=== PATIENT | male | born 1950 | race Caucasian/White ===

== ENCOUNTER 2020-04-14 07:52 | Outpatient (REF) | payer MEDICARE, SELFPAY ==
--- NOTE | ~2020-04-14 | XR_ITS ---
EXAMINATION: BILATERAL HIPS. CLINICAL INFORMATION: Bilateral hip pain. COMPARISON: None TECHNIQUE: 2 views each hip. FINDINGS: RIGHT HIP: There is a maintained right hip joint space without bony erosive changes or loose bodies. The soft tissues are normal. LEFT HIP: There is no visible acute fracture, dislocation or subluxation seen. No bony erosive changes. The soft tissues are normal. XR/XR hip RT min 2V IMPRESSION: Unremarkable bilateral hip exam.
--- NOTE | ~2020-04-14 | XR_ITS ---
EXAMINATION: BILATERAL HIPS. CLINICAL INFORMATION: Bilateral hip pain. COMPARISON: None TECHNIQUE: 2 views each hip. FINDINGS: RIGHT HIP: There is a maintained right hip joint space without bony erosive changes or loose bodies. The soft tissues are normal. LEFT HIP: There is no visible acute fracture, dislocation or subluxation seen. No bony erosive changes. The soft tissues are normal. XR/XR hip LT min 2V IMPRESSION: Unremarkable bilateral hip exam.
[2020-04-14 08:32] LABS: MANUAL DIFF FLAG NO
[2020-04-14 08:36] LABS: Basophils Absolute Auto 0.1 X10*3/uL (0.0-0.2); Basophils Percent Auto 0.8 % (0-2); Eosinophils Absolute Auto 0.4 X10*3/uL (0.0-0.4); Hematocrit 46.9 % (42-52); Hemoglobin 16.2 g/dl (14.0-18.0); Imm Gran Abs Auto 0.08 X10*3/uL (0.00-0.03); Lymphocytes Absolute Auto 2.9 X10*3/uL (1.2-4.9); Lymphocytes Percent Auto 34.7 % (20-40); Mean Corpuscular HGB Conc 34.5 g/dl (31.0-36.0); Mean Corpuscular Hemoglobin 31.2 pg (27.0-33.0); Mean Corpuscular Volume 90.2 fL (80-98); Mean Platelet Volume 9.4 fL (9.4-12.4); Monocytes Absolute Auto 0.8 X10*3/uL (0.1-1.2); Monocytes Percent Auto 9.6 % (2-11); Neutrophils Absolute Auto 4.1 X10*3/uL (2.0-8.3); Neutrophils Percent Auto 48.9 % (45-73); Platelet Count 206 X10*3/uL (160-400); Red Cell Distribution Width 12.6 % (11.0-16.0); White Blood Count 8.3 X10*3/uL (4.8-10.8)
[2020-04-14 09:01] LABS: Alanine Aminotransferase 36 U/L (0-40); Albumin Level 4.6 g/dL (3.5-5.0); Alkaline Phosphatase 72 U/L (39-117); Anion Gap 13 (12-20); Aspartate Amino Transferase 34 U/L (5-37); Bilirubin Total 0.6 mg/dL (0.0-1.0); Blood Urea Nitrogen 21 mg/dL (9-16); Calcium 9.5 mg/dL (8.4-10.2); Carbon Dioxide 29 mmol/L (22-29); Chloride 98 mmol/L (96-108); Cholesterol 167 mg/dL; Estimated Glomerular Filt Rate > 60; Glucose Random 163 mg/dL (60-115); HDL Cholesterol 36 mg/dL; LDL Cholesterol Calculated 76 mg/dl; Potassium 3.9 mmol/L (3.3-5.1); Sodium 136 mmol/L (135-145); Total Protein 7.9 g/dL (6.5-8.0); Triglycerides 276 mg/dL
[2020-04-14 09:01] LABS: Creatinine Urine 115.46 mg/dL; Microalbum/Creatinine Ratio Ur 13.8 ug/mg cr
[2020-04-14 09:23] LABS: Free T4 (Free Thyroxine) 0.93 ng/dL (0.71-1.85); Thyroid Stimulating Hormone 2.17 uIU/mL (0.32-4.0)
[2020-04-14 09:44] LABS: Folate 4.8 ng/mL (> or = 4.0); Vitamin B12 397 pg/mL (200-900)
== END 2020-04-14 07:53 | disposition home or self-care (01) ==
LOC: HO.LAB 07:52
PROVIDERS: PCP Internal Medicine; Visit Provider Internal Medicine
DX: M25.551 Pain in right hip (principal); M25.552 Pain in left hip; I10 Essential (primary) hypertension; E11.65 Type 2 diabetes mellitus with hyperglycemia; E78.00 Pure hypercholesterolemia, unspecified; Z12.5 Encounter for screening for malignant neoplasm of prostate; F41.9 Anxiety disorder, unspecified; F32.9 Major depressive disorder, single episode, unspecified
CPT/HCPCS: 36415; 73502; 80053; 80061; 82043; 82607; 82746; 84153; 84439; 84443; 85025

== ENCOUNTER → 2020-04-20 10:39 | Outpatient (BNVA) | payer MEDICARE, SELFPAY | PROVIDERS: PCP Internal Medicine; Visit Provider Internal Medicine | DX: E78.5 Hyperlipidemia, unspecified (principal); E11.9 Type 2 diabetes mellitus without complications; I10 Essential (primary) hypertension | CPT/HCPCS: 82947; 99202 ==

== ENCOUNTER → 2020-07-04 09:16 | Outpatient (BNVA) | payer MEDICARE, SELFPAY | PROVIDERS: PCP Internal Medicine; Visit Provider Dietitian, Registered | DX: E11.9 Type 2 diabetes mellitus without complications (principal) | CPT/HCPCS: 97802 ==

== ENCOUNTER → 2020-07-19 09:17 | Outpatient (BNVA) | payer MEDICARE, SELFPAY | PROVIDERS: PCP Internal Medicine; Visit Provider Internal Medicine | CPT/HCPCS: Q3014 ==

== ENCOUNTER 2020-08-03 07:43 | Outpatient (REF) | payer MEDICARE, SELFPAY ==
[2020-08-03 08:59] LABS: Alanine Aminotransferase 42 U/L (0-40); Albumin Level 4.4 g/dL (3.5-5.0); Alkaline Phosphatase 64 U/L (39-117); Anion Gap 13 (12-20); Aspartate Amino Transferase 35 U/L (5-37); Bilirubin Total 0.2 mg/dL (0.0-1.0); Blood Urea Nitrogen 17 mg/dL (9-16); Calcium 9.5 mg/dL (8.4-10.2); Carbon Dioxide 24 mmol/L (22-29); Chloride 105 mmol/L (96-108); Estimated Glomerular Filt Rate > 60; Glucose Random 137 mg/dL (60-115); Potassium 4.1 mmol/L (3.3-5.1); Sodium 138 mmol/L (135-145); Total Protein 7.4 g/dL (6.5-8.0)
[2020-08-03 09:07] LABS: Creatinine Urine 97.55 mg/dL
== END 2020-08-03 07:44 | disposition home or self-care (01) ==
LOC: HO.LAB 07:43
PROVIDERS: PCP Internal Medicine; Visit Provider Internal Medicine
DX: E55.9 Vitamin D deficiency, unspecified (principal); E11.65 Type 2 diabetes mellitus with hyperglycemia
CPT/HCPCS: 36415; 80053; 82306

== ENCOUNTER → 2020-08-15 08:37 | Outpatient (BNVA) | payer MEDICARE, SELFPAY | PROVIDERS: PCP Internal Medicine; Visit Provider Dietitian, Registered | DX: E11.9 Type 2 diabetes mellitus without complications (principal) | CPT/HCPCS: 97803 ==

== ENCOUNTER → 2020-10-31 08:45 | Outpatient (BNVA) | payer MEDICARE, SELFPAY | PROVIDERS: PCP Internal Medicine; Visit Provider Dietitian, Registered | DX: E11.9 Type 2 diabetes mellitus without complications (principal) | CPT/HCPCS: 97803 ==

== ENCOUNTER → 2021-02-22 13:45 | Outpatient (BNVA) | payer MEDICARE, SELFPAY | PROVIDERS: Visit Provider Internal Medicine | DX: E11.9 Type 2 diabetes mellitus without complications (principal); E78.5 Hyperlipidemia, unspecified; I10 Essential (primary) hypertension | CPT/HCPCS: 82947; 99212 ==

== ENCOUNTER 2021-07-05 07:31 | Outpatient (REF) | payer MEDICARE, SELFPAY ==
[2021-07-05 08:45] LABS: Alanine Aminotransferase 36 U/L (0-40); Albumin Level 4.7 g/dL (3.5-5.0); Alkaline Phosphatase 71 U/L (39-117); Anion Gap 13 (12-20); Aspartate Amino Transferase 33 U/L (5-37); Bilirubin Total 0.5 mg/dL (0.0-1.0); Blood Urea Nitrogen 15 mg/dL (9-16); Calcium 10.2 mg/dL (8.4-10.2); Carbon Dioxide 28 mmol/L (22-29); Chloride 101 mmol/L (96-108); Cholesterol 174 mg/dL; Estimated Glomerular Filt Rate > 60; Glucose Random 132 mg/dL (60-115); HDL Cholesterol 40 mg/dL; LDL Cholesterol Calculated 82 mg/dl; Sodium 138 mmol/L (135-145); Total Protein 7.8 g/dL (6.5-8.0); Triglycerides 260 mg/dL
[2021-07-05 09:14] LABS: Estimated Average Glucose 143 mg/dL; Hemoglobin A1c % 6.6 %
[2021-07-07 09:27] LABS: LDL Cholesterol Direct 99 mg/dL (<100)
== END 2021-07-05 07:32 | disposition home or self-care (01) ==
LOC: HO.LAB 07:31
PROVIDERS: PCP Internal Medicine; Visit Provider Internal Medicine
DX: E11.65 Type 2 diabetes mellitus with hyperglycemia (principal); Z79.4 Long term (current) use of insulin
CPT/HCPCS: 36415; 80053; 80061; 83036; 83721

== ENCOUNTER 2021-07-09 09:02 | Inpatient (IN) | payer MEDICARE, SELFPAY ==
[2021-07-09] VITALS (7 sets, daily range): BP systolic 124–152; BP diastolic 68–78; PULSE 94–120; RESP 15–20; TEMP 36.6–38.3; O2SAT 88–98; BMI 35.2
--- NOTE | ~2021-07-09 | XR_ITS ---
EXAMINATION: XR CHEST CLINICAL INFORMATION: Shortness of breath. COMPARISON: Chest done on 03/12/2019. TECHNIQUE: 2 views of the chest were obtained. FINDINGS: Prominent bronchovascular markings are present bilaterally, similar to prior study. The cardiac mediastinal silhouette is borderline enlarged, similar to prior study. No evidence of any new focal airspace disease to suspect pneumonia or pulmonary edema. There is no pleural effusion or pneumothorax. Postsurgical changes are noted within the lower cervical spine, unchanged. Increased midthoracic kyphosis and mild multilevel degenerative spondylosis appear stable. XR/XR chest 2V IMPRESSION: No radiographic evidence of acute cardiopulmonary disease, appears similar to prior study dated 03/12/2019.
[2021-07-09 10:13] LABS: COVID-19 Test Negative (Negative)
--- NOTE | 2021-07-09 10:14 | ED.URI ---
HPI - URI/Sore Throat General Chief Complaint: Upper Respiratory Symptoms Stated Complaint: FEVER,COUGH,? COVID/FLU,FULL VACC W/BOOSTER Time Seen by Provider: 07/09/21 09:11 Source: patient Mode of arrival: EMS Limitations: no limitations History of Present Illness HPI Narrative: Patient presents to the emergency department via EMS for evaluation of cough and shortness of breath. He reports he has been feeling this way for 3 days. His been having similar symptoms and tested positive for influenza a yesterday. He states that his fever today was as high as 105. He took Tylenol at 07:00. Reports a history of ?chronic pneumonia?. Denies headache, vision changes, neck pain, chest pain, palpitations, nausea, vomiting abdominal pain, dysuria, urinary frequency, constipation, diarrhea, weakness of the lower extremities pedal edema. He is feeling fatigued today but was able to walk and get about in his house. Related Data Home Medications Medication Instructions Recorded Confirmed pen needle, diabetic 31 gauge x #50 ea 05/03/20 04/02/2105/23 (BD Ultra-Fine Mini Pen Needle) Glucotrust 1 cap PO DAILY 07/09/21 07/09/21 fluticasone propionate 50 2 spray INTRANASAL BEDTIME 07/09/21 07/09/21 mcg/actuation nasal spray,suspension ibuprofen 800 mg tablet 800 mg PO TID 07/09/21 07/09/21 insulin aspart U-100 100 unit/mL See Protocol SUBCUT TIDAC 07/09/21 07/09/21 (3 mL) subcutaneous pen (Novolog Flexpen U-100 Insulin aspart) insulin degludec 100 unit/mL (3 50 unit SUBCUT BEDTIME 07/09/21 07/09/21 mL) subcutaneous pen (Tresiba FlexTouch U-100 insulin) liraglutide 0.6 mg/0.1 mL (18 mg/3 1.8 mg SUBCUT DAILY 07/09/21 07/09/21 mL) subcutaneous pen injector (Victoza 3-Christian) lorazepam 1 mg tablet 1 mg PO BEDTIME PRN 07/09/21 07/09/21 Previous Rx's Medication Instructions Recorded pen needle, diabetic 31 gauge x 1 ea SUBCUT QID 90 Days #360 ea 06/19/2005/23 (BD Ultra-Fine Mini Pen Needle) insulin syringe-needle U-100 1 mL #100 ea 06/21/20 25 gauge x 5/8 (BD Insulin Syringe) trazodone 150 mg tablet 150 mg PO BEDTIME #90 tab 07/04/20 pen needle, diabetic 32 gauge x #100 ea 07/19/20 1/4 (BD Ultra-Fine Micro Pen Needle) blood sugar diagnostic (FreeStyle #100 ea 11/01/20 Lite Strips) blood-glucose meter (FreeStyle #1 ea 11/01/20 Lite Meter) lisinopril 20 mg tablet 20 mg PO DAILY #90 tab 02/05/21 glucose 4 gram chewable tablet 4 g PO Q15M PRN #30 tab 03/30/21 (Dex4 Glucose) omeprazole 20 mg capsule,delayed 20 mg PO DAILY PRN 90 Days #90 cap 03/30/21 release rosuvastatin 40 mg tablet 40 mg PO DAILY #90 tab 03/30/21 empagliflozin 25 mg tablet 25 mg PO DAILY 30 Days #30 tab 04/04/21 (Jardiance) triamcinolone acetonide 0.5 % 1 appl TOPICAL BID #60 g 05/16/21 topical cream Allergies Allergy/AdvReac Type Severity Reaction Status Date / Time metformin Allergy Unknown Unknown Verified 04/02/21 07:58 Clindamycin HCl Allergy Unknown rash Uncoded 04/02/21 07:58 Review of Systems Review of Systems: Constitutional : Positive Fever, No Chills ENT/Mouth : No sore throat, No Rhinorrhea, No Swallowing Difficulty Eyes: No Eye Pain, No Swelling, No Redness Cardiovascular : No Chest Pain, positive SOB, No Orthopnea, now Edema Respiratory : Positive Cough, No Sputum, No Wheezing, positive dyspnea Gastrointestinal : No Nausea, No Vomiting, No Diarrhea, No abdominal Pain, No Hematochezia, No Melena Genitourinary : No Dysuria, No Urinary Frequency, No Hematuria Musculoskeletal : No joint pain, No Myalgias Skin : No Skin Lesions, No rash Neuro : No Weakness, No Numbness, No Dizziness, No Headache Psych : No Anxiety/Panic, No Depression Heme/Lymph: No Bruising, No Lymphadenopathy Endocrine : No Polyuria, No Polydipsia Yes all other systems are reviewed and are negative [facility] Past Medical History Attestation statement: The following information was validated with the patient. Source: old records reviewed Medical History Colon cancer GERD (gastroesophageal reflux disease) Hypercholesterolemia Hypertension Insomnia Narcolepsy Obesity Obstructive sleep apnea Osteomyelitis of cervical spine Postlaminectomy syndrome of cervical region Type 2 diabetes mellitus with hyperglycemia Vitamin D deficiency Surgical History History of colonoscopy History of spinal surgery Family History Family History Father Colon cancer Diabetes Hypertension Mother Paget's disease Diabetes Social History Social History Housing: House Alcohol intake: former Patient Tobacco Use Status: Former Tobacco user Cigarette Packs Per Day: 3 Years Smoked: 20 e-Cigarette/Vaping Use: Never Used Second Hand Smoke Exposure: No Advance Directives: No Advance Directives Information Provided: No Current occupational status: retired Physical Exam Vital Signs: Vital Signs: Last Vital Signs Temp 100.4 F 07/09/21 14:06 Pulse 109 H 07/09/21 14:06 Resp 18 07/09/21 14:06 BP 129/72 07/09/21 14:06 Pulse Ox 88 L 07/09/21 14:06 BMI result Body Mass Index 35.2 Vital signs have been reviewed and appeared to be correct. Blood pressure normal.? Tachycardia? tachypnea, RR 24 at time of exam. Febrile? Oxygen saturation normal. Appearance: Alert.?Oriented to person, place and time. No acute distress.?Normal affect. Eyes: Pupils equal, round and reactive to light.? ENT: Pharynx normal.?? Neck: Normal inspection.? Neck supple.?? CVS: Heart sounds normal. Tachycardia.? Pulses normal.?? Respiratory: Mild increased work of breathing.? Lung sounds diminished bilaterally. No wheezing. Abdomen: Soft and non-tender. Normoactive bowel sounds. ? Skin: Skin warm and dry.? Normal skin color.? ? Extremities: No lower extremity edema.? No calf ttp? Neuro: Moves all extremities spontaneously. Sensation intact bilaterally. CN II-XII intact. No focal neuro deficits. Ambulates with normal steady gait. Course Course Course Narrative: Patient is a 70-year-old male with a past medical history of colon cancer, GERD, hyperlipidemia, hypertension, narcolepsy, obstructive sleep apnea, type 2 diabetes presenting to the emergency department for evaluation of cough shortness of breath and suspicion for influenza infection. He has had symptoms for 3 days which are progressively worsening and is concerned that he may have developed pneumonia as this has occurred in the past. During my exam his O2 saturation remained at 99% room air while at rest, with exertion, moving in the stretcher, dropped to as low as 94%. He was tachypneic with respiratory rate of 24, febrile at 100.9, and tachycardic at 01:12 but I suspect that this is secondary to a viral infection, given his exposure to influenza. Do not suspect bacterial infection at this time. Will obtain CBC, BMP, COVID-19 and influenza testing, and chest x-ray to evaluate for consolidation/infiltrate, EKG and troponin, and Duonep updraft. Patient received Tylenol less than 3 hours prior to arrival, fever seems to be resolving, will continue to monitor. Patient will require ambulation O2 trial to assure maintenance of O2 saturation on exertion Reevaluation(s) Reevaluation #1: CBC is overall unremarkable. Troponin normal, EKG sinus tachycardia, ST depression in V4 and V5 T-wave inversion in III. no prior EKG available for review. Influenza A testing is positive. Chest x-ray with no acute cardiopulmonary disease. CMP undermarkable. Ambulatory O2 trial reveals an oxygen saturation remaining above 94%, heart rate up to 120's however, slow with unsteady gait. Time: 12:16 Reevaluation #2: Repeat troponin 7.2, therefore negative delta. While resting in room patient's O2 saturation dropped to as low as 88%, and 2 L via nasal cannula applied, with improvement up to 94. Significant weakness, difficulty getting OOB on his own. Spoke with Hospitalist Dr. Main, who accepts patient for admission to medicine service. Patient updated on plan of care and is agreeable for admission. Time: 14:20 MDM - URI/Sore Throat Medical Records Attestation: I reviewed the patient's medical records. Lab Data Attestation: I reviewed the patient's lab results. Result diagrams: 07/09/21 10:15 07/09/21 13:00 Labs: Lab Results 07/09/21 07/09/21 07/09/21 Range/Units 09:44 09:44 10:15 WBC 7.2 (4.8-10.8) X10*3/uL RBC 4.87 (4.60-5.80) X10*6/uL Hgb 15.0 (14.0-18.0) g/dl Hct 44.6 (42.0-52.0) % MCV 91.6 (80.0-98.0) fL MCH 30.8 (27.0-33.0) pg MCHC 33.6 (31.0-36.0) g/dl RDW 13.4 (11.0-16.0) % Plt Count 136 L (160-400) X10*3/uL MPV 9.2 L (9.4-12.4) fL Immature Gran % (Auto) 0.4 (0.0-0.4) % Neut % (Auto) 83.1 H (45-73) % Lymph % (Auto) 5.3 L (20-40) % [place] % (Auto) 9.6 (2-11) % Eos % (Auto) 1.3 (0-4) % Baso % (Auto) 0.3 (0-2) % Lymph # (Auto) 0.4 L (1.2-4.9) X10*3/uL [place] # (Auto) 0.7 (0.1-1.2) X10*3/uL Eos # (Auto) 0.1 (0.0-0.4) X10*3/uL Baso # (Auto) 0.0 (0.0-0.2) X10*3/uL Abs Immat Gran (auto) 0.03 (0.00-0.03) X10*3/uL Absolute Neuts (auto) 6.0 (2.0-8.3) x10*3/uL Absolute Nucleated RBC 0.000 (0.0-0.012) X10*3/uL Nucleated RBC % (auto) 0.0 (0.0-0.2) /100WBC Sodium (135-145) mmol/L Potassium (3.3-5.1) mmol/L Chloride (96-108) mmol/L Carbon Dioxide (22-29) mmol/L Anion Gap (12-20) BUN (9-16) mg/dL Creatinine (0.5-1.4) mg/dL Estim Creat Clear Calc Estimated GFR Random Glucose (60-115) mg/dL Calcium (8.4-10.2) mg/dL Total Bilirubin (0.0-1.0) mg/dL AST (5-37) U/L ALT (0-40) U/L Alkaline Phosphatase (39-117) U/L Total Creatine Kinase (38-174) U/L Troponin I High Sens (<3.5-35.0) ng/L Total Protein (6.5-8.0) g/dL Albumin (3.5-5.0) g/dL Procalcitonin ng/mL COVID-19 (JENNIFER) Negative (Negative) COVID-19 Clin Com See Note Influenza Type A (FLORINDA) Positive A (Negative) Influenza Type B (FLORINDA) Negative (Negative) Influenza A & B Note See Note 07/09/21 07/09/21 07/09/21 Range/Units 10:15 13:00 13:00 WBC (4.8-10.8) X10*3/uL RBC (4.60-5.80) X10*6/uL Hgb (14.0-18.0) g/dl Hct (42.0-52.0) % MCV (80.0-98.0) fL MCH (27.0-33.0) pg MCHC (31.0-36.0) g/dl RDW (11.0-16.0) % Plt Count (160-400) X10*3/uL MPV (9.4-12.4) fL Immature Gran % (Auto) (0.0-0.4) % Neut % (Auto) (45-73) % Lymph % (Auto) (20-40) % [place] % (Auto) (2-11) % Eos % (Auto) (0-4) % Baso % (Auto) (0-2) % Lymph # (Auto) (1.2-4.9) X10*3/uL [place] # (Auto) (0.1-1.2) X10*3/uL Eos # (Auto) (0.0-0.4) X10*3/uL Baso # (Auto) (0.0-0.2) X10*3/uL Abs Immat Gran (auto) (0.00-0.03) X10*3/uL Absolute Neuts (auto) (2.0-8.3) x10*3/uL Absolute Nucleated RBC (0.0-0.012) X10*3/uL Nucleated RBC % (auto) (0.0-0.2) /100WBC Sodium 139 (135-145) mmol/L Potassium 4.0 (3.3-5.1) mmol/L Chloride 106 (96-108) mmol/L Carbon Dioxide 24 (22-29) mmol/L Anion Gap 13 (12-20) BUN 11 (9-16) mg/dL Creatinine 0.93 (0.5-1.4) mg/dL Estim Creat Clear Calc 86.5 Estimated GFR > 60 Random Glucose 150 H (60-115) mg/dL Calcium 9.4 D (8.4-10.2) mg/dL Total Bilirubin 0.7 (0.0-1.0) mg/dL AST 43 H (5-37) U/L ALT 40 (0-40) U/L Alkaline Phosphatase 73 (39-117) U/L Total Creatine Kinase 736 H (38-174) U/L Troponin I High Sens 7.6 7.2 (<3.5-35.0) ng/L Total Protein 7.6 (6.5-8.0) g/dL Albumin 4.3 (3.5-5.0) g/dL Procalcitonin ng/mL COVID-19 (JENNIFER) (Negative) COVID-19 Clin Com Influenza Type A (FLORINDA) (Negative) Influenza Type B (FLORINDA) (Negative) Influenza A & B Note 07/09/21 Range/Units 13:00 WBC (4.8-10.8) X10*3/uL RBC (4.60-5.80) X10*6/uL Hgb (14.0-18.0) g/dl Hct (42.0-52.0) % MCV (80.0-98.0) fL MCH (27.0-33.0) pg MCHC (31.0-36.0) g/dl RDW (11.0-16.0) % Plt Count (160-400) X10*3/uL MPV (9.4-12.4) fL Immature Gran % (Auto) (0.0-0.4) % Neut % (Auto) (45-73) % Lymph % (Auto) (20-40) % [place] % (Auto) (2-11) % Eos % (Auto) (0-4) % Baso % (Auto) (0-2) % Lymph # (Auto) (1.2-4.9) X10*3/uL [place] # (Auto) (0.1-1.2) X10*3/uL Eos # (Auto) (0.0-0.4) X10*3/uL Baso # (Auto) (0.0-0.2) X10*3/uL Abs Immat Gran (auto) (0.00-0.03) X10*3/uL Absolute Neuts (auto) (2.0-8.3) x10*3/uL Absolute Nucleated RBC (0.0-0.012) X10*3/uL Nucleated RBC % (auto) (0.0-0.2) /100WBC Sodium (135-145) mmol/L Potassium (3.3-5.1) mmol/L Chloride (96-108) mmol/L Carbon Dioxide (22-29) mmol/L Anion Gap (12-20) BUN (9-16) mg/dL Creatinine (0.5-1.4) mg/dL Estim Creat Clear Calc Estimated GFR Random Glucose (60-115) mg/dL Calcium (8.4-10.2) mg/dL Total Bilirubin (0.0-1.0) mg/dL AST (5-37) U/L ALT (0-40) U/L Alkaline Phosphatase (39-117) U/L Total Creatine Kinase (38-174) U/L Troponin I High Sens (<3.5-35.0) ng/L Total Protein (6.5-8.0) g/dL Albumin (3.5-5.0) g/dL Procalcitonin 0.12 ng/mL COVID-19 (JENNIFER) (Negative) COVID-19 Clin Com Influenza Type A (FLORINDA) (Negative) Influenza Type B (FLORINDA) (Negative) Influenza A & B Note Imaging Data Chest x-ray: Radiologist's impression: XR/XR chest 2V IMPRESSION: No radiographic evidence of acute cardiopulmonary disease, appears similar to prior study dated 03/12/2019. ECG Data Attestation: I personally reviewed and interpreted this ECG as follows: ECG interpretation date: 07/09/21 ECG interpretation time: 12:20 Prior ECG tracings: not available for review Interpretation: Rate: 114 Rhythm:? sinus tachycardia Normal P waves.? Normal TERESO.?? Normal QRS complex.?? ST T wave :?? no ST elevation. ST depression in V4 and V5, T-wave inversion in III qTC: 469 prior studies:? none available for review The study has been interpreted contemporaneously by me. Discharge Plan Discharge Clinical Impression: Influenza A, Hypoxia, Generalized weakness Patient Disposition: Admitted As Inpatient
[2021-07-09] MEDS: Albuterol/Iprat 2.5/0.5MG 3 ML AMPUL.NEB INHALE (10:16)
--- NOTE | 2021-07-09 10:20 | ECG_ITS ---
Test Reason : DYSPNEA Blood Pressure : / mmHG Vent. Rate : 113 BPM Atrial Rate : 113 BPM P-R Int : 154 ms QRS Dur : 076 ms QT Int : 342 ms P-R-T Axes : -34 024 -29 degrees QTc Int : 469 ms Sinus tachycardia Septal infarct , age undetermined Abnormal ECG No previous ECGs available Referred By: Allyson Johnson Electronically Signed By:BETINA WALLS MD
[2021-07-09 10:21] LABS: MANUAL DIFF FLAG NO
[2021-07-09 10:27] LABS: Basophils Percent Auto 0.3 % (0-2); Eosinophils Absolute Auto 0.1 X10*3/uL (0.0-0.4); Eosinophils Percent Auto 1.3 % (0-4); Hematocrit 44.6 % (42.0-52.0); Imm Gran Abs Auto 0.03 X10*3/uL (0.00-0.03); Imm Gran Pct Auto 0.4 % (0.0-0.4); Lymphocytes Absolute Auto 0.4 X10*3/uL (1.2-4.9); Lymphocytes Percent Auto 5.3 % (20-40); Mean Corpuscular HGB Conc 33.6 g/dl (31.0-36.0); Mean Corpuscular Hemoglobin 30.8 pg (27.0-33.0); Mean Corpuscular Volume 91.6 fL (80.0-98.0); Mean Platelet Volume 9.2 fL (9.4-12.4); Monocytes Absolute Auto 0.7 X10*3/uL (0.1-1.2); Monocytes Percent Auto 9.6 % (2-11); Neutrophils Percent Auto 83.1 % (45-73); Platelet Count 136 X10*3/uL (160-400); Red Blood Count 4.87 X10*6/uL (4.60-5.80); Red Cell Distribution Width 13.4 % (11.0-16.0); White Blood Count 7.2 X10*3/uL (4.8-10.8)
[2021-07-09 10:36] LABS: IDNOW Serial# 55D5AD1C
[2021-07-09 10:37] LABS: Influenza A Positive (Negative); Influenza B2 Negative (Negative)
--- NOTE | 2021-07-09 11:02 | PC.NURSE ---
Pt A&Ox3, lungs with crackles in the bases, febril eand ST at this time. Given 975mg of tylenol at 0700 by . is Flu positive. Swabs sent, call negron within reach. Will continue to monitor.
[2021-07-09 11:31] LABS: Troponin-I High Sensitivity 7.6 ng/L (<3.5-35.0)
[2021-07-09 13:22] LABS: Alanine Aminotransferase 40 U/L (0-40); Albumin Level 4.3 g/dL (3.5-5.0); Alkaline Phosphatase 73 U/L (39-117); Anion Gap 13 (12-20); Aspartate Amino Transferase 43 U/L (5-37); Bilirubin Total 0.7 mg/dL (0.0-1.0); Blood Urea Nitrogen 11 mg/dL (9-16); Calcium 9.4 mg/dL (8.4-10.2); Carbon Dioxide 24 mmol/L (22-29); Chloride 106 mmol/L (96-108); Creatinine Clr Calc Pharmacy 86.5; Estimated Glomerular Filt Rate > 60; Glucose Random 150 mg/dL (60-115); Sodium 139 mmol/L (135-145); Total Protein 7.6 g/dL (6.5-8.0)
[2021-07-09 13:28] LABS: Troponin-I High Sensitivity 7.2 ng/L (<3.5-35.0)
--- NOTE | 2021-07-09 14:10 | PC.NURSE ---
Pt O2 sat 88% on room air, provider made aware, placed on 2L NC at this time. Pt offers no complaints. Will continue to monitor.
--- NOTE | 2021-07-09 14:29 | PM.IMHP ---
History of Present Illness Date of Service: 07/09/21 Chief Complaint: fever 70yo M with hx colon CA s/p excision, DM2, HTN, and HLD presenting with 3 days of fever to either 100.5 or 105 [he is unable to clarify which], dry cough, dyspnea, and malaise. His is also ill with similar symptoms and tested positive for influenza A yesterday. He did receive the flu vaccine this past fall. He took APAP at 07:00 this AM. He was brought in by EMS and found to be febrile to 100.9 with tarhycardia [112] and tachypnea [24] and mild hypoxia, SaO2 88. CXR negative for infiltrate. Influenza A is positive. EKG shows sinus tachycardia with lateral ST depressions. High-tensitivity troponin-I flat at 7.6/7.2. Review of Systems Review of Systems: Yes all other systems are reviewed and are negative REPLACED BY [facility] Medical History Colon cancer GERD (gastroesophageal reflux disease) Hypercholesterolemia Hypertension Insomnia Narcolepsy Obesity Obstructive sleep apnea Osteomyelitis of cervical spine Postlaminectomy syndrome of cervical region Type 2 diabetes mellitus with hyperglycemia Vitamin D deficiency Family History Father Colon cancer Diabetes Hypertension Mother Paget's disease Diabetes Surgical History History of colonoscopy History of spinal surgery Social History Household Members: Spouse and Family Housing: House Do you presently have visiting nurse or other home services: No Alcohol intake: former Patient Tobacco Use Status: Former Tobacco user Cigarette Packs Per Day: 3 Years Smoked: 20 e-Cigarette/Vaping Use: Never Used Second Hand Smoke Exposure: No service: No Current occupational status: disabled Meds Allergies Allergy/AdvReac Type Severity Reaction Status Date / Time metformin Allergy Unknown Unknown Verified 04/02/21 07:58 Clindamycin HCl Allergy Unknown rash Uncoded 04/02/21 07:58 Active Medications: Current Medications Dextrose (Dextrose 50 % 25 Gm/50 Ml Syringe) 25 gm IVPUSH Q15M PRN; Protocol PRN Reason: per Hypoglycemia Standing Ord. Glucose (Glucose Gel 15 Gm Gel..Gram.) 15 gm PO Q15M PRN; Protocol PRN Reason: per Hypoglycemia Standing Ord. Guaifenesin/Dextromethorphan (Guaifenesin Dm 100/10/5 Ml 5 Ml Syrup) 5 ml PO Q4H PRN PRN Reason: Cough Insulin Human Lispro (Insulin Lispro 100 Unit/Ml 3 Ml Vial) 0 unit SUBCUT QIDACHS RADHA; Protocol Oseltamivir Phosphate (Oseltamivir Phosphate 75 Mg Capsule) 75 mg PO Q12H RADHA Stop: 07/14/21 02:31 Pharmacy Consult (Consult Rx Perform Med Rec) 1 each MISCELLANE STAT STA Stop: 07/09/21 14:24 Home Medications Medication Instructions Recorded Confirmed Last Taken Type pen needle, diabetic 31 gauge x #50 ea 05/03/20 07/12/21 Unknown History 3/16 (BD Ultra-Fine Mini Pen Needle) Glucotrust 1 cap PO DAILY 07/09/21 07/12/21 07/08/21 History fluticasone propionate 50 2 spray INTRANASAL BEDTIME 07/09/21 07/12/21 07/08/21 History mcg/actuation nasal spray,suspension insulin aspart U-100 100 unit/mL See Protocol SUBCUT TIDAC 07/09/21 07/12/21 07/08/21 History (3 mL) subcutaneous pen (Novolog Flexpen U-100 Insulin aspart) insulin degludec 100 unit/mL (3 50 unit SUBCUT BEDTIME 07/09/21 07/12/21 07/08/21 History mL) subcutaneous pen (Tresiba FlexTouch U-100 insulin) liraglutide 0.6 mg/0.1 mL (18 mg/3 1.8 mg SUBCUT DAILY 07/09/21 07/12/21 07/08/21 History mL) subcutaneous pen injector (Victoza 3-Christian) lorazepam 1 mg tablet 1 mg PO BEDTIME PRN 07/09/21 07/12/21 07/08/21 History Physical Exam Vital Signs and Narrative: Vital Signs: Last Vital Signs Temp 100.4 F 07/09/21 14:06 Pulse 109 H 07/09/21 14:06 Resp 18 07/09/21 14:06 BP 129/72 07/09/21 14:06 Pulse Ox 88 L 07/09/21 14:06 BMI result Body Mass Index 35.2 Gen: ill-appering HEENT: sclera anicteric, moist mucus membranes Neck: supple Lungs: clear to auscultation bilaterally Heart: tachycardic, no murmurs Abd: soft, obese, non-tender, non-distended Ext: no edema Skin: warm/well-perfused Neuro: alert and oriented x3, no focal findings Psych: appropriate affect Results Labs CBC and Chem 7: 07/10/21 06:46 07/10/21 06:46 Labs: Laboratory Results - last 24 hr 07/09/21 07/09/21 07/09/21 09:44 09:44 10:15 MCV 91.6 MCH 30.8 MCHC 33.6 RDW 13.4 Plt Count 136 L MPV 9.2 L Immature Gran % (Auto) 0.4 Neut % (Auto) 83.1 H Lymph % (Auto) 5.3 L [place] % (Auto) 9.6 Eos % (Auto) 1.3 Baso % (Auto) 0.3 Lymph # (Auto) 0.4 L [place] # (Auto) 0.7 Eos # (Auto) 0.1 Baso # (Auto) 0.0 Abs Immat Gran (auto) 0.03 Absolute Neuts (auto) 6.0 Absolute Nucleated RBC 0.000 Nucleated RBC % (auto) 0.0 Anion Gap Estim Creat Clear Calc Estimated GFR Random Glucose Calcium Total Bilirubin AST ALT Alkaline Phosphatase Troponin I High Sens Total Protein Albumin COVID-19 (JENNIFER) Negative COVID-19 Clin Com See Note Influenza Type A (FLORINDA) Positive A Influenza Type B (FLORINDA) Negative Influenza A & B Note See Note 07/09/21 07/09/21 07/09/21 10:15 13:00 13:00 MCV MCH MCHC RDW Plt Count MPV Immature Gran % (Auto) Neut % (Auto) Lymph % (Auto) [place] % (Auto) Eos % (Auto) Baso % (Auto) Lymph # (Auto) [place] # (Auto) Eos # (Auto) Baso # (Auto) Abs Immat Gran (auto) Absolute Neuts (auto) Absolute Nucleated RBC Nucleated RBC % (auto) Anion Gap 13 Estim Creat Clear Calc 86.5 Estimated GFR > 60 Random Glucose 150 H Calcium 9.4 D Total Bilirubin 0.7 AST 43 H ALT 40 Alkaline Phosphatase 73 Troponin I High Sens 7.6 7.2 Total Protein 7.6 Albumin 4.3 COVID-19 (JENNIFER) COVID-19 Clin Com Influenza Type A (FLORINDA) Influenza Type B (FLORINDA) Influenza A & B Note Imaging Radiologist's Impressions: Impressions Chest X-Ray 07/09/21 10:10 IMPRESSION: No radiographic evidence of acute cardiopulmonary disease, appears similar to prior study dated 03/12/2019. Assessment and Plan (1) Influenza A: Status: Acute (2) Hypoxia: Status: Resolved Plan 70yo M with hx colon CA, DM2, HTN, and HLD presenting with fever, cough, dypsnea, and hypoxia from influenza A infection # acute hypoxic respiratory failure - admit to M/S, supplemental O2, wean as tolerated # viral sepsis due to influenza A - oseltamivir x5d, droplet precautions, watch for bacterial superinfection- check PCT + BCx # HTN - continue lisionpril # HLD - continue statin # DM2 - well-controlled with A1c of 5.9 at office visit 03/30/21. give basal/bolus insulin. hold OHGs # GERD - continue PPI # mood disorder - continue lorazepam, trazodone, duloxetine # VTE ppx - SCDs, LMWH Quality Stroke Does the patient have a stroke diagnosis?: No VTE Prior VTE?: No VTE Risk Level:: Medical - moderate - high VTE Device Contraindication: N/A - Device Ordered VTE Drug Contraindication: N/A - Med Ordered
[2021-07-09 15:00] LABS: Procalcitonin 0.12 ng/mL
--- NOTE | 2021-07-09 15:35 | PHA.MEDREC ---
Pharmacy Consult ? Medication Reconciliation Pharmacy has completed the medication reconciliation. Spoke with patient in the ED. Pt no longer takes duloxetine due to side effects. He did not take any medications today
[2021-07-09] MEDS: Enoxaparin Sodium 40 MG/0.4 ML SYRINGE SUBCUT (16:32)
[2021-07-09] MEDS: Lactated Ringers 1,000 ML 80 ML IVCONT (16:32)
[2021-07-09] MEDS: Oseltamivir Phosphate 75 MG CAPSULE PO (16:32)
[2021-07-09] MEDS: 0.9 % Sodium Chloride Flush 3 ML SYRINGE IVFLUSH (16:32)
[2021-07-09 16:52] LABS: Glucose, Whole Blood 133 mg/dL (60-115)
[2021-07-09 21:32] LABS: Glucose, Whole Blood 140 mg/dL (60-115)
[2021-07-09] MEDS: traZODone HCL 50 MG TABLET 150 MG PO (23:04)
[2021-07-09] MEDS: LORazepam 1 MG TABLET PO (23:04)
[2021-07-10] MEDS: Oseltamivir Phosphate 75 MG CAPSULE PO ×2 (03:15→15:13)
[2021-07-10] MEDS: Lactated Ringers 1,000 ML 80 ML IVCONT ×2 (03:15→15:14)
[2021-07-10 03:40] VITALS: BP 121/68; PULSE 94; RESP 20; TEMP 37.1; O2SAT 95
[2021-07-10 07:18] LABS: Hemoglobin 15.1 g/dl (14.0-18.0); Mean Corpuscular HGB Conc 34.3 g/dl (31.0-36.0); Mean Corpuscular Hemoglobin 31.3 pg (27.0-33.0); Mean Corpuscular Volume 91.1 fL (80.0-98.0); Mean Platelet Volume 9.4 fL (9.4-12.4); Platelet Count 143 X10*3/uL (160-400); Red Blood Count 4.83 X10*6/uL (4.60-5.80); Red Cell Distribution Width 13.6 % (11.0-16.0)
[2021-07-10 07:33] LABS: Glucose, Whole Blood 129 mg/dL (60-115)
[2021-07-10 07:34] LABS: Anion Gap 15 (12-20); Blood Urea Nitrogen 14 mg/dL (9-16); Carbon Dioxide 23 mmol/L (22-29); Chloride 102 mmol/L (96-108); Creatinine Clr Calc Pharmacy 103.1; Estimated Glomerular Filt Rate > 60; Glucose Random 124 mg/dL (60-115); Potassium 3.6 mmol/L (3.3-5.1); Sodium 136 mmol/L (135-145)
[2021-07-10 07:41] VITALS: BP 119/76; PULSE 84; RESP 19; TEMP 37.4; O2SAT 96
[2021-07-10] MEDS: 0.9 % Sodium Chloride Flush 3 ML SYRINGE IVFLUSH ×3 (08:07→20:29)
[2021-07-10] MEDS: Acetaminophen 325 MG TABLET 650 MG PO ×2 (08:07→15:13)
--- NOTE | 2021-07-10 08:43 | MHC.CM.PN ---
CM met with Patient at bedside and addressed IMM with him, providing him with the original and placing a copy on the chart. Patient lives in a house with his /HCP/Itzel, Son, Daughter and 2 Grandsons and he required no services nor DME [employer]. Home/no services is the goal and CM has initiated and will follow for dc planning. Patient has received Pfizer vax X3 and his PCP is Dr. Soto Santos.
[2021-07-10] MEDS: Loperamide HCl 2 MG CAPSULE 4 MG PO (10:43)
[2021-07-10 11:05] LABS: Glucose, Whole Blood 150 mg/dL (60-115)
[2021-07-10 11:16] VITALS: BP 132/78; PULSE 76; RESP 25; TEMP 35.7; O2SAT 97
--- NOTE | 2021-07-10 12:37 | P.PNIM_ITS ---
Subjective Subjective Date of Service: 07/10/21 Interval History: Complaining of profuse diarrhea, denies blood or dark colored stools, complaining of mild abdominal discomfort no fever chills, denies nausea, no vomiting, unable to hold stools, tolerating diet. 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 Review of Systems: Yes all other systems are reviewed and are negative Physical Exam Vital Signs: Vital Signs: Last Vital Signs Temp 96.3 F L 07/10/21 11:16 Pulse 76 07/10/21 11:16 Resp 25 H 07/10/21 11:16 BP 132/78 07/10/21 11:16 Pulse Ox 97 07/10/21 11:16 BMI result Body Mass Index 35.2 Const: Other: Gen: Awake alert, ill-appering HEENT: sclera anicteric, moist mucus membranes Neck: supple, no JVD Lungs: clear to auscultation bilaterally Heart: Regular,no murmurs Abd: soft, obese, mild lower abdominal tenderness with deep palpation, no guarding no rigidity, nondistended Ext: no edema Skin: warm/well-perfused Neuro: alert and oriented x3, no focal findings Psych: appropriate affect ? Objective Data Active Medications Acetaminophen (Acetaminophen 325 Mg Tablet) 650 mg PO Q6H PRN PRN Reason: Pain, Mild (Pain Scale 1-3) Last Admin: 07/10/21 08:07 Dose: 650 mg Documented by: DEMARCO Dextrose (Dextrose 50 % 25 Gm/50 Ml Syringe) 25 gm IVPUSH Q15M PRN; Protocol PRN Reason: per Hypoglycemia Standing Ord. Enoxaparin Sodium (Enoxaparin Sodium 40 Mg/0.4 Ml Syringe) 40 mg SUBCUT Q24H [facility] Last Admin: 07/09/21 16:32 Dose: 40 mg Documented by: TOD Glucose (Glucose Gel 15 Gm Gel..Gram.) 15 gm PO Q15M PRN; Protocol PRN Reason: per Hypoglycemia Standing Ord. Guaifenesin/Dextromethorphan (Guaifenesin Dm 100/10/5 Ml 5 Ml Syrup) 5 ml PO Q4H PRN PRN Reason: Cough Lactated Ringer's (Lr) 1,000 mls @ 80 mls/hr IVCONT .[id number] [facility] Last Admin: 07/10/21 03:15 Dose: 80 mls/hr Documented by: ROB Insulin Human Lispro (Insulin Lispro 100 Unit/Ml 3 Ml Vial) 0 unit SUBCUT [facility]; Protocol Last Admin: 07/10/21 12:05 Dose: Not Given Documented by: DEMARCO Non-Admin Reason: No Insulin Coverage Lorazepam (Lorazepam 1 Mg Tablet) 1 mg PO BEDTIME PRN PRN Reason: Anxiety Last Admin: 07/09/21 23:04 Dose: 1 mg Documented by: ROB Ondansetron HCl (Ondansetron Hcl 4 Mg/2 Ml Vial) 4 mg IVPUSH Q8H PRN PRN Reason: Nausea and Vomiting Oseltamivir Phosphate (Oseltamivir Phosphate 75 Mg Capsule) 75 mg PO Q12H [facility] Stop: 07/14/21 02:31 Last Admin: 07/10/21 03:15 Dose: 75 mg Documented by: ROB Sodium Chloride (0.9 % Sodium Chloride Flush 3 Ml Syringe) 3 ml IVFLUSH QSHIFT [facility] Last Admin: 07/10/21 08:07 Dose: 3 ml Documented by: DEMARCO Trazodone HCl (Trazodone Hcl 50 Mg Tablet) 150 mg PO BEDTIME [facility] Last Admin: 07/09/21 23:04 Dose: 150 mg Documented by: ROB Comments: bria Dodson ok to give now Labs CBC & Chem 7: 07/10/21 06:46 07/10/21 06:46 Labs: Laboratory Results - last 24 hr 07/09/21 07/09/21 07/09/21 13:00 13:00 13:00 MCV MCH MCHC RDW Plt Count MPV Absolute Nucleated RBC Nucleated RBC % (auto) Anion Gap 13 Estim Creat Clear Calc 86.5 Estimated GFR > 60 POC Glucose Random Glucose 150 H Calcium 9.4 D Total Bilirubin 0.7 AST 43 H ALT 40 Alkaline Phosphatase 73 Total Creatine Kinase 736 H Troponin I High Sens 7.2 Total Protein 7.6 Albumin 4.3 Procalcitonin 0.12 07/09/21 07/09/21 07/10/21 16:40 21:27 06:46 MCV 91.1 MCH 31.3 MCHC 34.3 RDW 13.6 Plt Count 143 L MPV 9.4 Absolute Nucleated RBC 0.000 Nucleated RBC % (auto) 0.0 Anion Gap Estim Creat Clear Calc Estimated GFR POC Glucose 133 H 140 H Random Glucose Calcium Total Bilirubin AST ALT Alkaline Phosphatase Total Creatine Kinase Troponin I High Sens Total Protein Albumin Procalcitonin 07/10/21 07/10/21 07/10/21 06:46 07:27 10:54 MCV MCH MCHC RDW Plt Count MPV Absolute Nucleated RBC Nucleated RBC % (auto) Anion Gap 15 Estim Creat Clear Calc 103.1 Estimated GFR > 60 POC Glucose 129 H 150 H Random Glucose 124 H Calcium 9.0 Total Bilirubin AST ALT Alkaline Phosphatase Total Creatine Kinase Troponin I High Sens Total Protein Albumin Procalcitonin Assessment and Plan (1) Influenza A: Status: Acute (2) Hypoxia: Status: Acute (3) Generalized weakness: Status: Acute (4) Obesity: Status: Acute (5) Hypertension: Status: Acute (6) Hypercholesterolemia: Status: Acute Plan 70yo M with hx colon CA, DM2, HTN, and HLD presenting with fever, cough, dypsnea, and hypoxia from influenza A infection # acute hypoxic respiratory failure - not on home oxygen currently on 2 L finger oximetry 97% will wean oxygen as tolerated # viral sepsis due to influenza A tachycardia and fever improved, mild tachypnea - oseltamivir x5d, droplet precautions, watch for bacterial superinfection- PCT 0.12 , blood cultures x2 pending # profuse diarrhea will check stool for culture and for C diff, question related to Tamiflu , continue supportive care, Imodium as needed # HTN - continue lisionpril, BP stable # HLD - continue statin # DM2 - well-controlled with A1c of 5.9 at office visit 03/30/21.? give basal/bolus insulin, continue to hold oral hypoglycemics # GERD - continue PPI # mood disorder - continue lorazepam, trazodone, duloxetine # mild thrombocytopenia question related to viral infection, follow CBC # obesity will recommend low-calorie diet # VTE ppx - SCDs, LMWH Quality Stroke Does the patient have a stroke diagnosis?: No VTE Prior VTE?: No VTE Risk Level:: Medical - moderate - high VTE Device Contraindication: N/A - Device Ordered VTE Drug Contraindication: N/A - Med Ordered
[2021-07-10] MEDS: Enoxaparin Sodium 40 MG/0.4 ML SYRINGE SUBCUT (15:13)
[2021-07-10 15:30] VITALS: BP 126/69; PULSE 83; RESP 18; TEMP 37.1; O2SAT 98
[2021-07-10 15:37] LABS: Glucose, Whole Blood 153 mg/dL (60-115)
[2021-07-10] MEDS: Insulin Lispro 100 UNIT/ML 3 ML VIAL SUBCUT (16:41)
[2021-07-10 19:20] VITALS: BP 132/72; PULSE 87; RESP 18; TEMP 36.7; O2SAT 95
[2021-07-10 20:04] LABS: Glucose, Whole Blood 124 mg/dL (60-115)
[2021-07-10] MEDS: traZODone HCL 50 MG TABLET 150 MG PO (20:29)
[2021-07-10] MEDS: LORazepam 1 MG TABLET PO (20:32)
[2021-07-10 23:47] VITALS: BP 148/76; PULSE 68; RESP 18; TEMP 36.6; O2SAT 96
[2021-07-11] MEDS: Oseltamivir Phosphate 75 MG CAPSULE PO (03:18)
[2021-07-11] MEDS: Acetaminophen 325 MG TABLET 650 MG PO (03:18)
[2021-07-11] MEDS: Lactated Ringers 1,000 ML 80 ML IVCONT (03:19)
[2021-07-11 04:02] VITALS: BP 125/68; PULSE 90; RESP 20; TEMP 37.2; O2SAT 95
[2021-07-11 07:35] VITALS: BP 118/67; PULSE 73; RESP 18; TEMP 37; O2SAT 95
[2021-07-11 07:49] LABS: Glucose, Whole Blood 133 mg/dL (60-115)
[2021-07-11] MEDS: 0.9 % Sodium Chloride Flush 3 ML SYRINGE IVFLUSH (08:58)
[2021-07-11 10:55] LABS: CDiff Gene PCR NEGATIVE (Negative)
[2021-07-11 11:20] VITALS: BP 126/71; PULSE 77; RESP 20; TEMP 36.9; O2SAT 93
[2021-07-11 11:20] LABS: Glucose, Whole Blood 141 mg/dL (60-115)
--- NOTE | 2021-07-11 11:55 | MHC.CM.PN ---
Patient has been medically cleared for dc to home today, no services. Last IMM addressed on 07/10/21.
--- NOTE | 2021-07-12 16:44 | PM.DS ---
DS: Providers Provider Date of Service: 07/11/21 Date of admission: 07/09/21 14:59 Primary care physician: Soto Santos MD DS: Diagnosis Discharge Diagnosis (1) Influenza A: Status: Acute (2) Hypoxia: Status: Acute (3) Generalized weakness: Status: Acute (4) Obesity: Status: Acute (5) Hypertension: Status: Acute (6) Hypercholesterolemia: Status: Acute DS: Summary Hospital Course Hospital Course: History of presenting illness Date of Service: 07/09/21 Chief Complaint: fever 70yo M with hx colon CA s/p excision, DM2, HTN, and HLD presenting with 3 days of fever to either 100.5 or 105 [he is unable to clarify which], dry cough, dyspnea, and malaise.? His is also ill with similar symptoms and tested positive for influenza A yesterday.? He did receive the flu vaccine this past fall.? He took APAP at 07:00 this AM.? He was brought in by EMS and found to be febrile to 100.9 with tarhycardia [112] and tachypnea [24] and mild hypoxia, SaO2 88.? CXR negative for infiltrate.? Influenza A is positive.? EKG shows sinus tachycardia with lateral ST depressions.? High-tensitivity troponin-I flat at 7.6/7.2. Hospital course 70yo M with hx colon CA, DM2, HTN, and HLD presenting with fever, cough, dypsnea, and hypoxia and diagnosed to have influenza A infection patient admitted to medical floor with a diagnosis of Acute hypoxic respiratory failure and Sepsis due to influenza A and placed on Tamiflu, cough medication, and oxygen patient responded well to above treatment his cough and shortness of breath has significantly improved, patient noted to have diarrhea, stool culture showed no growth, blood cultures x2 are negative since patient is clinically better with no further episodes of diarrhea he is being discharged home to finish a total 5 day course of Tamiflu, his oxygenation is improved currently finger oximetry stable on room air In regard to chronic medical issues including hypertension, hyperlipidemia and diabetes mellitus he is recommended to continue home medications blood pressure remains stable and blood sugars were within desired range. GERD continue PPI Mood disorder continue lorazepam, trazodone, and duloxetine, no acute psychiatric decompensation noted. Mild thrombocytopenia likely related to viral infection recommend outpatient follow-up with PCP Obesity recommend low-calorie diet. Time Spent with Patient Time attestation: Total time spent providing and/or coordinating discharge services: Discharge coordination time: Greater than 30 minutes Quality: Safe Use of Opioids Does Pt have an Active Cancer Diagnosis on the Problem List?: No Quality: Stroke Does the patient have a stroke diagnosis?: No Physical Exam Vital Signs: Vital Signs: Last Vital Signs Temp 98.5 F 07/11/21 11:20 Pulse 77 07/11/21 11:20 Resp 20 07/11/21 11:20 BP 126/71 07/11/21 11:20 Pulse Ox 93 07/11/21 11:20 BMI result Body Mass Index 35.2 Const: Other: Gen:? Awake alert, no acute distress HEENT: sclera anicteric, moist mucus membranes Neck: supple, no JVD Lungs: clear to auscultation bilaterally Heart:? Regular,no murmurs Abd: soft, obese, nontender, no guarding, no rigidity, non distended Ext: no edema Skin: warm/well-perfused Neuro: alert and oriented x3, no focal findings Psych: appropriate affect DS: Data Data Completed and Pending Labs on day of discharge: Preliminary micro results at discharge 07/10/21 Unknown Stool Culture - Preliminary Stool Normal so far. 07/09/21 21:51 Blood Culture - Preliminary Blood - Venous No growth after 48 hours. 07/09/21 21:51 Blood Culture - Preliminary Blood - Venous No growth after 48 hours. Discharge Plan Discharge Patient Disposition: Home, Self-Care Discharge Diagnosis: viral sepsis due to influenza A acute hypoxic respiratory failure diarrhea Referrals: Po,Soto Gresham MD [Primary Care Provider] - 1 Week Discharge Medications: New oseltamivir [Tamiflu] 75 mg Capsule 75 mg PO Q12H Qty: 6 0RF lisinopril 5 mg tablet 5 mg PO DAILY Qty: 30 0RF Continued (DME) pen needle, diabetic [BD Ultra-Fine Mini Pen Needle] 31 gauge x 3/16 needle See Rx Instructions .ROUTE .MEDSUPPLY Qty: 50 0RF Rx Instructions: As directed pen needle, diabetic [BD Ultra-Fine Mini Pen Needle] 31 gauge x 3/16 needle 1 ea subcut QID 90 Days Qty: 360 3RF (DME) BD Insulin Syringe 1 mL 25 gauge x 5/8 syringe See Rx Instructions .ROUTE .MEDSUPPLY Qty: 100 11RF Rx Instructions: Daily with insulin (DME) blood-glucose meter [FreeStyle Lite Meter] Kit See Rx Instructions .Route Qty: 1 0RF Rx Instructions: As directed (DME) FreeStyle Lite Strips Strip See Rx Instructions .ROUTE .MEDSUPPLY Qty: 100 11RF Rx Instructions: 3x daily Jardiance 25 mg tablet 25 mg PO DAILY 30 Days Qty: 30 11RF triamcinolone acetonide 0.5 % cream 1 appl topical BID Qty: 60 0RF insulin aspart U-100 [Novolog Flexpen U-100 Insulin] 100 unit/mL (3 mL) insulin pen See Protocol sliding scale dose subcut TIDAC 0RF Protocol: Insulin Correction Scale Less than or equal to 110 ---- Give (units): 0 111 to 150 Give (units): 0 151 to 200 Give (units): 2 201 to 250 Give (units): 4 251 to 300 Give (units): 6 301 to 350 Give (units): 8 Greater than 350 Give (units): 10 Call MD if Blood Glucose > : 350 lorazepam 1 mg tablet 1 mg PO BEDTIME PRN (Reason: Anxiety) 0RF fluticasone propionate 50 mcg/actuation spray,suspension 2 spray intranasal BEDTIME 0RF Rx Instructions: administer into each nostril Victoza 3-Christian 0.6 mg/0.1 mL (18 mg/3 mL) pen injector 1.8 mg subcut DAILY 0RF Tresiba FlexTouch U-100 100 unit/mL (3 mL) insulin pen 50 unit subcut BEDTIME 0RF Glucotrust 1 cap PO DAILY 0RF trazodone 150 mg tablet 150 mg PO BEDTIME Qty: 90 3RF glucose [Dex4 Glucose] 4 gram tablet,chewable 4 g PO Q15M PRN (Reason: hypoglycemia) Qty: 30 0RF Rx Instructions: until symptoms of low blood sugar are controlled rosuvastatin 40 mg tablet 40 mg PO DAILY Qty: 90 1RF omeprazole 20 mg capsule,delayed release(DR/EC) 20 mg PO DAILY PRN (Reason: gerd) 90 Days Qty: 90 1RF (DME) pen needle, diabetic [BD Ultra-Fine Micro Pen Needle] 32 gauge x 1/4 needle See Rx Instructions .ROUTE .MEDSUPPLY Qty: 100 11RF Rx Instructions: 4x daily Discontinued lisinopril 20 mg tablet 20 mg PO DAILY Qty: 90 2RF ibuprofen 800 mg tablet 800 mg PO TID 0RF Discharge Orders: Discharge Order (Routine); Ordered 07/11/21 Ordered By: Marcelino Bates Diet: diabetic diet Activity on Discharge: As tolerated Stand Alone Forms: Patient Portal Discharge page Care Plan Goals: take Tamiflu 6 more dosages, rest drink plenty of fluids return to check with worsening shortness of breath Health Concerns: diabetes mellitus check blood sugars currently stable, check blood sugars before taking insulin, noted to have normal blood pressures without lisinopril, therefore dose of lisinopril reduced to 5 mg daily avoid taken ibuprofen regularly take only with moderate pain Plan of Treatment: outpatient follow-up with PCP call to make appointment in next 1-2 weeks Assessment: as per discharge summary Discharge Date/Time: 07/11/21 12:30
== END 2021-07-11 12:30 | disposition home or self-care (01) | DRG 871 ==
LOC: HO.ED 14:21 → HO.EDOVER 15:20 → HO.IMC 18:43
PROVIDERS: Nurse Practitioner Family; Admitting Provider Family Medicine; Emergency Provider Emergency Medicine; PCP Internal Medicine; Visit Provider Hospitalist
DX: A41.89 Other specified sepsis (principal); J96.01 Acute respiratory failure with hypoxia; K21.9 Gastro-esophageal reflux disease without esophagitis; G47.33 Obstructive sleep apnea (adult) (pediatric); I10 Essential (primary) hypertension; E11.9 Type 2 diabetes mellitus without complications; F39 Unspecified mood [affective] disorder; J10.89 Influenza due to other identified influenza virus with other manifestations; D69.59 Other secondary thrombocytopenia; E66.9 Obesity, unspecified; Z68.35 Body mass index [BMI] 35.0-35.9, adult; Z85.038 Personal history of other malignant neoplasm of large intestine; Z87.01 Personal history of pneumonia (recurrent); Z87.891 Personal history of nicotine dependence; Z88.1 Allergy status to other antibiotic agents; Z88.8 Allergy status to other drugs, medicaments and biological substances; Z79.4 Long term (current) use of insulin; Z79.52 Long term (current) use of systemic steroids; Z79.899 Other long term (current) drug therapy
CPT/HCPCS: 36415; 71046; 80048; 80053; 82550; 82947; 84145; 84484; 85025; 85027; 87040; 87045; 87046; 87493; 87502; 87635; 93005; 94640; 99285; J1650

== ENCOUNTER 2021-07-31 09:58 | Outpatient (REF) | payer MEDICARE, SELFPAY ==
--- NOTE | ~2021-07-31 | XR_ITS ---
EXAMINATION: XR SINUSES CLINICAL INFORMATION: Disorders of nose and nasal sinuses. COMPARISON: None TECHNIQUE: 4 FINDINGS: There is mild haziness in the right maxillary sinus. Rest of the paranasal sinuses are well-aerated and clear. The mastoid sinuses are well-aerated and clear. The nasal septum appears midline. The nasal cavity airway is widely patent The bony orbits and the soft tissues are normal. XR/XR sinus min 3V IMPRESSION: Mild haziness in right maxillary sinus likely chronic inflammatory process.
== END 2021-07-31 09:59 | disposition home or self-care (01) ==
LOC: HO.XRAY 09:58
PROVIDERS: PCP Internal Medicine; Visit Provider Nurse Practitioner Family
DX: J34.89 Other specified disorders of nose and nasal sinuses (principal)
CPT/HCPCS: 70220

== ENCOUNTER → 2021-08-27 10:41 | Outpatient (BNVA) | payer MEDICARE, SELFPAY | PROVIDERS: PCP Internal Medicine; Visit Provider Internal Medicine | DX: E11.9 Type 2 diabetes mellitus without complications (principal); E78.5 Hyperlipidemia, unspecified; I10 Essential (primary) hypertension; Z79.4 Long term (current) use of insulin; Z79.899 Other long term (current) drug therapy | CPT/HCPCS: Q3014 ==

== ENCOUNTER 2021-11-22 07:29 | Outpatient (REF) | payer MEDICARE, SELFPAY ==
[2021-11-22 08:18] LABS: Estimated Average Glucose 137 mg/dL; Hemoglobin A1c % 6.4 %
[2021-11-22 08:27] LABS: Alanine Aminotransferase 26 U/L (0-40); Albumin Level 4.3 g/dL (3.5-5.0); Alkaline Phosphatase 81 U/L (39-117); Anion Gap 14 (12-20); Aspartate Amino Transferase 27 U/L (5-37); Bilirubin Total 0.3 mg/dL (0.0-1.0); Blood Urea Nitrogen 11 mg/dL (9-16); Calcium 9.6 mg/dL (8.4-10.2); Carbon Dioxide 28 mmol/L (22-29); Chloride 104 mmol/L (96-108); Estimated Glomerular Filt Rate > 60; Glucose Random 137 mg/dL (60-115); Potassium 3.7 mmol/L (3.3-5.1); Sodium 142 mmol/L (135-145); Total Protein 7.5 g/dL (6.5-8.0)
[2021-11-22 08:36] LABS: Creatinine Urine 79.32 mg/dL; Microalbum/Creatinine Ratio Ur 21.4 ug/mg cr
[2021-11-22 08:47] LABS: Free T4 (Free Thyroxine) 0.91 ng/dL (0.71-1.85); Prostate Specific Antigen Scr 0.54 ng/mL (<0.05-4.0)
[2021-11-22 08:49] LABS: Thyroid Stimulating Hormone 2.23 uIU/mL (0.32-4.0); Vitamin D 25-OH Total 21.8 ng/mL (>30)
[2021-11-22 08:59] LABS: Vitamin B12 314 pg/mL (200-900)
== END 2021-11-22 07:30 | disposition home or self-care (01) ==
LOC: HO.LAB 07:29
PROVIDERS: PCP Internal Medicine; Visit Provider Internal Medicine
DX: Z12.5 Encounter for screening for malignant neoplasm of prostate (principal); E55.9 Vitamin D deficiency, unspecified; E11.65 Type 2 diabetes mellitus with hyperglycemia; Z79.4 Long term (current) use of insulin
CPT/HCPCS: 36415; 80053; 82043; 82306; 82607; 82746; 83036; 84153; 84439; 84443

== ENCOUNTER → 2021-11-26 11:53 | Outpatient (BNVA) | payer MEDICARE, SELFPAY | PROVIDERS: PCP Internal Medicine; Visit Provider Internal Medicine | DX: E11.65 Type 2 diabetes mellitus with hyperglycemia (principal); Z79.4 Long term (current) use of insulin; E11.9 Type 2 diabetes mellitus without complications; E78.5 Hyperlipidemia, unspecified; I10 Essential (primary) hypertension | CPT/HCPCS: Q3014 ==

== ENCOUNTER 2021-12-27 07:03 | Outpatient (REF) | payer MEDICARE, SELFPAY ==
[2021-12-27 10:16] LABS: Appearance Urine Clear; Color Urine Yellow; Glucose Urine UA >=1000 mg/dL (Negative); Leukocyte Esterase Urine Negative (Negative); Nitrite Urine Negative (Negative); PH 5.5 (5.0-9.0); Specific Gravity - Urine >= 1.030 (1.005-1.025); UMIC TRIGGER UACC YES; Urine Blood Negative (Negative); Urine Ketones Trace mg/dL (Negative); Urine Protein Negative (Neg-Trace)
[2021-12-27 10:22] LABS: Bacteria Urine None Seen (None Seen); Hyaline Casts Urine 0-2 /LPF (0-2); RBC Urine 0-2 /HPF (0-2); Squamous Epithelial Cell Urine 0-2 /HPF (0-2); WBC Urine 0-5 /HPF (0-5)
== END 2021-12-27 07:04 | disposition home or self-care (01) ==
LOC: HO.LAB 07:03
PROVIDERS: PCP Internal Medicine; Visit Provider Internal Medicine
DX: R30.0 Dysuria (principal)
CPT/HCPCS: 81001; 81003

== ENCOUNTER → 2022-05-27 08:11 | Outpatient (BNVA) | payer MEDICARE, SELFPAY | PROVIDERS: PCP Internal Medicine; Visit Provider Internal Medicine | DX: E11.9 Type 2 diabetes mellitus without complications (principal); E78.5 Hyperlipidemia, unspecified; I10 Essential (primary) hypertension; E04.9 Nontoxic goiter, unspecified; Z79.4 Long term (current) use of insulin | CPT/HCPCS: 82947; 99212 ==

== ENCOUNTER 2022-06-20 08:38 | Outpatient (REF) | payer MEDICARE, SELFPAY ==
--- NOTE | ~2022-06-20 | US_ITS ---
EXAMINATION: US THYROID CLINICAL INFORMATION: Nontoxic goiter, unspecified. COMPARISON: None available. TECHNIQUE: Linear transducer grayscale and color Doppler examination with attention to the region of the thyroid. FINDINGS: SIZE: Measurements of the thyroid lobes and nodules are given in sagittal, anteroposterior and transverse dimensions respectively. Right Thyroid Lobe: 4.8 x 1.9 x 2.4 cm, volume 11.1 mL. Parenchyma: The gland echotexture is homogeneous. Thyroid vascularity is normal. Left Thyroid Lobe: 3.8 x 1.9 x 1.4 cm, volume 5.4 mL. Parenchyma: The gland echotexture is homogeneous. Thyroid vascularity is normal. Isthmus: 0.49 cm in maximum AP dimension. Estimated total number of nodules greater than or equal to 1 cm: 0. 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 Location: Right superior. Size: 0.72 x 0.33 x 0.43 cm, volume 0.05 mL. Nodule characteristics: Composition: Cannot be determined (2). Echogenicity: Hypoechoic (2). Shape: Not taller than wide (0). Margins: Smooth (0). Echogenic Foci: None (0). ACR TI-RADS total points: 4 ACR TI-RADS category: 4 NODES: No lymphadenopathy is seen in the tissue surrounding the thyroid gland. US/US thyroid IMPRESSION: Right superior pole 7 mm nodule does not meet ACR criteria for follow-up. ACR TI-RADS RECOMMENDATION REFERENCE: Ultrasound-guided fine-needle aspiration, followup ultrasound, no further follow up. * TR1 (0 point) and TR2 (2 points): No FNA or follow up. * TR3 (3 points): FNA if more than or equal to 2.5 cm in maximum dimension, followup ultrasound in 1, 3 and 5 years if 1.5 to 2.4 cm in maximum dimension. * TR4 (4-6 points): FNA if more than or equal to 1.5 cm in maximum dimension, followup ultrasound in 1, 2, 3 and 5 years if 1 to 1.4 cm in maximum dimension. * TR5 (more than or equal to 7 points): FNA if more than or equal to 1 cm in maximum dimension, followup ultrasound every year for 5 years if 0.5 to 0.9 cm in maximum dimension. * TR3, TR4 or TR5 nodules that are below the size threshold for followup receive no follow up.
== END 2022-06-20 08:39 | disposition home or self-care (01) ==
LOC: HO.US 08:38
PROVIDERS: PCP Internal Medicine; Visit Provider Internal Medicine
DX: E04.9 Nontoxic goiter, unspecified (principal)
CPT/HCPCS: 76536

== ENCOUNTER 2022-07-26 12:21 | Emergency (ER) | payer MEDICARE, SELFPAY ==
--- NOTE | ~2022-07-26 | XR_ITS ---
EXAMINATION: XR CHEST CLINICAL INFORMATION: Difficulty swallowing COMPARISON: Chest 07/09/2021 TECHNIQUE: 2 views of the chest were obtained. FINDINGS: The lungs are well-expanded and clear of acute process. The heart size and pulmonary vascularity is normal. No gross bony abnormality seen. XR/XR chest 2V IMPRESSION: Unremarkable chest examination.
--- NOTE | 2022-07-26 12:22 | ECG_ITS ---
Test Reason : CHEST PAIN Blood Pressure : / mmHG Vent. Rate : 075 BPM Atrial Rate : 075 BPM P-R Int : 158 ms QRS Dur : 074 ms QT Int : 398 ms P-R-T Axes : 038 005 007 degrees QTc Int : 444 ms Normal sinus rhythm Normal ECG When compared with ECG of 09-JUL-2021 10:59, Criteria for Septal infarct are no longer Present Referred By: Generic ED Physician Electronically Signed By:Burak Leung
--- NOTE | 2022-07-26 12:31 | ED_ITS ---
HPI - Chest Pain General Chief Complaint: General Medical Stated Complaint: Chest Pain Diff Swallowing Time Seen by Provider: 07/26/22 12:30 Source: patient, family, RN notes reviewed and old records reviewed Mode of arrival: ambulatory History of Present Illness HPI narrative: 71-year-old male with a past medical history diabetes, GERD, ISABELLA, anxiety, HLD, HTN, goiter, presenting to the ED complaining of persistent/worsening heartburn with difficulty swallowing x1 month, now with stabbing left-sided chest pain x this morning. Reports chest pain still present however more dull. Admits was recently diagnosed with thyroid goiter, taking omeprazole without relief, had outpatient ultrasound last month which showed thyroid nodule. Denies fever, chills, cough, SOB, abdominal pain, vomiting MD complaint: chest pain Onset (ago): hour(s) Related Data Home Medications Medication Instructions Recorded Confirmed pen needle, diabetic 31 gauge x #50 ea 05/03/20 05/27/2205/23 (BD Ultra-Fine Mini Pen Needle) Glucotrust 1 cap PO DAILY 07/09/21 05/27/22 lisinopril 20 mg tablet 20 mg PO DAILY 11/26/21 05/27/22 lisinopril 20 mg tablet 20 mg PO DAILY 11/26/21 05/27/22 insulin aspart U-100 100 unit/mL 12 unit subcut TIDAC 05/27/22 05/27/22 (3 mL) subcutaneous pen (Novolog FlexPen U-100 Insulin aspart) insulin degludec 100 unit/mL (3 45 unit subcut BEDTIME 05/27/22 05/27/22 mL) subcutaneous pen (Tresiba FlexTouch U-100 insulin) Previous Rx's Medication Instructions Recorded pen needle, diabetic 31 gauge x 1 ea subcut QID Use the pen with 06/19/20 3/16 (BD Ultra-Fine Mini Pen the insulin 90 days #360 ea Needle) insulin syringe-needle U-100 1 mL #100 ea 06/21/20 25 gauge x 5/8 (BD Insulin Syringe) pen needle, diabetic 32 gauge x #100 ea 07/19/20 1/4 (BD Ultra-Fine Micro Pen Needle) blood-glucose meter (FreeStyle #1 ea 11/01/20 Lite Meter kit) glucose 4 gram chewable tablet 4 g PO Q15M PRN hypoglycemia #30 03/30/21 (Dex4 Glucose) tabs blood sugar diagnostic (FreeStyle #100 ea 07/16/21 Lite Strips) miconazole nitrate 2 % topical 1 appl topical BID #71 grams 09/27/21 powder (Zeasorb AF) triamcinolone acetonide 0.5 % 1 appl topical BID #60 grams 09/27/21 topical cream clotrimazole 1 % topical cream 1 appl topical BID 4 weeks #45 10/31/21 grams fluticasone propionate 50 2 spray intranasal BEDTIME #16 12/10/21 mcg/actuation nasal grams spray,suspension liraglutide 0.6 mg/0.1 mL (18 mg/3 1.8 mg (0.3 mL) subcut DAILY #9 mL 12/28/21 mL) subcutaneous pen injector ([employer] 3-Christian) omeprazole 20 mg capsule,delayed 20 mg PO DAILY PRN gerd 90 days 03/21/22 release #90 caps rosuvastatin 40 mg tablet 40 mg PO DAILY #90 tabs 03/21/22 trazodone 150 mg tablet 150 mg PO BEDTIME #90 tabs 04/01/22 empagliflozin 25 mg tablet 25 mg PO DAILY 30 days #30 tabs 04/04/22 (Jardiance) lorazepam 1 mg tablet 1 mg PO BEDTIME PRN Anxiety 90 06/16/22 days #90 tabs duloxetine 30 mg capsule,delayed 30 mg PO DAILY 90 days #90 caps 07/02/22 release ibuprofen 800 mg tablet 800 mg PO Q8H #90 tabs 07/10/22 dicyclomine 20 mg tablet 20 mg PO QID PRN pain (scale score 07/26/22 4-6) #14 tabs Allergies Allergy/AdvReac Type Severity Reaction Status Date / Time metformin Allergy Unknown Unknown Verified 05/27/22 08:24 Clindamycin HCl Allergy Unknown rash Uncoded 05/27/22 08:24 Review of Systems Review of Systems: Constitutional: No Fever, No Chills, No Fatigue, No Malaise ENT/Mouth: No Ear Pain, No Nasal Congestion, No Hoarseness, No sore throat, No Rhinorrhea, + Swallowing Difficulty Eyes: No Eye Pain, No Swelling, No Redness Cardiovascular:+Chest Pain, No SOB, No Dyspnea on Exertion, No Orthopnea, No Edema, No Palpitations Respiratory: No Cough, No Sputum, No Wheezing, No Dyspnea Gastrointestinal: + Nausea, No Vomiting, No Diarrhea, No Constipation, No Abdominal pain Genitourinary: No Dysuria, No Urinary Frequency, No Flank Pain Musculoskeletal: No joint pain, No Myalgias, No Joint Swelling Skin: No Skin Lesions, No rash Neuro: No Weakness, No Loss of Consciousness, No Dizziness, No Headache Yes all other systems are reviewed and are negative Constitutional: Constitutional: Reports as per [facility] Past Medical History Attestation statement: The following information was validated with the patient. Source: old records reviewed Medical History Colon cancer GERD (gastroesophageal reflux disease) Goiter Hypercholesterolemia Hypertension Insomnia Narcolepsy Obesity Obstructive sleep apnea Osteomyelitis of cervical spine Postlaminectomy syndrome of cervical region Type 2 diabetes mellitus with hyperglycemia Vitamin D deficiency Surgical History History of colonoscopy History of spinal surgery Family History Family History Father Colon cancer Diabetes Hypertension Mother Paget's disease Diabetes Social History Social History Household Members: Spouse and Family Housing: House Do you presently have visiting nurse or other home services: No Alcohol intake: current Alcohol intake frequency: holidays/special occasions only Patient Tobacco Use Status: Former Tobacco user Quit Date: 1993 Cigarette Packs Per Day: 3 Years Smoked: 20 e-Cigarette/Vaping Use: Never Used Second Hand Smoke Exposure: No Advance Directives: No Advance Directives Information Provided: Yes service: No Current occupational status: disabled Cognitive needs: No Hearing needs: No Vision needs: Yes Physical Exam Vital Signs: Vital Signs: Last Vital Signs Temp 98.1 F 07/26/22 14:51 Pulse 69 07/26/22 14:51 Resp 14 07/26/22 14:51 BP 104/61 07/26/22 14:51 Pulse Ox 93 07/26/22 14:51 O2 Del Method Room Air 07/26/22 14:51 BMI result Body Mass Index 32.9 Const: General: cooperative, healthy appearing, comfortable, no acute distress, alert and awake Orientation/consciousness: patient oriented x3 Limitations: no limitations HEENT: Head: Yes normal to inspection and Yes atraumatic Ears: hearing grossly normal bilaterally General nose exam: Normal external nose present Face and sinus: Yes normal facial exam Mouth: Normal oral and palatal mucosa present Throat: Yes posterior oropharynx normal, Yes tonsils normal, Yes uvula midline, No peritonsillar mass, No uvula laterally displaced and No uvular edema Eyes: General: appearance normal, both eyes and all related structures EOM: EOMs intact bilaterally Neck: Neck: Yes normal visual inspection, Yes no meningeal signs, Yes supple and No anterior neck swelling Resp: Effort & Inspection: normal respiratory effort, no respiratory distress, no stridor, not tachypneic and no tripod positioning Auscultation: clear to auscultation bilaterally and no wheezes Cardio: Rate: regular rate Heart sounds: S1 normal heart sound present and S2 normal heart sound present GI: Inspection: Yes normal to inspection Palpation (GI): Soft to palpation, nontender, no guarding and not rigid Skin: Rashes: no rashes Wounds: no wounds Neuro: General: patient oriented x3, tone normal and no meningeal signs Gait exam (Neuro): Normal gait present Extrem: General: Yes normal to inspection Course Course Course Narrative: -1609--labs unremarkable. Troponin x2 negative -CXR unremarkable >> patient has been tolerating p.o. in the ED, no choking/coughing/drooling. Handling secretions. Recommended close follow-up with GI & ENT -Pt requesting prescription for Bentyl as has helped in the past. Results discussed with patient & including worrisome signs and symptoms and strict return precautions, and when to return to the emergency department. They verbalized understanding and feel safe for discharge at this time. Medications Administered Discontinued Medications Generic Name Dose Route Start Last Admin Trade Name Freq PRN Reason Stop Dose Admin Al Hydroxide/Mg Hydroxide 30 ml 07/26/22 12:50 07/26/22 12:55 Magnesium Hydrox/Alum Hydrox 30 Ml Oral.Susp PO 07/26/22 12:51 30 ml ONCE ONE Administration Famotidine 20 mg 07/26/22 12:50 07/26/22 12:55 Famotidine 20 Mg Tablet PO 07/26/22 12:51 20 mg ONCE ONE Administration Lidocaine HCl 15 ml 07/26/22 12:50 07/26/22 12:55 Lidocaine Hcl Viscous 2 % 15 Ml Solution MUCOUS MEM 07/26/22 12:51 15 ml ONCE ONE Administration Medical Decision Making Medical Decision Making [facility] Narrative: 71-year-old male with a past medical history diabetes, GERD, ISABELLA, anxiety, HLD, HTN, goiter, presenting to the ED complaining of persistent/worsening heartburn with difficulty swallowing x1 month, now with stabbing left-sided chest pain x this morning. On exam vital signs stable, NAD, nontoxic appearing, oropharynx WNL, no appreciable neck swelling, uvula midline, no drooling, handling secretions. No stridor. Lungs CTA. Abdomen soft/nontender. Concern for ACS vs GERD vs gastritis vs esophagitis. Lower suspicion for PE, pancreatitis/cholecystitis/lithiasis, appendicitis/diverticulitis or epiglottitis. 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 Plan: EKG, labs, CXR, p.o. Pepcid/Maalox/viscous lidocaine, re-evaluate Please refer to course for remaining clinical decision making, interpretation of labs/imaging results, and discussions with consultants and/or family members. Differential Diagnosis Differential Diagnoses: The differential diagnosis associated with the presentation includes As above Admission/Observation Consideration of admission/observation: Escalation of care including admission/observation considered Lab Data [facility] Lab Attestation statement: I reviewed the patient's lab results. 07/26/22 12:42 07/26/22 12:42 Labs: Lab Results 07/26/22 07/26/22 07/26/22 Range/Units 12:42 12:42 12:42 WBC 8.0 (4.8-10.8) X10*3/uL RBC 5.43 (4.60-5.80) X10*6/uL Hgb 16.5 (14.0-18.0) g/dl Hct 47.7 (42.0-52.0) % MCV 87.8 (80.0-98.0) fL MCH 30.4 (27.0-33.0) pg MCHC 34.6 (31.0-36.0) g/dl RDW 12.9 (11.0-16.0) % Plt Count 222 D (160-400) X10*3/uL MPV 8.9 L (9.4-12.4) fL Immature Gran % (Auto) 0.8 H (0.0-0.4) % Neut % (Auto) 61.1 (45-73) % Lymph % (Auto) 25.1 (20-40) % Stonewall % (Auto) 9.7 (2-11) % Eos % (Auto) 2.5 (0-4) % Baso % (Auto) 0.8 (0-2) % Lymph # (Auto) 2.0 (1.2-4.9) X10*3/uL [place] # (Auto) 0.8 (0.1-1.2) X10*3/uL Eos # (Auto) 0.2 (0.0-0.4) X10*3/uL Baso # (Auto) 0.1 (0.0-0.2) X10*3/uL Abs Immat Gran (auto) 0.06 H (0.00-0.03) X10*3/uL Absolute Neuts (auto) 4.9 (2.0-8.3) x10*3/uL Absolute Nucleated RBC 0.000 (0.0-0.012) X10*3/uL Nucleated RBC % (auto) 0.0 (0.0-0.2) /100WBC Sodium 139 (135-145) mmol/L Potassium 4.0 (3.3-5.1) mmol/L Chloride 104 (96-108) mmol/L Carbon Dioxide 27 (22-29) mmol/L Anion Gap 12 (12-20) BUN 11 (9-16) mg/dL Creatinine 0.90 (0.5-1.4) mg/dL Estim Creat Clear Calc 85.2 Estimated GFR > 60 POC Glucose (60-115) mg/dL Random Glucose 98 (60-115) mg/dL Calcium 9.8 (8.4-10.2) mg/dL Total Bilirubin 0.6 (0.0-1.0) mg/dL AST 27 (5-37) U/L ALT 24 (0-40) U/L Alkaline Phosphatase 98 (39-117) U/L Troponin I High Sens < 2.7 (<3.5-35.0) ng/L Total Protein 7.5 (6.5-8.0) g/dL Albumin 4.4 (3.5-5.0) g/dL TSH 1.34 (0.32-4.0) uIU/mL 07/26/22 07/26/22 Range/Units 13:38 15:27 WBC (4.8-10.8) X10*3/uL RBC (4.60-5.80) X10*6/uL Hgb (14.0-18.0) g/dl Hct (42.0-52.0) % MCV (80.0-98.0) fL MCH (27.0-33.0) pg MCHC (31.0-36.0) g/dl RDW (11.0-16.0) % Plt Count (160-400) X10*3/uL MPV (9.4-12.4) fL Immature Gran % (Auto) (0.0-0.4) % Neut % (Auto) (45-73) % Lymph % (Auto) (20-40) % Stonewall % (Auto) (2-11) % Eos % (Auto) (0-4) % Baso % (Auto) (0-2) % Lymph # (Auto) (1.2-4.9) X10*3/uL Stonewall # (Auto) (0.1-1.2) X10*3/uL Eos # (Auto) (0.0-0.4) X10*3/uL Baso # (Auto) (0.0-0.2) X10*3/uL Abs Immat Gran (auto) (0.00-0.03) X10*3/uL Absolute Neuts (auto) (2.0-8.3) x10*3/uL Absolute Nucleated RBC (0.0-0.012) X10*3/uL Nucleated RBC % (auto) (0.0-0.2) /100WBC Sodium (135-145) mmol/L Potassium (3.3-5.1) mmol/L Chloride (96-108) mmol/L Carbon Dioxide (22-29) mmol/L Anion Gap (12-20) BUN (9-16) mg/dL Creatinine (0.5-1.4) mg/dL Estim Creat Clear Calc Estimated GFR POC Glucose 91 (60-115) mg/dL Random Glucose (60-115) mg/dL Calcium (8.4-10.2) mg/dL Total Bilirubin (0.0-1.0) mg/dL AST (5-37) U/L ALT (0-40) U/L Alkaline Phosphatase (39-117) U/L Troponin I High Sens < 2.7 (<3.5-35.0) ng/L Total Protein (6.5-8.0) g/dL Albumin (3.5-5.0) g/dL TSH (0.32-4.0) uIU/mL Independent Interpretation I performed an independent interpretation of an: EKG (EKG normal sinus rhythm at a rate of 75. QRS 74. T-wave inversions less evident in inferior leads when compared to prior. No STEMI ) Radiology Impression Discussion of test interpretation with radiology: I have reviewed the radiologist's reading. External Record Review External record reviewed: Inpatient record, Office record, Outpatient record, Prior outpatient labs, Prior outpatient radiology, Primary care record and Outside ED record Tests considered The following testing was considered but not selected: As above Discharge Plan Discharge Clinical Impression: Chest pain, Difficulty swallowing Patient Disposition: Home, Self-Care Instructions: Chest Pain (DC), Dysphagia (ED) Additional Instructions: Your blood work and chest x-ray are reassuring Please have close follow-up with your doctor, Cardiology, Gastroenterology, and ENT Continue taking omeprazole. If he developed inability to swallow, persistent or worsening pain or shortness of breath return to the emergency department Prescriptions: New dicyclomine 20 mg tablet 20 mg PO QID PRN (Reason: pain (scale score 4-6)) Qty: 14 0RF No Action (DME) pen needle, diabetic [BD Ultra-Fine Mini Pen Needle] 31 gauge x 3/16 needle See Rx Instructions .ROUTE .MEDSUPPLY Qty: 50 Rx Instructions: As directed pen needle, diabetic [BD Ultra-Fine Mini Pen Needle] 31 gauge x 3/16 needle 1 ea subcut QID 90 Days Qty: 360 3RF (DME) BD Insulin Syringe 1 mL 25 gauge x 5/8 syringe See Rx Instructions .ROUTE .MEDSUPPLY Qty: 100 11RF Rx Instructions: Daily with insulin (DME) blood-glucose meter [FreeStyle Lite Meter] Kit See Rx Instructions .Route Qty: 1 0RF Rx Instructions: As directed (DME) FreeStyle Lite Strips Strip See Rx Instructions .ROUTE .MEDSUPPLY Qty: 100 11RF Rx Instructions: 3x daily clotrimazole 1 % cream 1 appl topical BID 28 Days Qty: 45 0RF fluticasone propionate 50 mcg/actuation spray,suspension 2 spray intranasal BEDTIME Qty: 16 3RF Rx Instructions: administer into each nostril Victoza 3-Christian 0.6 mg/0.1 mL (18 mg/3 mL) pen injector 1.8 mg subcut DAILY Qty: 9 11RF omeprazole 20 mg capsule,delayed release(DR/EC) 20 mg PO DAILY PRN (Reason: gerd) 90 Days Qty: 90 1RF rosuvastatin 40 mg tablet 40 mg PO DAILY Qty: 90 1RF Jardiance 25 mg tablet 25 mg PO DAILY 30 Days Qty: 30 11RF lorazepam 1 mg tablet 1 mg PO BEDTIME PRN (Reason: Anxiety) 90 Days Qty: 90 0RF duloxetine 30 mg capsule,delayed release(DR/EC) 30 mg PO DAILY 90 Days Qty: 90 0RF ibuprofen 800 mg tablet 800 mg PO Q8H Qty: 90 2RF Glucotrust 1 cap PO DAILY Zeasorb AF 2 % powder 1 appl topical BID Qty: 71 6RF triamcinolone acetonide 0.5 % cream 1 appl topical BID Qty: 60 0RF glucose [Dex4 Glucose] 4 gram tablet,chewable 4 g PO Q15M PRN (Reason: hypoglycemia) Qty: 30 0RF Rx Instructions: until symptoms of low blood sugar are controlled trazodone 150 mg tablet 150 mg PO BEDTIME Qty: 90 3RF (DME) pen needle, diabetic [BD Ultra-Fine Micro Pen Needle] 32 gauge x 1/4 needle See Rx Instructions .ROUTE .MEDSUPPLY Qty: 100 11RF Rx Instructions: 4x daily lisinopril 20 mg tablet 20 mg PO DAILY lisinopril 20 mg tablet 20 mg PO DAILY insulin aspart U-100 [Novolog FlexPen U-100 Insulin] 100 unit/mL (3 mL) insulin pen 12 unit subcut TIDAC Protocol: Insulin Correction Scale Less than or equal to 110 ---- Give (units): 0 111 to 150 Give (units): 0 151 to 200 Give (units): 2 201 to 250 Give (units): 4 251 to 300 Give (units): 6 301 to 350 Give (units): 8 Greater than 350 Give (units): 10 Call MD if Blood Glucose > : 350 Tresiba FlexTouch U-100 100 unit/mL (3 mL) insulin pen 45 unit subcut BEDTIME Referrals: [facility] [Provider Group] [facility] [Provider Group] Meng Rojo [Physician] - Soto Santos MD [Primary Care Provider] -
[2022-07-26 12:34] VITALS: BP 143/84; PULSE 76; RESP 16; TEMP 36.8; O2SAT 96; BMI 32.9
[2022-07-26 12:51] LABS: MANUAL DIFF FLAG NO
[2022-07-26 12:52] LABS: Basophils Absolute Auto 0.1 X10*3/uL (0.0-0.2); Basophils Percent Auto 0.8 % (0-2); Eosinophils Absolute Auto 0.2 X10*3/uL (0.0-0.4); Eosinophils Percent Auto 2.5 % (0-4); Hematocrit 47.7 % (42.0-52.0); Hemoglobin 16.5 g/dl (14.0-18.0); Imm Gran Abs Auto 0.06 X10*3/uL (0.00-0.03); Imm Gran Pct Auto 0.8 % (0.0-0.4); Lymphocytes Percent Auto 25.1 % (20-40); Mean Corpuscular HGB Conc 34.6 g/dl (31.0-36.0); Mean Corpuscular Hemoglobin 30.4 pg (27.0-33.0); Mean Corpuscular Volume 87.8 fL (80.0-98.0); Mean Platelet Volume 8.9 fL (9.4-12.4); Monocytes Absolute Auto 0.8 X10*3/uL (0.1-1.2); Monocytes Percent Auto 9.7 % (2-11); Neutrophils Absolute Auto 4.9 x10*3/uL (2.0-8.3); Neutrophils Percent Auto 61.1 % (45-73); Platelet Count 222 X10*3/uL (160-400); Red Blood Count 5.43 X10*6/uL (4.60-5.80); Red Cell Distribution Width 12.9 % (11.0-16.0)
[2022-07-26] MEDS: Magnesium Hydrox/Alum Hydrox 30 ML ORAL.SUSP PO (12:55)
[2022-07-26] MEDS: Lidocaine HCl Viscous 2 % 15 ML SOLUTION MUCOUS MEM (12:55)
[2022-07-26] MEDS: Famotidine 20 MG TABLET PO (12:55)
--- NOTE | 2022-07-26 13:01 | PC.NURSE ---
pt reports difficulty swallowing PO medications given. able to get them down but does feel it is stuck . PA aware.
[2022-07-26 13:12] LABS: Alanine Aminotransferase 24 U/L (0-40); Albumin Level 4.4 g/dL (3.5-5.0); Alkaline Phosphatase 98 U/L (39-117); Anion Gap 12 (12-20); Aspartate Amino Transferase 27 U/L (5-37); Bilirubin Total 0.6 mg/dL (0.0-1.0); Blood Urea Nitrogen 11 mg/dL (9-16); Calcium 9.8 mg/dL (8.4-10.2); Carbon Dioxide 27 mmol/L (22-29); Chloride 104 mmol/L (96-108); Creatinine Clr Calc Pharmacy 85.2; Estimated Glomerular Filt Rate > 60; Glucose Random 98 mg/dL (60-115); Sodium 139 mmol/L (135-145); Total Protein 7.5 g/dL (6.5-8.0)
[2022-07-26 13:17] LABS: Troponin-I High Sensitivity < 2.7 ng/L (<3.5-35.0)
[2022-07-26 13:27] LABS: TSH reflex Free T4 1.34 uIU/mL (0.32-4.0)
[2022-07-26 13:42] LABS: Glucose, Whole Blood 91 mg/dL (60-115)
[2022-07-26 14:51] VITALS: BP 104/61; PULSE 69; RESP 14; TEMP 36.7; O2SAT 93
[2022-07-26 16:02] LABS: Troponin-I High Sensitivity < 2.7 ng/L (<3.5-35.0)
== END 2022-07-26 16:23 | disposition home or self-care (01) ==
PROVIDERS: Physician Assistant; Emergency Provider Emergency Medicine Emergency Medical Services; PCP Internal Medicine
DX: R07.89 Other chest pain (principal); R13.10 Dysphagia, unspecified; F41.1 Generalized anxiety disorder; F43.0 Acute stress reaction; Z79.899 Other long term (current) drug therapy; Z87.891 Personal history of nicotine dependence
CPT/HCPCS: 36415; 71046; 80053; 82947; 84443; 84484; 85025; 93005; 99283; 99284

== ENCOUNTER → 2022-07-31 07:26 | Outpatient (BNVA) | payer MEDICARE, SELFPAY | PROVIDERS: PCP Internal Medicine; Visit Provider Registered Nurse Diabetes Educator | DX: E11.65 Type 2 diabetes mellitus with hyperglycemia (principal); Z79.4 Long term (current) use of insulin | CPT/HCPCS: 99211 ==

== ENCOUNTER → 2022-08-22 12:10 | Outpatient (BNVA) | payer MEDICARE, SELFPAY | PROVIDERS: PCP Internal Medicine; Visit Provider Nurse Practitioner | DX: R13.19 Other dysphagia (principal); B37.81 Candidal esophagitis; B37.0 Candidal stomatitis | CPT/HCPCS: 99202 ==

== ENCOUNTER 2022-08-26 07:16 | Outpatient (REF) | payer MEDICARE, SELFPAY ==
[2022-08-26 08:27] LABS: Estimated Average Glucose 114 mg/dL; Hemoglobin A1c % 5.6 %
[2022-08-26 08:55] LABS: Alanine Aminotransferase 13 U/L (0-40); Albumin Level 4.2 g/dL (3.5-5.0); Alkaline Phosphatase 90 U/L (39-117); Anion Gap 17 (12-20); Aspartate Amino Transferase 21 U/L (5-37); Blood Urea Nitrogen 12 mg/dL (9-16); Calcium 9.9 mg/dL (8.4-10.2); Carbon Dioxide 27 mmol/L (22-29); Chloride 97 mmol/L (96-108); Cholesterol 254 mg/dL; Estimated Glomerular Filt Rate > 60; Glucose Random 111 mg/dL (60-115); HDL Cholesterol 38 mg/dL; LDL Cholesterol Calculated 187 mg/dl; Potassium 3.5 mmol/L (3.3-5.1); Sodium 137 mmol/L (135-145); Total Protein 7.8 g/dL (6.5-8.0); Triglycerides 149 mg/dL
[2022-08-26 09:09] LABS: Thyroid Stimulating Hormone 2.12 uIU/mL (0.32-4.0)
[2022-08-26 09:17] LABS: Folate 5.5 ng/mL (> or = 4.0); Prostate Specific Antigen Scr 1.72 ng/mL (<0.05-4.0); Vitamin B12 455 pg/mL (200-900)
[2022-08-26 10:11] LABS: Creatinine Urine 111.39 mg/dL; Microalbum/Creatinine Ratio Ur 11.6 ug/mg cr
[2022-08-26 14:16] LABS: Alanine Aminotransferase 14 U/L (0-40); Albumin Level 4.5 g/dL (3.5-5.0); Alkaline Phosphatase 97 U/L (39-117); Anion Gap 20 (12-20); Aspartate Amino Transferase 20 U/L (5-37); Bilirubin Total 0.9 mg/dL (0.0-1.0); Blood Urea Nitrogen 11 mg/dL (9-16); Calcium 9.7 mg/dL (8.4-10.2); Carbon Dioxide 24 mmol/L (22-29); Chloride 97 mmol/L (96-108); Cholesterol 258 mg/dL; Estimated Glomerular Filt Rate > 60; Glucose Random 112 mg/dL (60-115); HDL Cholesterol 40 mg/dL; LDL Cholesterol Calculated 186 mg/dl; Potassium 3.9 mmol/L (3.3-5.1); Sodium 137 mmol/L (135-145); Total Protein 7.5 g/dL (6.5-8.0); Triglycerides 163 mg/dL
[2022-08-26 14:26] LABS: Free T4 (Free Thyroxine) 0.98 ng/dL (0.71-1.85)
[2022-08-26 14:32] LABS: MANUAL DIFF FLAG NO
[2022-08-26 14:38] LABS: Basophils Absolute Auto 0.1 X10*3/uL (0.0-0.2); Eosinophils Absolute Auto 0.2 X10*3/uL (0.0-0.4); Eosinophils Percent Auto 3.5 % (0-4); Hematocrit 50.2 % (42.0-52.0); Hemoglobin 17.1 g/dl (14.0-18.0); Imm Gran Abs Auto 0.06 X10*3/uL (0.00-0.03); Imm Gran Pct Auto 0.9 % (0.0-0.4); Lymphocytes Absolute Auto 1.9 X10*3/uL (1.2-4.9); Lymphocytes Percent Auto 27.5 % (20-40); Mean Corpuscular HGB Conc 34.1 g/dl (31.0-36.0); Mean Corpuscular Hemoglobin 30.9 pg (27.0-33.0); Mean Corpuscular Volume 90.6 fL (80.0-98.0); Mean Platelet Volume 10.3 fL (9.4-12.4); Monocytes Absolute Auto 0.8 X10*3/uL (0.1-1.2); Monocytes Percent Auto 10.9 % (2-11); Neutrophils Absolute Auto 3.9 x10*3/uL (2.0-8.3); Neutrophils Percent Auto 56.2 % (45-73); Platelet Count 213 X10*3/uL (160-400); Red Blood Count 5.54 X10*6/uL (4.60-5.80); Red Cell Distribution Width 13.6 % (11.0-16.0); White Blood Count 6.9 X10*3/uL (4.8-10.8)
[2022-08-27 05:28] LABS: LDL Cholesterol Direct 191 mg/dL (<100)
== END 2022-08-26 07:17 | disposition home or self-care (01) ==
LOC: HO.LAB 07:16
PROVIDERS: Absent Provider Internal Medicine; PCP Internal Medicine; Visit Provider Internal Medicine
DX: Z13.89 Encounter for screening for other disorder (principal)
CPT/HCPCS: 36415; 80053; 80061; 82043; 82607; 82746; 83036; 83721; 84153; 84439; 84443; 85025

== ENCOUNTER 2022-08-26 14:04 | Day surgery (SDC) | payer MEDICARE, SELFPAY ==
--- NOTE | 2022-08-23 13:37 | HO.ANESPROP2 ---
Documented by User: Angi Spain NP 08/23/22 13:38 HPI - Anesthesia Eval Consult details Narrative: 71yo M for Upper Endoscopy with Poss Balloon Dilitation PMFSH Active Problems Active Problems: All Active Problems (Updated 08/22/22 @ 13:03 by PRIYA Lu) Esophageal dysphagia (Acute) Postlaminectomy syndrome of cervical region (Acute) Type 2 diabetes mellitus with hyperglycemia (Acute) Hypertension (Acute) GERD (gastroesophageal reflux disease) (Acute) Colon cancer (Acute) Obstructive sleep apnea (Acute) Osteomyelitis of cervical spine (Acute) Hip pain, bilateral (Acute) Vitamin D deficiency (Acute) Allergic rhinitis (Acute) Generalized anxiety disorder (Acute) Eczema (Acute) COVID-19 virus infection (Acute) Influenza A (Acute) Generalized weakness (Acute) Acute respiratory failure with hypoxia (Acute) Maxillary sinusitis, acute (Acute) Tenderness over maxillary sinus (Acute) Recurrent maxillary sinusitis (Acute) Hypercholesterolemia (Acute) Tinea corporis (Acute) Dysuria (Acute) Obesity (BMI 30-39.9) (Acute) Goiter (Acute) Candidiasis of mouth and esophagus (Acute) Past Medical History Medical History Colon cancer GERD (gastroesophageal reflux disease) Goiter Hypercholesterolemia Hypertension Insomnia Narcolepsy Obesity Obstructive sleep apnea Osteomyelitis of cervical spine Postlaminectomy syndrome of cervical region Type 2 diabetes mellitus with hyperglycemia Vitamin D deficiency Family History Family History Father Colon cancer Diabetes Hypertension Mother Paget's disease Diabetes Surgical History Surgical History History of colonoscopy History of spinal surgery Social History Social History Household Members: Spouse and Family Housing: House Do you presently have visiting nurse or other home services: No Alcohol intake: current Alcohol intake frequency: holidays/special occasions only Patient Tobacco Use Status: Former Tobacco user Quit Date: 1993 Cigarette Packs Per Day: 3 Years Smoked: 20 e-Cigarette/Vaping Use: Never Used Second Hand Smoke Exposure: No Use of substances other than those prescribed or required for medical reasons: No Are you DNR?: No Advance Directives: No Advance Directives Information Provided: Yes service: No Current occupational status: disabled Cognitive needs: No Hearing needs: No Vision needs: Yes Meds Allergies Allergy/AdvReac Type Severity Reaction Status Date / Time metformin Allergy Intermediate Diarrhea Verified 08/26/22 14:26 Clindamycin HCl Allergy Intermediate rash Uncoded 08/26/22 14:26 Home Medications Medication Instructions Recorded Confirmed Last Taken Type pen needle, diabetic 31 gauge x #50 ea 05/03/20 08/26/22 Unknown History 05/23 (BD Ultra-Fine Mini Pen Needle) lisinopril 20 mg tablet 20 mg PO DAILY 11/26/21 08/26/22 08/26/22 05:30 History insulin aspart U-100 100 unit/mL 10 unit subcut TIDAC 07/30/22 08/26/22 Unknown History (3 mL) subcutaneous pen (Novolog FlexPen U-100 Insulin aspart) insulin degludec 100 unit/mL (3 35 unit subcut BEDTIME 07/30/22 08/26/22 Unknown History mL) subcutaneous pen (Tresiba FlexTouch U-100 insulin) Exam Exam Date and Time: August 23, 2022 1337 Pertinent Lab Results Pertinent Lab Results: Laboratory Tests 07/26/22 07/26/22 12:42 12:42 WBC 8.0 Hgb 16.5 Hct 47.7 Plt Count 222 D Sodium 139 Potassium 4.0 Chloride 104 Carbon Dioxide 27 BUN 11 Creatinine 0.90 Narrative Narrative: EKG 07/2022 Vent. Rate : 075 BPM ? ? Atrial Rate : 075 BPM ?? P-R Int : 158 ms? QRS Dur : 074 ms ? ? QT Int : 398 ms ? ? ? P-R-T Axes : 038 005 007 degrees ?? QTc Int : 444 ms ? Normal sinus rhythm Normal ECG When compared with ECG of 09-JUL-2021 10:59, Criteria for Septal infarct are no longer Present Assessment and Plan Assessment Anesthesia Assessment: Chart Reviewed Documented by User: Genesis Chauhan MD 08/26/22 15:10 COUNT INCLUDES THE [facility] Past Medical History Medical History Colon cancer GERD (gastroesophageal reflux disease) Goiter Hypercholesterolemia Hypertension Insomnia Narcolepsy Obesity Obstructive sleep apnea Osteomyelitis of cervical spine Postlaminectomy syndrome of cervical region Type 2 diabetes mellitus with hyperglycemia Vitamin D deficiency Family History Family History Father Colon cancer Diabetes Hypertension Mother Paget's disease Diabetes Family history of problems with anesthesia: No Surgical History Surgical History History of colonoscopy History of spinal surgery History of Problems with Anesthesia: No Social History Social History Household Members: Spouse and Family Housing: House Do you presently have visiting nurse or other home services: No Alcohol intake: current Alcohol intake frequency: holidays/special occasions only Patient Tobacco Use Status: Former Tobacco user Quit Date: 1993 Cigarette Packs Per Day: 3 Years Smoked: 20 e-Cigarette/Vaping Use: Never Used Second Hand Smoke Exposure: No Use of substances other than those prescribed or required for medical reasons: No Are you DNR?: No Advance Directives: No Advance Directives Information Provided: Yes service: No Current occupational status: disabled Cognitive needs: No Hearing needs: No Vision needs: Yes Meds Allergies Allergy/AdvReac Type Severity Reaction Status Date / Time metformin Allergy Intermediate Diarrhea Verified 08/26/22 14:26 Clindamycin HCl Allergy Intermediate rash Uncoded 08/26/22 14:26 Home Medications Medication Instructions Recorded Confirmed Last Taken Type pen needle, diabetic 31 gauge x #50 ea 05/03/20 08/26/22 Unknown History 05/23 (BD Ultra-Fine Mini Pen Needle) lisinopril 20 mg tablet 20 mg PO DAILY 11/26/21 08/26/22 08/26/22 05:30 History insulin aspart U-100 100 unit/mL 10 unit subcut TIDAC 07/30/22 08/26/22 Unknown History (3 mL) subcutaneous pen (Novolog FlexPen U-100 Insulin aspart) insulin degludec 100 unit/mL (3 35 unit subcut BEDTIME 07/30/22 08/26/22 Unknown History mL) subcutaneous pen (Tresiba FlexTouch U-100 insulin) Exam Airway Mallampati Class: II TM Dist: >3cm Neck ROM: Full Denture: Upper and Lower Heart: rrr Lungs: cta Assessment and Plan Assessment Anesthesia Assessment: Anesthesia Plan Discussed Final Anesthetic Review Family History of Problems with Anesthesia: No History of Problems with Anesthesia: No NPO: Yes ASA Class: III Final Preanesthetic Review: No Changes in Pt Med Stat, Meds/Allgs Chart Reviewed and Consent Obtained/Reviewed Patient Risk: Intermediate Procedure Risk: Intermediate Anesthetic Plan Anesthetic Plan: MAC: Disposition: Standard PACU
[2022-08-26 14:22] VITALS: BMI 31.9
[2022-08-26 14:51] VITALS: BP 120/69; PULSE 72; RESP 16; TEMP 36.5; O2SAT 93
[2022-08-26] MEDS: Lactated Ringers 1,000 ML 100 ML IVCONT (14:55)
[2022-08-26 15:00] LABS: Glucose, Whole Blood 95 mg/dL (60-115)
--- NOTE | 2022-08-26 16:15 | MHC.SHP ---
Pre-Procedural Eval Section A Date of Service: 08/26/22 The patient is an INPATIENT: No Changes since office visit: Yes Patient answered all questions; No Cold of Flu in the past 2 weeks, No New Medical Problems and No Changes in Medication The History & Physical has been completed within 30 days and I have reviewed it.: Yes Section B Chief Complaint: Pulmonary candidiasis,dysphagia,candidal esophagit Allergies: Allergies Allergy/AdvReac Type Severity Reaction Status Date / Time metformin Allergy Intermediate Diarrhea Verified 08/26/22 14:26 Clindamycin HCl Allergy Intermediate rash Uncoded 08/26/22 14:26 Plan I have reviewed the history and physical and performed a pertinent physical examination on my patient. No changes have occurred unless specified. Time Spent With Patient Time: Total time managing care of this patient today ____ minutes.
--- NOTE | 2022-08-26 16:16 | W.PM.OPN ---
Operative Note Operative Note Date of Service: 08/26/22 Narrative: FLEXIBLE TRANSORAL UPPER GASTROINTESTINAL ENDOSCOPY WITH BIOPSIES Pre-op diagnosis: GERD, dysphagia Post-op diagnosis: Esophageal mass, gastritis, duodenal polyp, duodenal nodules Endoscopist:? Libra Reyes MD Anesthesia:?MAC Consent: Indications for the procedure and potential complications of bleeding, perforation, reaction to medications and missed diagnosis were discussed with the patient and informed consent was obtained. Instrument: Olympus GIF H 190 mid size upper endoscope Monitoring: Vital signs and clinical assessment, continuous EKG monitoring, Pulse oximetry, Carbon Dioxide monitoring and blood pressure monitoring were done throughout the procedure. Procedure: The patient was placed in the left lateral decubitis position and pre-procedure medications were administered and a bite block was placed. The endoscope was inserted into the mouth and advanced under direct vision to the third part of duodenum. A careful inspection was made as the upper endoscope was withdrawn including a retroflexed examination of the proximal stomach; Findings and interventions are described below. Findings: Larynx: Normal Esophagus: GE junction at 40 cms. A friable polypoidal mass in the distal esophagus from 35 to 40 cms involving 25 -30% of the esophageal circumference and causing partial obstruction. Multiple biopsies were obtained. A mid size upper endoscope could be advanced through the esophagus into the stomach without significant resistance Stomach: Moderate gastric erythema with nodular appearing gastric mucosa in the gastric body. Biopsies were obtained from the antrum and body of the stomach. Edematous folds versus mass at the cardia on retroflexed examination of the cardia - biopsied. Duodenum: A 10 mm adenomatous appearing polyp in the floor of the bulb - removed with a cold snare. A few 5 to 10 mm benign appearing nodules in the apex of the bulb - biopsied. Normal descending duodenum Intervention: Biopsies as noted above Impression and Post Procedure Diagnosis: Endoscopy Findings: ESOPHAGUS: A friable polypoidal mass in the distal esophagus from 35 to 40 cms involving 25 -30% of the esophageal circumference and causing partial obstruction. A mid size upper endoscope could be advanced through the esophagus into the stomach without significant resistance STOMACH: Nodular appearing gastric mucosa Edematous folds versus mass at the cardia on retroflexed examination of the cardia - biopsied. 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 Above findings were reviewed with the patient. Pt will be scheduled for an urgent Chest CT scan and referred to Oncology if biopsies confirm presence of malignancy
[2022-08-26 16:52] VITALS: BP 105/65; PULSE 77; RESP 16; TEMP 36.4; O2SAT 97
[2022-08-26 17:07] VITALS: BP 100/67; PULSE 92; RESP 16; TEMP 37; O2SAT 94
== END 2022-08-26 17:14 | disposition home or self-care (01) ==
PROVIDERS: PCP Internal Medicine; Visit Provider Internal Medicine Gastroenterology
PROC: (CPT 43251; principal; 2022-08-26 15:30)
DX: C15.5 Malignant neoplasm of lower third of esophagus (principal); K31.A22 Gastric intestinal metaplasia with high grade dysplasia; Z85.038 Personal history of other malignant neoplasm of large intestine; B37.81 Candidal esophagitis; B37.0 Candidal stomatitis; K31.7 Polyp of stomach and duodenum; K29.50 Unspecified chronic gastritis without bleeding; K21.9 Gastro-esophageal reflux disease without esophagitis; G47.33 Obstructive sleep apnea (adult) (pediatric); G47.429 Narcolepsy in conditions classified elsewhere without cataplexy; I10 Essential (primary) hypertension; E78.00 Pure hypercholesterolemia, unspecified; E55.9 Vitamin D deficiency, unspecified; E11.65 Type 2 diabetes mellitus with hyperglycemia; Z79.4 Long term (current) use of insulin; Z79.899 Other long term (current) drug therapy; E66.9 Obesity, unspecified; Z68.32 Body mass index [BMI] 32.0-32.9, adult; Z88.1 Allergy status to other antibiotic agents; Z88.8 Allergy status to other drugs, medicaments and biological substances; Z87.891 Personal history of nicotine dependence
CPT/HCPCS: 43251; 43239; 36415; 80053; 80061; 82043; 82607; 82746; 82947; 83036; 83721; 84153; 84439; 84443; 85025; 88305; 88341; 88342; 88360

== ENCOUNTER → 2022-09-02 07:53 | Outpatient (BNVA) | payer MEDICARE, SELFPAY | PROVIDERS: PCP Internal Medicine; Visit Provider Internal Medicine | DX: E11.21 Type 2 diabetes mellitus with diabetic nephropathy (principal); E78.5 Hyperlipidemia, unspecified; E04.1 Nontoxic single thyroid nodule | CPT/HCPCS: Q3014 ==

== ENCOUNTER 2022-09-05 12:34 | Outpatient (REF) | payer MEDICARE, SELFPAY ==
--- NOTE | ~2022-09-05 | CT_ITS ---
EXAMINATION: CT SOFT TISSUE NECK WITH CONTRAST CLINICAL INFORMATION: Esophageal mass. COMPARISON: None available. TECHNIQUE: Following intravenous administration of 80 mL of Omnipaque 350 contrast, helical imaging was performed in the axial plane with generation of coronal and sagittal reformatted images. This CT examination was performed using dose optimization techniques as appropriate, variously including the following: *Automated exposure control *Adjustment of mA and/or kV according to patient size (this includes techniques or standardized protocols for targeted exams where dose is matched to indication/reason for exam; i.e. extremities or head) *Use of iterative reconstruction technique DLP: 1664.28 mGy-cm FINDINGS: The parotid and submandibular glands appear normal. No contour abnormality or pathologic enhancement seen within the oral cavity or larynx. Mild amount of soft tissue along the tongue base is presumed to represent lingular tonsillar tissue. The thyroid gland is normal. The carotid sheath vasculature opacifies normally with mild atherosclerotic wall calcifications resulting in mild stenotic narrowing at the origin of the right ICA. No pathologically enlarged cervical lymph nodes are identified. The visualized axillae appear normal. There is osseous fusion between the endplates and posterior cervical hardware in place at the C6-C7 levels. No acute osseous abnormality otherwise seen. The craniovertebral junction is normal. The mastoid air cells are well aerated. There is complete mucosal opacification of the right maxillary sinus with chronic sclerotic wall thickening. The remaining paranasal sinuses are aerated. The visualized portions of the lungs demonstrate subsegmental atelectatic changes and mild emphysema. The imaged upper esophagus demonstrates questionable circumferential wall thickening, though difficult to assess. No mediastinal adenopathy is seen. The orbits appear normal. The visualized portions of the brain demonstrate no acute abnormality. CT/CT soft tissue neck w IV con IMPRESSION: No cervical adenopathy or suspicious soft tissue enhancement. Questionable upper esophageal wall thickening. Correlate with findings on endoscopy. Mucosal opacification of the right maxillary sinus with sclerotic wall thickening and mild atelectatic changes. Recommend follow-up ENT evaluation to guide further management.
--- NOTE | ~2022-09-05 | CT_ITS ---
EXAM: Contrast-enhanced CT scan of the chest, abdomen, and pelvis. INDICATION: Esophageal mass COMPARISON: None available TECHNIQUE: Multidetector helical imaging of the chest, abdomen, and pelvis was obtained from the thoracic inlet through the pubic symphysis following administration of 80 cc of Omnipaque 350 IV contrast. Coronal and sagittal reformatted images that were obtained were also reviewed. This CT examination was performed using dose optimization techniques as appropriate, variously including the following: *Automated exposure control *Adjustment of mA and/or kV according to patient size (this includes techniques or standardized protocols for targeted exams where dose is matched to indication/reason for exam; i.e. extremities or head) *Use of iterative reconstruction technique DLP: 405 mGy-cm FINDINGS: CHEST: Central airways are patent. Lungs are well aerated. There is no lobar consolidation. No pleural effusion or pneumothorax. 3 mm right upper lobe pulmonary nodule (image [id number], series 5). A few other smaller calcified and noncalcified pulmonary nodules are noted. The heart is normal in size. Coronary artery and mitral annulus calcifications are noted. Normal caliber thoracic aorta. No gross mediastinal or hilar lymphadenopathy. No pathologically enlarged axillary lymph nodes. ABDOMEN/PELVIS: The liver is normal in size. There is a 4.8 cm hypodense mass within the posterior right hepatic lobe which is nonspecific. There are a few other subcentimeter hepatic lesions identified which are too small to accurately characterize. The gallbladder is normal in appearance. The pancreas, spleen and adrenal glands are unremarkable. Symmetrically enhancing kidneys. There is no hydronephrosis of either kidney. There is a 1.5 cm hypodense lesion within the midpole of the right kidney, inaccurately characterized. Normal caliber abdominal aorta. A few mildly enlarged retroperitoneal lymph nodes are noted. The bladder is normal in appearance. The prostate gland is mildly enlarged. There is no gross free pelvic fluid. No inguinal lymphadenopathy. There appears to be mild circumferential mucosal thickening of the distal esophagus and GE junction. Stomach is difficult to accurately evaluate given its decompressed status. There are a few enlarged lymph nodes along the lesser curvature of the stomach and within the periportal region. Normal caliber loops of small and large bowel. Normal appendix. OSSEOUS STRUCTURES Mild to moderate diffuse degenerative changes of the spine. CT/CT abdomen pelvis w IV con IMPRESSION: 1. There appears to be mild circumferential mucosal thickening of the distal esophagus and GE junction. Stomach is difficult to accurately evaluate given its decompressed status. There are a few enlarged lymph nodes along the lesser curvature of the stomach and within the periportal region. 2. 4.8 cm hypodense mass within the posterior right hepatic lobe. There are a few other subcentimeter hepatic lesions identified which are too small to accurately characterize. Findings are concerning for metastatic disease. Further evaluation can be obtained with MRI imaging of the abdomen without and with gadolinium. 3. A few tiny pulmonary nodules are noted, largest measuring 3 mm. Fleischner guidelines were followed.
[2022-09-05] MEDS: iohexoL 350 MG/ML 100 ML INFUS..BTL IV (14:58)
[2022-09-05] MEDS: Barium Sulfate Oral (Berry) 450 ML ORAL.SUSP 900 ML PO (14:59)
== END 2022-09-05 12:35 | disposition home or self-care (01) ==
LOC: HO.CT 12:34
PROVIDERS: PCP Internal Medicine; Visit Provider Internal Medicine Gastroenterology
DX: R13.14 Dysphagia, pharyngoesophageal phase (principal); K22.89 Other specified disease of esophagus
CPT/HCPCS: 70491; 71260; 74177; Q9967

== ENCOUNTER → 2022-09-06 12:50 | Outpatient (BNVA) | payer MEDICARE, SELFPAY | PROVIDERS: PCP Internal Medicine; Visit Provider Nurse Practitioner | DX: C15.4 Malignant neoplasm of middle third of esophagus (principal); R13.14 Dysphagia, pharyngoesophageal phase; K21.9 Gastro-esophageal reflux disease without esophagitis; B37.81 Candidal esophagitis | CPT/HCPCS: 99212 ==

== ENCOUNTER 2022-09-17 11:03 | Outpatient (REF) | payer MEDICARE, SELFPAY ==
--- NOTE | ~2022-09-17 | PE_ITS ---
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 PROCEDURE: 57 minutes following the intravenous administration of 16.9 mCi of fluorine 18 FDG, images from the base of the skull to the mid thighs were obtained using a combined PET/CT scanner with CT scan based attenuation correction. No intravenous contrast was administered. Transverse, coronal, sagittal, and volume reconstruction projections were obtained. The patient's blood glucose as determined by a finger stick, was 86 mg/dl immediately prior to injection. The radiotracer was injected intravenously through right antecubital superficial vein, without any complications. Total CT exam dose-length product 923.40 mGy-cm * These CT images were obtained using dose optimization techniques as appropriate, variously including the following: Automated exposure control * Adjustment of mA and/or kV according to patient size (this includes techniques or standardized protocols for targeted exams where dose is matched to indication/reason for exam; i.e. extremities or head) * Use of iterative reconstruction technique COMPARISON: CT of the soft tissue neck and CT of the chest abdomen and pelvis done on 09/05/2022. FINDINGS: NECK AND VISUALIZED HEAD: No FDG avid focal disease. Incidental note is made of complete opacification of the right maxillary sinus, consistent with sinusitis likely chronic. THORAX: No FDG avid lung nodule and/or mass on either side. There are no FDG avid mediastinal and/or hilar or axillary or internal mammary lymphadenopathy or pleural or pericardial effusion. ABDOMEN AND PELVIS: Concordant with clinically known malignancy involving the esophagus, there is indeed subtle apparent subtle mural thickening present at the distal esophagus extending into the GE junction with SUV max of 6.9 (117/267). Note is also made of apparent mural thickening of the fundus and the body of the stomach without any FDG avidity, may represent physiologic changes secondary to suboptimal distention versus subclinical submucosal disease extension. Please correlate with endoscopic findings. There are multiple periceliac axis lymph nodes present. The dominant lymph node measures approximately 0.9 cm, seen to the left of the midline posterior to the splenic artery with SUV max of 4.7 (122/267), consistent with regional lymph node disease. A few other smaller mild FDG avid periceliac axis lymph nodes are also noted to the right of the midline with SUV max of 2.5 (126/267), also consistent with regional lymph node disease. In addition, there is a subcentimeter aortocaval mild FDG avid lymph node present at the level of the renal vessels with SUV max of 3.8 (147/267), highly suspicious for metastatic lymphadenopathy given its location. A few other sub-5 mm left para-aortic retroperitoneal lymph nodes are also present immediately below this level also suspicious for metastatic disease involvement (152/267). Multifocal FDG avid disease is present involving predominantly right lobe of the liver with the dominant lesion seen at posteromedial superior aspect of the segment 7 of right lobe of the liver, measures approximately 6.6 x 3.3 cm associated with eccentric, peripheral FDG avidity with SUV max of 7.0 (117/267), consistent with partially necrotic presumed metastatic disease. No FDG avid adrenal or splenic disease. The gallbladder, biliary tree and pancreas appear unremarkable. The small and large bowel loops are decompressed. Oral contrast is noted within the distal large bowel. No evidence of any pelvic or inguinal lymphadenopathy. MUSCULOSKELETAL: No suspicious focal FDG avid osseous disease. VASCULAR: Calcific atherosclerotic disease of the aorta and its branches including coronary artery calcifications. No evidence of aneurysm. SUV max OF MEDIASTINAL BLOOD POOL: 2.3 SUV max OF LIVER: 2.4 PET/PET CT fusion skull to thigh IMPRESSION: 1. Circumferential mural thickening associated with FDG avidity is present at the distal esophagus extending into the GE junction with SUV max of 6.9 (170/267), consistent with clinically known esophageal malignancy. Apparent mural thickening of the fundus and body of the stomach without any FDG avidity is noted may represent physiologic changes secondary to suboptimal distention versus submucosal disease extension. Please correlate with endoscopic findings. 2. Multiple periceliac axis lymph nodes are present with the dominant lymph node measuring approximately 0.9 cm, seen to the left of the celiac axis and posterior to the splenic artery with SUV max of 4.7 (122/267). A few other smaller mild FDG avid periceliac axis lymph nodes are also noted to the right of the midline with SUV max of 2.5 (126/267). All these lymph nodes are consistent with regional lymph node disease. 3. In addition, a few subcentimeter FDG avid lymph nodes are also noted within the retroperitoneum at and inferior to the renal vessels, suspicious for metastatic lymphadenopathy. 4. Multifocal FDG avid liver lesions, the largest measures 6.6 x 3.3 cm, seen at posteromedial superior subcapsular aspect of segment 7 of right lobe of the liver with SUV max of 7.0, consistent with multifocal hepatic metastatic disease. Image guided biopsy may be considered for definitive tissue diagnosis, if clinically appropriate.
== END 2022-09-17 11:04 | disposition home or self-care (01) ==
LOC: HO.PET 11:03
PROVIDERS: PCP Internal Medicine; Visit Provider Internal Medicine Medical Oncology
DX: Z13.89 Encounter for screening for other disorder (principal)

== ENCOUNTER 2022-09-30 09:31 | Outpatient (AMB) | payer MEDICARE, SELFPAY ==
[2022-09-30 09:33] VITALS: BP 128/80; PULSE 78; O2SAT 98; BMI 30.7
--- NOTE | 2022-09-30 09:33 | A.OFFPC_ITS ---
Vital Signs 09/30/22 09:33 Height 5 ft 7 in Weight 196 lb BMI 30.7 BP 128/80 Blood Pressure Location Lt brachial Position Sitting Pulse 78 Pulse Source Pulse Oximeter Pulse Oximetry (%) 98 Oxygen Delivery Method Room Air Intake Visit Reasons: 6m F/U Diabetes mellitus Allergies metformin Allergy (Intermediate, Verified 09/30/22 09:33) Diarrhea Clindamycin HCl Allergy (Intermediate, Uncoded 09/30/22 09:33) rash Tobacco use date assessed: 07/30/22 Fall risk assessment: No Falls in past year Last assessed Fall Risk: 09/30/22 Dental Screening Dental Screen Date: 09/30/22 Did you have a dental visit in the last 12 months?: Yes Did you have a dental problem in the last 6 months where you did not have access to dental care?: No Was dental information given to patient?: Patient has dentist HPI 6m F/U Diabetes mellitus HPI Details 71-year-old obese male with hypercholesterolemia diabetes mellitus generalized anxiety disorder obstructive sleep apnea GERD hypertension and thyroid nodule patient was last seen in March and review of the notes follows up with endocrinology diabetes has been under control had a thyroid ultrasound also showing a thyroid nodule right superior pole 7 mm does not meet criteria for biopsy/follow-up. Patient went to the emergency room in July 2022 had dysphagia and was advised to follow-up with primary did see primary and was referred to Gastroenterology and ear nose and throat EGD done showing esophageal addendum carcinoma and was referred to hematology oncology CT scan PET scan requested 09/05/2022 There appears to be mild circumferential mucosal thickening of the distal esophagus and GE junction. Stomach is difficult to accurately evaluate given its decompressed status. There are a few enlarged lymph nodes along the lesser curvature of the stomach and within the periportal region. 2. 4.8 cm hypodense mass within the posterior right hepatic lobe. There are a few other subcentimeter hepatic lesions identified which are too small to accurately characterize. Findings are concerning for metastatic disease. Further evaluation can be obtained with MRI imaging of the abdomen without and with gadolinium. 3. A few tiny pulmonary nodules are noted, largest measuring 3 mm. PET scan September 2022 Circumferential mural thickening associated with FDG avidity is present at the distal esophagus extending into the GE junction with SUV max of 6.9 (170/267), consistent with clinically known esophageal malignancy. Apparent mural thickening of the fundus and body of the stomach without any FDG avidity is noted may represent physiologic changes secondary to suboptimal distention versus submucosal disease extension. Please correlate with endoscopic findings. 2. Multiple periceliac axis lymph nodes are present with the dominant lymph node measuring approximately 0.9 cm, seen to the left of the celiac axis and posterior to the splenic artery with SUV max of 4.7 (122/267). A few other smaller mild FDG avid periceliac axis lymph nodes are also noted to the right of the midline with SUV max of 2.5 (126/267). All these lymph nodes are consistent with regional lymph node disease. 3. In addition, a few subcentimeter FDG avid lymph nodes are also noted within the retroperitoneum at and inferior to the renal vessels, suspicious for metastatic lymphadenopathy. 4. Multifocal FDG avid liver lesions, the largest measures 6.6 x 3.3 cm, seen at posteromedial superior subcapsular aspect of segment 7 of right lobe of the liver with SUV max of 7.0, consistent with multifocal hepatic metastatic disease. Image guided biopsy may be considered for definitive tissue diagnosis, if clinically appropriate. Patient did see the thoracic surgeon 09/19/2022 but with the results looking like metastatic esophageal cancer patient has not a potential for curative resection. Patient has met with Radiation Oncology and will be starting soon. Patient has declined the J-tube for the moment [facility] Medical History (Updated 09/30/22 @ 09:58 by Soto Santos MD) Colon cancer GERD (gastroesophageal reflux disease) Goiter Hypercholesterolemia Hypertension Insomnia Narcolepsy Obesity Obstructive sleep apnea Osteomyelitis of cervical spine Postlaminectomy syndrome of cervical region Thyroid nodule Type 2 diabetes mellitus with hyperglycemia Vitamin D deficiency Surgical History History of colonoscopy History of spinal surgery Family History (Updated 09/30/22 @ 09:35 by April Michael CMA) Father Colon cancer Diabetes Hypertension Mother Paget's disease Diabetes Social History Household Members: Spouse and Family Housing: House Do you presently have visiting nurse or other home services: No Alcohol intake: current Alcohol intake frequency: holidays/special occasions only Patient Tobacco Use Status: Former Tobacco user Quit Date: 1993 Tobacco use type: Cigarette Cigarette Packs Per Day: 3 Years Smoked: 20 e-Cigarette/Vaping Use: Never Used Second Hand Smoke Exposure: No service: No Current occupational status: disabled Cognitive needs: No Hearing needs: No Vision needs: Yes Questionnaire PHQ-9 Over the last 2 weeks, how often have you been bothered by any of the following problems? 1. Little interest or pleasure in doing things: not at all 2. Feeling down, depressed, or hopeless: not at all 3. Trouble falling or staying asleep, or sleeping too much: not at all 4. Feeling tired or having little energy: not at all 5. Poor appetite or overeating: not at all 6. Feeling bad about yourself - or that you are a failure or have let yourself or your family down: not at all 7. Trouble concentrating on things, such as reading the newspaper or watching television: not at all 8. Moving or speaking so slowly that other people could have noticed. Or the opposite - being so fidgety or restless that you have been moving around a lot more than usual: not at all 9. Thoughts that you would be better off or of hurting yourself in some way: not at all Total score: 0 Depression Screening Interpretation: Negative Source: Developed by Drs. Viral Reid, Stacey Morris, Naseem Rios and colleagues, with an educational yolis from [employer]. Thrive Questionnaire Date Thrive assessed: 04/01/22 AUDIT C Alcohol Use Questionnaire (AUDIT-C) 1. How often do you have a drink containing alcohol?: Monthly or less 2. How many drinks containing alcohol do you have on a typical day when you are drinking?: 1 or 2 3. How often do you have six or more drinks on one occasion?: Never Total Score: 1 BIJAN-7 AMB Questionnaire BIJAN-7 Date BIJAN - 7 assessed: 04/01/22 Source: Developed by Drs. Viral Reid, Stacey Morris, Naseem Rios and colleagues, with an educational yolis from [employer]. Physical exam (Primary Care) Vital Signs: Last Vital Signs Pulse 78 09/30/22 09:33 BP 128/80 09/30/22 09:33 Pulse Ox 98 09/30/22 09:33 Oxygen Delivery Method Room Air 09/30/22 09:33 BMI result Body Mass Index 30.7 Tobacco/Smoking Status: Tobacco use Status Tobacco use date assessed 07/30/22 09/30/22 09:39 Patient Tobacco Use Status Former Tobacco user 09/30/22 09:39 Tobacco use type Cigarette 09/30/22 09:39 e-Cigarette/Vaping Use Never Used 09/30/22 09:39 PHQ-9: PHQ-9 Score PHQ-9: Total score 0 09/30/22 09:53 Depression Screening Interpretation: Negative Thrive Assessment: Date of Thrive Assessment Date Thrive assessed 04/01/22 09/30/22 09:39 Const General: alert; No acute distress Eyes Conjunctivae: conjunctivae normal Resp Auscultation: clear to auscultation bilaterally Cardio Rate: regular rate Rhythm: regular rhythm GI Inspection: Yes normal to inspection Extrem General: Yes normal to inspection and No edema Assessment and Plan Assessment & Plan (1) Carcinoma of thoracic esophagus: Comment: 08/27/2022 Code(s): C15.4 - Malignant neoplasm of middle third of esophagus Plan: Patient has met with Oncology and Radiation Oncology. (2) Thyroid nodule: Code(s): E04.1 - Nontoxic single thyroid nodule Plan: This is going to be monitored only (3) Dysphagia, pharyngoesophageal phase: Code(s): R13.14 - Dysphagia, pharyngoesophageal phase Plan: Patient is presently able to manage without J-tube and has been taking medications and food via oral route (4) Type 2 diabetes mellitus with hyperglycemia: Comment: [employer] Code(s): E11.65 - Type 2 diabetes mellitus with hyperglycemia Qualifiers: Diabetes mellitus middle or intermediate school principal insulin use: with snf use Qualified Code(s): E11.65 - Type 2 diabetes mellitus with hyperglycemia; Z79.4 - extermination inspector (current) use of insulin Plan: Patient follows up with endocrinology (5) Hypertension: Code(s): I10 - Essential (primary) hypertension Qualifiers: Hypertension type: essential hypertension Qualified Code(s): I10 - Essential (primary) hypertension Plan: Continue with blood pressure medication. Decrease salt intake and exercise (6) GERD (gastroesophageal reflux disease): Code(s): K21.9 - Gastro-esophageal reflux disease without esophagitis Qualifiers: Esophagitis presence: without esophagitis Qualified Code(s): K21.9 - Gastro-esophageal reflux disease without esophagitis Plan: Avoid the foods that causes that usually spicy foods, tomato products, juices, coffee, soda and foods that your sensitive to. After eating do not lie down, allow 3-4 hours before in lie down. And keep the head of bed above 30 degrees to avoid the acid from going up. (7) Obstructive sleep apnea: Comment: CPAP Code(s): G47.33 - Obstructive sleep apnea (adult) (pediatric) Plan: Continue with CPAP (8) Hypercholesterolemia: Code(s): E78.00 - Pure hypercholesterolemia, unspecified Plan: Will continue to follow-up with blood work (9) Obesity (BMI 30-39.9): Code(s): E66.9 - Obesity, unspecified Plan: Continuing to monitor weight (10) Constipation: Code(s): K59.00 - Constipation, unspecified Plan: Three rules for constipation 1. Diet need to have a high fiber diet less of meat 2. Increase oral fluids 3. Exercise Medications: New docusate sodium (Colace) 100 mg PO BID 60 caps 4RF K59.00 - Constipation, unspecified Changed From omeprazole 20 mg PO DAILY 90 days PRN 90 caps 3RF gerd K21.9 - Gastro- esophageal reflux disease without esophagitis To omeprazole 20 mg PO BID 90 days PRN 90 caps 3RF gerd K21.9 - Gastro- esophageal reflux disease without esophagitis Discontinued hydromorphone Partial Fill upon patient request. 1 mg (1/2 x 2 mg) PO Q6H 50 tabs Coding Level of Care Code Est Pt Level 4 (10985) Diagnoses Carcinoma of thoracic esophagus C15.4 Thyroid nodule E04.1 Dysphagia, pharyngoesophageal phase R13.14 Type 2 diabetes mellitus with hyperglycemia E11.65; Z79.4 Diabetes mellitus middle or intermediate school principal insulin use: with middle or intermediate school principal use Hypertension I10 Hypertension type: essential hypertension GERD (gastroesophageal reflux disease) K21.9 Esophagitis presence: without esophagitis Obstructive sleep apnea G47.33 Hypercholesterolemia E78.00 Obesity (BMI 30-39.9) E66.9 Constipation K59.00
== END 2022-09-30 10:06 | disposition home or self-care (01) ==
PROVIDERS: Visit Provider Internal Medicine
DX: C15.4 Malignant neoplasm of middle third of esophagus (principal); E04.1 Nontoxic single thyroid nodule; E11.65 Type 2 diabetes mellitus with hyperglycemia; I10 Essential (primary) hypertension; Z79.4 Long term (current) use of insulin; Z68.30 Body mass index [BMI] 30.0-30.9, adult; K21.9 Gastro-esophageal reflux disease without esophagitis; R13.14 Dysphagia, pharyngoesophageal phase; G47.33 Obstructive sleep apnea (adult) (pediatric); E78.00 Pure hypercholesterolemia, unspecified; E66.9 Obesity, unspecified; K59.00 Constipation, unspecified
CPT/HCPCS: 99214

== ENCOUNTER → 2022-09-30 14:40 | Outpatient (BNV) | payer MEDICARE, SELFPAY | PROVIDERS: PCP Internal Medicine; Visit Provider Internal Medicine Medical Oncology | DX: C15.4 Malignant neoplasm of middle third of esophagus (principal) | CPT/HCPCS: 99204; 99213; 99214 ==

== ENCOUNTER → 2022-10-01 06:40 | Day surgery (SDC) | payer MEDICARE, SELFPAY ==
[2022-10-01] VITALS (10 sets, daily range): BP systolic 104–126; BP diastolic 46–64; PULSE 65–76; RESP 16–18; TEMP 36.6–37.1; O2SAT 93–96; BMI 30.4
--- NOTE | ~2022-10-01 | IR_ITS ---
PROCEDURE: IR INSERTION OF TUNNEL CATHETER CLINICAL INFORMATION: Esophageal cancer COMPARISON: None available. Medications for conscious sedation: The patient received intravenous conscious sedation under my direct supervision. A registered nurse monitored the patient and the patient's vital signs throughout the procedure. The total sedation was 30 minutes. A total of 2 mg of Versed and 100 mcg fentanyl was given for good effect. TECHNIQUE/findings: All elements of maximal sterile barrier technique followed including use of cap, mask, sterile gown, sterile gloves, a sterile full body drape and hand hygiene. Also followed skin preparation with 2% chlorhexidine for cutaneous antisepsis, and sterile ultrasound preparation with sterile gel and probe cover when applicable. After local anesthesia, a micropuncture set was used to gain access to the right internal jugular (IJ) vein under direct real-time combined ultrasonographic and fluoroscopic guidance. A micropuncture sheath was placed over an 0.018? wire. Local anesthesia was given at the level of the chest wall. A subcutaneous pocket was formed along the right upper chest by making a transverse incision long enough to accommodate the reservoir, and the pocket was made caudal to the incision by blunt dissection. The catheter was advanced over a blunt tunneler from the transverse chest incision and its tip was exteriorized at the venotomy site. The micropuncture sheath was exchanged over an 0.035; wire for the peel-away sheath. The catheter tip was inserted via the sheath under controlled respiration. The sheath was removed. The catheter was trimmed to the appropriate length (20 cm) in beveled fashion and was attached to the Port reservoir. The reservoir was accessed with a needle and aspirated and flushed well, without visible leak. The reservoir was inserted into the tightly fit subcutaneous pocket. A final fluoroscopic image was obtained and stored, showing satisfactory position of the Port reservoir and catheter, with its tip near the cavoatrial junction and no catheter kinking. The skin incision was closed with a deep layer of separate 2-0 resorbable sutures and topical adhesive superficially, and the venotomy incision was closed with topical adhesive. The Port was re-accessed and excellent bidirectional flow was noticed on aspiration and flushing of the Port, which was flushed with heparinized saline, hep-locked, and then de-accessed. A sterile dressing was applied. The patient tolerated the procedure very well without immediate complication. IR/IR cvc insert tunnel w prt/synthetic filament spinner IMPRESSION: Placement of single-lumen Port-A-Cath via right IJ approach. Port is ready for immediate use.
[2022-10-01 07:20] LABS: Glucose, Whole Blood 112 mg/dL (60-115)
[2022-10-01] MEDS: 0.9 % Sodium Chloride 1,000 ML 500 ML IVCONT (10:00)
[2022-10-01] MEDS: ondansetron HCL 4 MG/2 ML VIAL IVPUSH (12:13)
== END | disposition home or self-care (01) ==
PROVIDERS: Radiology Vascular & Interventional Radiology; PCP Internal Medicine; Visit Provider Internal Medicine Medical Oncology
DX: Z45.2 Encounter for adjustment and management of vascular access device (principal); C15.4 Malignant neoplasm of middle third of esophagus; C78.7 Secondary malignant neoplasm of liver and intrahepatic bile duct; Z85.038 Personal history of other malignant neoplasm of large intestine; E11.65 Type 2 diabetes mellitus with hyperglycemia; Z79.84 Long term (current) use of oral hypoglycemic drugs; G47.33 Obstructive sleep apnea (adult) (pediatric); I10 Essential (primary) hypertension; K21.9 Gastro-esophageal reflux disease without esophagitis; E78.5 Hyperlipidemia, unspecified; F41.1 Generalized anxiety disorder; F10.90 Alcohol use, unspecified, uncomplicated; Z99.89 Dependence on other enabling machines and devices; Z79.51 Long term (current) use of inhaled steroids; Z79.899 Other long term (current) drug therapy; Z87.891 Personal history of nicotine dependence; Z88.8 Allergy status to other drugs, medicaments and biological substances
CPT/HCPCS: 36561; 76937; 82947; 99152; 99153; C1769; C1788; J0690; J1642; J2250; J2405; J3010

== ENCOUNTER → 2022-10-01 07:55 | Outpatient (BNV) | payer MEDICARE, SELFPAY | PROVIDERS: PCP Internal Medicine; Visit Provider Student in an Organized Health Care Education/Training Program | DX: C15.9 Malignant neoplasm of esophagus, unspecified (principal) | CPT/HCPCS: 36561; 76937 ==

== ENCOUNTER 2022-12-14 10:08 | Outpatient (REF) | payer MEDICARE, SELFPAY ==
[2022-12-14 11:22] LABS: Alanine Aminotransferase 13 U/L (0-40); Albumin Level 3.7 g/dL (3.5-5.0); Alkaline Phosphatase 106 U/L (39-117); Anion Gap 15 (12-20); Aspartate Amino Transferase 20 U/L (5-37); Bilirubin Direct 0.2 mg/dL (0.0-0.5); Bilirubin Total 0.7 mg/dL (0.0-1.0); Blood Urea Nitrogen 8 mg/dL (9-16); Calcium 9.3 mg/dL (8.4-10.2); Carbon Dioxide 27 mmol/L (22-29); Chloride 103 mmol/L (96-108); Estimated Glomerular Filt Rate > 60; Glucose Random 168 mg/dL (60-115); Potassium 3.5 mmol/L (3.3-5.1); Sodium 141 mmol/L (135-145); Total Protein 6.8 g/dL (6.5-8.0)
[2022-12-14 11:36] LABS: Thyroid Stimulating Hormone 1.66 uIU/mL (0.32-4.0)
== END 2022-12-14 10:09 | disposition home or self-care (01) ==
LOC: HO.LAB 10:08
PROVIDERS: PCP Internal Medicine; Visit Provider Internal Medicine Medical Oncology
DX: C15.4 Malignant neoplasm of middle third of esophagus (principal)
CPT/HCPCS: 36415; 80053; 82248; 84443; 85025

== ENCOUNTER 2022-12-31 06:57 | Outpatient (REF) | payer MEDICARE, SELFPAY ==
[2022-12-31 07:09] LABS: MANUAL DIFF FLAG NO
[2022-12-31 07:16] LABS: Basophils Percent Auto 0.7 % (0-2); Eosinophils Absolute Auto 0.1 X10*3/uL (0.0-0.4); Eosinophils Percent Auto 2.3 % (0-4); Hematocrit 37.7 % (42.0-52.0); Imm Gran Abs Auto 0.02 X10*3/uL (0.00-0.03); Imm Gran Pct Auto 0.5 % (0.0-0.4); Lymphocytes Absolute Auto 0.5 X10*3/uL (1.2-4.9); Mean Corpuscular HGB Conc 34.5 g/dl (31.0-36.0); Mean Corpuscular Volume 92.9 fL (80.0-98.0); Mean Platelet Volume 9.4 fL (9.4-12.4); Monocytes Absolute Auto 0.8 X10*3/uL (0.1-1.2); Neutrophils Absolute Auto 2.9 x10*3/uL (2.0-8.3); Neutrophils Percent Auto 66.5 % (45-73); Platelet Count 115 X10*3/uL (160-400); Red Blood Count 4.06 X10*6/uL (4.60-5.80); Red Cell Distribution Width 18.1 % (11.0-16.0); White Blood Count 4.4 X10*3/uL (4.8-10.8)
[2022-12-31 07:32] LABS: Alanine Aminotransferase 14 U/L (0-40); Albumin Level 3.9 g/dL (3.5-5.0); Alkaline Phosphatase 133 U/L (39-117); Anion Gap 16 (12-20); Aspartate Amino Transferase 21 U/L (5-37); Bilirubin Direct 0.3 mg/dL (0.0-0.5); Bilirubin Total 0.9 mg/dL (0.0-1.0); Blood Urea Nitrogen 9 mg/dL (9-16); Calcium 9.6 mg/dL (8.4-10.2); Carbon Dioxide 27 mmol/L (22-29); Chloride 99 mmol/L (96-108); Estimated Glomerular Filt Rate > 60; Glucose Random 169 mg/dL (60-115); Potassium 3.4 mmol/L (3.3-5.1); Sodium 139 mmol/L (135-145); Total Protein 7.4 g/dL (6.5-8.0)
[2022-12-31 07:46] LABS: Thyroid Stimulating Hormone 2.19 uIU/mL (0.32-4.0)
== END 2022-12-31 06:58 | disposition home or self-care (01) ==
LOC: HO.LAB 06:57
PROVIDERS: PCP Internal Medicine; Visit Provider Internal Medicine Medical Oncology
DX: C15.4 Malignant neoplasm of middle third of esophagus (principal); Z79.899 Other long term (current) drug therapy
CPT/HCPCS: 36415; 80053; 82248; 84443; 85025

== ENCOUNTER 2023-01-09 11:49 | Outpatient (AMB) | payer MEDICARE, SELFPAY ==
[2023-01-09 11:55] VITALS: BP 140/78; PULSE 86; O2SAT 96; BMI 28.7
--- NOTE | 2023-01-09 11:55 | A.OFFPC_ITS ---
Vital Signs 01/09/23 11:55 Height 5 ft 7 in Weight 183 lb BMI 28.7 BP 140/78 H Blood Pressure Location Lt brachial Position Sitting Pulse 86 Pulse Source Pulse Oximeter Pulse Oximetry (%) 96 Oxygen Delivery Method Room Air Intake Visit Reasons: Esophageal cancer Allergies metformin Allergy (Intermediate, Verified 01/09/23 11:56) Diarrhea Clindamycin HCl Allergy (Intermediate, Uncoded 01/09/23 11:56) rash Medication List - Last Reconciled 01/09/23 by Soto Santos MD blood sugar diagnostic (FreeStyle Lite Strips) 3x daily blood-glucose meter (FreeStyle Lite Meter kit) As directed dexamethasone 4 mg PO BID dicyclomine 20 mg PO QID PRN docusate sodium (Colace) 100 mg PO BID duloxetine 30 mg PO DAILY 90 days fluticasone propionate 50 mcg/actuation 2 sprays intranasal BEDTIME glucose (Dex4 Glucose) 4 grams PO Q15M PRN hydromorphone (Dilaudid) 2 mg PO Q6H ibuprofen 800 mg PO Q8H lidocaine HCl 2% (Lidocaine Viscous) 1 appl mucous membrane QID lisinopril 20 mg PO DAILY lorazepam 1 mg PO BID PRN 90 days Magic Mouthwash Diphen/Lido/Antacid 1:1:1 10 mL PO QID miconazole nitrate 2% (Zeasorb AF) 1 appl topical BID omeprazole 20 mg PO BID PRN 90 days ondansetron HCl 8 mg PO Q8H pen needle, diabetic (BD Ultra-Fine Micro Pen Needle) 4x daily prochlorperazine maleate (Compazine) 10 mg PO Q8H PRN rosuvastatin 40 mg PO DAILY sucralfate (Carafate) 1 g PO TID trazodone 150 mg PO BEDTIME Tobacco use date assessed: 07/30/22 HPI Esophageal cancer HPI Details 72-year-old obese male with esophageal c ancer(August 2022), diabetes mellitus hypertension GERD obstructive sleep apnea and hypercholesterolemia coming in for follow-up. Patient last seen in September 2022 patient follows up with Hematology-Oncology(November 2022 last seen) started on chemotherapy October 07 had 25 lb weight loss had palliative radiation therapy also. Last blood work December 31 shows mild anemia at 13.0 and thrombocytopenia at 115. Noted potassium to be on the low side [facility] Medical History (Updated 01/09/23 @ 12:06 by Soto Santos MD) Carcinoma of esophagus Dysphagia, pharyngoesophageal phase Esophageal dysphagia Colon cancer Thyroid nodule Goiter Vitamin D deficiency Osteomyelitis of cervical spine Obstructive sleep apnea Narcolepsy GERD (gastroesophageal reflux disease) Obesity Insomnia Hypertension Type 2 diabetes mellitus with hyperglycemia Postlaminectomy syndrome of cervical region Hypercholesterolemia Surgical History History of colonoscopy History of spinal surgery Family History Father Colon cancer Diabetes Hypertension Mother Paget's disease Diabetes Social History Household Members: Spouse and Family Housing: House Do you presently have visiting nurse or other home services: No Alcohol intake: current Alcohol intake frequency: holidays/special occasions only Patient Tobacco Use Status: Former Tobacco user Quit Date: 1993 Tobacco use type: Cigarette Cigarette Packs Per Day: 3 Years Smoked: 20 e-Cigarette/Vaping Use: Never Used Second Hand Smoke Exposure: No service: No Current occupational status: disabled Cognitive needs: No Hearing needs: No Vision needs: Yes Questionnaire Thrive Questionnaire Date Thrive assessed: 04/01/22 BIJAN-7 AMB Questionnaire BIJAN-7 Date BIJAN - 7 assessed: 04/01/22 Source: Developed by Drs. Viral Reid, Stacey Morris, Naseem Rios and colleagues, with an educational yolis from [employer]. Physical exam (Primary Care) Vital Signs: Last Vital Signs Pulse 86 01/09/23 11:55 BP 140/78 H 01/09/23 11:55 Pulse Ox 96 01/09/23 11:55 Oxygen Delivery Method Room Air 01/09/23 11:55 BMI result Body Mass Index 28.7 Tobacco/Smoking Status: Tobacco use Status Tobacco use date assessed 07/30/22 01/09/23 11:57 Patient Tobacco Use Status Former Tobacco user 01/09/23 11:57 Tobacco use type Cigarette 01/09/23 11:57 e-Cigarette/Vaping Use Never Used 01/09/23 11:57 Thrive Assessment: Date of Thrive Assessment Date Thrive assessed 04/01/22 01/09/23 11:57 Const General: alert; No acute distress Eyes Conjunctivae: conjunctivae normal Resp Auscultation: clear to auscultation bilaterally Cardio Rate: regular rate Rhythm: regular rhythm GI Inspection: Yes normal to inspection Extrem General: Yes normal to inspection and No edema Office Procedures Flu Questionnaire Does the patient have a severe egg allergy?: No Does the patient have severe life threatening allergies?: No Does the patient have a fever or illness today?: No Has the patient ever had Guillain-Covina Syndrome?: No Has the patient ever had any past reaction to a flu shot?: No Results AMB Hemoglobin A1c AMB Hemoglobin A1c 7.8 % Last Edit by April Michael CMA on 01/09/23 12 :14 Immunizations flu vacc [id number] 6mos up(PF) 60 mcg(15 mcgx4)/0.5 mL IM syringe Performing Provider: Soto Santos MD Performing Location: [facility] Administered by: April Michael CMA on 01/09/23 12:10 Dose Route Admin Location Dispensed Lot Number Expiration Date NDC Environmental Protection Economist 0.5 mL IM Left Deltoid 0.5 mL [id number] 09/07/23 19702-254-17 [employer] VIS Given Date VIS Provided VIS Publication Date 01/09/23 Single Vaccine 20 Eligibility Eligibility Date Funding Source Not [facility] Eligible 01/09/23 Private Assessment and Plan Assessment & Plan (1) Carcinoma of thoracic esophagus: Comment: 08/27/2022 Code(s): C15.4 - Malignant neoplasm of middle third of esophagus Plan: Patient under hematology oncology receiving chemotherapy and radiation (2) Type 2 diabetes mellitus with hyperglycemia: Comment: [employer] Code(s): E11.65 - Type 2 diabetes mellitus with hyperglycemia Qualifiers: Diabetes mellitus chcf insulin use: with chcf use Qualified Code(s): E11.65 - Type 2 diabetes mellitus with hyperglycemia; Z79.4 - middle or intermediate school principal (current) use of insulin Plan: Decrease the amount of carbohydrate intake, pasta, bread, rice and potatoes are all sugar and that is aside from all the sweet stuff, remember that fruits are good but they are Sweet also. Diet control but lately started with insulin due to the BS high. family know to adjust med, has the dexcom 7 discussed on avoiding hypoglycemia (3) Hypertension: Code(s): I10 - Essential (primary) hypertension Qualifiers: Hypertension type: essential hypertension Qualified Code(s): I10 - Essential (primary) hypertension Plan: Continue with blood pressure medication. Decrease salt intake and exercise continue with lisinopril 20 mg once a day. BP today is high- will continue to monitor. (4) GERD (gastroesophageal reflux disease): Code(s): K21.9 - Gastro-esophageal reflux disease without esophagitis Qualifiers: Esophagitis presence: without esophagitis Qualified Code(s): K21.9 - Gastro-esophageal reflux disease without esophagitis Plan: Avoid the foods that causes that usually spicy foods, tomato products, juices, coffee, soda and foods that your sensitive to. After eating do not lie down, allow 3-4 hours before in lie down. And keep the head of bed above 30 degrees to avoid the acid from going up. (5) Obstructive sleep apnea: Comment: CPAP Code(s): G47.33 - Obstructive sleep apnea (adult) (pediatric) Plan: Continue to use the CPAP more than 4 hours a night and benefits from this (6) Generalized anxiety disorder: Comment: is mental health nurse Code(s): F41.1 - Generalized anxiety disorder Plan: Continuing with therapy (7) Hypercholesterolemia: Code(s): E78.00 - Pure hypercholesterolemia, unspecified Plan: Avoid fried foods, chicken skin, eggs, butter margarine, pastries and meat. Be it pork or beef they have a lot of cholesterol LDL goal of less than 100 and triglyceride of less than 150 patient is on rosuvastatin Orders: Orders AMB Hemoglobin A1c Today Z13.9 - Encounter for screening, unspecified Influenza [id number] Immunization Today Z23 - Encounter for immunization Coding Level of Care Code Est Pt Level 4 (32371) Diagnoses Carcinoma of thoracic esophagus C15.4 Type 2 diabetes mellitus with hyperglycemia, with long-term current use of insulin E11.65; Z79.4 Diabetes mellitus chcf insulin use: with superintendent marine oil terminal use Essential hypertension I10 Hypertension type: essential hypertension Gastroesophageal reflux disease without esophagitis K21.9 Esophagitis presence: without esophagitis Obstructive sleep apnea G47.33 Generalized anxiety disorder F41.1 Hypercholesterolemia E78.00
== END 2023-01-09 12:26 | disposition home or self-care (01) ==
PROVIDERS: PCP Internal Medicine; Visit Provider Internal Medicine
DX: C15.4 Malignant neoplasm of middle third of esophagus (principal); E11.65 Type 2 diabetes mellitus with hyperglycemia; Z79.4 Long term (current) use of insulin; I10 Essential (primary) hypertension; K21.9 Gastro-esophageal reflux disease without esophagitis; G47.33 Obstructive sleep apnea (adult) (pediatric); F41.1 Generalized anxiety disorder; E78.00 Pure hypercholesterolemia, unspecified; Z23 Encounter for immunization
CPT/HCPCS: 83036; 90471; 90686; 99214

== ENCOUNTER 2023-01-21 05:57 | Outpatient (REF) | payer MEDICARE, SELFPAY ==
--- NOTE | ~2023-01-21 | CT_ITS ---
EXAMINATION: CT HEAD WITH/WITHOUT CONTRAST CLINICAL INFORMATION: Confusion, personal history of esophageal carcinoma COMPARISON: None available. TECHNIQUE: Contiguous axial imaging was performed from the skull base to vertex before and after the administration of 100 mL of Omnipaque [address] examination was performed using dose optimization techniques as appropriate, variously including the following: *Automated exposure control *Adjustment of mA and/or kV according to patient size (this includes techniques or standardized protocols for targeted exams where dose is matched to indication/reason for exam; i.e. extremities or head) *Use of iterative reconstruction technique DLP: 1870 mGy-cm FINDINGS: CT examination of the brain shows mild age-related involutional changes with prominence of the ventricles and sulci. Mild Periventricular white matter hypodensities are evident, likely on the basis of chronic microvascular ischemic disease. No acute hemorrhage, mass effect or shift is evident. In the posterior fossa, the brainstem, cerebellum and fourth ventricle are unremarkable. There are no enhancing intracranial masses. The orbits and bony calvarium are intact. The right maxillary sinus is completely opacified. CT/CT head/brain wo/w IV con IMPRESSION: 1. No evidence of enhancing intracranial mass or other acute intracranial pathology. 2. Mild age-related involutional changes. 3. Complete opacification of the right maxillary sinus.
--- NOTE | ~2023-01-21 | CT_ITS ---
EXAMINATION: CT abdomen pelvis w IV con, CT chest w IV con CLINICAL INFORMATION: Reason for Exam F/U AON CA ESOPHAGUS S/P 3 CYCLES COMPARISON: Chest CT of 09/05/2022. TECHNIQUE: Multidetector volumetric imaging was performed through the chest, abdomen and pelvis with IV contrast. There was administration of 85 mL of Omnipaque 350 intravenous contrast. Sagittal and coronal reformatted images were obtained on the technologist's workstation. This CT examination was performed using dose optimization techniques as appropriate, variously including the following: *Automated exposure control *Adjustment of mA and/or kV according to patient size (this includes techniques or standardized protocols for targeted exams where dose is matched to indication/reason for exam; i.e. extremities or head) *Use of iterative reconstruction technique DLP: 520 mGy-cm FINDINGS: There are filling defects within the right lower lobe pulmonary artery, as well as in segmental branches of the right lower lobe including the medial and lateral basal and superior segmental pulmonary arteries. Similar filling defects are evident within left lower lobe pulmonary arteries consistent with multifocal pulmonary emboli. LUNG: Scattered tiny pulmonary nodules are not significantly changed in size or number since the prior examination PLEURA: No pleural effusion or pneumothorax. MEDIASTINUM AND MELISSA: A 12 x 9 mm left suprahilar lymph node, adjacent to the descending left pulmonary artery measured 9 x 5 mm previously. A subcarinal node measuring 9 mm in short axis measures 7 mm previously. Circumferential thickening of the distal esophagus up to 10 mm at end above the EG junction is unchanged to slightly more prominent, measuring 6 mm previously. VASCULAR: Normal caliber thoracic aorta. There are coronary artery and mitral valve calcifications. CHEST WALL/AXILLA: No axillary or internal mammary lymphadenopathy. LIVER, GALLBLADDER, AND BILIARY TREE: A 3.5 x 2 6.6 cm ill-defined hypodense mass in the posterior segment of the right hepatic lobe has decreased in size from approximately 5.7 x 3.7 cm previously. There is an additional ill-defined 12 mm low-density lesion anterior to the gallbladder, which was not imaged on the prior thoracic CT. A 4 mm low-density lesion in the dome of the right lobe is slightly smaller than on the prior study when it measured 10 mm. A 7 mm subcapsular lesion in the posterior inferior right hepatic lobe was not imaged on prior thoracic CT. The gallbladder is unremarkable with no evidence of radiopaque gallstones, gallbladder wall thickening, or obvious pericholecystic inflammatory changes. PANCREAS: Unremarkable. SPLEEN: Unremarkable. ADRENAL GLANDS: Unremarkable. KIDNEYS AND URETERS: There is a 16 mm right renal mid pole cyst. Several other small low density lesions are evident in the right kidney as well, too small to characterize. No specific imaging follow-up is needed. No obstructive uropathy or calculi are evident. BLADDER: Unremarkable. GASTROINTESTINAL TRACT: As described above, the distal esophagus and esophagogastric junction are thickened, more so than on the prior examination. At the level of the diaphragmatic hiatus, the esophagus measures 31 x 23 mm, previously 27 x 16 mm. ABDOMINAL WALL: No significant hernia is appreciated. LYMPH NODES: Upper abdominal adenopathy is again evident, with somewhat of a mixed response in that some of the nodes are slightly smaller and others slightly more prominent. For example, an 11 x 11 mm celiac axis node measures 17 x 11 mm previously; an upper gastrohepatic ligament node measuring 11 x 9 mm measured 12 x 11 mm previously; and a 14 x 6 mm portacaval node measured 15 x 9 mm previously. Further caudally, there is an anterior interaortocaval node measuring 12 x 7 mm not significantly changed from the PET CT of 09/17/2022. No pelvic adenopathy is evident.. VASCULAR: Aortoiliac atherosclerotic disease is present. There is no aneurysm. PELVIC VISCERA: The prostate gland is enlarged indenting the bladder base. OSSEOUS STRUCTURES: Degenerative changes are noted in the thoracolumbar spine. There are no suspicious bone lesions. CT/CT abdomen pelvis w IV con IMPRESSION: 1. ACUTE BILATERAL PULMONARY EMBOLI. Findings were reported at the time of interpretation to Yvonne Torres MD by phone on 01/21/2023 at 9:20 AM 2. Slight increased thickness of the distal esophagus at the site of known esophageal carcinoma. 3. Decreased size of dominant right hepatic lobe metastases. 3. Mixed response of lymph nodes, with a few thoracic nodes appearing slightly more prominent and upper abdominal and periportal nodes appearing slightly less apparent. No significant disease progression is evident. Continued attention on follow-up studies is recommended
[2023-01-21] MEDS: iohexoL 350 MG/ML 100 ML INFUS..BTL IV (08:26)
[2023-01-21] MEDS: Barium Sulfate Oral (Berry) 450 ML ORAL.SUSP 900 ML PO (08:32)
== END 2023-01-21 05:58 | disposition home or self-care (01) ==
LOC: HO.CT 05:57
PROVIDERS: PCP Internal Medicine; Visit Provider Internal Medicine Medical Oncology
DX: C15.4 Malignant neoplasm of middle third of esophagus (principal)
CPT/HCPCS: 70470; 71260; 74177; Q9967

== ENCOUNTER 2023-01-29 11:00 | Outpatient (REF) | payer MEDICARE, SELFPAY ==
--- NOTE | ~2023-01-29 | US_ITS ---
EXAMINATION: US VENOUS ULTRASOUND WITH DOPPLER LOWER EXTREMITY, BILATERAL CLINICAL INFORMATION: Bilateral lower extremity pain COMPARISON: None available. TECHNIQUE: Ultrasound of the deep veins is performed from the hip to the calf with compression sonography and color and pulse Doppler assessment. Spectral analysis with color-flow imaging is performed. FINDINGS: RIGHT: There is normal venous compression and respiratory variation and augmented flow. The visualized common femoral vein, superficial femoral vein, profunda femoral vein, popliteal vein, and the trifurcation region shows no evidence of deep venous thrombosis. There is no significant popliteal fossa cyst. LEFT: There is normal venous compression and respiratory variation and augmented flow. The visualized common femoral vein, superficial femoral vein, profunda femoral vein, popliteal vein, and the trifurcation region shows no evidence of deep venous thrombosis. There is no significant popliteal fossa cyst. If the patient's symptoms persist, followup ultrasound in 5 days 7 days might be of value to exclude proximal propagation from a non-visualized calf vein. US/US venous duplex LE BI IMPRESSION: No DVT demonstrated in the bilateral lower extremity.
== END 2023-01-29 11:01 | disposition home or self-care (01) ==
LOC: HO.US 11:00
PROVIDERS: PCP Internal Medicine; Visit Provider Internal Medicine Medical Oncology
DX: M79.604 Pain in right leg (principal); M79.605 Pain in left leg
CPT/HCPCS: 93970

== ENCOUNTER 2023-03-08 07:19 | Outpatient (REF) | payer MEDICARE, SELFPAY ==
[2023-03-08 07:46] LABS: Hematocrit 38.1 % (42.0-52.0); Hemoglobin 12.6 g/dl (14.0-18.0); Mean Corpuscular HGB Conc 33.1 g/dl (31.0-36.0); Mean Corpuscular Hemoglobin 32.9 pg (27.0-33.0); Mean Corpuscular Volume 99.5 fL (80.0-98.0); Mean Platelet Volume 9.3 fL (9.4-12.4); Red Blood Count 3.83 X10*6/uL (4.60-5.80); Red Cell Distribution Width 14.6 % (11.0-16.0); White Blood Count 6.3 X10*3/uL (4.8-10.8)
[2023-03-08 08:21] LABS: Alanine Aminotransferase 18 U/L (0-40); Albumin Level 3.7 g/dL (3.5-5.0); Alkaline Phosphatase 137 U/L (39-117); Anion Gap 12 (12-20); Aspartate Amino Transferase 27 U/L (5-37); Bilirubin Direct 0.1 mg/dL (0.0-0.5); Bilirubin Total 0.3 mg/dL (0.0-1.0); Blood Urea Nitrogen 9 mg/dL (9-16); Calcium 9.3 mg/dL (8.4-10.2); Carbon Dioxide 28 mmol/L (22-29); Chloride 104 mmol/L (96-108); Estimated Glomerular Filt Rate > 60; Glucose Random 134 mg/dL (60-115); Potassium 3.3 mmol/L (3.3-5.1); Sodium 141 mmol/L (135-145)
[2023-03-08 08:27] LABS: Band Neutrophils Percent 13 % (3-5); Eosinophils Absolute Manual 0.1 X10*3/uL (0.0-0.4); Eosinophils Percent Manual 1 % (0-4); Lymphocytes Absolute Manual 0.6 X10*3/uL (1.2-4.9); Lymphocytes Percent Manual 10 % (20-40); Metamyelocytes Absolute 0.1 X10*3/uL; Metamyelocytes Percent 1 %; Monocytes Absolute Manual 0.3 X10*3/uL (0.1-1.2); Monocytes Percent Manual 4 % (2-11); Myelocytes Absolute 0.1 X10*/uL; Myelocytes Percent 1 %; Neutrophils Absolute Manual 5.2 X10*3/uL (2.0-8.3); Neutrophils Percent Manual 70 % (45-73)
[2023-03-08 08:30] LABS: Macrocytosis 1+ (5-14) /OIF; Platelet Estimate DECREASED (NORMAL); Polychromasia 2+ (3-5) /OIF; RBC Morphology NOTED; Spherocytes 2+ (3-5) /OIF
[2023-03-08 08:31] LABS: Platelet Morphology Comment NORMAL
[2023-03-08 08:37] LABS: Thyroid Stimulating Hormone 1.69 uIU/mL (0.32-4.0)
[2023-03-08 09:01] LABS: Platelet Count 89 X10*3/uL (160-400)
== END 2023-03-08 07:20 | disposition home or self-care (01) ==
LOC: HO.LAB 07:19
PROVIDERS: PCP Internal Medicine; Visit Provider Internal Medicine Medical Oncology
DX: C15.4 Malignant neoplasm of middle third of esophagus (principal)
CPT/HCPCS: 36415; 80053; 82248; 84443; 85007; 85027

== ENCOUNTER 2023-04-22 14:48 | Outpatient (AMB) | payer MEDICARE, SELFPAY ==
[2023-04-22 14:50] VITALS: BP 122/64; PULSE 89; BMI 31.0
--- NOTE | 2023-04-22 14:50 | A.OFFVIS_ITS ---
Intake Vital Signs 04/22/23 14:50 Height 5 ft 7 in Weight 197 lb 12.074 oz BMI 31.0 BP 122/64 Blood Pressure Location Lt brachial Position Sitting Pulse 89 Pulse Source Pulse Oximeter Intake Visit Reasons: Dm-confirmed Intake Note: Patient present today to follow up on Type 2 Diabetes Mellitus. Last seen by Dr. Alcazar on 09/02/2022. Patient receives DME supplies through: [facility] Last Diabetic Eye exam: 01/2023 Last Podiatry Visit: None Random Glucose:214 mg/dl HgA1C: 6.9% Manager Instrumentation Required: No Accompanied by: Spouse Allergies metformin Allergy (Intermediate, Verified 04/22/23 14:58) Diarrhea Clindamycin HCl Allergy (Intermediate, Uncoded 04/22/23 14:58) rash Medication List - Last Reconciled 04/22/23 by Viral Hamilton MD apixaban (Eliquis DVT-PE Treat 30D Start) 5 mg PO BID apixaban (Eliquis) 5 mg PO BID blood sugar diagnostic (FreeStyle Lite Strips) 3x daily blood-glucose meter (FreeStyle Lite Meter kit) As directed dexamethasone 4 mg PO BID dicyclomine 20 mg PO QID PRN docusate sodium (Colace) 100 mg PO BID duloxetine 30 mg PO DAILY 90 days fluticasone propionate 50 mcg/actuation 2 sprays intranasal BEDTIME glucose (Dex4 Glucose) 4 grams PO Q15M PRN hydromorphone (Dilaudid) 2 mg PO Q6H ibuprofen 800 mg PO Q8H insulin aspart (niacinamide) 100 unit/mL (3 mL) (Fiasp FlexTouch U-100 Insulin) 14 units subcut TID insulin degludec (Tresiba FlexTouch U-200 insulin) 80 units (0.4 mL) subcut BEDTIME lidocaine HCl 2% (Lidocaine Viscous) 1 appl mucous membrane QID lisinopril 20 mg PO DAILY lorazepam 1 mg PO BID PRN 90 days Magic Mouthwash Diphen/Lido/Antacid 1:1:1 10 mL PO QID omeprazole 20 mg PO BID PRN 90 days ondansetron HCl 8 mg PO Q8H oxycodone 10 mg PO Q6H PRN pen needle, diabetic (BD Ultra-Fine Micro Pen Needle) 4x daily prochlorperazine maleate (Compazine) 10 mg PO Q8H PRN rosuvastatin 40 mg PO DAILY sucralfate (Carafate) 1 g PO TID sucralfate (Carafate) 1 g PO TID trazodone 150 mg PO BEDTIME HPI HPI Comments History of Present Illness Details 72 YO M with PMHx T2DM, HTN, HLD, ISABELLA on CPAP who is seen in F/U for T2DM He was diagnosed with Esophageal cancer last week. Initially diagnosed with T2DM in 2014. Was initially started on treatment with Metformin and Glipizide. He was unable to tolerate Metformin due to GI distress. He started Insulin approximately 1 year after diagnosis. Patient last saw Dr. Alcazar 09/02/2022 Current regimen Tresiba 80 units qHS and Novolog 14 units AC. He only uses the Novolog when he is able to eat something.Takes Dexamethasone every 2 wks Unable to download sugars today.avg glucose of 180 . 56% in range , 43% range in range and <1% range Reports low sugars rarely. Treats lows with juice. Checks sugar after to ensure it is rising. Treats according to rule of 15's. Family history of T2DM in his Father and Mother. Has eyes checked yearly, last eye exam 3 mos ago , denies retinopathy. Denies neuropathy. Has nephropathy, on Lisinopril 20 mg PO daily. UAC 21.4 11/22/2021. Has HLD, on Rosuvastatin 40 mg PO daily. Last LDL 191 08/26/2022. Has not been consistent with Rosuvastatin. Denies CAD. Diet: Has cut down drinking ETOH to once a week maximum. Weight: Stable. Had diabetes education. US Thyroid: 06/20/2022 Right Thyroid Lobe: 4.8 x 1.9 x 2.4 cm, volume 11.1 mL. Parenchyma: The gland echotexture is homogeneous. Thyroid vascularity is normal. Left Thyroid Lobe: 3.8 x 1.9 x 1.4 cm, volume 5.4 mL. Parenchyma: The gland echotexture is homogeneous. Thyroid vascularity is normal. Isthmus: 0.49 cm in maximum AP dimension. Estimated total number of nodules greater than or equal to 1 cm: 0. Assistant Cook nodules are described as follows: 1. Location: Right superior. ?? ? Size: 0.72 x 0.33 x 0.43 cm, volume 0.05 mL. ?? ? Nodule characteristics: ?? ? Composition: Cannot be determined (2). ?? ? Echogenicity: Hypoechoic (2). ?? ? Shape: Not taller than wide (0). ?? ? Margins: Smooth (0). ?? ? Echogenic Foci: None (0). ?? ? ACR TI-RADS total points: 4 ?? ? ACR TI-RADS category: 4 NODES: No lymphadenopathy is seen in the tissue surrounding the thyroid gland. US/US thyroid IMPRESSION: Right superior pole 7 mm nodule does not meet ACR criteria for follow-up. Labs: Laboratory Tests 11/22/21 11/22/21 11/22/21 07:45 07:47 07:47 Creatinine 0.81 Estimated GFR > 60 Hemoglobin A1c % 6.4 25-OH Vitamin D To nigel 21.8 TSH 2.23 Free T4 Microalb/Creat Rat io 21.4 11/22/21 07:47 Creatinine Estimated GFR Hemoglobin A1c % 25-OH Vitamin D To nigel TSH Free T4 0.91 Microalb/Creat Rat io [facility] Medical History (Updated 01/09/23 @ 12:06 by Soto Santos MD) Carcinoma of esophagus Dysphagia, pharyngoesophageal phase Esophageal dysphagia Colon cancer Thyroid nodule Goiter Vitamin D deficiency Osteomyelitis of cervical spine Obstructive sleep apnea Narcolepsy GERD (gastroesophageal reflux disease) Obesity Insomnia Hypertension Type 2 diabetes mellitus with hyperglycemia Postlaminectomy syndrome of cervical region Hypercholesterolemia Surgical History History of colonoscopy History of spinal surgery Family History Father Colon cancer Diabetes Hypertension Mother Paget's disease Diabetes Social History Household Members: Spouse and Family Housing: House Do you presently have visiting nurse or other home services: No Alcohol intake: current Alcohol intake frequency: holidays/special occasions only Patient Tobacco Use Status: Former Tobacco user Quit Date: 1993 Tobacco use type: Cigarette Cigarette Packs Per Day: 3 Years Smoked: 20 e-Cigarette/Vaping Use: Never Used Second Hand Smoke Exposure: No service: No Current occupational status: disabled Cognitive needs: No Hearing needs: No Vision needs: Yes Physical Exam Vital Signs: Last Vital Signs Pulse 89 04/22/23 14:50 BP 122/64 04/22/23 14:50 BMI result Body Mass Index 31.0 Absence of Cushingoid features. Absence of acromegalic features. Neck exam reveals nl size thyroid about 15 gms. No thyroid nodules palpable. No carotid bruits present. Lungs CTA. Heart S1 S2, Reg R/R. No M/R/ G. Skin exam reveals absence of vitiligo or acanthosis nigricans. Abdominal exam reveals Soft NT/ND with NA BS. No organomegaly present. Neck Other: . Extrem Other: Visual exam of foot performed. No ulcerations or open lesions. No onchomycosis, no callouses.Pulses 2 + distally Sensation intact to monofilament exam. Vibratory sensation sensed is intact with 128 Hz tuning fork Results AMB Hemoglobin A1c AMB Hemoglobin A1c 6.9 % Last Edit by MIRIAM Cui on 04/22/23 15:18 Assessment & Plan Assessment & Plan (1) Type 2 diabetes mellitus with hyperglycemia: Comment: [employer] [employer] Code(s): E11.65 - Type 2 diabetes mellitus with hyperglycemia Qualifiers: Diabetes mellitus senior care insulin use: with extermination inspector use Qualified Code(s): E11.65 - Type 2 diabetes mellitus with hyperglycemia; Z79.4 - intermediate card tender (current) use of insulin Plan: This is a 72-year-old white male with a history of type 2 diabetes exacerbated by steroids being treated with basal-bolus insulin with excellent glycemic control and no known microvascular or macrovascular complications. Plan is to have the patient follow-up with the coding educator to set up a DexFashioholic clarity stevenson. Since the can not view specific glucose patterns can not adjust insulin regimen today. However it appears that overall control seems reasonable. Orders: Orders AMB Hemoglobin A1c Today E11.65 - Type 2 diabetes mellitus with hyperglycemia Coding Level of Care Code Est Pt Level 4 (65606) Diagnoses Type 2 diabetes mellitus with hyperglycemia, with long-term current use of insulin E11.65; Z79.4 Diabetes mellitus extermination inspector insulin use: with extermination inspector use
[2023-04-22 15:06] LABS: Glucose, Whole Blood 214 mg/dL (60-115)
== END 2023-04-22 15:34 | disposition home or self-care (01) ==
PROVIDERS: PCP Internal Medicine; Visit Provider Internal Medicine Endocrinology, Diabetes & Metabolism
DX: E11.65 Type 2 diabetes mellitus with hyperglycemia (principal); Z79.4 Long term (current) use of insulin
CPT/HCPCS: 99214

== ENCOUNTER → 2023-04-22 14:48 | Outpatient (BNVA) | payer MEDICARE, SELFPAY | PROVIDERS: PCP Internal Medicine; Visit Provider Internal Medicine Endocrinology, Diabetes & Metabolism | DX: E11.65 Type 2 diabetes mellitus with hyperglycemia (principal); Z79.4 Long term (current) use of insulin | CPT/HCPCS: 82947; 83036; 99212 ==

== ENCOUNTER 2023-04-23 11:00 | Outpatient (AMB) | payer MEDICARE, SELFPAY ==
--- NOTE | 2023-04-23 11:24 | A.OFFVIS_ITS ---
Intake Intake Visit Reasons: f/u Type 2 DM Nutritionalist Required: No Accompanied by: Self / Same As Patient Allergies metformin Allergy (Intermediate, Verified 04/22/23 14:58) Diarrhea Clindamycin HCl Allergy (Intermediate, Uncoded 04/22/23 14:58) rash HPI Comprehensive Diabetes Asmnt Most Recent Diabetes Results: Creatinine 0.74 mg/dL (0.5-1.4) 04/18/23 Blood Urea Nitrogen 11 mg/dL (9-16) 04/18/23 Sodium 141 mmol/L (135-145) 04/18/23 Potassium 3.4 mmol/L (3.3-5.1) 04/18/23 Chloride 103 mmol/L (96-108) 04/18/23 Carbon Dioxide 27 mmol/L (22-29) 04/18/23 Calcium 9.3 mg/dL (8.4-10.2) 04/18/23 AST 30 U/L (5-37) 04/18/23 ALT 24 U/L (0-40) 04/18/23 Total Protein 7.5 g/dL (6.5-8.0) 04/18/23 Albumin 3.8 g/dL (3.5-5.0) 04/18/23 [facility] Medical History (Updated 01/09/23 @ 12:06 by Soto Santos MD) Carcinoma of esophagus Dysphagia, pharyngoesophageal phase Esophageal dysphagia Colon cancer Thyroid nodule Goiter Vitamin D deficiency Osteomyelitis of cervical spine Obstructive sleep apnea Narcolepsy GERD (gastroesophageal reflux disease) Obesity Insomnia Hypertension Type 2 diabetes mellitus with hyperglycemia Postlaminectomy syndrome of cervical region Hypercholesterolemia Surgical History History of colonoscopy History of spinal surgery Family History Father Colon cancer Diabetes Hypertension Mother Paget's disease Diabetes Social History Household Members: Spouse and Family Housing: House Do you presently have visiting nurse or other home services: No Alcohol intake: current Alcohol intake frequency: holidays/special occasions only Patient Tobacco Use Status: Former Tobacco user Quit Date: 1993 Tobacco use type: Cigarette Cigarette Packs Per Day: 3 Years Smoked: 20 e-Cigarette/Vaping Use: Never Used Second Hand Smoke Exposure: No service: No Current occupational status: disabled Cognitive needs: No Hearing needs: No Vision needs: Yes Assessment & Plan Assessment & Plan (1) Type 2 diabetes mellitus with hyperglycemia: Comment: [employer] [employer] Code(s): E11.65 - Type 2 diabetes mellitus with hyperglycemia Qualifiers: Diabetes mellitus ocean transportation intermediary insulin use: with senior living use Qualified Code(s): E11.65 - Type 2 diabetes mellitus with hyperglycemia; Z79.4 - [facility] (current) use of insulin Plan: Patient came in today to set up Dexcom clarity. Patient could not remember how to get into his Dexcom account. he could not access e-mail on his phone, he could not remember his password to access his e-mail on a computer. Patient given instructions on how to set up Dexcom clarity stevenson once he can access verification e-mail Patient will call for next appointment Coding Level of Care Code Est Pt Level 1 (34644) Diagnoses Type 2 diabetes mellitus with hyperglycemia, with long-term current use of insulin E11.65; Z79.4 Diabetes mellitus senior living insulin use: with ocean transportation intermediary use
== END 2023-04-23 11:56 | disposition home or self-care (01) ==
PROVIDERS: PCP Internal Medicine; Visit Provider Registered Nurse Diabetes Educator
DX: E11.65 Type 2 diabetes mellitus with hyperglycemia (principal); Z79.4 Long term (current) use of insulin

== ENCOUNTER → 2023-04-23 11:00 | Outpatient (BNVA) | payer MEDICARE, SELFPAY | PROVIDERS: PCP Internal Medicine; Visit Provider Registered Nurse Diabetes Educator | DX: E11.65 Type 2 diabetes mellitus with hyperglycemia (principal); Z79.4 Long term (current) use of insulin | CPT/HCPCS: 99211 ==

== ENCOUNTER 2023-05-14 06:54 | Outpatient (REF) | payer MEDICARE, SELFPAY ==
--- NOTE | ~2023-05-14 | CT_ITS ---
EXAMINATION: CT angio chest PE protocol, CT abdomen pelvis w IV con INDICATION: Male of 72 years with history of Reason for Exam Follow-up on PE. Carcinoma of the esophagus. Pulmonary embolism in January 2023 COMPARISON: Most recent chest/abdominal/pelvis CT: 01/21/2023. TECHNIQUE: Prior to contrast administration, noncontrast localization images were obtained. Subsequently, multidetector volumetric imaging was performed from the thoracic inlet to below the pubis symphysis following the administration of 85 mL Omnipaque 350 intravenous contrast. No contrast reaction reported Sagittal, coronal, and MIP oblique sagittal reformatted images were obtained on the CT workstation, uploaded to PACS, and reviewed. This CT examination was performed using dose optimization techniques as appropriate, variously including the following: *Automated exposure control. *Adjustment of mA and/or kV according to patient size (this includes techniques or standardized protocols for targeted exams where dose is matched to indication/reason for exam, i.e., extremities or head). *Use of iterative reconstruction technique. Total exam dose-length product 528 mGy-cm FINDINGS: QUALITY OF STUDY/CONTRAST BOLUS: Satisfactory. PULMONARY ARTERIES: There are no filling defects in the main, lobar, or segmental pulmonary arteries to suggest pulmonary embolism. The central pulmonary arteries are normal. THORACIC AORTA:There is a normal left-sided three-vessel aortic arch. No dissection. The aorta is normal in caliber. There is no aortic dissection LUNG: No focal consolidation, suspicious nodules or masses. PLEURA: No pneumothorax. No pleural effusion. MEDIASTINUM: No evidence of septal bowing or right heart strain. The cardiomediastinal structures are unremarkable. There is no pericardial effusion. No pathologically enlarged mediastinal lymph nodes. There is calcification of mitral annulus CHEST WALL/AXILLA: No axillary or internal mammary lymphadenopathy. LIVER, GALLBLADDER, AND BILIARY TREE: Seen on the previous examination ill-defined hypodensity in the posterior segment of the right hepatic lobe diminished in size and, ill-defined measured now 2.7 x 1.7 cm and on the previous examination it was measured 3.9 x 2.5 cm. There are no new lesions in the liver. The gallbladder demonstrates no obvious pericholecystic inflammatory changes or gallbladder wall thickening. No cholelithiasis. No perihepatic ascites. PANCREAS: Normal size. No definite mass, surrounding fluid, or inflammatory changes. SPLEEN: Normal size. No focal lesion. No perisplenic ascites. ADRENAL GLANDS: Normal in size; no mass. KIDNEYS AND URETERS: There is stable right renal small cysts and no new lesions identified. No renal calculi. GASTROINTESTINAL TRACT: There is mild circumferential thickening of distal esophagus and small hiatal hernia. Stomach and small bowel loops are unremarkable. No evidence of free fluid or free air within the abdomen. The stomach is non-distended. No evidence of colonic wall thickening or surrounding inflammatory changes. The appendix is not visualized; no fat stranding is noted in the expected location of the appendix. ABDOMINAL WALL: No hernias. LYMPHOVASCULAR STRUCTURES: Small lymph nodes seen in the superior mesentery in the adelso hepatis mostly with the largest on image 33 series 3 measured 2.1 x 0.8 cm . BLADDER: Not fully distended, limiting its complete evaluation. No bladder wall thickening. No focal mass or bladder calculi seen. PELVIC VISCERA: Unremarkable. OSSEOUS STRUCTURES: No acute or suspicious osseous abnormality. Mild multilevel degenerative changes of the visualized spine. CT/CT abdomen pelvis w IV con IMPRESSION: 1. No evidence of pulmonary emboli. No evidence of aortic dissection. 2. Mild circumferential thickening of distal esophagus and small hiatal hernia. 3. Decreasing size of ill-defined hypodense lesion in the posterior segment of the right hepatic lobe. 4. Small lymph nodes in the superior mesentery in the adelso hepatis. VTE: Negative.
[2023-05-14] MEDS: iohexoL 350 MG/ML 100 ML INFUS..BTL 85 ML IV (09:56)
[2023-05-14] MEDS: Barium Sulfate Oral (Vanilla) 450 ML ORAL.SUSP 900 ML PO (13:51)
== END 2023-05-14 06:55 | disposition home or self-care (01) ==
LOC: HO.CT 06:54
PROVIDERS: PCP Internal Medicine; Visit Provider Internal Medicine Medical Oncology
DX: I26.99 Other pulmonary embolism without acute cor pulmonale (principal); C15.4 Malignant neoplasm of middle third of esophagus
CPT/HCPCS: 71275; 74177; Q9967

== ENCOUNTER → 2023-06-30 13:59 | Outpatient (BNVA) | payer MEDICARE, SELFPAY | PROVIDERS: PCP Internal Medicine; Visit Provider Internal Medicine | DX: C15.4 Malignant neoplasm of middle third of esophagus (principal); R13.10 Dysphagia, unspecified; Z92.3 Personal history of irradiation | CPT/HCPCS: 99212 ==

== ENCOUNTER 2023-06-30 14:11 | Outpatient (AMB) | payer MEDICARE, SELFPAY ==
[2023-06-30 14:03] VITALS: BP 128/62; PULSE 79; BMI 32.3
--- NOTE | 2023-06-30 14:03 | A.OFFVIS_ITS ---
Vital Signs 06/30/23 14:03 Height 5 ft 7 in Weight 206 lb 5.643 oz BMI 32.3 BP 128/62 Blood Pressure Location Lt brachial Position Sitting Pulse 79 Pulse Source Pulse Oximeter Intake Visit Reasons: Discuss EGD was June patient Intake Note: Pt presents to the office today to discuss EGD. Pt states Dr. Torres is requesting this due to his esophageal cancer. Pt states he does have issues with swalling but denies any N/V/D. Pt states he will have occasional constipation but states lately his constipation has been under control. 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 Reports symptom onset around a few months ago, that have progressively gotten worse. More pronounced with solids. Does not report any regurgitation, nausea, vomiting. No reported weight loss. Had a recent surveillance scan last month that showed circumferential thickening of the distal esophagus. [facility] Medical History Carcinoma of esophagus Dysphagia, pharyngoesophageal phase Esophageal dysphagia Colon cancer Thyroid nodule Goiter Vitamin D deficiency Osteomyelitis of cervical spine Obstructive sleep apnea Narcolepsy GERD (gastroesophageal reflux disease) Obesity Insomnia Hypertension Type 2 diabetes mellitus with hyperglycemia Postlaminectomy syndrome of cervical region Hypercholesterolemia Surgical History History of colonoscopy History of spinal surgery Family History Father Colon cancer Diabetes Hypertension Mother Paget's disease Diabetes Social History Household Members: Spouse and Family Housing: House Do you presently have visiting nurse or other home services: No Alcohol intake: current Alcohol intake frequency: holidays/special occasions only Patient Tobacco Use Status: Former Tobacco user Quit Date: 1993 Tobacco use type: Cigarette Cigarette Packs Per Day: 3 Years Smoked: 20 e-Cigarette/Vaping Use: Never Used Second Hand Smoke Exposure: No service: No Current occupational status: disabled Cognitive needs: No Hearing needs: No Vision needs: Yes Physical Exam Vital Signs: Last Vital Signs Pulse 79 06/30/23 14:03 BP 128/62 06/30/23 14:03 BMI result Body Mass Index 32.3 No acute distress Well-appearing No increased respiratory effort Abdomen soft, nondistended No peripheral edema Assessment & Plan Assessment & Plan (1) Carcinoma of thoracic esophagus: Comment: 08/27/2022 Code(s): C15.4 - Malignant neoplasm of middle third of esophagus Category: Medical (2) Difficulty swallowing: Code(s): R13.10 - Dysphagia, unspecified Category: Medical (3) History of radiation therapy: Code(s): Z92.3 - Personal history of irradiation Category: Medical Plan Differentials include radiation stricture, erosive esophagitis, recurrence of disease. Plan: -urgent EGD to be booked within the next few weeks with possible dilation -patient is aware that this may be booked with a different provider than myself -advised to hold Eliquis x2 days and Jardiance x3 days prior to the procedure Follow-up after the procedure Coding Level of Care Code Est Pt Level 4 (38817) Diagnoses Carcinoma of thoracic esophagus C15.4 Difficulty swallowing R13.10 History of radiation therapy Z92.3
== END 2023-06-30 14:44 | disposition home or self-care (01) ==
PROVIDERS: PCP Internal Medicine; Visit Provider Internal Medicine
DX: C15.4 Malignant neoplasm of middle third of esophagus (principal); R13.10 Dysphagia, unspecified; Z92.3 Personal history of irradiation
CPT/HCPCS: 99214

== ENCOUNTER 2023-07-03 10:06 | Day surgery (SDC) | payer MEDICARE, SELFPAY ==
--- NOTE | 2023-07-02 10:50 | HO.ANESPROP2 ---
HPI - Anesthesia Eval Consult details Narrative: 72yo M for Upper Endoscopy with Balloon Dilitation s/p EGD 08/2022 with MAC Esophageal CA, current chemo with port OK to access port for procedure per Dr Louise and Dr Bety Mead ?why PMFSH Active Problems Active Problems: All Active Problems Constipation (Acute) Carcinoma of thoracic esophagus (Acute) Thyroid nodule (Acute) Postlaminectomy syndrome of cervical region (Acute) Type 2 diabetes mellitus with hyperglycemia (Acute) Hypertension (Acute) GERD (gastroesophageal reflux disease) (Acute) Obstructive sleep apnea (Acute) Osteomyelitis of cervical spine (Acute) Hip pain, bilateral (Acute) Vitamin D deficiency (Acute) Allergic rhinitis (Acute) Generalized anxiety disorder (Acute) Eczema (Acute) COVID-19 virus infection (Acute) Influenza A (Acute) Generalized weakness (Acute) Acute respiratory failure with hypoxia (Acute) Maxillary sinusitis, acute (Acute) Tenderness over maxillary sinus (Acute) Recurrent maxillary sinusitis (Acute) Hypercholesterolemia (Acute) Tinea corporis (Acute) Dysuria (Acute) Obesity (BMI 30-39.9) (Acute) Goiter (Acute) Candidiasis of mouth and esophagus (Acute) Past Medical History Medical History Carcinoma of esophagus Dysphagia, pharyngoesophageal phase Esophageal dysphagia Colon cancer Thyroid nodule Goiter Vitamin D deficiency Osteomyelitis of cervical spine Obstructive sleep apnea Narcolepsy GERD (gastroesophageal reflux disease) Obesity Insomnia Hypertension Type 2 diabetes mellitus with hyperglycemia Postlaminectomy syndrome of cervical region Hypercholesterolemia Family History Family History Father Colon cancer Diabetes Hypertension Mother Paget's disease Diabetes Family history of problems with anesthesia: No Surgical History Surgical History History of colonoscopy History of spinal surgery History of Problems with Anesthesia: No Social History Social History Household Members: Spouse and Family Housing: House Do you presently have visiting nurse or other home services: No Alcohol intake: current Alcohol intake frequency: 0-2 drinks per day Patient Tobacco Use Status: Former Tobacco user Quit Date: 1993 Tobacco use type: Cigarette Cigarette Packs Per Day: 3 Years Smoked: 20 e-Cigarette/Vaping Use: Never Used Second Hand Smoke Exposure: No service: No Current occupational status: disabled Cognitive needs: No Hearing needs: No Vision needs: Yes Meds Allergies Allergy/AdvReac Type Severity Reaction Status Date / Time metformin Allergy Intermediate Diarrhea Verified 06/30/23 14:06 Clindamycin HCl Allergy Intermediate rash Uncoded 06/30/23 14:06 Home Medications ?Medication ?Instructions ?Recorded ?Confirmed ?Last Taken ?Type lisinopril 20 mg tablet 20 mg PO DAILY 11/26/21 06/16/23 10/01/22 History empagliflozin 25 mg tablet 25 mg PO DAILY 07/02/23 Unknown History (Jardiance) Exam Pertinent Lab Results Pertinent Lab Results: Laboratory Tests 06/27/23 08:24 WBC 5.0 Hgb 11.6 L Hct 34.5 L Plt Count 99 L Sodium 141 Potassium 3.2 L Chloride 106 Carbon Dioxide 25 BUN 9 Creatinine 0.79 Assessment and Plan Assessment Anesthesia Assessment: Chart Reviewed Final Anesthetic Review Family History of Problems with Anesthesia: No History of Problems with Anesthesia: No
--- NOTE | 2023-07-03 10:28 | MHC.SHP ---
Pre-Procedural Eval Section A - 24 Hr Update-Section A only Date of Service: 07/03/23 Section B - Complete if H&P > 30 days Chief Complaint: Dysphagia,Malignant neoplasm of esophagus, Relevant Family History (Specify if Yes): No Relevant Social History: None Present Medications: see Short Stay Collaborative assessment Medical History: Significant History (Carcinoma of esophagus Dysphagia, pharyngoesophageal phase Esophageal dysphagia Colon cancer Thyroid nodule Goiter Vitamin D deficiency Osteomyelitis of cervical spine Obstructive sleep apnea Narcolepsy GERD (gastroesophageal reflux disease) Obesity Insomnia Hypertension Type 2 diabetes mellitus wit) History of Previous Operations: Relevant previous surgery/procedure and date(s) (History of colonoscopy History of spinal surgery) Allergies: Allergies Allergy/AdvReac Type Severity Reaction Status Date / Time metformin Allergy Intermediate Diarrhea Verified 06/30/23 14:06 Clindamycin HCl Allergy Intermediate rash Uncoded 06/30/23 14:06 Review of Systems Sugical H&P ROS: Negative: Constitution, Cardiovascular, Respiratory, Neurological, Psychiatric, Hem-Onc, Allergic/Immunologic, Gastrointestinal, Genitourinary, Musculoskeletal, Integumentary, Endocrine and Eyes/Ears/Nose/Throat Exam Surgical H&P Exam: Normal: HEENT, Normal: Heart, Normal: Lungs, Normal: Extremities, Normal: Abdomen, Normal: Skin and Normal: Neurological Plan Diagnosis/Plan: Unchanged I have reviewed the history and physical and performed a pertinent physical examination on my patient. No changes have occurred unless specified. Time Spent With Patient Time: Total time managing care of this patient today ____ minutes.
--- NOTE | 2023-07-03 11:28 | P.CONAN_ITS ---
[facility] Active Problems Active Problems: All Active Problems History of radiation therapy (Acute) Constipation (Acute) Carcinoma of thoracic esophagus (Acute) Thyroid nodule (Acute) Postlaminectomy syndrome of cervical region (Acute) Type 2 diabetes mellitus with hyperglycemia (Acute) Hypertension (Acute) GERD (gastroesophageal reflux disease) (Acute) Obstructive sleep apnea (Acute) Osteomyelitis of cervical spine (Acute) Hip pain, bilateral (Acute) Vitamin D deficiency (Acute) Allergic rhinitis (Acute) Generalized anxiety disorder (Acute) Eczema (Acute) COVID-19 virus infection (Acute) Influenza A (Acute) Generalized weakness (Acute) Acute respiratory failure with hypoxia (Acute) Maxillary sinusitis, acute (Acute) Tenderness over maxillary sinus (Acute) Recurrent maxillary sinusitis (Acute) Hypercholesterolemia (Acute) Tinea corporis (Acute) Dysuria (Acute) Obesity (BMI 30-39.9) (Acute) Goiter (Acute) Candidiasis of mouth and esophagus (Acute) pulmonary embolism 6 mos ago Past Medical History Medical History Carcinoma of esophagus Dysphagia, pharyngoesophageal phase Esophageal dysphagia Colon cancer Thyroid nodule Goiter Vitamin D deficiency Osteomyelitis of cervical spine Obstructive sleep apnea Narcolepsy GERD (gastroesophageal reflux disease) Obesity Insomnia Hypertension Type 2 diabetes mellitus with hyperglycemia Postlaminectomy syndrome of cervical region Hypercholesterolemia Functional capacity: independent ambulation Family History Family History Father Colon cancer Diabetes Hypertension Mother Paget's disease Diabetes Family history of problems with anesthesia: No Surgical History Surgical History History of colonoscopy History of spinal surgery History of Problems with Anesthesia: No Social History Social History Household Members: Spouse and Family Housing: House Do you presently have visiting nurse or other home services: No Alcohol intake: current Alcohol intake frequency: holidays/special occasions only Patient Tobacco Use Status: Former Tobacco user Quit Date: 1993 Tobacco use type: Cigarette Cigarette Packs Per Day: 3 Years Smoked: 20 e-Cigarette/Vaping Use: Never Used Second Hand Smoke Exposure: No Advance Directives: No Advance Directives Information Provided: Yes service: No Current occupational status: disabled Cognitive needs: No Hearing needs: No Vision needs: Yes Meds Allergies Allergy/AdvReac Type Severity Reaction Status Date / Time metformin Allergy Intermediate Diarrhea Verified 06/30/23 14:06 Clindamycin HCl Allergy Intermediate rash Uncoded 06/30/23 14:06 Active Medications: Current Medications Lactated Ringer's (Lr) 1,000 mls @ 100 mls/hr IVCONT .Q10H RADHA Home Medications ?Medication ?Instructions ?Recorded ?Confirmed ?Last Taken ?Type lisinopril 20 mg tablet 20 mg PO DAILY 11/26/21 06/16/23 10/01/22 History empagliflozin 25 mg tablet 25 mg PO DAILY 07/02/23 Unknown History (Jardiance) Exam Airway Mallampati Class: IV TM Dist: >3cm Neck ROM: Full Heart: RRR Lungs: CTA Assessment and Plan Assessment Anesthesia Assessment: Anesthesia Plan Discussed Final Anesthetic Review Family History of Problems with Anesthesia: No History of Problems with Anesthesia: No NPO: Yes ASA Class: III Final Preanesthetic Review: Meds/Allgs Chart Reviewed, Consent Obtained/Reviewed and Anes Risks/Benef Reviewed Patient Risk: Intermediate Procedure Risk: Low Anesthetic Plan Anesthetic Plan: MAC: Disposition: Standard PACU
[2023-07-03 11:37] VITALS: BMI 31.6
[2023-07-03] MEDS: Lactated Ringers 1,000 ML 100 ML IVCONT (11:44)
--- NOTE | 2023-07-03 12:42 | P.OP_ITS ---
Operative Note Operative Note Date of Service: 07/03/23 Narrative: Procedure Description: EGD Indication: hx of esophageal ca, concern for recurrence Anesthesia: MAC FLEXIBLE TRANSORAL UPPER GASTROINTESTINAL ENDOSCOPY UPPER ENDOSCOPY Consent: Indications for the procedure and potential complications of bleeding, perforation, reaction to medications and missed diagnosis were discussed with the patient and informed consent was obtained. Instrument: Olympus GIF H 190 J mid size upper endoscope Monitoring: Vital signs and clinical assessment, continuous EKG monitoring, Pulse oximetry, Carbon Dioxide monitoring and blood pressure monitoring were done throughout the procedure. Procedure: The patient was placed in the left lateral decubitis position and pre-procedure medications were administered and a bite block was placed. The endoscope was inserted into the mouth and advanced under direct vision to the third part of duodenum. A careful inspection was made as the upper endoscope was withdrawn including a retroflexed examination of the proximal stomach; Findings and interventions are described below. Findings: Larynx:normal Esophagus: GE junction at 40 cm, diaphragm hiatus at 40 cm, 5 cm area of ulcer ated boggy mucosa in the distal esophagus, bx taken Stomach: erythema around cardia . Grade 2 flap valve on retroflexed examination of the cardia. Duodenum: Normal bulb and descending duodenum, Intervention: Biopsies as noted above, Impression/Findings: ulcerated esophagitis possible recurrence vs 2/2 prior XRT and chemo or REFLUX PLAN: PPI and carafate GERD precautions await bx results
[2023-07-03 12:46] VITALS: BP 109/66; PULSE 78; RESP 16; TEMP 36.8; O2SAT 97
[2023-07-03 13:01] VITALS: BP 117/75; PULSE 81; RESP 16; O2SAT 96
[2023-07-03 13:16] VITALS: BP 138/80; PULSE 81; RESP 16; TEMP 36.9; O2SAT 98
[2023-07-03 13:32] LABS: Glucose, Whole Blood 102 mg/dL (60-115)
== END 2023-07-03 13:52 | disposition home or self-care (01) ==
PROVIDERS: PCP Internal Medicine; Visit Provider Internal Medicine Gastroenterology
PROC: (CPT 43239; principal; 2023-07-03 12:00)
DX: R13.10 Dysphagia, unspecified (principal); K22.10 Ulcer of esophagus without bleeding; Z85.01 Personal history of malignant neoplasm of esophagus; Z92.3 Personal history of irradiation; Z92.21 Personal history of antineoplastic chemotherapy; Z85.038 Personal history of other malignant neoplasm of large intestine; Z80.0 Family history of malignant neoplasm of digestive organs; Z87.891 Personal history of nicotine dependence; K21.9 Gastro-esophageal reflux disease without esophagitis; K44.9 Diaphragmatic hernia without obstruction or gangrene; G47.33 Obstructive sleep apnea (adult) (pediatric); I10 Essential (primary) hypertension; E11.9 Type 2 diabetes mellitus without complications; E78.00 Pure hypercholesterolemia, unspecified; M96.1 Postlaminectomy syndrome, not elsewhere classified; Z79.84 Long term (current) use of oral hypoglycemic drugs; Z79.899 Other long term (current) drug therapy; Z88.1 Allergy status to other antibiotic agents; Z88.8 Allergy status to other drugs, medicaments and biological substances; Z98.890 Other specified postprocedural states
CPT/HCPCS: 43239; 82947; 88305; 88313; J1596; J1642; J2704

== ENCOUNTER → 2023-07-03 10:06 | Outpatient (BNV) | payer MEDICARE, SELFPAY | PROVIDERS: PCP Internal Medicine; Visit Provider Internal Medicine Gastroenterology | DX: K22.10 Ulcer of esophagus without bleeding (principal); Z85.01 Personal history of malignant neoplasm of esophagus; Z92.3 Personal history of irradiation | CPT/HCPCS: 43239 ==

== ENCOUNTER 2023-07-14 14:11 | Outpatient (AMB) | payer MEDICARE, SELFPAY ==
--- NOTE | 2023-07-14 14:13 | A.OFFVIS_ITS ---
Vital Signs 07/14/23 14:17 Height 5 ft 7 in Weight 198 lb 6.656 oz BMI 31.1 BP 112/61 Blood Pressure Location Lt brachial Position Sitting Pulse 77 Intake Visit Reasons: s/p egd dil Intake Note: Jer presents in the office as a follow up EGD w/ Dil. CC: States he is not having any concerns since his procedure- just here for results. 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 Reports symptom onset around a few months ago, that have progressively gotten worse. More pronounced with solids. Does not report any regurgitation, nausea, vomiting. No reported weight loss. Had a recent surveillance scan last month that showed circumferential thickening of the distal esophagus. 07/03/23: EGD (Dr Louise): ulcerated esophagitis possible recurrence vs 2/2 prior XRT and chemo or REFLUX Esophagus, distal, biopsy: Severely ulcerated active esophagitis with reactive epithelial changes; negative for intestinal metaplasia, fungal organisms and dysplasia (see comment). COMMENT: The histologic features may be secondary to prior radiation treatment. Clinical correlation is advised 07/14/23: COming in for folow up post EGD. Here with his . REviewed findings on EGD including severe esophagitis possibly from reflux vs XRT. No cancerous cells noted on histology from EGD. Pt just started taking protonix BID with carafate 3 days ago. Has not noted any meaningful difference in sx just yet. PFSH Medical History Carcinoma of esophagus Dysphagia, pharyngoesophageal phase Esophageal dysphagia Colon cancer Thyroid nodule Goiter Vitamin D deficiency Osteomyelitis of cervical spine Obstructive sleep apnea Narcolepsy GERD (gastroesophageal reflux disease) Obesity Insomnia Hypertension Type 2 diabetes mellitus with hyperglycemia Postlaminectomy syndrome of cervical region Hypercholesterolemia Surgical History History of esophagogastroduodenoscopy (EGD) History of colonoscopy History of spinal surgery Family History Father Colon cancer Diabetes Hypertension Mother Paget's disease Diabetes Social History Household Members: Spouse and Family Housing: House Do you presently have visiting nurse or other home services: No Alcohol intake: current Alcohol intake frequency: 0-2 drinks per day Patient Tobacco Use Status: Former Tobacco user Quit Date: 1993 Tobacco use type: Cigarette Cigarette Packs Per Day: 3 Years Smoked: 20 e-Cigarette/Vaping Use: Never Used Second Hand Smoke Exposure: No service: No Current occupational status: disabled Cognitive needs: No Hearing needs: No Vision needs: Yes Review of Systems Const All systems reviewed & are unremarkable except as noted in HPI and below Physical Exam Vital Signs: Last Vital Signs Pulse 77 07/14/23 14:17 BP 112/61 07/14/23 14:17 BMI result Body Mass Index 31.1 NAD Nonicteric soft, nontender abd A/Ox3, normal gait Assessment & Plan Assessment & Plan (1) Carcinoma of thoracic esophagus: Comment: 08/27/2022 Code(s): C15.4 - Malignant neoplasm of middle third of esophagus Category: Medical (2) Difficulty swallowing: Code(s): R13.10 - Dysphagia, unspecified Category: Medical (3) History of radiation therapy: Code(s): Z92.3 - Personal history of irradiation Category: Medical Plan Reviewed with the pt that based on endoscopic appearance and histology more consistent with esophagitis 2/2 reflux vs XRT. No evidence of recurrence noted based on recent exam. Dilation could not be performed due to active esophagitis. Plan: -Cont PPI BID until repeat EGD booked -Carafate 1g up to TID x 30 days -Repeat EGD to be booked after 8-10 weeks to allow for healing of esophagitis Follow up after next EGD Coding Level of Care Code Est Pt Level 4 (90716) Diagnoses Carcinoma of thoracic esophagus C15.4 Difficulty swallowing R13.10 History of radiation therapy Z92.3
[2023-07-14 14:17] VITALS: BP 112/61; PULSE 77; BMI 31.1
== END 2023-07-14 15:24 | disposition home or self-care (01) ==
PROVIDERS: PCP Internal Medicine; Visit Provider Internal Medicine
DX: C15.4 Malignant neoplasm of middle third of esophagus (principal); R13.10 Dysphagia, unspecified; Z92.3 Personal history of irradiation
CPT/HCPCS: 99214

== ENCOUNTER → 2023-07-14 14:11 | Outpatient (BNVA) | payer MEDICARE, SELFPAY | PROVIDERS: PCP Internal Medicine; Visit Provider Internal Medicine | DX: C15.4 Malignant neoplasm of middle third of esophagus (principal); R13.10 Dysphagia, unspecified; Z92.3 Personal history of irradiation | CPT/HCPCS: 99212 ==

== ENCOUNTER 2023-09-01 07:55 | Outpatient (AMB) | payer MEDICARE, SELFPAY ==
--- NOTE | 2023-09-01 08:05 | MHC.PC.OV ---
Vital Signs 09/01/23 08:08 Height 5 ft 7 in Weight 195 lb 1.745 oz BMI 30.6 BP 114/64 Blood Pressure Location Rt brachial Position Sitting Pulse 79 Pulse Source Pulse Oximeter Intake Visit Reasons: T2DM/CONFIRMED Intake Note: Patient present today to follow up on Type 2 Diabetes Mellitus. Patient receives DME supplies through: [employer] Last Diabetic Eye exam: January 2023 Last Podiatry Visit: Does not see a Cash Grain Farmer Random Glucose: 108 mg/dl HgA1C: 6.0% Foam Rubber Molder Required: No Accompanied by: Spouse Allergies metformin Allergy (Intermediate, Verified 09/01/23 08:09) Diarrhea Clindamycin HCl Allergy (Intermediate, Uncoded 09/01/23 08:09) rash Medication List - Last Reconciled 09/01/23 by Andreia Vega PA-C apixaban (Eliquis) 5 mg PO BID blood sugar diagnostic (FreeStyle Lite Strips) 3x daily blood-glucose meter (FreeStyle Lite Meter kit) As directed dexamethasone 4 mg PO BID dicyclomine 20 mg PO QID PRN docusate sodium (Colace) 100 mg PO BID duloxetine 30 mg PO DAILY 90 days empagliflozin (Jardiance) 25 mg PO DAILY fluticasone propionate 50 mcg/actuation 2 sprays intranasal BEDTIME glucose (Dex4 Glucose) 4 grams PO Q15M PRN insulin aspart (niacinamide) 100 unit/mL (3 mL) (Fiasp FlexTouch U-100 Insulin) 15 units subcut TID insulin degludec (Tresiba FlexTouch U-200 insulin) 50 units subcut BEDTIME lidocaine HCl 2% (Lidocaine Viscous) 1 appl mucous membrane QID lisinopril 20 mg PO DAILY lorazepam 1 mg PO BID PRN 90 days Magic Mouthwash Diphen/Lido/Antacid 1:1:1 10 mL PO QID omeprazole 20 mg PO BID PRN 90 days ondansetron 8 mg PO TID oxycodone 10 mg PO Q6H PRN pantoprazole 40 mg PO BID pen needle, diabetic (BD Ultra-Fine Micro Pen Needle) 4x daily potassium chloride ER 20 mEq PO BID prochlorperazine maleate (Compazine) 10 mg PO Q8H PRN sucralfate (Carafate) 1 g PO QID trazodone 150 mg PO BEDTIME Tobacco use date assessed: 07/30/22 Dental Screening Dental Screen Date: 09/30/22 HPI T2DM/CONFIRMED HPI Details Patient is a 72-year-old male with a significant past medical history of esophageal carcinoma, hypertension, hyperlipidemia, type 2 diabetes presenting today for follow-up regarding his diabetes. He is accompanied today by his who works as a nurse here at [facility]. She states that he is doing well with his chemo but he does have some memory issues intermittently which she thinks is related to his medication. Endo: Recently saw Dr. Hamilton in April. He is on Tresiba 50 units and NovoLog and Jardiance 25 mg. A1c is 6.0. Unable to download reader today. He does have his cell phone with him and his information for the last 14 days shows 54% in range and 44% hyperglycemic with 2% lows. Hyperglycemic events are occurring after meals because he often forgets to take the NovoLog. He states that he will remember to take it a couple times a day and he uses 15 units. He is supposed to be on TID. Hypogylcemic at night/overnight. Since starting chemo he is not eating later anymore. His states over the last month or so he has started sleeping through the night and is no longer waking up snacking. His low this morning was at 02:00 at 54. He corrected with peanut butter crackers and glucose tabs. He is tolerating the chemo. Overall his weights are stable. His appetite seems intact. CV: Blood pressure in the office is 114/64. He is on lisinopril 20 mg. Cholesterol is diet controlled. [facility] Medical History (Updated 09/01/23 @ 08:40 by Andreia Vega PA-C) Controlled type 2 diabetes mellitus with insulin therapy Carcinoma of esophagus Dysphagia, pharyngoesophageal phase Esophageal dysphagia Colon cancer Thyroid nodule Goiter Vitamin D deficiency Osteomyelitis of cervical spine Obstructive sleep apnea Narcolepsy GERD (gastroesophageal reflux disease) Obesity Insomnia Hypertension Type 2 diabetes mellitus with hyperglycemia Postlaminectomy syndrome of cervical region Hypercholesterolemia Surgical History Hx of endoscopy History of esophagogastroduodenoscopy (EGD) History of colonoscopy History of spinal surgery Family History Father Colon cancer Diabetes Hypertension Mother Paget's disease Diabetes Social History Household Members: Spouse and Family Housing: House Do you presently have visiting nurse or other home services: No Alcohol intake: current Alcohol intake frequency: 0-2 drinks per day Patient Tobacco Use Status: Former Tobacco user Tobacco use type: Cigarette Cigarette Packs Per Day: 3 Years Smoked: 20 e-Cigarette/Vaping Use: Never Used Second Hand Smoke Exposure: No service: No Current occupational status: disabled Cognitive needs: No Hearing needs: No Vision needs: Yes Questionnaire Thrive Questionnaire Date Thrive assessed: 04/01/22 BIJAN-7 AMB Questionnaire BIJAN-7 Date BIJAN - 7 assessed: 04/01/22 Source: Developed by Drs. Viral Reid, Stacey Morris, Naseem Rios and colleagues, with an educational yolis from [employer]. Physical exam (Primary Care) Vital Signs: Last Vital Signs Pulse 79 09/01/23 08:08 BP 114/64 09/01/23 08:08 BMI result Body Mass Index 30.6 Tobacco/Smoking Status: Tobacco use Status Tobacco use date assessed 07/30/22 09/01/23 08:07 Patient Tobacco Use Status Former Tobacco user 09/01/23 08:07 Tobacco use type Cigarette 09/01/23 08:07 e-Cigarette/Vaping Use Never Used 09/01/23 08:07 Thrive Assessment: Date of Thrive Assessment Date Thrive assessed 04/01/22 09/01/23 08:07 Const Orientation/consciousness: patient oriented x3 Neck Neck: Yes no lymphadenopathy Thyroid: Thyroid normal Carotids: no bruits Resp Auscultation: clear to auscultation bilaterally Cardio Rate: regular rate Rhythm: regular rhythm Heart sounds: S1 normal heart sound present and S2 normal heart sound present Peripheral pulses: dorsalis pedis present Neuro General: patient oriented x3, gait normal and no focal motor deficits Extrem General: Yes normal to inspection Results AMB Hemoglobin A1c AMB Hemoglobin A1c 6.0 % Last Edit by MIRIAM Galvan on 09/01/23 08:30 Results Reviewed Results Reviewed: Laboratory Tests 08/07/23 08/22/23 11:55 10:16 Sodium 140 Potassium 3.6 Chloride 104 Carbon Dioxide 28 Anion Gap 12 BUN 8 L Creatinine 0.77 Estim Creat Clear Calc 93.6 Estimated GFR > 60 Random Glucose 156 H AST 30 ALT 16 Alkaline Phosphatase 107 TSH 2.60 Assessment and Plan Assessment & Plan (1) Controlled type 2 diabetes mellitus with insulin therapy: Code(s): E11.9 - Type 2 diabetes mellitus without complications; Z79.4 - superintendent container terminal (current) use of insulin Plan: Will cut back the Tresiba to 45 units. Encouraged compliance with mealtime insulin. The follow-up in 3 months. Labs prior to appointment. Patient will follow up sooner if anything changes. Patient understands and agrees with this plan. (2) Hypercholesterolemia: Code(s): E78.00 - Pure hypercholesterolemia, unspecified Plan: We will check lipids. Will follow up pending test results. Orders: Orders Lipid Panel Today Andreia Vega PA-C E11.9 - Type 2 diabetes mellitus without complications, E78.00 - Pure hypercholesterolemia, unspecified, Z79.4 - superintendent container terminal (current) use of insulin AMB Hemoglobin A1c Today Andreia Vega PA-C E11.65 - Type 2 diabetes mellitus with hyperglycemia, Z79.4 - superintendent container terminal (current) use of insulin Medications: Changed From insulin aspart (niacinamide) 100 unit/mL (3 mL) (Fiasp FlexTouch U-100 Insulin) 14 units subcut TID 15 mL 5RF To insulin aspart (niacinamide) 100 unit/mL (3 mL) (Fiasp FlexTouch U-100 Insulin) 15 units subcut TID Viral Hamilton MD From insulin degludec (Tresiba FlexTouch U-200 insulin) 50 units subcut BEDTIME To insulin degludec (Tresiba FlexTouch U-200 insulin) 45 units (0.225 mL) subcut BEDTIME 9 mL 6RF Andreia Vega PA-C Refilled pen needle, diabetic (BD Ultra-Fine Micro Pen Needle) 4x daily 100 ea 11RF Andreia Vega PA-C glucose (Dex4 Glucose) until symptoms of low blood sugar are controlled 4 grams PO Q15M PRN 30 tabs 0RF hypoglycemia Andreia Vega PA-C Coding Level of Care Code Est Pt Level 4 (71697) Complex EM visit Add On G2211 Diagnoses Controlled type 2 diabetes mellitus with insulin therapy E11.9; Z79.4 Hypercholesterolemia E78.00
[2023-09-01 08:08] VITALS: BP 114/64; PULSE 79; BMI 30.6
[2023-09-01 08:21] LABS: Glucose, Whole Blood 108 mg/dL (60-115)
== END 2023-09-01 08:50 | disposition home or self-care (01) ==
PROVIDERS: PCP Internal Medicine; Visit Provider Physician Assistant
DX: E11.9 Type 2 diabetes mellitus without complications (principal); Z79.4 Long term (current) use of insulin; E78.00 Pure hypercholesterolemia, unspecified; E11.65 Type 2 diabetes mellitus with hyperglycemia
CPT/HCPCS: 99214; G2211

== ENCOUNTER → 2023-09-01 07:55 | Outpatient (BNVA) | payer MEDICARE, SELFPAY | PROVIDERS: PCP Internal Medicine; Visit Provider Physician Assistant | DX: E11.9 Type 2 diabetes mellitus without complications (principal); E78.00 Pure hypercholesterolemia, unspecified; Z79.4 Long term (current) use of insulin | CPT/HCPCS: 82947; 83036; 99212 ==

== ENCOUNTER 2023-11-14 08:06 | Outpatient (REF) | payer MEDICARE, SELFPAY ==
--- NOTE | ~2023-11-14 | CT_ITS ---
EXAMINATION: CT ABDOMEN AND PELVIS WITH CONTRAST CLINICAL INFORMATION: Follow-up esophageal carcinoma. COMPARISON: May 14, 2023 TECHNIQUE: Multidetector volumetric images were obtained from the superior aspect of the liver through the pubic symphysis following administration 85 mL of Omnipaque 350 intravenous contrast. Sagittal and coronal reformatted images were obtained on the technologist's workstation. Oral contrast: Yes This CT examination was performed using dose optimization techniques as appropriate, variously including the following: *Automated exposure control *Adjustment of mA and/or kV according to patient size (this includes techniques or standardized protocols for targeted exams where dose is matched to indication/reason for exam; i.e. extremities or head) *Use of iterative reconstruction technique DLP: 409 mGy-cm FINDINGS: LUNG BASES: Mitral valve calcification. Nonspecific distal esophageal wall thickening. LIVER, GALLBLADDER, AND BILIARY TREE: The liver is slightly nodular. 2.4 x 1.6 cm posterior right hepatic hypodensity. Previous measurements were 2.7 x 1.7 cm. Stable 5 mm hypodensity at the hepatic dome. No biliary ductal dilatation is present. The gallbladder is unremarkable with no evidence of radiopaque gallstones, gallbladder wall thickening, or obvious pericholecystic inflammatory changes. PANCREAS: Unremarkable. SPLEEN: Unremarkable. ADRENAL GLANDS: Unremarkable. KIDNEYS AND URETERS: The kidneys are symmetric in size and enhancement. Few right renal hypodensities are too small to characterize. No hydronephrosis No perinephric stranding. BLADDER: Unremarkable. GASTROINTESTINAL TRACT: There is marked fecal retention in the colon. No small bowel obstruction. ABDOMINAL WALL: No significant hernia is appreciated. LYMPH NODES: Few subcentimeter gastrohepatic ligament and adelso hepatis lymph nodes. VASCULAR: Normal caliber abdominal aorta. PELVIC VISCERA: Mild enlargement of the prostate gland. OSSEOUS STRUCTURES: No destructive bone lesions. CT/CT abdomen pelvis w IV con IMPRESSION: Nonspecific distal esophageal wall thickening. Slight interval decrease in size of posterior right hepatic lesion. Severe constipation. Electronically signed by: Alireza Benavidez MD 11/24/2023 04:29 PM EDT
[2023-11-14] MEDS: iohexoL 350 MG/ML 100 ML INFUS..BTL 85 ML IV (10:54)
[2023-11-14] MEDS: Barium Sulfate Oral (Berry) 450 ML ORAL.SUSP 900 ML PO (10:54)
== END 2023-11-14 08:07 | disposition home or self-care (01) ==
LOC: HO.CT 08:06
PROVIDERS: PCP Internal Medicine; Visit Provider Internal Medicine Medical Oncology
DX: C15.4 Malignant neoplasm of middle third of esophagus (principal)
CPT/HCPCS: 74177; Q9967

== ENCOUNTER 2023-12-02 08:40 | Day surgery (SDC) | payer MEDICARE, SELFPAY ==
[2023-11-28 14:20] VITALS: BMI 31.1
[2023-11-28 15:02] VITALS: BMI 30.1
[2023-12-01 08:39] VITALS: BMI 30.1
[2023-12-02 09:40] LABS: Glucose, Whole Blood 138 mg/dL (60-115)
--- NOTE | 2023-12-02 09:42 | MHC.SHP ---
Pre-Procedural Eval Section A - 24 Hr Update-Section A only Date of Service: 12/02/23 Section B - Complete if H&P > 30 days Chief Complaint: Malignant neoplasm of esophagus,dysphagia Relevant Family History (Specify if Yes): No Relevant Social History: None Present Medications: see Short Stay Collaborative assessment Medical History: Significant History ( Port-A-Cath in place Hx of radiation therapy History of chemotherapy Controlled type 2 diabetes mellitus with insulin therapy Carcinoma of esophagus Thyroid nodule Dysphagia, pharyngoesophageal phase Esophageal dysphagia Goiter Vitamin D deficiency Osteomyelitis of cervical spine Obstructive sleep ) History of Previous Operations: Relevant previous surgery/procedure and date(s) (Hx of endoscopy History of esophagogastroduodenoscopy (EGD) (07/03/23) History of colonoscopy History of spinal surgery) Allergies: Allergies Allergy/AdvReac Type Severity Reaction Status Date / Time metformin AdvReac Intermediate Diarrhea Verified 11/28/23 14:57 Clindamycin HCl Allergy Intermediate rash Uncoded 11/28/23 14:57 Review of Systems Sugical H&P ROS: Negative: Constitution, Cardiovascular, Respiratory, Neurological, Psychiatric, Hem-Onc, Allergic/Immunologic, Gastrointestinal, Genitourinary, Musculoskeletal, Integumentary, Endocrine and Eyes/Ears/Nose/Throat Exam Surgical H&P Exam: Normal: HEENT, Normal: Heart, Normal: Lungs, Normal: Extremities, Normal: Abdomen, Normal: Skin and Normal: Neurological Plan Diagnosis/Plan: Unchanged I have reviewed the history and physical and performed a pertinent physical examination on my patient. No changes have occurred unless specified. Time Spent With Patient Time: Total time managing care of this patient today ____ minutes.
[2023-12-02 09:45] VITALS: BP 132/73; PULSE 77; RESP 18; TEMP 36.3; O2SAT 96; BMI 30.5
--- NOTE | 2023-12-02 09:55 | P.CONAN_ITS ---
Documented by User: Angi Spain NP 12/01/23 09:35 HPI - Anesthesia Eval Consult details Narrative: 73yo M for Upper Endoscopy with Balloon Dilitation (savary dilator) s/p EGD 06/2023 with MAC Esophageal CA, current chemo with port Eliquis d/t PE MS Contin Anesthesia Pre-Procedure Meds Is the patient on any of the following meds?: SGLT2 Inhib PMFSH Active Problems Active Problems: All Active Problems History of radiation therapy (Acute) Constipation (Acute) Carcinoma of thoracic esophagus (Acute) Candidiasis of mouth and esophagus (Acute) Obesity (BMI 30-39.9) (Acute) Dysuria (Acute) Tinea corporis (Acute) Hypercholesterolemia (Acute) Recurrent maxillary sinusitis (Acute) Tenderness over maxillary sinus (Acute) Maxillary sinusitis, acute (Acute) Acute respiratory failure with hypoxia (Acute) Generalized weakness (Acute) Influenza A (Acute) COVID-19 virus infection (Acute) Eczema (Acute) Generalized anxiety disorder (Acute) Allergic rhinitis (Acute) Hip pain, bilateral (Acute) Controlled type 2 diabetes mellitus with insulin therapy (Acute) Thyroid nodule (Acute) Postlaminectomy syndrome of cervical region (Acute) Type 2 diabetes mellitus with hyperglycemia (Acute) Hypertension (Acute) GERD (gastroesophageal reflux disease) (Acute) Obstructive sleep apnea (Acute) Osteomyelitis of cervical spine (Acute) Vitamin D deficiency (Acute) Goiter (Acute) Past Medical History Medical History Port-A-Cath in place Hx of radiation therapy History of chemotherapy Controlled type 2 diabetes mellitus with insulin therapy Carcinoma of esophagus Thyroid nodule Dysphagia, pharyngoesophageal phase Esophageal dysphagia Goiter Vitamin D deficiency Osteomyelitis of cervical spine Obstructive sleep apnea Colon cancer Narcolepsy GERD (gastroesophageal reflux disease) Obesity Insomnia Hypertension Type 2 diabetes mellitus with hyperglycemia Postlaminectomy syndrome of cervical region Hypercholesterolemia Family History Family History Father Colon cancer Diabetes Hypertension Mother Paget's disease Diabetes Family history of problems with anesthesia: No Surgical History Surgical History Hx of endoscopy History of esophagogastroduodenoscopy (EGD) (07/03/23) History of colonoscopy History of spinal surgery History of Problems with Anesthesia: No Social History Social History (Updated 12/01/23 @ 08:38 by Christine Ramesh RN) Household Members: Spouse and Family Housing: House Are you a primary patient care representative to a significant other at home: No Do you presently have visiting nurse or other home services: No Alcohol intake: current Alcohol intake frequency: holidays/special occasions only Patient Tobacco Use Status: Former Tobacco user Tobacco use type: Cigarette Cigarette Packs Per Day: 3 Years Smoked: 20 Smoked in Last 30 Days: No e-Cigarette/Vaping Use: Never Used Second Hand Smoke Exposure: No Use of substances other than those prescribed or required for medical reasons: No Have you been hit, kicked, punched, or otherwise hurt by someone within the past year? If so, by whom?: No Are you DNR?: No Advance Directives: No Advance Directives Information Provided: Yes Advance Directives on File: No Recently lost weight without trying: No Nutrition Risks: No Nutritional Risk service: No Current occupational status: disabled Cognitive needs: No Hearing needs: No Vision needs: Yes Meds Allergies Allergy/AdvReac Type Severity Reaction Status Date / Time metformin AdvReac Intermediate Diarrhea Verified 11/28/23 14:57 Clindamycin HCl Allergy Intermediate rash Uncoded 11/28/23 14:57 Home Medications ?Medication ?Instructions ?Recorded ?Confirmed ?Last Taken ?Type lisinopril 20 mg tablet 20 mg PO DAILY 11/26/21 12/01/23 12/02/23 History ondansetron 8 mg disintegrating 8 mg PO TID 07/14/23 08/11/23 Unknown History tablet insulin aspart 15 unit subcut TID PRN 09/01/23 12/01/23 Unknown History (niacinamide)(U-100) 100 unit/mL(3 Hyperglycemia mL) subcutaneous pen (Fiasp FlexTouch U-100 Insulin) insulin degludec 200 unit/mL (3 50 unit subcut BEDTIME 12/01/23 12/01/23 Unknown History mL) subcutaneous pen (Tresiba FlexTouch U-200 insulin) Exam Height,Weight and Vital Signs: Height 5 ft 7 in Weight 87.09 kg Pertinent Lab Results Pertinent Lab Results: Laboratory Tests 11/14/23 08:00 WBC 8.8 Hgb 13.5 L Hct 39.7 L Plt Count 108 L D Sodium 141 Potassium 3.3 Chloride 104 Carbon Dioxide 26 BUN 10 Creatinine 0.81 Assessment and Plan Assessment Anesthesia Assessment: Chart Reviewed Final Anesthetic Review Family History of Problems with Anesthesia: No History of Problems with Anesthesia: No Documented by User: Daniela Blackburn, 12/02/23 10:00 HPI - Anesthesia Eval Anesthesia Pre-Procedure Meds Is the patient on any of the following meds?: SGLT2 Inhib PMFSH Past Medical History Medical History Port-A-Cath in place Hx of radiation therapy History of chemotherapy Controlled type 2 diabetes mellitus with insulin therapy Carcinoma of esophagus Thyroid nodule Dysphagia, pharyngoesophageal phase Esophageal dysphagia Goiter Vitamin D deficiency Osteomyelitis of cervical spine Obstructive sleep apnea Colon cancer Narcolepsy GERD (gastroesophageal reflux disease) Obesity Insomnia Hypertension Type 2 diabetes mellitus with hyperglycemia Postlaminectomy syndrome of cervical region Hypercholesterolemia Family History Family History Father Colon cancer Diabetes Hypertension Mother Paget's disease Diabetes Family history of problems with anesthesia: No Surgical History Surgical History Hx of endoscopy History of esophagogastroduodenoscopy (EGD) (07/03/23) History of colonoscopy History of spinal surgery History of Problems with Anesthesia: No Social History Social History (Updated 12/01/23 @ 08:38 by Christine Ramesh RN) Household Members: Spouse and Family Housing: House Are you a primary patient care representative to a significant other at home: No Do you presently have visiting nurse or other home services: No Alcohol intake: current Alcohol intake frequency: holidays/special occasions only Patient Tobacco Use Status: Former Tobacco user Tobacco use type: Cigarette Cigarette Packs Per Day: 3 Years Smoked: 20 Smoked in Last 30 Days: No e-Cigarette/Vaping Use: Never Used Second Hand Smoke Exposure: No Use of substances other than those prescribed or required for medical reasons: No Have you been hit, kicked, punched, or otherwise hurt by someone within the past year? If so, by whom?: No Are you DNR?: No Advance Directives: No Advance Directives Information Provided: Yes Advance Directives on File: No Recently lost weight without trying: No Nutrition Risks: No Nutritional Risk service: No Current occupational status: disabled Cognitive needs: No Hearing needs: No Vision needs: Yes Meds Allergies Allergy/AdvReac Type Severity Reaction Status Date / Time metformin AdvReac Intermediate Diarrhea Verified 11/28/23 14:57 Clindamycin HCl Allergy Intermediate rash Uncoded 11/28/23 14:57 Home Medications ?Medication ?Instructions ?Recorded ?Confirmed ?Last Taken ?Type lisinopril 20 mg tablet 20 mg PO DAILY 11/26/21 12/01/23 12/02/23 History ondansetron 8 mg disintegrating 8 mg PO TID 07/14/23 08/11/23 Unknown History tablet insulin aspart 15 unit subcut TID PRN 09/01/23 12/01/23 Unknown History (niacinamide)(U-100) 100 unit/mL(3 Hyperglycemia mL) subcutaneous pen (Fiasp FlexTouch U-100 Insulin) insulin degludec 200 unit/mL (3 50 unit subcut BEDTIME 12/01/23 12/01/23 Unknown History mL) subcutaneous pen (Tresiba FlexTouch U-200 insulin) Exam Exam Date and Time: 12/02/23 0955 Height,Weight and Vital Signs: Height 5 ft 7 in Weight 87.09 kg Vital Signs Temperature 97.4 F 12/02/23 09:45 Pulse Rate 77 12/02/23 09:45 Respiratory Rate 18 12/02/23 09:45 Blood Pressure 132/73 12/02/23 09:45 Pulse Oximetry 96 12/02/23 09:45 Oxygen Delivery Method Room Air 12/02/23 09:45 Temperature 97.4 F 12/02/23 09:45 Pulse Rate 77 12/02/23 09:45 Respiratory Rate 18 12/02/23 09:45 Blood Pressure 132/73 12/02/23 09:45 Pulse Oximetry 96 12/02/23 09:45 Oxygen Delivery Method Room Air 12/02/23 09:45 Airway Mallampati Class: II TM Dist: >3cm Neck ROM: Full Loose/Missing/Broken Teeth: No (patient denies any loose or broken teeth) Heart: S1S2 Lungs: CTAB Assessment and Plan Assessment Anesthesia Assessment: Anesthesia Plan Discussed and Chart Reviewed Final Anesthetic Review Family History of Problems with Anesthesia: No History of Problems with Anesthesia: No NPO: Yes ASA Class: III Final Preanesthetic Review: No Changes in Pt Med Stat, Meds/Allgs Chart Reviewed, Consent Obtained/Reviewed and Anes Risks/Benef Reviewed Patient Risk: Intermediate Procedure Risk: Low Anesthetic Plan Anesthetic Plan: MAC: and Agree w/ Assess. and Plan Disposition: Standard PACU
--- NOTE | 2023-12-02 10:43 | W.PM.OPN ---
Operative Note Operative Note Date of Service: 12/02/23 Narrative: Procedure Description: EGD Indication: hx of esophagitis Anesthesia: MAC FLEXIBLE TRANSORAL UPPER GASTROINTESTINAL ENDOSCOPY UPPER ENDOSCOPY Consent: Indications for the procedure and potential complications of bleeding, perforation, reaction to medications and missed diagnosis were discussed with the patient and informed consent was obtained. Instrument: Olympus GIF H 190 J mid size upper endoscope Monitoring: Vital signs and clinical assessment, continuous EKG monitoring, Pulse oximetry, Carbon Dioxide monitoring and blood pressure monitoring were done throughout the procedure. Procedure: The patient was placed in the left lateral decubitis position and pre-procedure medications were administered and a bite block was placed. The endoscope was inserted into the mouth and advanced under direct vision to the third part of duodenum. A careful inspection was made as the upper endoscope was withdrawn including a retroflexed examination of the proximal stomach; Findings and interventions are described below. Findings: Larynx:normal Esophagus: GE junction at 40 cm, diaphragm hiatus at 40 cm, 2 cm area of ulcerated boggy mucosa in the distal esophagus with some slough noted, bx taken but much improved compared to before - balloon dilation of UES to 18 mm with resistance felt. Stomach: erythema around cardia consistent with prior radiation therapy . Grade 2 flap valve on retroflexed examination of the cardia. Duodenum: Normal bulb and descending duodenum, Intervention: Biopsies as noted above, Impression/Findings: ulcerated esophagitis prob vs 2/2 prior XRT and chemo or REFLUX, appearances are improved compared to before PLAN: cont with PPI and carafate GERD precautions await bx results repeat EGD in about 3-6 months or earlier if any clinical concerns
[2023-12-02 10:49] VITALS: BP 94/61; PULSE 85; RESP 16; TEMP 36.2; O2SAT 95
[2023-12-02 11:00] VITALS: BP 100/62; PULSE 83; RESP 16; O2SAT 95
[2023-12-02 11:15] VITALS: BP 108/70; PULSE 81; RESP 16; TEMP 36.1; O2SAT 96
== END 2023-12-02 11:41 | disposition home or self-care (01) ==
PROVIDERS: PCP Internal Medicine; Visit Provider Internal Medicine Gastroenterology
PROC: (CPT 43249; principal; 2023-12-02 11:40)
DX: K20.90 Esophagitis, unspecified without bleeding (principal); K29.60 Other gastritis without bleeding; C15.9 Malignant neoplasm of esophagus, unspecified; Z92.3 Personal history of irradiation; R13.14 Dysphagia, pharyngoesophageal phase; E11.9 Type 2 diabetes mellitus without complications; I10 Essential (primary) hypertension; E78.00 Pure hypercholesterolemia, unspecified; K59.00 Constipation, unspecified; J96.01 Acute respiratory failure with hypoxia; F41.1 Generalized anxiety disorder; K21.9 Gastro-esophageal reflux disease without esophagitis; E55.9 Vitamin D deficiency, unspecified; G47.33 Obstructive sleep apnea (adult) (pediatric); Z99.89 Dependence on other enabling machines and devices; Z85.038 Personal history of other malignant neoplasm of large intestine; Z92.21 Personal history of antineoplastic chemotherapy; Z86.711 Personal history of pulmonary embolism; Z87.891 Personal history of nicotine dependence; Z79.01 Long term (current) use of anticoagulants; Z79.4 Long term (current) use of insulin; Z79.899 Other long term (current) drug therapy
CPT/HCPCS: 43249; 43239; 82947; 88305; 88313; C1726; J1596; J2371; J2704

== ENCOUNTER → 2023-12-02 08:40 | Outpatient (BNV) | payer MEDICARE, SELFPAY | PROVIDERS: PCP Internal Medicine; Visit Provider Internal Medicine Gastroenterology | DX: K22.10 Ulcer of esophagus without bleeding (principal); R13.10 Dysphagia, unspecified | CPT/HCPCS: 43239; 43249 ==

== ENCOUNTER 2024-01-02 08:29 | Outpatient (AMB) | payer MEDICARE, SELFPAY ==
--- NOTE | 2024-01-02 08:35 | A.OFFVIS_ITS ---
Vital Signs 01/02/24 08:40 Height 5 ft 7 in Weight 192 lb 3.889 oz BMI 30.1 Intake Visit Reasons: DM Intake Note: Patient presents today for D2MT follow up visit. Last Diabetic Eye exam: Due, over 2 years Last Podiatry Visit: Does not see a Hide Handler Random Glucose: mg/dl HgA1c: Rural Service Engineer Required: No Accompanied by: Self / Same As Patient Allergies metformin Adverse Reaction (Intermediate, Verified 01/02/24 08:41) Diarrhea Clindamycin HCl Allergy (Intermediate, Uncoded 01/02/24 08:41) rash [facility] Medical History (Updated 12/15/23 @ 08:31 by Yvonne Torres MD) Port-A-Cath in place Hx of radiation therapy History of chemotherapy Controlled type 2 diabetes mellitus with insulin therapy Carcinoma of esophagus Thyroid nodule Dysphagia, pharyngoesophageal phase Esophageal dysphagia Goiter Vitamin D deficiency Osteomyelitis of cervical spine Obstructive sleep apnea Colon cancer Narcolepsy GERD (gastroesophageal reflux disease) Obesity Insomnia Hypertension Type 2 diabetes mellitus with hyperglycemia Postlaminectomy syndrome of cervical region Hypercholesterolemia Surgical History Hx of endoscopy History of esophagogastroduodenoscopy (EGD) (07/03/23) History of colonoscopy History of spinal surgery Family History Father Colon cancer Diabetes Hypertension Mother Paget's disease Diabetes Social History Household Members: Spouse and Family Housing: House Are you a primary physician primary care sports medicine to a significant other at home: No Do you presently have visiting nurse or other home services: No Alcohol intake: current Alcohol intake frequency: holidays/special occasions only Patient Tobacco Use Status: Former Tobacco user Tobacco use type: Cigarette Cigarette Packs Per Day: 3 Years Smoked: 20 e-Cigarette/Vaping Use: Never Used Second Hand Smoke Exposure: No Use of substances other than those prescribed or required for medical reasons: No service: No Current occupational status: disabled Cognitive needs: No Hearing needs: No Vision needs: Yes Coding
--- NOTE | 2024-01-02 08:37 | MHC.OFFVIS ---
Vital Signs 01/02/24 08:40 Height 5 ft 7 in Weight 192 lb 3.889 oz BMI 30.1 BP 104/62 Blood Pressure Location Rt brachial Position Sitting Pulse 89 Pulse Source Pulse Oximeter Intake Visit Reasons: DM Intake Note: Patient presents today for D2OK follow up visit. Last Diabetic Eye exam:Due, Over 2 years Last Podiatry Visit: Does not see a Cash Clerk, states he gets pedicures. Random Glucose: 146 mg/dl HgA1c: 7.0% 01/02/2024 Spray Foam Installer Required: No Accompanied by: Self / Same As Patient Allergies metformin Adverse Reaction (Intermediate, Verified 01/02/24 08:41) Diarrhea Clindamycin HCl Allergy (Intermediate, Uncoded 01/02/24 08:41) rash HPI Comments Details: Patient is a 73-year-old male with a past medical history of esophageal carcinoma, hypertension, hyperlipidemia and type 2 diabetes presenting today for continued diabetic management. He was last seen by Andreia Vega PA-C in August 2023. His hemoglobin A1c today is 7%. He is on Tresiba 50 units and Fiasp 16 units TID and Jardiance 25 mg. A1c is 7%. Unable to download reader today. He does have his cell phone with him and his information for the last 14 days shows 60% in range, very high 11%, high 28% and less than 1% hypoglycemia. Patient says he had 1 low recently of 68. He thinks this happened because he administered Fiasp after the meal because he forgot to take it. He treated it by eating something. Patient says he will occasionally get woken up in the morning by a low blood sugar once a month. He says he is doing better with administration of NovoLog, but he forgets it once per day usually. Patient says his last co-pay for Jardiance was 400 dollars for a 30 day supply. He will not be able to afford it if it is this much moving forward. He is due for a diabetic eye exam. He is tolerating the chemo. Overall his weights are stable. His appetite fluctuates. CV: Blood pressure in the office is 104/62. He is on lisinopril 20 mg. Per chart review BP was 136/86 on 12/29/2023. Patient says it does fluctuate. No dizziness. Energy level has been okay. Due for lipid panel which is ordered. Complications: The patient has neuropathy in his feet and hands, but he says this started after he began chemotherapy. ROS: Constitutional: No fevers or chills. Eyes: No vision loss, double vision or blurriness. Respiratory: No shortness of breath Cardiovascular: No chest pain or pedal edema. Gastrointestinal: No abdominal pain. Neurologic: No headache, dizziness, syncope Skin: No rash or open wounds. Endocrine: No cold or heat intolerance. No polyuria or polydipsia. Physical exam: Constitutional: Alert, in no distress. Head: Normocephalic. Eyes: Pupils are equal, round and reactive to light. Extraocular muscles intact. Respiratory: Clear to auscultation. Cardiovascular: S1 S2 regular. No murmurs. Right foot: Warm and well perfused. No clubbing, cyanosis or edema. DP pulse 3+. Decreased vibratory sensation. Intact sensation to monofilament. No open wounds. Left foot: Warm and well perfused. No clubbing, cyanosis or edema. DP pulse 3+. Decreased vibratory sensation. Intact sensation to monofilament. No open wounds. [facility] Medical History (Updated 01/02/24 @ 09:31 by CEE Patel) Controlled type 2 diabetes mellitus Port-A-Cath in place Hx of radiation therapy History of chemotherapy Controlled type 2 diabetes mellitus with insulin therapy Carcinoma of esophagus Thyroid nodule Dysphagia, pharyngoesophageal phase Esophageal dysphagia Goiter Vitamin D deficiency Osteomyelitis of cervical spine Obstructive sleep apnea Colon cancer Narcolepsy GERD (gastroesophageal reflux disease) Obesity Insomnia Hypertension Type 2 diabetes mellitus with hyperglycemia Postlaminectomy syndrome of cervical region Hypercholesterolemia Surgical History Hx of endoscopy History of esophagogastroduodenoscopy (EGD) (07/03/23) History of colonoscopy History of spinal surgery Family History Father Colon cancer Diabetes Hypertension Mother Paget's disease Diabetes Social History Household Members: Spouse and Family Housing: House Are you a primary adult daycare coordinator to a significant other at home: No Do you presently have visiting nurse or other home services: No Alcohol intake: current Alcohol intake frequency: holidays/special occasions only Patient Tobacco Use Status: Former Tobacco user Tobacco use type: Cigarette Cigarette Packs Per Day: 3 Years Smoked: 20 e-Cigarette/Vaping Use: Never Used Second Hand Smoke Exposure: No service: No Current occupational status: disabled Cognitive needs: No Hearing needs: No Vision needs: Yes Physical Exam Vital Signs: Last Vital Signs Pulse 89 01/02/24 08:40 BP 104/62 01/02/24 08:40 BMI result Body Mass Index 30.1 Results AMB Hemoglobin A1c AMB Hemoglobin A1c 7.0 % Last Edit by MIRIAM Galvan on 01/02/24 08:58 Results Reviewed Results Reviewed: Laboratory Last Values Glucose (Clinic) 146 mg/dL (60-115) H 01/02/24 08:47 Laboratory Tests 08/26/22 12/26/23 08:33 08:13 Creatinine 0.83 Estimated GFR > 60 Urine Creatinine 111.39 Urine Microalbumin 13.0 Microalb/Creat Ratio 11.6 Assessment & Plan Assessment & Plan (1) Controlled type 2 diabetes mellitus: Code(s): E11.9 - Type 2 diabetes mellitus without complications Category: Medical Qualifiers: Diabetes mellitus ad terminal makeup operator insulin use: with snf use Diabetes mellitus complication status: without complication Qualified Code(s): E11.9 - Type 2 diabetes mellitus without complications; Z79.4 - retirement (current) use of insulin Plan In summary this is a 73-year-old male with a past medical history of esophageal cancer and controlled type 2 diabetes. Refilled diabetic medications including glucose tablets. Reviewed proper administration of Fiasp at the beginning or within 20 minutes of starting a meal. Patient says sometimes mealtimes are irregular. He was worried about hypoglycemia if he eats meals closer together. Advised patient that if meals aren't spaced by approximately 4 hours he can try administering 8 units of Fiasp with the subsequent meal rather than 16 units. Continue Tresiba 50 units every evening. Continue Jardiance 25 mg daily. The office will contact the pharmacy regarding the high co-pay on the last prescription. Advised patient to have lipid profile and urine tests for microalbumin completed at the lab. Discussed pathophysiology of Type II Diabetes Mellitus with the patient in detail.? I explained the ad terminal makeup operator risks and complications associated with uncontrolled diabetes including nephropathy, neuropathy, peripheral vascular disease, retinopathy, increased risk of heart disease and stroke.? Diabetic diet reviewed. He does have difficulty following this due to chemo and its effects on appetite. Patient is reminded to schedule his diabetic eye exam. Follow up in 3 months for type 2 diabetes.. Orders: Orders AMB Hemoglobin A1c Today E11.9 - Type 2 diabetes mellitus without complications Microalbumin, Random (w Creat) Today E11.65 - Type 2 diabetes mellitus with hyperglycemia, Z79.4 - predatory animal exterminator (current) use of insulin Medications: Refilled glucose (Dex4 Glucose) until symptoms of low blood sugar are controlled 4 grams PO Q15M PRN 30 tabs 3RF hypoglycemia Patient Instructions: Your hemoglobin a1c is 7% today. Fiasp 16 units: Inject at the beginning of or within 20 minutes after starting a meal. Continue Tresiba 50 units every evening. Labs are ordered for cholesterol and urine test for microalbumin. Coding Level of Care Code Est Pt Level 5 (32276) Complex EM visit Add On G2211 Diagnoses Controlled type 2 diabetes mellitus without complication, with long-term current use of insulin E11.9; Z79.4 Diabetes mellitus ad terminal makeup operator insulin use: with snf use Diabetes mellitus complication status: without complication Time Spent (min) 52 Comment Chart review, direct patient care, completing documentation
[2024-01-02 08:40] VITALS: BP 104/62; PULSE 89; BMI 30.1
[2024-01-02 08:52] LABS: Glucose, Whole Blood 146 mg/dL (60-115)
== END 2024-01-02 09:17 | disposition home or self-care (01) ==
PROVIDERS: PCP Internal Medicine; Visit Provider Physician Assistant Medical
DX: E11.9 Type 2 diabetes mellitus without complications (principal); Z79.4 Long term (current) use of insulin

== ENCOUNTER → 2024-01-02 08:29 | Outpatient (BNVA) | payer MEDICARE, SELFPAY | PROVIDERS: PCP Internal Medicine; Visit Provider Physician Assistant Medical | DX: E11.9 Type 2 diabetes mellitus without complications (principal); Z79.4 Long term (current) use of insulin | CPT/HCPCS: 82947; 83036; 99212 ==

== ENCOUNTER 2024-01-09 08:48 | Outpatient (REF) | payer MEDICARE, SELFPAY ==
[2024-01-09 09:10] LABS: MANUAL DIFF FLAG NO
[2024-01-09 09:28] LABS: Basophils Percent Auto 0.7 % (0-2); Eosinophils Absolute Auto 0.2 X10*3/uL (0.0-0.4); Eosinophils Percent Auto 4.6 % (0-4); Hematocrit 37.1 % (42.0-52.0); Hemoglobin 12.6 g/dl (14.0-18.0); Imm Gran Abs Auto 0.02 X10*3/uL (0.00-0.03); Imm Gran Pct Auto 0.5 % (0.0-0.4); Lymphocytes Absolute Auto 0.6 X10*3/uL (1.2-4.9); Lymphocytes Percent Auto 14.5 % (20-40); Mean Corpuscular Hemoglobin 32.6 pg (27.0-33.0); Mean Corpuscular Volume 95.9 fL (80.0-98.0); Monocytes Absolute Auto 0.5 X10*3/uL (0.1-1.2); Monocytes Percent Auto 12.3 % (2-11); Neutrophils Absolute Auto 2.8 x10*3/uL (2.0-8.3); Neutrophils Percent Auto 67.4 % (45-73); Platelet Count 122 X10*3/uL (160-400); Red Blood Count 3.87 X10*6/uL (4.60-5.80); Red Cell Distribution Width 15.1 % (11.0-16.0); White Blood Count 4.1 X10*3/uL (4.8-10.8)
[2024-01-09 09:51] LABS: Alanine Aminotransferase 21 U/L (0-40); Albumin Level 3.9 g/dL (3.5-5.0); Alkaline Phosphatase 110 U/L (39-117); Anion Gap 14 (12-20); Aspartate Amino Transferase 36 U/L (5-37); Bilirubin Total 0.5 mg/dL (0.0-1.0); Blood Urea Nitrogen 10 mg/dL (9-16); Calcium 9.8 mg/dL (8.4-10.2); Carbon Dioxide 23 mmol/L (22-29); Chloride 104 mmol/L (96-108); Cholesterol 204 mg/dL (<200); Estimated Glomerular Filt Rate > 60; Glucose Random 276 mg/dL (60-115); HDL Cholesterol 52 mg/dL (>40); LDL Cholesterol Calculated 124 mg/dL (<100); Potassium 3.8 mmol/L (3.3-5.1); Sodium 137 mmol/L (135-145); Total Protein 7.1 g/dL (6.5-8.0); Triglycerides 144 mg/dL (<150)
[2024-01-09 11:38] LABS: Creatinine Urine 100.55 mg/dL; Microalbum/Creatinine Ratio Ur 14.9 ug/mg cr (<30)
== END 2024-01-09 08:49 | disposition home or self-care (01) ==
LOC: HO.LAB 08:48
PROVIDERS: Absent Provider Physician Assistant Medical; PCP Internal Medicine; Visit Provider Internal Medicine Medical Oncology
DX: C15.4 Malignant neoplasm of middle third of esophagus (principal); E78.00 Pure hypercholesterolemia, unspecified; E11.9 Type 2 diabetes mellitus without complications; Z79.4 Long term (current) use of insulin; E11.65 Type 2 diabetes mellitus with hyperglycemia
CPT/HCPCS: 36415; 80053; 80061; 82043; 82570; 85025

== ENCOUNTER 2024-02-06 08:54 | Outpatient (REF) | payer MEDICARE, SELFPAY ==
[2024-02-06 09:08] LABS: Basophils Percent Auto 0.7 % (0-2); Eosinophils Absolute Auto 0.2 X10*3/uL (0.0-0.4); Eosinophils Percent Auto 2.7 % (0-4); Hematocrit 37.5 % (42.0-52.0); Hemoglobin 12.8 g/dl (14.0-18.0); Imm Gran Abs Auto 0.05 X10*3/uL (0.00-0.03); Imm Gran Pct Auto 0.9 % (0.0-0.4); Lymphocytes Percent Auto 18.4 % (20-40); MANUAL DIFF FLAG NO; Mean Corpuscular HGB Conc 34.1 g/dl (31.0-36.0); Mean Corpuscular Hemoglobin 33.2 pg (27.0-33.0); Mean Corpuscular Volume 97.4 fL (80.0-98.0); Mean Platelet Volume 8.8 fL (9.4-12.4); Monocytes Absolute Auto 0.5 X10*3/uL (0.1-1.2); Monocytes Percent Auto 9.4 % (2-11); Neutrophils Absolute Auto 3.8 x10*3/uL (2.0-8.3); Neutrophils Percent Auto 67.9 % (45-73); Platelet Count 102 X10*3/uL (160-400); Red Blood Count 3.85 X10*6/uL (4.60-5.80); Red Cell Distribution Width 15.6 % (11.0-16.0); White Blood Count 5.6 X10*3/uL (4.8-10.8)
[2024-02-06 09:29] LABS: Alanine Aminotransferase 27 U/L (0-40); Albumin Level 3.9 g/dL (3.5-5.0); Alkaline Phosphatase 106 U/L (39-117); Anion Gap 13 (12-20); Aspartate Amino Transferase 30 U/L (5-37); Bilirubin Direct 0.2 mg/dL (0.0-0.5); Bilirubin Total 0.5 mg/dL (0.0-1.0); Blood Urea Nitrogen 11 mg/dL (9-16); Calcium 9.1 mg/dL (8.4-10.2); Carbon Dioxide 27 mmol/L (22-29); Chloride 106 mmol/L (96-108); Estimated Glomerular Filt Rate > 60; Glucose Random 89 mg/dL (60-115); Potassium 3.5 mmol/L (3.3-5.1); Sodium 142 mmol/L (135-145); Total Protein 6.8 g/dL (6.5-8.0)
[2024-02-06 09:43] LABS: Thyroid Stimulating Hormone 25.39 uIU/mL (0.32-4.0)
== END 2024-02-06 08:55 | disposition home or self-care (01) ==
LOC: HO.LAB 08:54
PROVIDERS: PCP Internal Medicine; Visit Provider Internal Medicine Medical Oncology
DX: C15.4 Malignant neoplasm of middle third of esophagus (principal)
CPT/HCPCS: 36415; 80053; 82248; 82378; 84443; 85025

== ENCOUNTER 2024-02-13 09:48 | Outpatient (AMB) | payer MEDICARE, SELFPAY ==
[2024-02-13 10:02] VITALS: BP 112/68; PULSE 94; O2SAT 96; BMI 30.6
--- NOTE | 2024-02-13 10:02 | A.OFFVIS_ITS ---
Intake Vital Signs 02/13/24 10:02 Height 5 ft 7 in Weight 195 lb 8 oz BMI 30.6 BP 112/68 Blood Pressure Location Lt brachial Position Sitting Pulse 94 Pulse Source Pulse Oximeter Pulse Oximetry (%) 96 Oxygen Delivery Method Room Air Intake Visit Reasons: AWV Merchandising Consultant Required: No Accompanied by: Self / Same As Patient Allergies metformin Adverse Reaction (Intermediate, Verified 02/13/24 10:15) Diarrhea Clindamycin HCl Allergy (Intermediate, Uncoded 02/13/24 10:15) rash Medication List - Last Reconciled 02/13/24 by Nereyda Pathak PA-C apixaban (Eliquis) 5 mg PO BID blood sugar diagnostic (FreeStyle Lite Strips) 3x daily blood-glucose meter (FreeStyle Lite Meter kit) As directed dexamethasone 4 mg PO BID dicyclomine 20 mg PO QID PRN docusate sodium (Colace) 100 mg PO BID duloxetine 30 mg PO DAILY 90 days empagliflozin (Jardiance) 25 mg PO DAILY fluticasone propionate 50 mcg/actuation 2 sprays intranasal BEDTIME glucose (Dex4 Glucose) 4 grams PO Q15M PRN insulin aspart (niacinamide) 100 unit/mL (3 mL) (Fiasp FlexTouch U-100 Insulin) 16 units subcut TID insulin degludec (Tresiba FlexTouch U-200 insulin) 50 units (0.25 mL) subcut BEDTIME levothyroxine 100 mcg (1.6 mL) PO DAILY levothyroxine 50 mcg PO DAILY levothyroxine 75 mcg PO DAILY lidocaine HCl 2% (Lidocaine Viscous) 1 appl mucous membrane QID lisinopril 20 mg PO DAILY lorazepam 1 mg PO BID PRN 90 days Magic Mouthwash Diphen/Lido/Antacid 1:1:1 10 mL PO QID omeprazole 20 mg PO BID PRN 90 days ondansetron 8 mg PO TID oxycodone 10 mg PO Q6H PRN pantoprazole 40 mg PO BID pen needle, diabetic (BD Ultra-Fine Micro Pen Needle) 4x daily potassium chloride ER 20 mEq PO BID prochlorperazine maleate (Compazine) 10 mg PO Q8H PRN sucralfate (Carafate) 1 g PO QID trazodone 150 mg PO BEDTIME HPI AWV HPI Details 73-year-old male with past medical histo ry of esophageal cancer (08/2022), diabetes mellitus, hypertension, GERD, obstructive sleep apnea and hypercholesterolemia last seen by Dr. Santos January 2024 coming in annual wellness exam.?Patient follows with Hematology/Oncology for esophageal cancer last seen 01/27/[address] Juarez at [facility] advised to follow up in 2 weeks Synthroid was increased and continued on current chemo regimen. Patient was seen by [facility] endocrinology December 2023 advised to continue on current medication regimen in order for cholesterol rash. Patient is up-to-date on his colonoscopy. He sees oncology and endocrinology every 2 weeks. He is no longer undergoing radiation but does still have chemo and Neulasta occasionally. [facility] Medical History Controlled type 2 diabetes mellitus Port-A-Cath in place Hx of radiation therapy History of chemotherapy Controlled type 2 diabetes mellitus with insulin therapy Carcinoma of esophagus Thyroid nodule Dysphagia, pharyngoesophageal phase Esophageal dysphagia Goiter Vitamin D deficiency Osteomyelitis of cervical spine Obstructive sleep apnea Colon cancer Narcolepsy GERD (gastroesophageal reflux disease) Obesity Insomnia Hypertension Type 2 diabetes mellitus with hyperglycemia Postlaminectomy syndrome of cervical region Hypercholesterolemia Surgical History Hx of endoscopy History of esophagogastroduodenoscopy (EGD) (07/03/23) History of colonoscopy History of spinal surgery Family History Father Colon cancer Diabetes Hypertension Mother Paget's disease Diabetes Social History Household Members: Spouse and Family Housing: House Are you a primary field care coordinator to a significant other at home: No Do you presently have visiting nurse or other home services: No Alcohol intake: current Alcohol intake frequency: holidays/special occasions only Patient Tobacco Use Status: Former Tobacco user Tobacco use type: Cigarette Cigarette Packs Per Day: 3 Years Smoked: 20 e-Cigarette/Vaping Use: Never Used Second Hand Smoke Exposure: No service: No Current occupational status: disabled Cognitive needs: No Hearing needs: No Vision needs: Yes Questionnaire Medicare Wellness Checkup [age] What gender do you identify with?: male During the past 4 weeks, how much have you been bothered by emotional problems such as feeling anxious, depressed, irritable, sad or downhearted, and blue?: not at all During the past 4 weeks, has your physical & emotional health limited your social activities with family, friends, neighbors, or groups?: slightly During the past 4 weeks, how much bodily pain have you generally had?: moderate pain During the past 4 weeks, was someone available to help you if you needed & wanted help?: yes, as much as I wanted During the past 4 weeks, what was the hardest physical activity you could do for at least 2 minutes?: moderate Can you get to places out of walking distance without help? (For eg., can you travel alone on buses, taxis or drive your car?): Yes Can you go shopping for groceries or clothes without someone's help?: Yes Can you prepare your own meals?: Yes Can you do your housework without help?: Yes Because of any health problems, do you need the help of another person with your personal care needs such as eating, bathing, dressing or getting around the house?: No Can you handle your own money without help?: Yes During the past 4 weeks, how would you rate your health in general?: fair During the past 4 weeks how have things been going for you?: good & bad parts about equal Are you having difficulties driving your car?: no Do you always fasten your seat belt when you are in a car?: yes, usually During past 4 weeks, have you been bothered by the following: never: Sexual problems?, Trouble eating well?, Teeth or denture problems? and Problems using the telephone?, seldom: Falling or dizzy when standing up and always: Tiredness or fatigue? Have you fallen 2 or more times in the past year?: Yes Are you afraid of falling?: No Are you a smoker?: no During the past 4 weeks, how many drinks of wine, beer, or other alcoholic beverages did you have?: no alcohol at all Do you exercise for about 20 minutes 3 or more times a week?: yes, most of the time Have you been given information to help with the following?: no: Hazards in your house that might hurt you? and no: Keeping track of your medications? How often do you have trouble taking medicines the way you have been told to take them?: I always take medicine as prescribed How confident are you that you can control & manage most of your health problems?: very confident What is your race?: White PHQ-9 Over the last 2 weeks, how often have you been bothered by any of the following problems? 1. Little interest or pleasure in doing things: several days 2. Feeling down, depressed, or hopeless: not at all 3. Trouble falling or staying asleep, or sleeping too much: several days 4. Feeling tired or having little energy: several days 5. Poor appetite or overeating: more than half the days 6. Feeling bad about yourself - or that you are a failure or have let yourself or your family down: not at all 7. Trouble concentrating on things, such as reading the newspaper or watching television: not at all 8. Moving or speaking so slowly that other people could have noticed. Or the opposite - being so fidgety or restless that you have been moving around a lot more than usual: not at all 9. Thoughts that you would be better off or of hurting yourself in some way: not at all Total score: 5 75996 - PHQ-9 Billing: Yes Source: Developed by Drs. Viral Reid, Stacey Morris, Naseem Rios and colleagues, with an educational yolis from [employer]. Review of Systems Const Denies body aches, Denies fatigue, Denies fever(s), Denies frequent falls, Denies headache(s) and Denies weakness Eyes Reports no additional complaints and Denies change in vision ENT Denies dysphagia, Denies dizziness, Denies facial pain, Denies headache(s), Denies nasal congestion and Denies odynophagia Card Denies chest pain, Denies syncope, Denies irregular heart rhythm, Denies leg edema, Denies lightheadedness and Denies dyspnea Resp Denies cough and Denies dyspnea GI Denies constipation, Denies dysphagia, Denies dyspepsia, Denies diarrhea, Denies nausea, Denies odynophagia and Denies vomiting Denies dysuria, Denies urinary frequency, Denies urinary hesitancy and Denies urinary urgency Musc Denies back pain and Denies myalgias Skin/Breast Reports system reviewed and no additional complaints, except as documented Neuro Denies dizziness, Denies syncope, Denies frequent falls, Denies headache(s) and Denies weakness Psych Reports no additional complaints Endo Denies fatigue Physical Exam Vital Signs: Last Vital Signs Pulse 94 02/13/24 10:02 BP 112/68 02/13/24 10:02 Pulse Ox 96 02/13/24 10:02 Oxygen Delivery Method Room Air 02/13/24 10:02 BMI result Body Mass Index 30.6 Const General: cooperative, healthy appearing, comfortable and no acute distress Orientation/consciousness: patient oriented x3 HEENT Head: Yes normocephalic Ears: hearing grossly normal bilaterally, external ears normal, TM's normal bilaterally, EAC's normal and Abnormal EAC present cerumen impaction on the right General nose exam: Normal external nose present Face and sinus: Yes normal facial exam and Yes sinuses nontender Mouth: Normal oral and palatal mucosa present and tongue normal Throat: Yes posterior oropharynx normal Eyes General: appearance normal, both eyes and all related structures Conjunctivae: conjunctivae normal Pupils: Equal, round and reactive pupils present EOM: EOMs intact bilaterally and No Nystagmus present Neck Neck: Yes normal visual inspection, Yes full ROM and Yes no lymphadenopathy Chest Chest palpation & inspection: normal inspection of the chest Resp Effort & Inspection: normal respiratory effort Auscultation: clear to auscultation bilaterally, no crackles, no rales, no rhonchi, no wheezes and breath sounds present Cardio Rate: regular rate Rhythm: regular rhythm Peripheral pulses: radial pulses present and dorsalis pedis present GI Inspection: Yes normal to inspection and No Abdominal wall edema Palpation (GI): Soft to palpation, not firm and nontender Auscultation: normal bowel sounds Rectal Exam - Male: Yes deferred General: Yes no CVA tenderness Back/Spine/Pelvis Back: no CVA tenderness Skin General skin exam: no rashes or lesions noted Neuro General: patient oriented x3 Cranial nerves: Yes Equal, round and reactive pupils present, Yes Midline tongue present, Yes Ability to bilaterally elevate shoulders present and No Nystagmus present Gait exam (Neuro): Normal gait present Extrem General: Yes normal to inspection, Yes full ROM, No no pedal edema and No edema Psych Speech and movement: Normal speech and movement present Affect: normal affect Insight: Good insight present (Psych) Judgement: Good judgement present (Psych) Office Procedures Flu Questionnaire Does the patient have a severe egg allergy?: No Does the patient have severe life threatening allergies?: No Does the patient have a fever or illness today?: No Has the patient ever had Guillain-[place] Syndrome?: No Has the patient ever had any past reaction to a flu shot?: No Immunizations Fluarix Triv [id number] (PF) 45 mcg (15 mcg x 3)/0.5 mL IM syringe Performing Provider: Nereyda Pathak PA-C [facility] Administered by: MIRIAM Oliver on 02/13/24 10:44 Dose Route Admin Location Dispensed Lot Number Expiration Date NDC Auto Striper 0.5 mL IM Right Deltoid 0.5 mL [id number] 09/06/24 [id number] [employer] VIS Given Date VIS Provided VIS Publication Date 02/13/24 Single Vaccine 20 Eligibility Eligibility Date Funding Source Not [facility] Eligible 02/13/24 Private Assessment & Plan Assessment & Plan (1) Carcinoma of thoracic esophagus: Comment: 08/27/2022 Code(s): C15.4 - Malignant neoplasm of middle third of esophagus Plan: Currently following with Hematology/Oncology receiving chemotherapy and occasional new less than injections depending on white blood cell count (2) Obesity (BMI 30-39.9): Code(s): E66.9 - Obesity, unspecified Plan: Healthy diet and regular exercise is encouraged. (3) Hypercholesterolemia: Code(s): E78.00 - Pure hypercholesterolemia, unspecified Plan: Avoid foods that are high in cholesterol such as red meat, fried foods, eggs and baked goods. Triglyceride goal of less than 100 and LDL goal of less than 100. (4) Generalized anxiety disorder: Comment: is mental health nurse Code(s): F41.1 - Generalized anxiety disorder Plan: Declines the need for counseling at this time. Continue on duloxetine. (5) Type 2 diabetes mellitus with hyperglycemia: Comment: [employer] Code(s): E11.65 - Type 2 diabetes mellitus with hyperglycemia Qualifiers: Diabetes mellitus termite treater insulin use: with termite treater use Qualified Code(s): E11.65 - Type 2 diabetes mellitus with hyperglycemia; Z79.4 - terminal operations manager (current) use of insulin Plan: Decrease the amount of carbohydrates such as pasta, bread, rice, and potatoes and limit the amount of sweets. Although fruits are generally healthy they should be eaten in moderation as they are still high in sugar. Hemoglobin A1c goal of less than 7%. Currently working with endocrinology. (6) GERD (gastroesophageal reflux disease): Code(s): K21.9 - Gastro-esophageal reflux disease without esophagitis Qualifiers: Esophagitis presence: without esophagitis Qualified Code(s): K21.9 - Gastro-esophageal reflux disease without esophagitis Plan: Avoid trigger foods such as citrus, tomato products, soda, caffeine, spicy foods and other foods that may be irritating to your stomach. Avoid laying flat 3-4 hours after eating and elevate the head of the bed 30 degrees to prevent acid from moving into the esophagus. Continue on pantoprazole (7) Hypertension: Code(s): I10 - Essential (primary) hypertension Qualifiers: Hypertension type: essential hypertension Qualified Code(s): I10 - Essential (primary) hypertension Plan: Continue on current blood pressure medication. Avoid salt intake and encourage healthy diet and regular exercise. (8) Obstructive sleep apnea: Comment: CPAP Code(s): G47.33 - Obstructive sleep apnea (adult) (pediatric) Plan: Uses CPAP faithfully at least 4 hours a night and benefits from this therapy. (9) Vitamin D deficiency: Code(s): E55.9 - Vitamin D deficiency, unspecified Plan: Not currently on replacement therapy we will continue to monitor with blood work. (10) Annual wellness visit: Code(s): Z00.00 - Encounter for general adult medical examination without abnormal find ings Plan: Patient is up-to-date on all recommended routine screenings and vaccinations for his age. Blood work up-to-date. [place] of care was reviewed with patient patient was provided with a written screening schedule. (11) Cerumen impaction: Code(s): H61.20 - Impacted cerumen, unspecified ear Plan: Patient has right-sided cerumen impaction advised to schedule ear lavage. Plan This note was constructed using voice recognition software. While every effort has been made to ensure accuracy and hemotherapist, still areas may have been included sometimes these areas may affect the content or meeting of the given symptoms. Total time spent caring for the patient today was 30 minutes. This includes time spent before the visit reviewing the chart, time spent during the visit, and time spent after the visit and documentation. Orders: Orders RT home sleep study Today G47.33 - Obstructive sleep apnea (adult) (pediatric) Influenza 8216-3063 Immunization Today Z23 - Encounter for immunization Quality Reporting (2019) Depression/Bipolar (159/160/161/177) PHQ-9: Total score: 5 Coding Level of Care Code Medicare Subsequent (G0439) Diagnoses Carcinoma of thoracic esophagus C15.4 Obesity (BMI 30-39.9) E66.9 Hypercholesterolemia E78.00 Generalized anxiety disorder F41.1 Type 2 diabetes mellitus with hyperglycemia, with long-term current use of insulin E11.65; Z79.4 Diabetes mellitus termite treater insulin use: with termite treater use Gastroesophageal reflux disease without esophagitis K21.9 Esophagitis presence: without esophagitis Essential hypertension I10 Hypertension type: essential hypertension Obstructive sleep apnea G47.33 Vitamin D deficiency E55.9 Annual wellness visit Z00.00 Cerumen impaction H61.20 Additional Codes PHQ-9 - 06389 - PHQ-9 Billing: Yes ([id number])
== END 2024-02-13 10:44 | disposition home or self-care (01) ==
PROVIDERS: PCP Internal Medicine
DX: Z00.00 Encounter for general adult medical examination without abnormal findings (principal); E11.65 Type 2 diabetes mellitus with hyperglycemia; C15.4 Malignant neoplasm of middle third of esophagus; Z79.4 Long term (current) use of insulin; E66.9 Obesity, unspecified; E78.00 Pure hypercholesterolemia, unspecified; F41.1 Generalized anxiety disorder; K21.9 Gastro-esophageal reflux disease without esophagitis; I10 Essential (primary) hypertension; G47.33 Obstructive sleep apnea (adult) (pediatric); E55.9 Vitamin D deficiency, unspecified; H61.21 Impacted cerumen, right ear

== ENCOUNTER → 2024-02-13 09:48 | Outpatient (BNVA) | payer MEDICARE, SELFPAY | PROVIDERS: PCP Internal Medicine | DX: Z00.00 Encounter for general adult medical examination without abnormal findings (principal); Z23 Encounter for immunization; E11.65 Type 2 diabetes mellitus with hyperglycemia; C15.4 Malignant neoplasm of middle third of esophagus; E55.9 Vitamin D deficiency, unspecified; G47.33 Obstructive sleep apnea (adult) (pediatric); I10 Essential (primary) hypertension; K21.9 Gastro-esophageal reflux disease without esophagitis; E78.00 Pure hypercholesterolemia, unspecified; H61.20 Impacted cerumen, unspecified ear; E66.9 Obesity, unspecified; F41.1 Generalized anxiety disorder; Z79.4 Long term (current) use of insulin | CPT/HCPCS: 90471; 90656; 96127 ==

== ENCOUNTER 2024-02-27 08:36 | Outpatient (AMB) | payer MEDICARE, SELFPAY ==
--- NOTE | 2024-02-27 08:47 | MHC.PC.OV ---
Vital Signs 02/27/24 08:48 Height 5 ft 7 in Weight 195 lb BMI 30.5 BP 130/60 Blood Pressure Location Lt brachial Position Sitting Pulse 83 Pulse Source Pulse Oximeter Pulse Oximetry (%) 96 Oxygen Delivery Method Room Air Intake Visit Reasons: ear cleaning - earliest convenience Intake Note: Patient is here to follow up on ear cleaning. Nuclear Supervising Operator Required: No Hand Pattern Marker: Not Required per policy Accompanied by: Self / Same As Patient Allergies metformin Adverse Reaction (Intermediate, Verified 02/27/24 08:48) Diarrhea Clindamycin HCl Allergy (Intermediate, Uncoded 02/27/24 08:48) rash Tobacco use date assessed: 02/27/24 Fall risk assessment: No Falls in past year Last assessed Fall Risk: 02/27/24 Dental Screening Dental Screen Date: 09/30/22 HPI ear cleaning - earliest convenience HPI Details 73-year-old male with past medical history of esophageal cancer (08/2022), diabetes mellitus, hypertension, GERD, obstructive sleep apnea and hypercholesterolemia last seen February 2024 coming in for ear cleaning. Patient reporting and ear clogged feeling on the right side and decreased hearing. [facility] Medical History Controlled type 2 diabetes mellitus Port-A-Cath in place Hx of radiation therapy History of chemotherapy Controlled type 2 diabetes mellitus with insulin therapy Carcinoma of esophagus Thyroid nodule Dysphagia, pharyngoesophageal phase Esophageal dysphagia Goiter Vitamin D deficiency Osteomyelitis of cervical spine Obstructive sleep apnea Colon cancer Narcolepsy GERD (gastroesophageal reflux disease) Obesity Insomnia Hypertension Type 2 diabetes mellitus with hyperglycemia Postlaminectomy syndrome of cervical region Hypercholesterolemia Surgical History Hx of endoscopy History of esophagogastroduodenoscopy (EGD) (07/03/23) History of colonoscopy History of spinal surgery Family History Father Colon cancer Diabetes Hypertension Mother Paget's disease Diabetes Social History Household Members: Spouse and Family Housing: House Are you a primary long term acute care registered nurse to a significant other at home: No Do you presently have visiting nurse or other home services: No Alcohol intake: current Alcohol intake frequency: holidays/special occasions only Patient Tobacco Use Status: Former Tobacco user Tobacco use type: Cigarette Cigarette Packs Per Day: 3 Years Smoked: 20 e-Cigarette/Vaping Use: Never Used Second Hand Smoke Exposure: No service: No Current occupational status: disabled Cognitive needs: No Hearing needs: No Vision needs: Yes Questionnaire Thrive Questionnaire Date Thrive assessed: 04/01/22 AUDIT C Alcohol Use Questionnaire (AUDIT-C) 3. How often do you have six or more drinks on one occasion?: Never Total Score: 0 BIJAN-7 AMB Questionnaire BIJAN-7 Date BIJAN - 7 assessed: 04/01/22 Source: Developed by Drs. Viral Reid, Stacey Morris, Naseem Rios and colleagues, with an educational yolis from [facility] [facility]. Review of Systems Const Denies body aches, Denies chills and Denies fever(s) Eyes Reports no additional complaints ENT Details: Ear clogged feeling and decreased hearing Card Reports no additional complaints Resp Reports no additional complaints GI Reports no additional complaints Reports no additional complaints Skin/Breast Reports system reviewed and no additional complaints, except as documented Physical exam (Primary Care) Vital Signs: Last Vital Signs Pulse 83 02/27/24 08:48 BP 130/60 02/27/24 08:48 Pulse Ox 96 02/27/24 08:48 Oxygen Delivery Method Room Air 02/27/24 08:48 BMI result Body Mass Index 30.5 Tobacco/Smoking Status: Tobacco use Status Tobacco use date assessed 02/27/24 02/27/24 08:55 Patient Tobacco Use Status Former Tobacco user 02/27/24 08:55 Tobacco use type Cigarette 02/27/24 08:55 e-Cigarette/Vaping Use Never Used 02/27/24 08:55 Thrive Assessment: Date of Thrive Assessment Date Thrive assessed 04/01/22 02/27/24 08:55 Const General: cooperative, healthy appearing, comfortable and no acute distress Orientation/consciousness: patient oriented x3 HENMT Head: Yes normocephalic Ears: hearing grossly normal bilaterally, TM normal on the left, EAC's normal (Left only) and Abnormal EAC present cerumen impaction on the right and bilateral General nose exam: Normal external nose present Eyes General: appearance normal, both eyes and all related structures Conjunctivae: conjunctivae normal Neck Neck: Yes full ROM and Yes no lymphadenopathy Resp Effort & Inspection: normal respiratory effort Cardio Rate: regular rate Rhythm: regular rhythm Skin General skin exam: no rashes or lesions noted Neuro General: patient oriented x3 Gait exam (Neuro): Normal gait present Extrem General: Yes normal to inspection, Yes full ROM and No edema Psych Affect: normal affect Attitude: cooperative Insight: Good insight present (Psych) Judgement: Good judgement present (Psych) Office Procedures Cerumen Removal From which ear canal was the cerumen removed: right Removal: irrigation and cerumen loop/spoon Notes: patient tolerated procedure well and no complications [id number] Irrigation/Lavage Coding Level of Care Code Est Pt Level 3 (28845) Diagnoses Cerumen impaction H61.20 CPT Codes Office Procedure - CPT: 26969-Jdd Irrigation/Lavage ([id number]) Assessment & Plan Assessment & Plan (1) Cerumen impaction: Code(s): H61.20 - Impacted cerumen, unspecified ear Category: Medical Plan: Patient having cerumen impaction on right side. Wax severely impacted and hard. Initially using lighted curette to evacuate the wax was unsuccessful and attempted irrigation with warm water and hydrogen peroxide. Patient did complain of pain while irrigating. Canal atraumatic and TM unable to be visualized however we did stop the procedure after patient reported pain. Advised patient to reschedule appointment and use Debrox drops 4-5 days prior to appointment to soften the wax. Plan This note was constructed using voice recognition software. While every effort has been made to ensure accuracy and steward/stewardess wine, still areas may have been included sometimes these areas may affect the content or meeting of the given symptoms. Total time spent caring for the patient today was 20 minutes. This includes time spent before the visit reviewing the chart, time spent during the visit, and time spent after the visit and documentation.
[2024-02-27 08:48] VITALS: BP 130/60; PULSE 83; O2SAT 96; BMI 30.5
== END 2024-02-27 09:21 | disposition home or self-care (01) ==
PROVIDERS: PCP Internal Medicine
DX: H61.21 Impacted cerumen, right ear (principal)

== ENCOUNTER → 2024-02-27 08:36 | Outpatient (BNVA) | payer MEDICARE, SELFPAY | PROVIDERS: PCP Internal Medicine | DX: H61.21 Impacted cerumen, right ear (principal); E11.9 Type 2 diabetes mellitus without complications; I10 Essential (primary) hypertension; K21.9 Gastro-esophageal reflux disease without esophagitis; G47.33 Obstructive sleep apnea (adult) (pediatric); E78.00 Pure hypercholesterolemia, unspecified | CPT/HCPCS: 69210; 99212 ==

== ENCOUNTER 2024-05-06 06:15 | Outpatient (REF) | payer MEDICARE, SELFPAY ==
--- NOTE | ~2024-05-06 | CT_ITS ---
EXAMINATION: CT ABDOMEN PELVIS WITH IV CONTRAST, CT CHEST WITH IV CONTRAST INDICATION: Carcinoma of the esophagus COMPARISON: Comparison is made with the prior chest CT dated 05/14/[address] of the abdomen and pelvis dated 11/14/2023.. TECHNIQUE: CT scan of the chest, abdomen and pelvis was performed following administration of 85 mL Omnipaque 350 using standard departmental protocol. Coronal and sagittal reformatted images were generated and reviewed. The patient received oral contrast material. This CT exam was performed with one or more of the following dose reduction techniques: automated exposure control, adjustment of the mA and/or kV according to patient size, use of iterative reconstruction technique. DLP: 567 mGy-cm CHEST: THYROID: The thyroid is unremarkable. LUNGS: There is mild scarring in the left lower lobe. The lungs are otherwise clear. MEDIASTINUM: There is no mediastinal lymphadenopathy. MELISSA: There is no hilar lymphadenopathy. CARDIOVASCULATURE: The heart is normal in size. There is no pericardial effusion. The thoracic aorta is normal in caliber. DEGREE OF CORONARY CALCIFICATION: moderate PLEURA: There is no pleural effusion. No pneumothorax. MAIN AIRWAYS: The mainstem bronchi and proximal branches are patent. AXILLA: There is no axillary lymphadenopathy. SOFT TISSUES: There is circumferential wall thickening of the distal esophagus, compatible with the patient's known history of esophageal carcinoma. BONES: There is mild degenerative disc disease of the spine. ABDOMEN: LIVER: The liver is normal in size and contour. Again seen is a 2.2 x 1.4 cm hypodensity in segment VII. This is slightly smaller than on the prior study (previously 2.4 x 1.6 cm). No new liver lesion is identified. The hepatic and portal veins are patent. GALLBLADDER / BILE DUCTS: The gallbladder is unremarkable. There is no intra or extrahepatic biliary ductal dilatation. SPLEEN: The spleen is normal in size. No focal splenic lesion is identified. PANCREAS: The pancreas is unremarkable in appearance. ADRENAL GLANDS: Within normal limits. KIDNEYS/RETROPERITONEUM: No renal calculi are identified. There is no hydronephrosis. There are subcentimeter hypodense foci in the right kidney without change, which likely represent cysts. LYMPH NODES: No abdominal or pelvic lymphadenopathy. VASCULATURE: The abdominal aorta demonstrates atherosclerotic calcification, but is normal in caliber. MESENTERY/PERITONEUM: No free fluid. No masses. There is no free intraperitoneal gas. STOMACH: The stomach is collapsed, limiting evaluation. SMALL BOWEL: The small bowel is normal in caliber. COLON: There is a large amount of stool throughout the colon. APPENDIX: The appendix is not seen, however no inflammatory changes are seen adjacent to the cecum. URINARY BLADDER/PELVIC ORGANS: The urinary bladder is unremarkable. The prostate is normal in size. BONES / SOFT TISSUES: No suspicious bony or soft tissue abnormalities. CT/CT chest w IV con IMPRESSION: 1. Circumferential wall thickening of the distal esophagus, consistent with the patient's known history of esophageal carcinoma. 2. Slight interval decrease in the hypodense lesion in segment VII of the liver. 3. Large amount of stool throughout the colon. Electronically signed by: Viral Mcpherson MD 05/06/2024 09:49 AM [facility] [place]
[2024-05-06] MEDS: iohexoL 350 MG/ML 100 ML INFUS..BTL IV (09:21)
[2024-05-06] MEDS: Barium Sulfate Oral (Vanilla) 450 ML ORAL.SUSP PO ×2 (09:23)
[2024-05-06 12:45] LABS: Creatinine POC 0.8 mg/dL (0.5-1.4); GFR POC > 60
== END 2024-05-06 06:16 | disposition home or self-care (01) ==
LOC: HO.CT 06:15
PROVIDERS: Visit Provider Internal Medicine Medical Oncology
DX: C15.4 Malignant neoplasm of middle third of esophagus (principal)
CPT/HCPCS: 71260; 74177; 82565; Q9967

== ENCOUNTER → 2024-05-06 06:17 | Outpatient (BNV) | payer MEDICARE, SELFPAY | PROVIDERS: Visit Provider Radiology Diagnostic Radiology | DX: C15.9 Malignant neoplasm of esophagus, unspecified (principal) | CPT/HCPCS: 71260; 74177 ==

== ENCOUNTER 2024-06-01 11:26 | Outpatient (AMB) | payer MEDICARE, SELFPAY ==
--- NOTE | 2024-06-01 09:42 | A.OFFVIS_ITS ---
Vital Signs 06/01/24 11:31 Height 5 ft 7 in Weight 191 lb 12.835 oz BMI 30.0 BP 120/80 Blood Pressure Location Rt brachial Position Sitting Pulse 106 H Pulse Source Pulse Oximeter Pulse Oximetry (%) 96 Oxygen Delivery Method Room Air Intake Visit Reasons: DM-Milagros pt Intake Note: Patient presents today for a follow-up on Type 2 Diabetes Mellitus: Last Diabetic eye exam was on: OVER DUE Last Podiatry exam was on: Patient does not see a Mobile Ui Designer Most recent HbA1c: 7.9%, 06/01/2024 Random Glucose- 202 mg/dL, Today L Photovoltaic Installer Required: No Accompanied by: Self / Same As Patient Allergies metformin Adverse Reaction (Intermediate, Verified 02/27/24 08:48) Diarrhea Clindamycin HCl Allergy (Intermediate, Uncoded 02/27/24 08:48) rash statin Adverse Reaction (Mild, Uncoded 06/01/24 11:48) word retrieval problems HPI Comments Details: Patient is a 73-year-old male with type 2 diabetes presenting today for continued diabetic management. He was last seen by Afua MIKE 01/02/24. Hemoglobin A1c 06/01/2024 %, 01/02/2024 7%. He is currently undergoing chemotherapy for esophageal cancer, His appetite varies. Previous medications tried: Patient had reported he had a high co-pay of 400 dollars when he picked up the medication for the 1st time. Current medications: Tresiba 50 units Fiasp 16 units t.i.d. 130's in the am couple hours after meals can be over 200 HE stated that in the past he would titrate his insulin between 16-20 units depending on the type of meal and pre meal glucose. He is due for a diabetic eye exam. He will schedule with his opth Has neuropathy in hands and feet but reports that this started after he began chemotherapy. No Nephropathy: 05/21/2024 eGFR>60 01/09/2024 15.0 Has HLD: Not on statin last LDL 01/09/2024 124, previous 191 He feels well. [facility] Medical History Controlled type 2 diabetes mellitus Port-A-Cath in place Hx of radiation therapy History of chemotherapy Controlled type 2 diabetes mellitus with insulin therapy Carcinoma of esophagus Thyroid nodule Dysphagia, pharyngoesophageal phase Esophageal dysphagia Goiter Vitamin D deficiency Osteomyelitis of cervical spine Obstructive sleep apnea Colon cancer Narcolepsy GERD (gastroesophageal reflux disease) Obesity Insomnia Hypertension Type 2 diabetes mellitus with hyperglycemia Postlaminectomy syndrome of cervical region Hypercholesterolemia Surgical History Hx of endoscopy History of esophagogastroduodenoscopy (EGD) (07/03/23) History of colonoscopy History of spinal surgery Family History Father Colon cancer Diabetes Hypertension Mother Paget's disease Diabetes Social History Household Members: Spouse and Family Housing: House Are you a primary care tech to a significant other at home: No Do you presently have visiting nurse or other home services: No Alcohol intake: current Alcohol intake frequency: holidays/special occasions only Patient Tobacco Use Status: Former Tobacco user Tobacco use type: Cigarette Cigarette Packs Per Day: 3 Years Smoked: 20 e-Cigarette/Vaping Use: Never Used Second Hand Smoke Exposure: No service: No Current occupational status: disabled Cognitive needs: No Hearing needs: No Vision needs: Yes Physical Exam Vital Signs: Last Vital Signs Pulse 106 H 06/01/24 11:31 BP 120/80 06/01/24 11:31 Pulse Ox 96 06/01/24 11:31 Oxygen Delivery Method Room Air 06/01/24 11:31 BMI result Body Mass Index 30.0 Const Other: Absence of Cushingoid features. Absence of acromegalic features. Neck exam reveals nl size thyroid about 15 gms. No thyroid nodules palpable. No carotid bruits present. Lungs CTA. Heart S1 S2, Reg R/R. No M/R G. Skin exam reveals absence of vitiligo or acanthosis nigricans. No edema Visual exam of foot performed. No ulcerations or open lesions. No inter digit maceration or fissuring. No onychomycosis, no callouses. Sensation intact to mo nofilament exam. Vibratory sensation is normal with 128 Hz tuning fork. Results AMB Hemoglobin A1c AMB Hemoglobin A1c 7.9 % Last Edit by MIRIAM Glynn on 06/01/24 11:48 Assessment & Plan Assessment & Plan (1) Type 2 diabetes mellitus with hyperglycemia: Comment: [employer] [employer] Code(s): E11.65 - Type 2 diabetes mellitus with hyperglycemia Category: Medical Qualifiers: Diabetes mellitus terminal computer operator insulin use: with mcc use Qualified Code(s): E11.65 - Type 2 diabetes mellitus with hyperglycemia; Z79.4 - watermelon inspector (current) use of insulin Plan: 73-year-old type 2 diabetic on basal bolus insulin plus jardiance. A1C 7.9%. New dosing: Tresiba 50 units Fiasp 16-20 units tid before meals The patient had an opportunity to ask questions regarding treatment plan. The patient expressed understanding and agreement with the above treatment plan. The patient is aware they should contact our office by phone for worsening glucose readings or for any low blood sugars which may warrant a change in diabetes medication. Compliance is encouraged with medications and any followup testing/consults which may have been ordered. Orders: Orders AMB Hemoglobin A1c Today E11.9 - Type 2 diabetes mellitus without complications, Z79.4 - watermelon inspector (current) use of insulin Medications: Changed From lisinopril 20 mg PO DAILY To lisinopril 20 mg PO DAILY 90 days 90 tabs 3RF Refilled lisinopril 20 mg PO DAILY 90 days 90 tabs 3RF insulin aspart (niacinamide) 100 unit/mL (3 mL) (Fiasp FlexTouch U-100 Insulin) Administer 16 units at the beginning of or within 20 minutes of starting a meal. 16 units subcut TID 15 mL 5RF Patient Instructions: Take 15 carb carbohydrate grams to treat a low sugar (3-4 glucose tablets, half a glass of juice or 15 carbohydrate grams of soft candy such as gummie snacks). Recheck your sugar in 15 minutes and re-treat again with 15 carbohydrate grams if low or still with symptoms. Do not drive a car or operate machinery if you do not know what your blood sugar is, if it is low or in excess of 300. Check your feet daily looking for any signs of infection, drainage, redness, ulceration and seek medical attention if this occurs. Break in shoes gradually and do not wear open-toed shoes or walk stocking footed or barefooted. The patient was counseled to achieve a target A1C of 7% (154 avg). Fasting blood sugars should be 90-130 in the morning and less than 180 two hours after meals. Reviewed the relationship between poor diabetic control and the development of complications. Coding Level of Care Code Est Pt Level 4 (14425) Complex EM visit Add On G2211 Diagnoses Type 2 diabetes mellitus with hyperglycemia, with long-term current use of insulin E11.65; Z79.4 Diabetes mellitus terminal computer operator insulin use: with terminal computer operator use Time Spent (min) 30 Comment Time spent reviewing labs/provider notes, face to face, chart doc
[2024-06-01 11:31] VITALS: BP 120/80; PULSE 106; O2SAT 96
[2024-06-01 13:18] LABS: Glucose, Whole Blood 202 mg/dL (60-115)
== END 2024-06-01 11:54 | disposition home or self-care (01) ==
LOC: HO.ENCR 11:27
PROVIDERS: PCP Internal Medicine; Visit Provider Nurse Practitioner Adult Health
DX: E11.65 Type 2 diabetes mellitus with hyperglycemia (principal); Z79.4 Long term (current) use of insulin; E11.9 Type 2 diabetes mellitus without complications
CPT/HCPCS: 99214; G2211

== ENCOUNTER → 2024-06-01 11:26 | Outpatient (BNVA) | payer MEDICARE, SELFPAY | PROVIDERS: PCP Internal Medicine; Visit Provider Nurse Practitioner Adult Health | DX: E11.65 Type 2 diabetes mellitus with hyperglycemia (principal); Z79.4 Long term (current) use of insulin | CPT/HCPCS: 82947; 83036; 99212 ==

== ENCOUNTER 2024-06-02 07:02 | Day surgery (SDC) | payer MEDICARE, SELFPAY ==
[2024-05-31 12:53] VITALS: BMI 29.8
[2024-06-02 07:12] VITALS: BMI 30.4
[2024-06-02 07:39] VITALS: BP 133/78; PULSE 84; RESP 18; TEMP 36; O2SAT 98
[2024-06-02] MEDS: Lactated Ringers 1,000 ML 100 ML IVCONT (07:52)
[2024-06-02 07:56] LABS: Glucose, Whole Blood 141 mg/dL (60-115)
--- NOTE | 2024-06-02 08:37 | MHC.SHP ---
Pre-Procedural Eval Section A - 24 Hr Update-Section A only Date of Service: 06/02/24 Section B - Complete if H&P > 30 days Chief Complaint: Malignant neoplasm of esophagus, Relevant Family History (Specify if Yes): No Relevant Social History: None Present Medications: see Short Stay Collaborative assessment Medical History: Significant History (Port-A-Cath in place Hx of radiation therapy History of chemotherapy Controlled type 2 diabetes mellitus with insulin therapy Carcinoma of esophagus Thyroid nodule Dysphagia, pharyngoesophageal phase Esophageal dysphagia Goiter Vitamin D deficiency Osteomyelitis of cervical spine Obstructive sleep a) History of Previous Operations: Relevant previous surgery/procedure and date(s) (Hx of endoscopy History of esophagogastroduodenoscopy (EGD) (07/03/23) History of colonoscopy History of spinal surgery) Allergies: Allergies Allergy/AdvReac Type Severity Reaction Status Date / Time metformin AdvReac Intermediate Diarrhea Verified 02/27/24 08:48 Clindamycin HCl Allergy Intermediate rash Uncoded 02/27/24 08:48 statin AdvReac Mild word Uncoded 06/01/24 11:48 retrieval problems Review of Systems Sugical H&P ROS: Negative: Constitution, Cardiovascular, Respiratory, Neurological, Psychiatric, Hem-Onc, Allergic/Immunologic, Gastrointestinal, Genitourinary, Musculoskeletal, Integumentary, Endocrine and Eyes/Ears/Nose/Throat Exam Surgical H&P Exam: Normal: HEENT, Normal: Heart, Normal: Lungs, Normal: Extremities, Normal: Abdomen, Normal: Skin and Normal: Neurological Plan Diagnosis/Plan: Unchanged I have reviewed the history and physical and performed a pertinent physical examination on my patient. No changes have occurred unless specified. Time Spent With Patient Time: Total time managing care of this patient today ____ minutes.
--- NOTE | 2024-06-02 08:46 | HO.ANESPROP2 ---
HPI - Anesthesia Eval Consult details Narrative: 73 yo male patient for EGD with dilatation PMFSH Active Problems Active Problems: All Active Problems Cerumen impaction (Acute) Annual wellness visit (Acute) Controlled type 2 diabetes mellitus (Acute) History of radiation therapy (Acute) Constipation (Acute) Carcinoma of thoracic esophagus (Acute) Candidiasis of mouth and esophagus (Acute) Obesity (BMI 30-39.9) (Acute) Dysuria (Acute) Tinea corporis (Acute) Hypercholesterolemia (Acute) Recurrent maxillary sinusitis (Acute) Tenderness over maxillary sinus (Acute) Maxillary sinusitis, acute (Acute) Acute respiratory failure with hypoxia (Acute) Generalized weakness (Acute) Influenza A (Acute) COVID-19 virus infection (Acute) Eczema (Acute) Generalized anxiety disorder (Acute) Allergic rhinitis (Acute) Hip pain, bilateral (Acute) Controlled type 2 diabetes mellitus with insulin therapy (Acute) Thyroid nodule (Acute) Postlaminectomy syndrome of cervical region (Acute) Type 2 diabetes mellitus with hyperglycemia (Acute) Hypertension (Acute) GERD (gastroesophageal reflux disease) (Acute) Obstructive sleep apnea (Acute) Osteomyelitis of cervical spine (Acute) Vitamin D deficiency (Acute) Goiter (Acute) Past Medical History Medical History Controlled type 2 diabetes mellitus Port-A-Cath in place Hx of radiation therapy History of chemotherapy Controlled type 2 diabetes mellitus with insulin therapy Carcinoma of esophagus Thyroid nodule Dysphagia, pharyngoesophageal phase Esophageal dysphagia Goiter Vitamin D deficiency Osteomyelitis of cervical spine Obstructive sleep apnea Colon cancer Narcolepsy GERD (gastroesophageal reflux disease) Obesity Insomnia Hypertension Type 2 diabetes mellitus with hyperglycemia Postlaminectomy syndrome of cervical region Hypercholesterolemia Family History Family History Father Colon cancer Diabetes Hypertension Mother Paget's disease Diabetes Family history of problems with anesthesia: No Surgical History Surgical History Hx of endoscopy History of esophagogastroduodenoscopy (EGD) (07/03/23) History of colonoscopy History of spinal surgery History of Problems with Anesthesia: No Social History Social History Household Members: Spouse and Family Housing: House Are you a primary career development coordinator/teacher to a significant other at home: No Do you presently have visiting nurse or other home services: No Alcohol intake: current Alcohol intake frequency: holidays/special occasions only Patient Tobacco Use Status: Former Tobacco user Tobacco use type: Cigarette Cigarette Packs Per Day: 3 Years Smoked: 20 e-Cigarette/Vaping Use: Never Used Second Hand Smoke Exposure: No Use of substances other than those prescribed or required for medical reasons: No Have you been hit, kicked, punched, or otherwise hurt by someone within the past year? If so, by whom?: No Are you DNR?: No Advance Directives: No Advance Directives Information Provided: Yes Recently lost weight without trying: No Nutrition Risks: No Nutritional Risk Poor oral hygiene: No service: No Current occupational status: disabled Cognitive needs: No Hearing needs: No Vision needs: Yes Meds Allergies Allergy/AdvReac Type Severity Reaction Status Date / Time metformin AdvReac Intermediate Diarrhea Verified 02/27/24 08:48 Clindamycin HCl Allergy Intermediate rash Uncoded 02/27/24 08:48 statin AdvReac Mild word Uncoded 06/01/24 11:48 retrieval problems Active Medications: Current Medications Lactated Ringer's (Lr) 1,000 mls @ 100 mls/hr IVCONT .Q10H RADHA Last Admin: 06/02/24 07:52 Dose: 100 mls/hr Home Medications ?Medication ?Instructions ?Recorded ?Confirmed ?Last Taken ?Type ondansetron 8 mg disintegrating 8 mg PO TID 07/14/23 04/12/24 Unknown History tablet Exam Height,Weight and Vital Signs: Height 5 ft 7 in Weight 88 kg Last Vital Signs Temp 96.8 F 06/02/24 07:39 Pulse 84 06/02/24 07:39 Resp 18 06/02/24 07:39 BP 133/78 06/02/24 07:39 Pulse Ox 98 06/02/24 07:39 O2 Del Method Room Air 06/02/24 07:39 Pertinent Lab Results Pertinent Lab Results: Laboratory Tests 06/02/24 07:43 POC Glucose 141 H Airway Mallampati Class: II TM Dist: >3cm Neck ROM: Full (Extension ok) Loose/Missing/Broken Teeth: Yes (Only 2 teeth bottom. Not loose) Heart: RRR Lungs: CTAB Assessment and Plan Assessment Anesthesia Assessment: Anesthesia Plan Discussed and Chart Reviewed Final Anesthetic Review Family History of Problems with Anesthesia: No History of Problems with Anesthesia: No NPO: Yes ASA Class: III Final Preanesthetic Review: No Changes in Pt Med Stat, Meds/Allgs Chart Reviewed, Consent Obtained/Reviewed and Anes Risks/Benef Reviewed Patient Risk: Intermediate Procedure Risk: Low Assessment/Block/Sedation in SS: Assess/Block/Sedation-SS Anesthetic Plan Anesthetic Plan: TIVA Disposition: Standard PACU
--- NOTE | 2024-06-02 09:11 | W.PM.OPN ---
Operative Note Operative Note Date of Service: 06/02/24 Narrative: Procedure Description: EGD Indication: esophagitis and esophgeal cancer Anesthesia: MAC FLEXIBLE TRANSORAL UPPER GASTROINTESTINAL ENDOSCOPY UPPER ENDOSCOPY Consent: Indications for the procedure and potential complications of bleeding, perforation, reaction to medications and missed diagnosis were discussed with the patient and informed consent was obtained. Instrument: Olympus GIF H 190 J mid size upper endoscope Monitoring: Vital signs and clinical assessment, continuous EKG monitoring, Pulse oximetry, Carbon Dioxide monitoring and blood pressure monitoring were done throughout the procedure. Procedure: The patient was placed in the left lateral decubitis position and pre-procedure medications were administered and a bite block was placed. The endoscope was inserted into the mouth and advanced under direct vision to the third part of duodenum. A careful inspection was made as the upper endoscope was withdrawn including a retroflexed examination of the proximal stomach; Findings and interventions are described below. Findings: Larynx:normal Esophagus: GE junction at 40 cm, diaphragm hiatus at 40 cm, 2 cm area of ulcerated boggy mucosa in the distal esophagus with some slough noted, bx taken - balloon dilation of UES to 19 mm with resistance felt as well as LES to 18 mm. Stomach: erythema around cardia consistent with prior radiation therapy and body of stomach . Grade 2 flap valve on retroflexed examination of the cardia. Duodenum: Normal bulb and descending duodenum, Intervention: Balloon dilation and biopsies Impression/Findings: esophagitis 2/2 prior XRT and chemo or REFLUX, appearances are stable PLAN: cont with PPI and carafate GERD precautions await bx results repeat EGD in about 6-12 months or earlier
[2024-06-02 09:15] VITALS: BP 115/67; PULSE 80; RESP 13; TEMP 36.4; O2SAT 95
[2024-06-02 09:30] VITALS: BP 94/53; PULSE 79; RESP 14; O2SAT 97
[2024-06-02 09:45] VITALS: BP 116/67; PULSE 76; RESP 14; TEMP 36.6; O2SAT 98
== END 2024-06-02 10:10 | disposition home or self-care (01) ==
PROVIDERS: PCP Internal Medicine; Visit Provider Internal Medicine Gastroenterology
PROC: (CPT 43249; principal; 2024-06-02 08:30)
DX: K20.80 Other esophagitis without bleeding (principal); C15.4 Malignant neoplasm of middle third of esophagus; Z92.21 Personal history of antineoplastic chemotherapy; Z92.3 Personal history of irradiation; R13.14 Dysphagia, pharyngoesophageal phase; K29.60 Other gastritis without bleeding; Z85.038 Personal history of other malignant neoplasm of large intestine; Z80.0 Family history of malignant neoplasm of digestive organs; E04.1 Nontoxic single thyroid nodule; K21.9 Gastro-esophageal reflux disease without esophagitis; K44.9 Diaphragmatic hernia without obstruction or gangrene; I10 Essential (primary) hypertension; E78.00 Pure hypercholesterolemia, unspecified; E11.65 Type 2 diabetes mellitus with hyperglycemia; E55.9 Vitamin D deficiency, unspecified; M46.22 Osteomyelitis of vertebra, cervical region; M96.1 Postlaminectomy syndrome, not elsewhere classified; G47.419 Narcolepsy without cataplexy; F51.01 Primary insomnia; G47.33 Obstructive sleep apnea (adult) (pediatric); Z79.4 Long term (current) use of insulin; Z79.899 Other long term (current) drug therapy; Z88.8 Allergy status to other drugs, medicaments and biological substances; Z98.890 Other specified postprocedural states; Z87.891 Personal history of nicotine dependence
CPT/HCPCS: 43249; 43239; 82947; 88305; 88312; 88313; C1726; J2003; J2704

== ENCOUNTER → 2024-06-02 07:02 | Outpatient (BNV) | payer MEDICARE, SELFPAY | PROVIDERS: PCP Internal Medicine; Visit Provider Internal Medicine Gastroenterology | DX: K20.90 Esophagitis, unspecified without bleeding (principal); Z85.01 Personal history of malignant neoplasm of esophagus; K29.70 Gastritis, unspecified, without bleeding; Z92.3 Personal history of irradiation | CPT/HCPCS: 43239; 43249 ==

== ENCOUNTER 2024-07-21 12:27 | Emergency (ER) | payer MEDICARE, SELFPAY ==
--- NOTE | ~2024-07-21 | XR_ITS ---
EXAMINATION: XR TIBIA AND FIBULA, RIGHT CLINICAL INFORMATION: pain 3 weeks COMPARISON: None available. TECHNIQUE: AP and lateral views of the right tibia and fibula were obtained. FINDINGS: The bones and soft tissues are normal. No fracture. No abnormal periostitis. No osseous lesions. XR/XR tibia fibula RT 2V IMPRESSION: Normal right tibia and fibula. Electronically signed by: Willis Ramon MD 07/21/2024 01:33 PM EDT
--- NOTE | ~2024-07-21 | US_ITS ---
EXAMINATION: US TRIPLEX LOWER EXTREMITY, RIGHT CLINICAL INFORMATION: Right lower leg pain x3 weeks, cancer patient. COMPARISON: 01/29/2023. TECHNIQUE: Color-flow triplex imaging with spectral analysis and compression Doppler were performed on the right lower extremity. FINDINGS: Respiratory variation, normal compression and augmented flow are noted throughout the right lower extremity. The visualized common femoral vein, superficial femoral vein, profunda femoral vein, popliteal vein and midcalf peroneal and posterior tibial venous segments show no evidence of deep venous thrombosis. There is no Danielle's cyst. US/US venous duplex LE RT IMPRESSION: No evidence of deep venous thrombosis involving the right lower extremity. Electronically signed by: Willis Ramon MD 07/21/2024 01:30 PM EDT
[2024-07-21 12:40] VITALS: BP 117/59; PULSE 89; RESP 16; TEMP 36.9; O2SAT 96; BMI 30.6
--- NOTE | 2024-07-21 12:41 | ED_ITS ---
HPI - General Adult General Chief complaint: Extremity Injury, Lower Stated complaint: R Leg Pain No Injury Time Seen by Provider: 07/21/24 14:51 Source: patient and family (patient's ) Mode of arrival: ambulatory Limitations: no limitations History of Present Illness ED Provider: Yolis Jordan PA-C HPI narrative: Patient is a 73 year old assigned male at with a history of esophageal cancer - on chemo and DM presenting to the emergency department today with right knee and lower leg pain. Patient states that over the last 3 weeks he has been having right knee and lower leg pain pain. Patient states that he wakes up without pain and as the day goes on, he begins having right knee pain and lower leg pain. Patient denies any dizziness, lightheadedness, abdominal pain, nausea, vomiting, fever, chills, blurry vision, double vision, loss of vision, chest pain, difficulty breathing, shortness of breath, back pain, night sweats, pain with urination, increased urinary frequency, increased urinary urgency, blood in his urine or stool, syncope or a near syncopal episode, recent trauma or falls, bowel incontinence, bladder incontinence, or any other complaints at this time. Related Data Home Medications ?Medication ?Instructions ?Recorded ?Confirmed ondansetron 8 mg disintegrating 8 mg PO TID 07/14/23 04/12/24 tablet Previous Rx's ?Medication ?Instructions ?Recorded blood-glucose meter (FreeStyle #1 ea 11/01/20 Lite Meter kit) blood sugar diagnostic (FreeStyle #100 ea 07/16/21 Lite Strips) dicyclomine 20 mg tablet 20 mg PO QID PRN pain (scale score 09/06/22 4-6) #30 tabs docusate sodium 100 mg capsule 100 mg PO BID #60 caps 09/30/22 (Colace) omeprazole 20 mg capsule,delayed 20 mg PO BID PRN gerd 90 days #90 09/30/22 release caps Magic Mouthwash 10 ml PO QID #240 mL 10/21/22 Diphen/Lido/Antacid 1:1:1 240 mL suspension prochlorperazine maleate 10 mg 10 mg PO Q8H PRN Nausea And 10/22/22 tablet (Compazine) Vomiting #60 tabs lidocaine HCl 2 % mucosal solution 1 appl mucous membrane QID #300 mL 11/04/22 (Lidocaine Viscous) fluticasone propionate 50 2 spray intranasal BEDTIME #16 08/25/23 mcg/actuation nasal grams spray,suspension pen needle, diabetic 32 gauge x #100 ea 09/01/2303/13 (BD Ultra-Fine Micro Pen Needle) dexamethasone 4 mg tablet 4 mg PO BID #100 tabs 11/04/23 sucralfate 1 gram tablet (Carafate) 1 g PO QID #120 tabs 12/08/23 lorazepam 1 mg tablet 1 mg PO BID PRN Anxiety 90 days 12/23/23 #180 tabs glucose 4 gram chewable tablet 4 g PO Q15M PRN hypoglycemia #30 01/02/24 (Dex4 Glucose) tabs insulin degludec 200 unit/mL (3 50 unit (0.25 mL) subcut BEDTIME 01/02/24 mL) subcutaneous pen (Tresiba #9 mL FlexTouch U-200 insulin) apixaban 5 mg tablet (Eliquis) 5 mg PO BID #60 tabs 01/20/24 trazodone 150 mg tablet 150 mg PO BEDTIME #90 tabs 01/23/24 lorazepam 1 mg tablet 1 mg PO BID PRN Anxiety #180 tabs 04/13/24 potassium chloride 20 mEq 20 meq PO BID #60 tabs 05/04/24 tablet,extended release morphine 30 mg tablet,extended 30 mg PO Q12H 30 days #60 tabs 05/10/24 release (MS Contin) insulin aspart 16 unit subcut TID #15 mL 06/01/24 (niacinamide)(U-100) 100 unit/mL(3 mL) subcutaneous pen (Fiasp FlexTouch U-100 Insulin) lisinopril 20 mg tablet 20 mg PO DAILY 90 days #90 tabs 06/01/24 oxycodone 10 mg tablet 10 mg PO Q6H PRN Severe Pain 06/30/24 (Scale Score 7-10) #30 tabs levothyroxine 137 mcg tablet 137 mcg PO DAILY #30 tabs 07/02/24 oxycodone 10 mg tablet 10 mg PO Q6H PRN Breakthrough 07/05/24 Pain, Severe #60 tabs duloxetine 30 mg capsule,delayed 30 mg PO DAILY 90 days #90 caps 07/07/24 release lorazepam 1 mg tablet 1 mg PO BID PRN Anxiety #60 tabs 07/09/24 pantoprazole 40 mg tablet,delayed 40 mg PO BID #180 tabs 07/13/24 release Allergies Allergy/AdvReac Type Severity Reaction Status Date / Time metformin AdvReac Intermediate Diarrhea Verified 07/21/24 12:41 Clindamycin HCl Allergy Intermediate rash Uncoded 07/21/24 12:41 statin AdvReac Mild word Uncoded 07/21/24 12:41 retrieval problems Review of Systems 2 Constitutional: Constitutional: Reports no additional constitutional complaints, Denies chills, Denies fever(s) and Denies night sweats Eyes: Eyes: Reports no additional eye complaints, Denies blurry vision, Denies change in vision, Denies diplopia, Denies eye discharge, Denies loss of vision and Denies eye pain ENT: Denies dizziness Cardiovascular: Cardiovascular: Reports no additional cardiovascular complaints, Denies chest pain, Denies lightheadedness, Denies Loss of Consciousness and Denies dyspnea Respiratory: Respiratory: Reports no additional respiratory complaints and Denies dyspnea Gastrointestinal: Gastrointestinal: Reports no additional gastrointestinal complaints, Denies abdominal pain, Denies melena, Denies hematochezia, Denies change in bowel habits and Denies change in stool character Genitourinary: Genitourinary: Reports no additional male genitourinary complaints, Denies hematuria, Denies oliguria, Denies difficulty urinating, Denies dysuria, Denies urinary frequency, Denies urinary hesitancy, Denies urinary incontinence and Denies urinary urgency Musculoskeletal: Musculoskeletal: Reports no additional musculoskeletal complaints, Denies numbness and Denies tingling Comments: right knee pain right lower leg pain Neurologic: Denies dizziness, Denies loss of vision, Denies numbness and Denies tingling Psychiatric: Psychiatric: Reports no additional psychiatric complaints Endocrine: Endocrine: Reports no additional endocrine complaints Hematologic/Lymphatic: Hematologic/Lymphatic: Reports no additional hematologic/lymphatic complaints Allergic/Immunologic: Allergic/Immunologic: Reports no additional allergic/immunologic complaints PMFSH Past Medical History Attestation statement: The following information was validated with the patient. (all information validated with the patient's ) Source: old records reviewed, obtained from family (patient's provided additional history and confirmed the history provided by the patient.) and nursing notes reviewed Medical History Controlled type 2 diabetes mellitus Port-A-Cath in place Hx of radiation therapy History of chemotherapy Controlled type 2 diabetes mellitus with insulin therapy Carcinoma of esophagus Thyroid nodule Dysphagia, pharyngoesophageal phase Esophageal dysphagia Goiter Vitamin D deficiency Osteomyelitis of cervical spine Obstructive sleep apnea Colon cancer Narcolepsy GERD (gastroesophageal reflux disease) Obesity Insomnia Hypertension Type 2 diabetes mellitus with hyperglycemia Postlaminectomy syndrome of cervical region Hypercholesterolemia Surgical History Hx of endoscopy History of esophagogastroduodenoscopy (EGD) (07/03/23) History of colonoscopy History of spinal surgery Family History Family History Father Colon cancer Diabetes Hypertension Mother Paget's disease Diabetes Social History Social History Household Members: Spouse and Family Housing: House Are you a primary chronic care nurse to a significant other at home: No Do you presently have visiting nurse or other home services: No Alcohol intake: current Alcohol intake frequency: holidays/special occasions only Patient Tobacco Use Status: Former Tobacco user Tobacco use type: Cigarette Cigarette Packs Per Day: 3 Years Smoked: 20 e-Cigarette/Vaping Use: Never Used Second Hand Smoke Exposure: No Advance Directives: No Advance Directives Information Provided: Yes service: No Current occupational status: disabled Cognitive needs: No Hearing needs: No Vision needs: Yes Physical Exam ED Vital Signs: Vital Signs - 24 hr 07/21/24 12:40 07/21/24 15:24 Temperature 98.4 F 98.4 F Pulse Rate 89 89 Respiratory Rate 16 16 Blood Pressure 117/59 L 117/59 L Pulse Oximetry 96 96 Oxygen Delivery Method Room Air Room Air BMI result Body Mass Index 30.6 Const General: cooperative, no acute distress, alert and awake Nutritional Appearance: well nourished Orientation/consciousness: patient oriented x3 HENMT Head: Yes normal to inspection and Yes atraumatic Ears: hearing grossly normal bilaterally and external ears normal General nose exam: Normal external nose present, no nasal discharge noted and no epistaxis Face and sinus: Yes normal facial exam, No abrasion and No laceration Mouth: Normal oral and palatal mucosa present, no drooling and no muffled voice Eyes General: appearance normal, both eyes and all related structures Periorbital: periorbital findings normal Eyelids: Yes eyelids normal Conjunctivae: conjunctivae normal Pupils: Equal, round and reactive pupils present EOM: EOMs intact bilaterally Neck Neck: Yes normal visual inspection, Yes full ROM and Yes no lymphadenopathy Resp Effort & Inspection: normal respiratory effort and able to speak in complete sentences Neuro General: patient oriented x3, moves all extremities and CN's II-XI intact bilaterally Cranial nerves: Yes Equal, round and reactive pupils present Cognition (Neuro): normal cognition Extrem General: Yes normal to inspection, Yes full ROM and Yes capillary refill normal Psych Appearance: grossly normal Mental Status: mental status grossly normal Affect: normal affect Attitude: cooperative Thought process: Normal thought process present Thought content: Normal thought content present Insight: Good insight present (Psych) Course Course Course Narrative: This is a rapid medical exam performed by Grady Eldridge NP: Additional HPI, ROS, PE not included below will be deferred to primary provider. Patient is a 73-year-old male with history of T2DM, esophageal carcinoma, HTN, GERD, ISABELLA presenting with complaint of right lower leg pain for the past 3 weeks. Has tried getting seen outpatient but does not have appointment until September. Plan: labs, U/S Medical Decision Making Medical Decision Making MDM Narrative: Patient is a 73 year old assigned male at with a history of esophageal cancer - on chemo and DM presenting to the emergency department today with right knee and lower leg pain. Patient's physical exam was unremarkable. Patient's blood work was unremarkable. Patient's right tib fib x-ray and right lower extremity ultrasound showed no acute process. I explained my physical exam findings as well as all test results to the patient and the patient's . I answered all questions asked by the patient and the patient's . Patient's clinical presentation is most consistent with right knee pain. I stressed the importance of the patient taking his medication as directed (either prescribed or as the over the counter packaging recommends). I stressed the importance of the patient following up with his primary care provider and the orthopedic team. I stressed the importance of the patient returning to the emergency department immediately if his symptoms were to worsen or if he were to develop any dizziness, shortness of breath, difficulty breathing, chest pain, blurry vision, loss of vision, nausea, vomiting, abdominal pain, fever, chills, back pain, or any other complaints. Patient and the patient's verbalized agreement and understanding with this treatment plan and discharge. Differential Diagnosis Differential Diagnoses: The differential diagnosis associated with the presentation includes Leg pain MSK pain DVT Admission/Observation Consideration of admission/observation: Escalation of care including admission/observation considered Patient would have been admitted to the hospital had his work up had any findings where hospital admission was appropriate and his clinical presentation warranted hospital admission. Lab Data [facility] Lab Attestation statement: I reviewed the patient's lab results. My interpretation of these results are in the [facility] Rationale portion of this note. 07/21/24 12:49 07/21/24 12:49 Labs: Lab Results 07/21/24 Range/Units 12:49 WBC 3.7 L (4.8-10.8) X10*3/uL RBC 3.48 L (4.60-5.80) X10*6/uL Hgb 11.6 L (14.0-18.0) g/dl Hct 33.6 L (42.0-52.0) % MCV 96.6 (80.0-98.0) fL MCH 33.3 H (27.0-33.0) pg MCHC 34.5 (31.0-36.0) g/dl RDW 13.9 (11.0-16.0) % Plt Count 111 L D (160-400) X10*3/uL MPV 9.6 (9.4-12.4) fL Immature Gran % (Auto) 0.3 (0.0-0.4) % Neut % (Auto) 59.3 (45-73) % Lymph % (Auto) 15.5 L (20-40) % [place] % (Auto) 18.5 H (2-11) % Eos % (Auto) 5.6 H (0-4) % Baso % (Auto) 0.8 (0-2) % Lymph # (Auto) 0.6 L (1.2-4.9) X10*3/uL [place] # (Auto) 0.7 (0.1-1.2) X10*3/uL Eos # (Auto) 0.2 (0.0-0.4) X10*3/uL Baso # (Auto) 0.0 (0.0-0.2) X10*3/uL Abs Immat Gran (auto) 0.01 (0.00-0.03) X10*3/uL Absolute Neuts (auto) 2.2 (2.0-8.3) x10*3/uL Absolute Nucleated RBC 0.000 (0.0-0.012) X10*3/uL Nucleated RBC % (auto) 0.0 (0.0-0.2) /100WBC PT 18.8 H (10.9-12.4) SEC INR 1.6 H (0.9-1.1) Sodium 140 (135-145) mmol/L Potassium 4.1 (3.3-5.1) mmol/L Chloride 104 (96-108) mmol/L Carbon Dioxide 27 (22-29) mmol/L Anion Gap 13 (12-20) BUN 10 (9-16) mg/dL Creatinine 0.81 (0.5-1.4) mg/dL Estim Creat Clear Calc 88.8 Estimated GFR > 60 Random Glucose 181 H (60-115) mg/dL Calcium 9.5 (8.4-10.2) mg/dL Total Bilirubin 0.7 (0.0-1.0) mg/dL AST 34 (5-37) U/L ALT 14 (0-40) U/L Alkaline Phosphatase 114 (39-117) U/L Total Protein 7.2 (6.5-8.0) g/dL Albumin 3.9 (3.5-5.0) g/dL Independent Interpretation I performed an independent interpretation of an: Plain X-Ray and Ultrasound Interpretation: My interpretation is in agreement with the radiologist's impression of these imaging studies. L EXAMINATION: US TRIPLEX LOWER EXTREMITY, RIGHT CLINICAL INFORMATION: Right lower leg pain x3 weeks, cancer patient. COMPARISON: 01/29/2023. TECHNIQUE: Color-flow triplex imaging with spectral analysis and compression Doppler were performed on the right lower extremity. FINDINGS: Respiratory variation, normal compression and augmented flow are noted throughout the right lower extremity. The visualized common femoral vein, superficial femoral vein, profunda femoral vein, popliteal vein and midcalf peroneal and posterior tibial venous segments show no evidence of deep venous thrombosis. There is no Danielle's cyst. US/US venous duplex LE RT IMPRESSION: No evidence of deep venous thrombosis involving the right lower extremity. Electronically signed by: Willis Ramon MD 07/21/2024 01:30 PM EDT RP Dictated By: Willis Ramon MD Signed By: Electronically signed by Willis Ramon MD 07/21/24 1330 EXAMINATION: XR TIBIA AND FIBULA, RIGHT CLINICAL INFORMATION: pain 3 weeks COMPARISON: None available. TECHNIQUE: AP and lateral views of the right tibia and fibula were obtained. FINDINGS: The bones and soft tissues are normal. No fracture. No abnormal periostitis. No osseous lesions. XR/XR tibia fibula RT 2V IMPRESSION: Normal right tibia and fibula. Electronically signed by: Willis Ramon MD 07/21/2024 01:33 PM EDT RP Dictated By: Willis Ramon MD Signed By: Electronically signed by Willis Ramon MD 07/21/24 1337 Radiology Impression Discussion of test interpretation with radiology: I have reviewed the radiologist's reading. Independent Historian Clinical information obtained from an independent historian. History obtained from or confirmed by: Spouse (patient's provided additional history and confirmed the history provided by the patient.) Discharge Plan Discharge Clinical Impression: Pain in right knee Patient Disposition: Home, Self-Care Instructions: Knee Pain (ED) Additional Instructions: Follow up with your primary care provider and an orthopedic provider. Return to the emergency department immediately if your symptoms worsen or if you develop any numbness, tingling, dizziness, shortness of breath, difficulty breathing, chest pain, blurry vision, loss of vision, nausea, vomiting, abdominal pain, fever, chills, back pain, or any other complaints. Please see the information below about our Patient Portal. If you are not yet enrolled in the [facility] Patient Portal, you will receive an enrollment email invitation following your visit to any [facility] setting. You may also self-enroll in the Patient Portal by visiting our website: [email or web address] The following information is required to access the Patient Portal: - Your [facility] Medical Record Number - Your personal home email address (must match what is in your electronic medical record, Registration staff can assist with this) - Name - Date of Capabilities of the Patient Portal: - Message some providers - View upcoming appointments - Access your health summary, medical history, and visit history - View current conditions and allergies - View procedure and lab results - View your medications, including guidelines, side effects, and precautions - Complete pre-appointment questionnaires requested by your provider - Ready summary reports of your office visits and procedures To access the Patient Portal Mobile [employer], follow these directions: - Search [employer] in the [employer] Store or [employer] Store - Download the [employer] - Search for [facility] - Enter your login/password Prescriptions: No Action (DME) blood-glucose meter [FreeStyle Lite Meter] Kit See Rx Instructions .Route Qty: 1 0RF Rx Instructions: As directed (DME) FreeStyle Lite Strips Strip See Rx Instructions .ROUTE .MEDSUPPLY Qty: 100 11RF Rx Instructions: 3x daily fluticasone propionate 50 mcg/actuation spray,suspension 2 spray intranasal BEDTIME Qty: 16 0RF Rx Instructions: administer into each nostril sucralfate [Carafate] 1 gram Tablet 1 g PO QID Qty: 120 2RF trazodone 150 mg tablet 150 mg PO BEDTIME Qty: 90 3RF potassium chloride 20 mEq Tablet Extended Release 20 meq PO BID Qty: 60 3RF duloxetine 30 mg capsule,delayed release(DR/EC) 30 mg PO DAILY 90 Days Qty: 90 1RF pantoprazole 40 mg tablet,delayed release (DR/EC) 40 mg PO BID Qty: 180 0RF Magic Mouthwash Diphen/Lido/Antacid 1:1:1 240 mL Suspension 10 ml PO QID Qty: 240 3RF Rx Instructions: Lidocaine Viscous 2 % 80mL; diphenhydramine 12.5 mg/5 mL 80mL; aluminum-mag hydrox-simeth [id number]/5mL 80mL prochlorperazine maleate [Compazine] 10 mg Tablet 10 mg PO Q8H PRN (Reason: Nausea And Vomiting) Qty: 60 4RF lidocaine HCl [Lidocaine Viscous] 2 % Solution 1 appl MUCOUS MEMBRANE QID Qty: 300 3RF dexamethasone 4 mg Tablet 4 mg PO BID Qty: 100 0RF Rx Instructions: Take 4 mg p.o. b.i.d. on day 2 and 3 of chemo every 14 days. lorazepam 1 mg tablet 1 mg PO BID PRN (Reason: Anxiety) 90 Days Qty: 180 0RF Eliquis 5 mg Tablet 5 mg PO BID Qty: 60 3RF Rx Instructions: To start this after completion of the starter pack. lorazepam 1 mg Tablet 1 mg PO BID PRN (Reason: Anxiety) Qty: 180 0RF morphine [MS Contin] 30 mg Tablet Extended Release 30 mg PO Q12H 30 Days Qty: 60 0RF Rx Instructions: Partial Fill upon patient request. oxycodone 10 mg Tablet 10 mg PO Q6H PRN (Reason: Severe Pain (Scale Score 7-10)) Qty: 30 0RF Rx Instructions: Partial Fill upon patient request. levothyroxine 137 mcg Tablet 137 mcg PO DAILY Qty: 30 1RF Rx Instructions: Take daily on empty stomach oxycodone 10 mg Tablet 10 mg PO Q6H PRN (Reason: Breakthrough Pain, Severe) Qty: 60 0RF Rx Instructions: Partial Fill upon patient request. lorazepam 1 mg Tablet 1 mg PO BID PRN (Reason: Anxiety) Qty: 60 0RF omeprazole 20 mg capsule,delayed release(DR/EC) 20 mg PO BID PRN (Reason: gerd) 90 Days Qty: 90 3RF docusate sodium [Colace] 100 mg capsule 100 mg PO BID Qty: 60 4RF dicyclomine 20 mg tablet 20 mg PO QID PRN (Reason: pain (scale score 4-6)) Qty: 30 6RF lisinopril 20 mg tablet 20 mg PO DAILY 90 Days Qty: 90 3RF Fiasp FlexTouch U-100 Insulin 100 unit/mL (3 mL) insulin pen 16 unit subcut TID Qty: 15 5RF Rx Instructions: Administer 16 units at the beginning of or within 20 minutes of starting a meal. ondansetron 8 mg tablet,disintegrating 8 mg PO TID (DME) pen needle, diabetic [BD Ultra-Fine Micro Pen Needle] 32 gauge x 1/4 needle See Rx Instructions .ROUTE .MEDSUPPLY Qty: 100 11RF Rx Instructions: 4x daily glucose [Dex4 Glucose] 4 gram tablet,chewable 4 g PO Q15M PRN (Reason: hypoglycemia) Qty: 30 3RF Rx Instructions: until symptoms of low blood sugar are controlled insulin degludec [Tresiba FlexTouch U-200] 200 unit/mL (3 mL) insulin pen 50 unit subcut BEDTIME Qty: 9 5RF Referrals: [facility] [Provider Group] (Call to establish and follow up with an orthopedic provider. ) Soto Santos MD [Primary Care Provider] - Interventions: ED Discharge Assessment Last Done: 07/21/24 15:24 Discharge Date/Time: 07/21/24 15:25 Print Language: Ukrainian
[2024-07-21 12:52] LABS: MANUAL DIFF FLAG NO
[2024-07-21 12:55] LABS: Basophils Percent Auto 0.8 % (0-2); Eosinophils Absolute Auto 0.2 X10*3/uL (0.0-0.4); Eosinophils Percent Auto 5.6 % (0-4); Hematocrit 33.6 % (42.0-52.0); Hemoglobin 11.6 g/dl (14.0-18.0); Imm Gran Abs Auto 0.01 X10*3/uL (0.00-0.03); Imm Gran Pct Auto 0.3 % (0.0-0.4); Lymphocytes Absolute Auto 0.6 X10*3/uL (1.2-4.9); Lymphocytes Percent Auto 15.5 % (20-40); Mean Corpuscular HGB Conc 34.5 g/dl (31.0-36.0); Mean Corpuscular Hemoglobin 33.3 pg (27.0-33.0); Mean Corpuscular Volume 96.6 fL (80.0-98.0); Mean Platelet Volume 9.6 fL (9.4-12.4); Monocytes Absolute Auto 0.7 X10*3/uL (0.1-1.2); Monocytes Percent Auto 18.5 % (2-11); Neutrophils Absolute Auto 2.2 x10*3/uL (2.0-8.3); Neutrophils Percent Auto 59.3 % (45-73); Platelet Count 111 X10*3/uL (160-400); Red Blood Count 3.48 X10*6/uL (4.60-5.80); Red Cell Distribution Width 13.9 % (11.0-16.0); White Blood Count 3.7 X10*3/uL (4.8-10.8)
[2024-07-21 13:00] LABS: INTERNATIONAL NORM RATIO 1.6 (0.9-1.1); Prothrombin Time 18.8 SEC (10.9-12.4)
[2024-07-21 13:21] LABS: Alanine Aminotransferase 14 U/L (0-40); Albumin Level 3.9 g/dL (3.5-5.0); Alkaline Phosphatase 114 U/L (39-117); Anion Gap 13 (12-20); Aspartate Amino Transferase 34 U/L (5-37); Bilirubin Total 0.7 mg/dL (0.0-1.0); Blood Urea Nitrogen 10 mg/dL (9-16); Calcium 9.5 mg/dL (8.4-10.2); Carbon Dioxide 27 mmol/L (22-29); Chloride 104 mmol/L (96-108); Creatinine Clr Calc Pharmacy 88.8; Estimated Glomerular Filt Rate > 60; Glucose Random 181 mg/dL (60-115); Potassium 4.1 mmol/L (3.3-5.1); Sodium 140 mmol/L (135-145); Total Protein 7.2 g/dL (6.5-8.0)
[2024-07-21 15:24] VITALS: BP 117/59; PULSE 89; RESP 16; TEMP 36.9; O2SAT 96
== END 2024-07-21 15:25 | disposition home or self-care (01) ==
PROVIDERS: Registered Nurse Emergency; Emergency Provider Emergency Medicine; PCP Internal Medicine
DX: M79.604 Pain in right leg (principal); R60.0 Localized edema; Z79.899 Other long term (current) drug therapy; Z87.891 Personal history of nicotine dependence
CPT/HCPCS: 36415; 73590; 80053; 85025; 85610; 93971; 99283; 99284

== ENCOUNTER → 2024-07-21 12:42 | Outpatient (BNV) | payer MEDICARE, SELFPAY | PROVIDERS: PCP Internal Medicine; Visit Provider Radiology Diagnostic Radiology | DX: M79.661 Pain in right lower leg (principal) | CPT/HCPCS: 73590; 93971 ==

== ENCOUNTER 2024-09-01 08:36 | Outpatient (AMB) | payer MEDICARE, SELFPAY ==
--- NOTE | 2024-09-01 07:19 | A.OFFVIS_ITS ---
Vital Signs 09/01/24 08:37 Height 5 ft 7 in Weight 189 lb 9.561 oz BMI 29.7 BP 120/68 Blood Pressure Location Rt brachial Position Sitting Pulse 96 Pulse Source Pulse Oximeter Pulse Oximetry (%) 100 Oxygen Delivery Method Room Air Intake Visit Reasons: DM Intake Note: Patient presents today for a follow-up on Type 2 Diabetes Mellitus: Last Diabetic eye exam was on: OVER DUE Last Podiatry exam was on: Patient does not see a Hand Screen Printer Most recent HbA1c: 6.7%, 09/01/2024 Random Glucose- 102 mg/dL, Today Accordion Repairer Required: No Accompanied by: Self / Same As Patient Allergies metformin Adverse Reaction (Intermediate, Verified 09/01/24 08:46) Diarrhea Clindamycin HCl Allergy (Intermediate, Uncoded 09/01/24 08:46) rash statin Adverse Reaction (Mild, Uncoded 09/01/24 08:46) word retrieval problems Medication List - Last Reconciled 09/01/24 by Kena Vergara, KAMILLA apixaban (Eliquis) 5 mg PO BID blood sugar diagnostic (FreeStyle Lite Strips) 3x daily blood-glucose meter (FreeStyle Lite Meter kit) As directed docusate sodium (Colace) 100 mg PO BID duloxetine 30 mg PO DAILY 90 days ezetimibe (Zetia) 10 mg PO DAILY 30 days Fiasp FlexTouch U-100 Insulin 100 unit/mL (3 mL) (insulin aspart (niacinamide)) 16 to 20 units before the meals subcutaneously 3 times a day; 30 days MDD 60 NS fluticasone propionate 50 mcg/actuation 2 sprays intranasal BEDTIME glucose (Dex4 Glucose) 4 grams PO Q15M PRN insulin degludec (Tresiba FlexTouch U-200 insulin) 52 units subcut BEDTIME levothyroxine (Levoxyl) 150 mcg PO DAILY 30 days lidocaine HCl 2% (Lidocaine Viscous) 1 appl mucous membrane QID lisinopril 20 mg PO DAILY 90 days lorazepam 1 mg PO BID PRN 90 days lorazepam 1 mg PO BID PRN lorazepam 1 mg PO BID PRN Magic Mouthwash Diphen/Lido/Antacid 1:1:1 10 mL PO QID morphine ER (MS Contin) 30 mg PO Q12H 30 days omeprazole 20 mg PO BID PRN 90 days ondansetron 8 mg PO TID oxycodone 10 mg PO Q6H PRN oxycodone 10 mg PO Q6H PRN pantoprazole 40 mg PO BID pen needle, diabetic (BD Ultra-Fine Micro Pen Needle) 4x daily potassium chloride ER 20 mEq PO BID prochlorperazine maleate (Compazine) 10 mg PO Q8H PRN sucralfate (Carafate) 1 g PO QID trazodone 150 mg PO BEDTIME HPI Comments Details: Patient is a 73-year-old male with type 2 diabetes presenting today for continued diabetic management. He was last seen 06/01/24 and previously by Afua MIKE 01/02/24. Hemoglobin A1c 09/01/24: 6.7%, 06/01/2024 7.9 %, 01/02/2024 7%. He is currently undergoing chemotherapy for esophageal cancer, His appetite varies. Previous medications tried: Patient had reported he had a high co-pay of 400 dollars when he picked up the medication for the 1st time. Current medications: Tresiba 52 units Fiasp 16-20 units t.i.d. Dexcom average glucose: 170 14 day continuous glucose monitor report reviewed Glucose Managment indicator 7.4 % Days with CGM data 94 % TIme in ranges: 10 % very high (above 250) 27 % high ?(181-250) 62 % in range ?(70-180] 1 % low (69-55) Less than 1 % ?very low (below 54) Interpretation no significant lows HE stated that in the past he would titrate his insulin between 16-20 units depending on the type of meal and pre meal glucose. Had dilated exam at [facility] 07/2024 no diabetic changes Has neuropathy in hands and feet but reports that this started after he began chemotherapy. No Nephropathy: 08/20/2024 eGFR>60 01/09/2024 15.0 Has HLD: Not on statin due to word finding difficulty last LDL 01/09/2024 124, previous 191 He sees oncology regularly who have been following his thyroid dosing. Dose adjusted today as he has a tsh of 10, prior h/o nodule and will order thyroid ultrasound golfs on a regular basis has bugels in his golf bag but does not always eat before going on the golf course He feels well. [facility] Medical History (Updated 09/01/24 @ 09:22 by Kena Vergara NP) Hypothyroidism Controlled type 2 diabetes mellitus Port-A-Cath in place Hx of radiation therapy History of chemotherapy Controlled type 2 diabetes mellitus with insulin therapy Carcinoma of esophagus Thyroid nodule Dysphagia, pharyngoesophageal phase Esophageal dysphagia Goiter Vitamin D deficiency Osteomyelitis of cervical spine Obstructive sleep apnea Colon cancer Narcolepsy GERD (gastroesophageal reflux disease) Obesity Insomnia Hypertension Type 2 diabetes mellitus with hyperglycemia Postlaminectomy syndrome of cervical region Hypercholesterolemia Surgical History Hx of endoscopy History of esophagogastroduodenoscopy (EGD) (07/03/23) History of colonoscopy History of spinal surgery Family History Father Colon cancer Diabetes Hypertension Mother Paget's disease Diabetes Social History Household Members: Spouse and Family Housing: House Are you a primary multi care technician to a significant other at home: No Do you presently have visiting nurse or other home services: No Alcohol intake: current Alcohol intake frequency: holidays/special occasions only Patient Tobacco Use Status: Former Tobacco user Tobacco use type: Cigarette Cigarette Packs Per Day: 3 Years Smoked: 20 e-Cigarette/Vaping Use: Never Used Second Hand Smoke Exposure: No service: No Current occupational status: disabled Cognitive needs: No Hearing needs: No Vision needs: Yes Physical Exam Vital Signs: Last Vital Signs Pulse 96 09/01/24 08:37 BP 120/68 09/01/24 08:37 Pulse Ox 100 09/01/24 08:37 Oxygen Delivery Method Room Air 09/01/24 08:37 BMI result Body Mass Index 29.7 Const Other: Absence of Cushingoid features. Absence of acromegalic features. Neck exam reveals nl size thyroid about 15 gms. No thyroid nodules palpable. Heart S1 S2, Reg R/R. No M/R G. Skin exam reveals absence of vitiligo or acanthosis nigricans. No edema Visual exam of foot performed. No ulcerations or open lesions. No inter digit maceration or fissuring. No onychomycosis, no callouses. Sensation intact to monofilament exam. Vibratory sensation is normal with 128 Hz tuning fork.pules postive Results AMB Hemoglobin A1c AMB Hemoglobin A1c 6.7 % Last Edit by MIRIAM Glynn on 09/01/24 08:58 Results Reviewed Results Reviewed: Laboratory Last Values Glucose (Clinic) 102 mg/dL (60-115) 09/01/24 08:50 Hgb A1c (Clinic) 6.7 % (4.0-6.0) H 09/01/24 08:53 Assessment & Plan Assessment & Plan (1) Type 2 diabetes mellitus with hyperglycemia: Comment: [facility] Code(s): E11.65 - Type 2 diabetes mellitus with hyperglycemia Category: Medical Qualifiers: Diabetes mellitus drag out worker insulin use: with half-way use Qualified Code(s): E11.65 - Type 2 diabetes mellitus with hyperglycemia; Z79.4 - MCFP (current) use of insulin Plan: 73-year-old type 2 diabetic with neuropathy secondary to chemotherapy with well- controlled diabetes. A1c in the office today 6.7% Continue current medications. He was advised to always carry a sugar source particular when he is out on the golf course in the a probably should have snack prior to or during golfing. CHLOÉ ordered today. The patient had an opportunity to ask questions regarding treatment plan. The patient expressed understanding and agreement with the above treatment plan. The patient is aware they should contact our office by phone for worsening glucose readings or for any low blood sugars which may warrant a change in diabetes medication. Compliance is encouraged with medications and any followup testing/consults which may have been ordered. He will follow up in 3 months with Afua MIKE whom he has seen in the past. (2) Hypothyroidism: Code(s): E03.9 - Hypothyroidism, unspecified Category: Medical Plan: Has been followed by onc for dose adjustments,TSh still elevated. Increase to 150mcg on an empty stomach, recheck labs in 4-6 weeks. will order a f/u ultrasound for thyroid nodule (3) Hypercholesterolemia: Code(s): E78.00 - Pure hypercholesterolemia, unspecified Category: Medical Plan: LDL above target. He has been on multiple statins in the past but had word- finding difficulty. He agrees to trial Zetia. Follow up blood work added (4) Peripheral Vascular Disease: Code(s): I73.9 - Peripheral vascular disease, unspecified Plan: chloé ordered per [place] diabetes association recommendations Orders: Orders AMB Hemoglobin A1c Today Kena Vergara NP E11.65 - Type 2 diabetes mellitus with hyperglycemia, Z79.4 - MCFP (current) use of insulin Free T4 (Free Thyroxine) 4 Weeks Kena Vergara NP E03.9 - Hypothyroidism, unspecified, E78.00 - Pure hypercholesterolemia, unspecified Thyroid Stimulating Hormone 4 Weeks Kena Vergara NP E03.9 - Hypothyroidism, unspecified, E78.00 - Pure hypercholesterolemia, unspecified AMB Glucose Monitoring Today Kena Vergara NP E11.65 - Type 2 diabetes mellitus with hyperglycemia, Z79.4 - anesthesiology resident (current) use of insulin Lipid Panel 4 Weeks Kena Vergara NP E03.9 - Hypothyroidism, unspecified, E78.00 - Pure hypercholesterolemia, unspecified US thyroid Today Kena Vergara NP E04.1 - Nontoxic single thyroid nodule US CHLOÉ complete Today Kena Vergara NP E11.65 - Type 2 diabetes mellitus with hyperglycemia, I73.9 - Peripheral vascular disease, unspecified, Z79.4 - MCFP (current) use of insulin Medications: New levothyroxine (Levoxyl) 150 mcg PO DAILY 30 tabs 3RF 30 days Kena Vergara NP ezetimibe (Zetia) 10 mg PO DAILY 30 tabs 6RF 30 days Kena Vergara NP Changed From insulin degludec (Tresiba FlexTouch U-200 insulin) 50 units (0.25 mL) subcut BEDTIME 9 mL 5RF To insulin degludec (Tresiba FlexTouch U-200 insulin) 52 units subcut BEDTIME CEE Patel Refilled Fiasp FlexTouch U-100 Insulin 100 unit/mL (3 mL) (insulin aspart (niacinamide)) 16 to 20 units before the meals subcutaneously 3 times a day; 18 mL 5RF 30 days MDD 60 NS Kena Veragra, PIPE CAULKER Discontinued dexamethasone Take 4 mg p.o. b.i.d. on day 2 and 3 of chemo every 14 days. Discontinued Reason: Doctor's Order 4 mg PO BID 100 tabs 0RF levothyroxine Take daily on empty stomach Discontinued Reason: Doctor's Order 137 mcg PO DAILY 30 tabs 1RF dicyclomine Discontinued Reason: Doctor's Order 20 mg PO QID PRN 30 tabs 6RF pain (scale score 4-6) R13.19 - Other dysphagia Patient Instructions: Carry a sugar source at all times The patient was counseled to achieve a target A1C of 7% (154 avg). Fasting blood sugars should be 90-130 in the morning and less than 180 two hours after meals. Reviewed the relationship between poor diabetic control and the development of complications. Check your feet daily looking for any signs of infection, drainage, redness, ulceration and seek medical attention if this occurs. Break in shoes gradually and do not wear open-toed shoes or walk stocking footed or barefooted. Patient was advised given his neuropathy that he is more likely to develop a foot ulcer that he should check his feet daily. Coding Level of Care Code Est Pt Level 5 (78156) Complex EM visit Add On G2211 Diagnoses Type 2 diabetes mellitus with hyperglycemia, with long-term current use of insulin E11.65; Z79.4 Diabetes mellitus half-way insulin use: with drag out worker use Hypothyroidism E03.9 Hypercholesterolemia E78.00 Peripheral Vascular Disease I73.9 Time Spent (min) 50 Comment Time spent reviewing labs/provider notes, face to face, chart doc
[2024-09-01 08:37] VITALS: BP 120/68; PULSE 96; O2SAT 100; BMI 29.7
[2024-09-01 08:54] LABS: Glucose, Whole Blood 102 mg/dL (60-115)
--- OUTSIDE RECORDS SUMMARY | 2024-09-01 09:01 | XMS_ITS | Patient Health Record ---
Author Organization [facility] Address [address] [place] [address] Care Team Providers Care Special Projects Coordinator Name Role Phone iVral Burrows Unavailable [phone] Reason For Referral No Information Plan Of Treatment No Information
== END 2024-09-01 09:15 | disposition home or self-care (01) ==
LOC: HO.ENCR 08:37
PROVIDERS: PCP Internal Medicine; Visit Provider Nurse Practitioner Adult Health
DX: E11.65 Type 2 diabetes mellitus with hyperglycemia (principal); Z79.4 Long term (current) use of insulin; E03.9 Hypothyroidism, unspecified; E78.00 Pure hypercholesterolemia, unspecified; I73.9 Peripheral vascular disease, unspecified
CPT/HCPCS: 99215; G2211

== ENCOUNTER → 2024-09-01 08:36 | Outpatient (BNVA) | payer MEDICARE, SELFPAY | PROVIDERS: PCP Internal Medicine; Visit Provider Nurse Practitioner Adult Health | DX: E11.65 Type 2 diabetes mellitus with hyperglycemia (principal); E03.9 Hypothyroidism, unspecified; E78.00 Pure hypercholesterolemia, unspecified; I73.9 Peripheral vascular disease, unspecified; Z79.4 Long term (current) use of insulin | CPT/HCPCS: 82947; 83036; 99212 ==

== ENCOUNTER 2024-09-20 08:54 | Outpatient (REF) | payer MEDICARE, SELFPAY ==
--- OUTSIDE RECORDS SUMMARY | 2024-09-21 09:09 | XMS_ITS | Patient Health Record ---
Author Organization [facility] Address [address] [place] [address] Care Team Providers Care Paint Grinder [employer] Name Role Phone Viral Burrows Unavailable [phone] Reason For Referral No Information Plan Of Treatment No Information
== END 2024-09-20 08:55 | disposition home or self-care (01) ==
LOC: HO.HOSX 08:54
PROVIDERS: Visit Provider Physician Assistant
DX: Z13.89 Encounter for screening for other disorder (principal)

== ENCOUNTER 2024-09-21 10:46 | Outpatient (REF) | payer MEDICARE, SELFPAY ==
--- NOTE | ~2024-09-21 | US_ITS ---
EXAMINATION: US ABDOMEN COMPLETE WITH LIVER ELASTOGRAPHY HISTORY: Right upper quadrant pain. TECHNIQUE: Real-time grayscale ultrasound imaging of the abdomen was performed and images were reviewed. COMPARISON: Correlation is made with a CT of the abdomen with contrast dated 05/06/2024. FINDINGS: Liver: The right lobe of the liver measures 18.2 cm in size. The left lobe of the liver measures 13.9 cm in size. The liver demonstrates increased echotexture, consistent with steatosis. No focal mass or intrahepatic biliary ductal dilatation is identified. The liver lesion noted on CT is not visualized. There is normal hepatopedal flow in the portal vein. Ultrasound elastography of the liver was performed with 10 separate measurements of the liver parenchyma with the patient in the supine position. Measurements were obtained approximately 2 cm below Kelsea's capsule and perpendicular to the capsule. The median shear wave velocity is 2.90 m/s. The interquartile range/median (IQR/median) is 0.07. Gallbladder and biliary tree: The gallbladder is unremarkable, without evidence of calculi, wall thickening, or pericholecystic fluid. There is no sonographic Crooks sign. The common bile duct is normal in caliber measuring 4 mm. Kidneys: The right kidney measures 11.2 cm in length. The left kidney measures 12.2 cm in length. The kidneys are unremarkable, without evidence of masses, hydronephrosis, or calculi. Pancreas: The pancreatic head, neck, and body are unremarkable. The pancreatic tail is obscured by bowel gas. Spleen: The spleen is normal in size and contour, measuring 15.0 cm in length. Abdominal aorta and inferior vena cava: The visualized portions of the abdominal aorta and inferior vena cava are normal in caliber. There is no free fluid in the abdomen. US/US abdomen comp w elastography IMPRESSION: Hepatosplenomegaly and hepatic steatosis. The liver lesion noted on CT is not visualized. The median shear wave velocity in the liver is 2.90 m/s, corresponding to a median liver stiffness of 25.40 kPa. The IQR/median value is 0.07. This is indicative of a quality data set. Findings are indicative of a high elastography value indicating advanced chronic liver disease and portal hypertension. REFERENCE: Society of Radiologists in Ultrasound Liver Stiffness Thresholds (2020): LIVER STIFFNESS THRESHOLDS: *Shear wave velocity less than 1.3 m/s (Liver Stiffness equal or less than 5 kPa): High probability of being normal. *Shear wave velocity less than 1.7 m/s (Liver Stiffness less than 9 kPa): In the absence of other known clinical signs, rules out compensated advanced chronic liver disease. *Shear wave velocity between 1.7-2.1 m/s (Liver Stiffness 9-13 kPa): Suggestive of compensated advanced chronic liver disease but need further test for confirmation. *Shear wave velocity between 2.1-2.4 m/s (Liver Stiffness 13-17 kPa): Rules in compensated advanced chronic liver disease. *Shear wave velocity greater than 2.4 m/s (Liver Stiffness over 17 kPa): Suggestive of clinically significant portal hypertension. QUALITY OF DATA SET: *IQR/Median value equal or less than 0.15 implies a quality data set. *IQR/Median value over 0.15 implies a poor quality data set. SIGNIFICANT CHANGE FROM PRIOR EXAM: Significant change if liver stiffness measurement is 10% or greater from prior exam. OTHER CONSIDERATIONS: The stage of liver fibrosis may be overestimated in the setting of acute hepatitis, liver inflammation, elevated liver function tests, hepatic vascular congestion, obstructive cholestasis, non-fasting state, and infiltrative diseases such as amyloidosis and lymphoma. In some patients with NAFLD, the liver stiffness thresholds for compensated advanced chronic liver disease may be lower. In causes other than viral hepatitis and NAFLD, liver stiffness thresholds are not well established. Electronically signed by: Viral Mcpherson MD 09/21/2024 11:40 AM EDT
== END 2024-09-21 10:47 | disposition home or self-care (01) ==
LOC: HO.US 10:46
PROVIDERS: Visit Provider Internal Medicine Medical Oncology
DX: C15.4 Malignant neoplasm of middle third of esophagus (principal)
CPT/HCPCS: 76700; 76981

== ENCOUNTER → 2024-09-21 10:50 | Outpatient (BNV) | payer MEDICARE, SELFPAY | PROVIDERS: Visit Provider Radiology Diagnostic Radiology | DX: R16.2 Hepatomegaly with splenomegaly, not elsewhere classified (principal); K76.0 Fatty (change of) liver, not elsewhere classified | CPT/HCPCS: 76700 ==

== ENCOUNTER 2024-09-22 14:07 | Emergency (ER) | payer MEDICARE, SELFPAY ==
--- NOTE | ~2024-09-22 | XR_ITS ---
EXAMINATION: XR ABDOMEN 1 VIEW (KUB) HISTORY: constipation, right sided abd pain COMPARISON: There are no prior studies available for comparison. FINDINGS: Three supine views of the abdomen are submitted. The bowel gas pattern is unremarkable, without evidence of mechanical obstruction. There is a large amount of stool throughout the colon. There are multiple phleboliths in the pelvis. An ovoid density in the upper abdomen likely represents an ingested tablet. There are no abnormal soft tissue masses. The bones are intact. XR/XR KUB IMPRESSION: Large amount of stool throughout the colon. Electronically signed by: Viral Mcpherson MD 09/22/2024 03:19 PM EDT
--- NOTE | ~2024-09-22 | CT_ITS ---
CLINICAL HISTORY: Right lower abdominal pain CT abdomen and pelvis with contrast Comparison: CT/SR - CT ABDOMEN PELVIS W IV CON - 05/06/24 08:[address]/MT/SR - CT ABDOMEN PELVIS W IV CON - 11/14/23 10:23 EDT Findings: The visualized portions of the lungs are normal in appearance. There is wall thickening of the distal esophagus. Stable poorly defined hypodense lesion in the right lobe of the liver 1.4 x 2 cm in size series 3, image 21. No intrahepatic or extrahepatic ductal dilatation is seen. The hepatic and portal veins are patent. No calcified gallstones in the gallbladder. Pancreas, spleen and adrenals are normal in appearance. No suspicious focal lesion of the kidneys. No hydronephrosis or calculi. The abdominal aorta demonstrates no evidence of aneurysmal dilatation or dissection. There is moderate amount of fecal material within the colon. There is mild wall thickening of the rectum. No evidence of bowel obstruction. Appendix is normal. The pelvic organs are within normal limits. No intraperitoneal free air or fluid is visualized. No pathologic lymphadenopathy is seen. There are no osseous or soft tissue abnormalities. IMPRESSION: No evidence of acute appendicitis. Mild wall thickening of the rectum. Proctitis can not be excluded. Wall thickening of the distal esophagus. Stable hypodense lesion in the right lobe of the liver. This document has been electronically signed by: Koko Salgado MD on 09/22/2024 19:30:12
[2024-09-22 14:32] VITALS: BP 106/56; PULSE 79; RESP 16; TEMP 36.8; O2SAT 95; BMI 29.2
--- NOTE | 2024-09-22 14:40 | ED_ITS ---
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 remission now been having pain in right abdomen for last 3 weeks got worse in last few days patient was seen by oncologist on had liver elastography was done which showed fatty liver pain is in abdomen is getting worse for last few days been constipated for last 4 days no nausea no vomiting no fever no chills pain gets worse on ambulation Related Data Home Medications ?Medication ?Instructions ?Recorded ?Confirmed ondansetron 8 mg disintegrating 8 mg PO TID 07/14/23 0 04/12/24 tablet Previous Rx's ?Medication ?Instructions ?Recorded blood-glucose meter (FreeStyle #1 ea 11/01/20 Lite Meter kit) blood sugar diagnostic (FreeStyle #100 ea 07/16/21 Lite Strips) docusate sodium 100 mg capsule 100 mg PO BID #60 caps 09/30/22 (Colace) omeprazole 20 mg capsule,delayed 20 mg PO BID PRN gerd 90 days #90 09/30/22 release caps Magic Mouthwash 10 ml PO QID #240 mL 3 Diphen/Lido/Antacid 1:1:1 240 mL suspension prochlorperazine maleate 10 mg 10 mg PO Q8H PRN Nausea And 10/22/22 tablet (Compazine) Vomiting #60 tabs lidocaine HCl 2 % mucosal solution 1 appl mucous membr ane QID #300 mL 11/04/22 (Lidocaine Viscous) fluticasone propionate 50 2 spray intranasal BEDTIME # 16 08/25/23 mcg/actuation nasal grams spray,suspension pen needle, diabetic 32 gauge x #100 ea 09/01/23/ (BD Ultra-Fine Micro Pen Needle) sucralfate 1 gram tablet (Carafate) 1 g PO QID #120 ta bs 12/08/23 lorazepam 1 mg tablet 1 mg PO BID PRN Anxiety 90 d ays 12/23/23 #180 tabs glucose 4 gram chewable tablet 4 g PO Q15M PRN hypogly cemia #30 01/02/24 (Dex4 Glucose) tabs trazodone 150 mg tablet 150 mg PO BEDTIME #90 tabs 1 03/24/23 lorazepam 1 mg tablet 1 mg PO BID PRN Anxiety #180 tabs 04/13/24 lisinopril 20 mg tablet 20 mg PO DAILY 90 days #90 t abs 06/01/24 duloxetine 30 mg capsule,delayed 30 mg PO DAILY 90 day s #90 caps 07/07/24 release pantoprazole 40 mg tablet,delayed 40 mg PO BID #180 ta bs 07/13/24 release apixaban 5 mg tablet (Eliquis) 5 mg PO BID #180 tabs 0 08/10/24 lorazepam 1 mg tablet 1 mg PO BID PRN Anxiety #60 tabs 08/10/24 morphine 30 mg tablet,extended 30 mg PO Q12H 30 days # 60 tabs 08/27/24 release (MS Contin) oxycodone 10 mg tablet 10 mg PO Q6H PRN Severe Pain 08/27/24 (Scale Score 7-10) #30 tabs potassium chloride 20 mEq 20 meq PO BID #60 tabs 08/27 tablet,extended release Fiasp FlexTouch U-100 Insulin 100 See Rx Instructions subcut TID 30 09/01/24 unit/mL (3 mL) subcutaneous pen days #18 mL (insulin aspart (niacinamide)) ezetimibe 10 mg tablet (Zetia) 10 mg PO DAILY 30 days #30 tabs 09/01/24 insulin degludec 200 unit/mL (3 52 unit (0.26 mL) subc ut BEDTIME 09/02/24 mL) subcutaneous pen (Tresiba 90 days #27 mL FlexTouch U-200 insulin) Levoxyl 175 mcg tablet 175 mcg PO DAILY 30 days #30 tabs 09/17/24 (levothyroxine) oxycodone 10 mg tablet 10 mg PO Q6H PRN Breakthroug h 09/17/24 Pain, Severe #60 tabs Allergies Allergy/AdvReac Type Severity Reaction Status Date / Time metformin AdvReac Intermediate Diarrhea Verified 09/22/24 14:42 Clindamycin HCl Allergy Intermediate rash Uncoded 09/01/24 08:46 statin AdvReac Mild word Uncoded 09/01/24 08:46 retrieval problems Review of Systems Review of Systems Yes all other systems are reviewed and are negative PMFSH Past Medical History Medical History Hypothyroidism Controlled type 2 diabetes mellitus Port-A-Cath in place Hx of radiation therapy History of chemotherapy Controlled type 2 diabetes mellitus with insulin therapy Carcinoma of esophagus Thyroid nodule Dysphagia, pharyngoesophageal phase Esophageal dysphagia Goiter Vitamin D deficiency Osteomyelitis of cervical spine Obstructive sleep apnea Colon cancer Narcolepsy GERD (gastroesophageal reflux disease) Obesity Insomnia Hypertension Type 2 diabetes mellitus with hyperglycemia Postlaminectomy syndrome of cervical region Hypercholesterolemia Surgical History Hx of endoscopy History of esophagogastroduodenoscopy (EGD) (07/03/23) History of colonoscopy History of spinal surgery Family History Family History Father Colon cancer Diabetes Hypertension Mother Paget's disease Diabetes Social History Social History Household Members: Spouse and Family Housing: House Are you a primary palliative care physician to a significant other at home: No Do you presently have visiting nurse or other home services: No Alcohol intake: current Alcohol intake frequency: holidays/special occasions only Patient Tobacco Use Status: Former Tobacco user Tobacco use type: Cigarette Cigarette Packs Per Day: 3 Years Smoked: 20 e-Cigarette/Vaping Use: Never Used Second Hand Smoke Exposure: No Advance Directives: No Advance Directives Information Provided: Yes Do you have a plan to hurt others: No Plan service: No Current occupational status: disabled Cognitive needs: No Hearing needs: No Vision needs: Yes Physical Exam ED Vital Signs: Vital Signs - 24 hr 09/22/24 14:32 09/22/24 16:19 09/22/24 17:50 Temperature 98.2 F 98.1 F 98.2 F Pulse Rate 79 71 72 Respiratory Rate 16 16 16 Blood Pressure 106/56 L 101/57 L 110/56 L Pulse Oximetry 95 94 95 Oxygen Delivery Method Room Air Room Air Room Air 09/22/24 18:11 09/22/24 20:29 09/22/24 20:30 Temperature 98.3 F 98.3 F Pulse Rate 64 64 Respiratory Rate 20 16 16 Blood Pressure 106/78 106/78 Pulse Oximetry 94 94 Oxygen Delivery Method Room Air Room Air BMI result Body Mass Index 29.2 Appearance: Alert. Oriented X3. No acute distress. Eyes: No pallor or icterus ENT: Pharynx normal. Oral Mucosa moist Neck: Normal inspection. Neck supple. CVS: Normal heart rate and rhythm. Pulses normal. Respiratory: No respiratory distress. Equal air entry bilateral, no wheezing/rales/rhonchi Abdomen: Soft and tenderness in right lower quadrant with guarding no rebound tenderness tenderness in the right upper quadrant enlarged liver Bowel sounds are present, no mass palpable, no CVA tenderness Skin: Skin warm and dry. Normal skin color. Normal skin turgor. Extremities: No lower extremity edema. No calf tenderness Neuro: Oriented X 3. No motor deficit. No sensory deficit.No cerebellar signs , cranial nerves II-XII intact Medical Decision Making Medical Decision Making [facility] Narrative: Patient has diffuse abdominal pain with the esophageal cancer noted to be constipated CT scan negative for appendicitis was given stool softener discharge patient home labs are stable Differential Diagnosis Differential Diagnoses: The differential diagnosis associated with the presentation includes Appendicitis/diverticulitis/small bowel obstruction Lab Data [facility] Lab Attestation statement: I reviewed the patient's lab results. 09/22/24 15:23 09/22/24 15:23 Labs: Lab Results 09/22/24 Range/Units 15:23 WBC 4.4 L (4.8-10.8) X10*3/uL RBC 3.70 L (4.60-5.80) X10*6/uL Hgb 11.6 L (14.0-18.0) g/dl Hct 35.1 L (42.0-52.0) % MCV 94.9 (80.0-98.0) fL MCH 31.4 (27.0-33.0) pg MCHC 33.0 (31.0-36.0) g/dl RDW 14.7 (11.0-16.0) % Plt Count 126 L (160-400) X10*3/uL MPV 9.3 L (9.4-12.4) fL Immature Gran % (Auto) 0.5 H (0.0-0.4) % Neut % (Auto) 76.5 H (45-73) % Lymph % (Auto) 10.1 L (20-40) % [place] % (Auto) 9.7 (2-11) % Eos % (Auto) 2.3 (0-4) % Baso % (Auto) 0.9 (0-2) % Lymph # (Auto) 0.5 L (1.2-4.9) X10*3/uL [place] # (Auto) 0.4 (0.1-1.2) X10*3/uL Eos # (Auto) 0.1 (0.0-0.4) X10*3/uL Baso # (Auto) 0.0 (0.0-0.2) X10*3/uL Abs Immat Gran (auto) 0.02 (0.00-0.03) X10*3/uL Absolute Neuts (auto) 3.4 (2.0-8.3) x10*3/uL Absolute Nucleated RBC 0.000 (0.0-0.012) X10*3/uL Nucleated RBC % (auto) 0.0 (0.0-0.2) /100WBC PT 20.6 H (10.9-12.4) SEC INR 1.8 H (0.9-1.1) APTT 33.4 (26.0-36.8) SEC Sodium 139 (135-145) mmol/L Potassium 4.4 (3.3-5.1) mmol/L Chloride 102 (96-108) mmol/L Carbon Dioxide 30 H (22-29) mmol/L Anion Gap 11 L (12-20) BUN 20 H (9-16) mg/dL Creatinine 0.92 (0.5-1.4) mg/dL Estim Creat Clear Calc 76.6 Estimated GFR > 60 Random Glucose 118 H (60-115) mg/dL Calcium 9.3 (8.4-10.2) mg/dL Magnesium 2.4 (1.6-2.6) mg/dL Total Bilirubin 0.4 (0.0-1.0) mg/dL AST 43 H (5-37) U/L ALT 32 (0-40) U/L Alkaline Phosphatase 117 (39-117) U/L Total Protein 7.1 (6.5-8.0) g/dL Albumin 3.9 (3.5-5.0) g/dL Lipase 10 (8-78) U/L Independent Interpretation I performed an independent interpretation of an: CT Scan Radiology Impression Discussion of test interpretation with radiology: I have reviewed the radiologist's reading. Medications Administered Discontinued Medications Generic Name Dose Route Start Last Admin Trade Name Valerie PRN Reason Stop Dose Admin Sodium Chloride 1,000 mls @ 999 mls/hr 09/22/24 17:50 09/22/24 19:12 Ns IV 09/22/24 18:50 Infused .Q1H1M ONE Infusion Iohexol 85 ml 09/22/24 18:46 09/22/24 18:46 Iohexol 350 Mg/Ml 100 Ml Infus..Btl IV 09/22/24 18:47 85 ml ONCE ONE Administration Magnesium Citrate 300 ml 09/22/24 20:04 09/22/24 20:22 Magnesium Citrate 300 Ml Solution PO 09/22/24 20:05 300 ml ONCE ONE Administration Morphine Sulfate 4 mg 09/22/24 17:50 09/22/24 18:11 Morphine Sulfate 4 Mg/Ml Cartridge IVPUSH 09/22/24 17:51 4 mg ONCE ONE Administration Protocol Ondansetron HCl 4 mg 09/22/24 17:50 09/22/24 18:12 Ondansetron Hcl 4 Mg/2 Ml Vial IVPUSH 09/22/24 17:51 4 mg ONCE ONE Administration Sodium Biphosphate/Sodium Phosphate 133 ml 09/22/24 20:17 09/22/24 20:23 Sodium Phosphate,[place]-Dibasic 133 Ml Enema MN 09/22/24 20:18 133 ml ONCE ONE Administration Discharge Plan Discharge Clinical Impression: Constipation, Abdominal pain Patient Disposition: Home, Self-Care Instructions: Constipation (DC), Abdominal Pain (ED) Additional Instructions: Cause of your abdominal pain is not clear likely from the constipation Take stool softener as advised and follow up with your oncologist and pecan cleaner Prescriptions: No Action (DME) blood-glucose meter [FreeStyle Lite Meter] Kit See Rx Instructions .Route Qty: 1 0RF Rx Instructions: As directed (DME) FreeStyle Lite Strips Strip See Rx Instructions .ROUTE .MEDSUPPLY Qty: 100 11RF Rx Instructions: 3x daily fluticasone propionate 50 mcg/actuation spray,suspension 2 spray intranasal BEDTIME Qty: 16 0RF Rx Instructions: administer into each nostril sucralfate [Carafate] 1 gram Tablet 1 g PO QID Qty: 120 2RF trazodone 150 mg tablet 150 mg PO BEDTIME Qty: 90 3RF duloxetine 30 mg capsule,delayed release(DR/EC) 30 mg PO DAILY 90 Days Qty: 90 1RF pantoprazole 40 mg tablet,delayed release (DR/EC) 40 mg PO BID Qty: 180 0RF insulin degludec [Tresiba FlexTouch U-200] 200 unit/mL (3 mL) insulin pen 52 unit subcut BEDTIME 90 Days Qty: 27 3RF Magic Mouthwash Diphen/Lido/Antacid 1:1:1 240 mL Suspension 10 ml PO QID Qty: 240 3RF Rx Instructions: Lidocaine Viscous 2 % 80mL; diphenhydramine 12.5 mg/5 mL 80mL; aluminum-mag hydrox-simeth [id number]/5mL 80mL prochlorperazine maleate [Compazine] 10 mg Tablet 10 mg PO Q8H PRN (Reason: Nausea And Vomiting) Qty: 60 4RF lidocaine HCl [Lidocaine Viscous] 2 % Solution 1 appl MUCOUS MEMBRANE QID Qty: 300 3RF lorazepam 1 mg tablet 1 mg PO BID PRN (Reason: Anxiety) 90 Days Qty: 180 0RF lorazepam 1 mg Tablet 1 mg PO BID PRN (Reason: Anxiety) Qty: 180 0RF Eliquis 5 mg Tablet 5 mg PO BID Qty: 180 1RF lorazepam 1 mg Tablet 1 mg PO BID PRN (Reason: Anxiety) Qty: 60 0RF morphine [MS Contin] 30 mg Tablet Extended Release 30 mg PO Q12H 30 Days Qty: 60 0RF Rx Instructions: Partial Fill upon patient request. oxycodone 10 mg Tablet 10 mg PO Q6H PRN (Reason: Severe Pain (Scale Score 7-10)) Qty: 30 0RF Rx Instructions: Partial Fill upon patient request. potassium chloride 20 mEq Tablet Extended Release 20 meq PO BID Qty: 60 3RF oxycodone 10 mg Tablet 10 mg PO Q6H PRN (Reason: Breakthrough Pain, Severe) Qty: 60 0RF Rx Instructions: Partial Fill upon patient request. omeprazole 20 mg capsule,delayed release(DR/EC) 20 mg PO BID PRN (Reason: gerd) 90 Days Qty: 90 3RF docusate sodium [Colace] 100 mg capsule 100 mg PO BID Qty: 60 4RF lisinopril 20 mg tablet 20 mg PO DAILY 90 Days Qty: 90 3RF Fiasp FlexTouch U-100 Insulin 100 unit/mL (3 mL) insulin pen See Rx Instructions subcut TID MDD 60 30 Days Qty: 18 5RF Rx Instructions: 16 to 20 units before the meals subcutaneously 3 times a day; ezetimibe [Zetia] 10 mg tablet 10 mg PO DAILY 30 Days Qty: 30 6RF levothyroxine [Levoxyl] 175 mcg tablet 175 mcg PO DAILY 30 Days Qty: 30 6RF ondansetron 8 mg tablet,disintegrating 8 mg PO TID (DME) pen needle, diabetic [BD Ultra-Fine Micro Pen Needle] 32 gauge x 1/4 needle See Rx Instructions .ROUTE .MEDSUPPLY Qty: 100 11RF Rx Instructions: 4x daily glucose [Dex4 Glucose] 4 gram tablet,chewable 4 g PO Q15M PRN (Reason: hypoglycemia) Qty: 30 3RF Rx Instructions: until symptoms of low blood sugar are controlled Interventions: ED Discharge Assessment Last Done: 09/22/24 20:30 Discharge Date/Time: 09/22/24 20:36 Print Language: Portuguese
--- OUTSIDE RECORDS SUMMARY | 2024-09-22 15:22 | XMS_ITS | Patient Health Record ---
Author Organization [facility] Address [address] [place] [address] Care Team Providers Care Envelope Stuffer Name Role Phone Viral Burrows Unavailable [phone] Reason For Referral No Information Plan Of Treatment No Information
[2024-09-22 15:33] LABS: MANUAL DIFF FLAG NO
[2024-09-22 15:39] LABS: Hematocrit 35.1 % (42.0-52.0); Hemoglobin 11.6 g/dl (14.0-18.0); Imm Gran Abs Auto 0.02 X10*3/uL (0.00-0.03); Imm Gran Pct Auto 0.5 % (0.0-0.4); Lymphocytes Absolute Auto 0.5 X10*3/uL (1.2-4.9); Mean Corpuscular HGB Conc 33.0 g/dl (31.0-36.0); Mean Corpuscular Hemoglobin 31.4 pg (27.0-33.0); Mean Corpuscular Volume 94.9 fL (80.0-98.0); NRBC Abs Auto 0.000 X10*3/uL (0.0-0.012); NRBC Pct Auto 0.0 /100WBC (0.0-0.2); Platelet Count 126 X10*3/uL (160-400); Red Blood Count 3.70 X10*6/uL (4.60-5.80); White Blood Count 4.4 X10*3/uL (4.8-10.8)
[2024-09-22 15:41] LABS: INTERNATIONAL NORM RATIO 1.8 (0.9-1.1); Prothrombin Time 20.6 SEC (10.9-12.4)
[2024-09-22 15:44] LABS: Partial Thromboplastin Time 33.4 SEC (26.0-36.8)
[2024-09-22 15:53] LABS: Alanine Aminotransferase 32 U/L (0-40); Albumin Level 3.9 g/dL (3.5-5.0); Alkaline Phosphatase 117 U/L (39-117); Anion Gap 11 (12-20); Aspartate Amino Transferase 43 U/L (5-37); Blood Urea Nitrogen 20 mg/dL (9-16); Calcium 9.3 mg/dL (8.4-10.2); Carbon Dioxide 30 mmol/L (22-29); Chloride 102 mmol/L (96-108); Creatinine Clr Calc Pharmacy 76.6; Estimated Glomerular Filt Rate > 60; Lipase 10 U/L (8-78); Magnesium 2.4 mg/dL (1.6-2.6); Potassium 4.4 mmol/L (3.3-5.1); Sodium 139 mmol/L (135-145); Total Protein 7.1 g/dL (6.5-8.0)
[2024-09-22 16:19] VITALS: BP 101/57; PULSE 71; RESP 16; TEMP 36.7; O2SAT 94
[2024-09-22 17:50] VITALS: BP 110/56; PULSE 72; RESP 16; TEMP 36.8; O2SAT 95
[2024-09-22 18:11] VITALS: RESP 20
[2024-09-22] MEDS: iohexoL 350 MG/ML 100 ML INFUS..BTL 85 ML IV (18:46)
--- NOTE | 2024-09-22 18:49 | PC.NURSE ---
Away for CT scan. 18g IV access to right AC. Care ongoing by this RN & Fouzia Bailon LPN.
[2024-09-22 20:29] VITALS: BP 106/78; PULSE 64; RESP 16; TEMP 36.8; O2SAT 94
[2024-09-22 20:30] VITALS: BP 106/78; PULSE 64; RESP 16; TEMP 36.8; O2SAT 94
== END 2024-09-22 20:36 | disposition home or self-care (01) ==
PROVIDERS: Physician Assistant Medical; Emergency Provider Internal Medicine; PCP Internal Medicine
DX: K59.00 Constipation, unspecified (principal); R10.2 Pelvic and perineal pain; R11.0 Nausea; Z79.899 Other long term (current) drug therapy; Z87.891 Personal history of nicotine dependence
CPT/HCPCS: 36415; 74018; 74177; 80053; 83690; 83735; 85025; 85610; 85730; 96361; 96374; 96375; 99284; J2270; J2405; Q9967

== ENCOUNTER → 2024-09-22 14:39 | Outpatient (BNV) | payer MEDICARE, SELFPAY | PROVIDERS: PCP Internal Medicine; Visit Provider Radiology Diagnostic Radiology | DX: R10.9 Unspecified abdominal pain (principal); K59.00 Constipation, unspecified | CPT/HCPCS: 74018 ==

== ENCOUNTER 2024-11-18 07:29 | Outpatient (REF) | payer MEDICARE, SELFPAY ==
--- NOTE | ~2024-11-18 | CT_ITS ---
EXAMINATION: CT ABDOMEN AND PELVIS WITH CONTRAST CLINICAL INFORMATION: F/U on cancer of esophagus COMPARISON: Abdomen/pelvis CT on September 22, 2024 TECHNIQUE: Multidetector volumetric images were obtained from the superior aspect of the liver through the pubic symphysis following administration 85 cc of Omnipaque 350 intravenous contrast. Sagittal and coronal reformatted images were obtained. Oral contrast: Yes This CT examination was performed using dose optimization techniques as appropriate, variously including the following: *Automated exposure control *Adjustment of mA and/or kV according to patient size (this includes techniques or standardized protocols for targeted exams where dose is matched to indication/reason for exam; i.e. extremities or head) *Use of iterative reconstruction technique FINDINGS: LOWER CHEST: No focal consolidation. No pleural effusion. Similar circumferential diffuse wall thickening of the included distal esophagus. LIVER: Similar cortically defined hypodense lesion in the right hepatic lobe measuring 2.0 x 1.6 cm (3:19), similar to prior re-measurements of 2.1 x 1.4 cm. No new liver lesion identified. GALLBLADDER AND BILIARY TREE: No nondistended gallbladder. No calcified gallstones. No biliary ductal dilatation. PANCREAS: Unremarkable. SPLEEN: Splenomegaly measuring 16.4 cm. No focal lesions. ADRENAL GLANDS: No nodules. KIDNEYS AND URETERS: Small subcentimeter hypodense bilateral renal lesions, likely cysts, are similar to prior study. No renal stones are hydronephrosis on either side. GASTROINTESTINAL TRACT: Wall thickening of the distal esophagus as described above. No bowel distention. Orally administered contrast has reached the rectum. Normal appendix in the right lower quadrant. Underdistended rectum appears unremarkable. PERITONEUM/RETROPERITONEUM: No free fluid or free air. ABDOMINAL WALL: Tiny fat-containing umbilical hernia. LYMPH NODES: No lymphadenopathy. VASCULAR: No abdominal aortic aneurysm. Moderate atherosclerotic disease with calcifications. PELVIC ORGANS: No focal wall thickening of the urinary bladder. OSSEOUS STRUCTURES: No acute or destructive lesions. CT/CT abdomen pelvis w IV con IMPRESSION: 1. Similar wall thickening of the included distal esophagus. 2. Similar poorly defined hypodense lesion in the right hepatic lobe. Electronically signed by: Jv Obregon MD 11/18/2024 10:27 AM EDT
--- OUTSIDE RECORDS SUMMARY | 2024-11-18 07:33 | XMS_ITS | Patient Health Record ---
Author Organization [facility] Address [address] [place] [address] Care Team Providers Care Wood Molder Name Role Phone Viral Burrows Unavailable [phone] Reason For Referral No Information Plan Of Treatment No Information
--- OUTSIDE RECORDS SUMMARY | 2024-11-18 07:33 | XMS_ITS | Clinical Summary ---
Author Organization [facility] Address [address] [place] [id number] Phone Care Team Providers Care Contact Center Consultant Name Role Phone Soto Santos MD Primary Care Provider [phone] Self-Referred, Patient Unavailable Unavailab le Allergies Active Allergy Reactions Criticality Noted Date Comments Metformin Hcl Diarrhea 09/19/2022 Medications blood-glucose meter,continuou s (DEXCOM G7 ASSISTANT MANAGER RETAIL MISC) Activ e dicyclomine (BENTYL) 20 mg tablet TAKE 1 TABLET BY MOUTH FOUR TIMES A DAY NEEDED FOR PAIN 09/06/2022 Active DULoxetine (CYMBALTA) 30 MG capsule Active JARDIANCE 25 mg tablet Take 1 tablet by mouth every morning. 08/14/2022 Active ibuprofen (ADVIL,MOTRIN) 800 MG tablet Take 800 mg by mouth every 8 (eight) hours. 08/14/2022 Active traZODone (DESYREL) 150 MG tablet take 1 tablet by mouth everyday at bedtime 09/03/2022 Active rosuvastatin (CRESTOR) 40 MG tablet Take 1 tablet by mouth every morning. 06/24/2022 Active omeprazole (PRILOSEC) 20 MG capsule Active miconazole 2 % powder 03/14/2022 Active LORazepam (ATIVAN) 1 MG tablet Active lisinopril (PRINIVIL,ZESTR IL) 20 MG tablet Active fluticasone propionate (FLONASE) 50 mcg/actuation nasal spray SPRAY 2 SPRAYS INTO EACH NOSTRIL AT BEDTIME 08/14/2022 Active ondansetron (ZOFRAN) 4 MG tablet Take 4 mg by mouth every 8 (eight) hours as needed for nausea. Active HYDROmorphone (DILAUDID) 2 MG tablet Take 2 mg by mouth every 6 (six) hours as needed for pain (specific location in comments). Active insulin aspart U-100 (NOVOLOG) 100 unit/mL injection vial Inject 8 Units under the skin 3 (three) times a day before meals. Active insulin degludec (TRESIBA FLEXTOUCH U-100 SUBQ) Inject 30 Units under the skin nightly at bedtime. Active prochlorperazin e (COMPAZINE) 10 MG tablet Take 10 mg by mouth every 6 (six) hours as needed. Active Active Problems Problem Noted Date Diagnosed Date Malignant neoplasm of lower third of esophagus 0 10/14/2022 Social History Tobacco Use Types Packs/Day Years Used Date Smoking Tobacco: Former Cigarettes 2 25 0 05/10/1968 - 05/10/1993 Passive Smoke Exposure: Never Smokeless Tobacco: Never Tobacco Cessation:Counseling Given: Not Answered Alcohol Use Standard Drinks/Week Comments Yes 5 (1 standard drink = 0.6 oz pur e alcohol) Child or Family Care Answer Date Record ed Do you have problems with on e of the following making it difficult for you to work, study, or receive health care? No 09/18/2022 Education Answer Date Recorded Are you interested in more education? Not on reyna e 09/06/2022 Are you concerned about learning? Not on file 09/06/2022 No 09/06/2022 No 09/06/2022 Food Answer Date Recorded Within the past 6 months we worried whether our food would run out before we got money to buy more. Never True 09/18/2022 Within the past 6 months the food we bought just didn't last and we didn't have enough money to get more. Never True Residential Stability Answer Date Recor ded What is your housing situation today? I have nate bill 09/18/2022 How many times have you move d in the past 12 months? Zero (I did not move) 09/18/2022 Paying for Meds Answer Date Recorded Do you have trouble paying for medicines? Yes 09/18/2022 Paying Utility Bills Answer Date Record ed Do you have trouble paying your heating or elect ricity bill? No 09/18/2022 Transportation Answer Date Recorded Has the lack of transportati on kept you from medical appointments or from getting medications? No 09/18/2022 Digital Access Answer Date Recorded No 09/06/2022 No 09/06/2022 Reliable internet access at home? Not on file 09/06/2022 Device with a working camera? Not on file Sex and Gender Information Value Date Recorded Sex Assigned at Male 09/06/2022 8:30 AM EDT Legal Sex Male 9:53 AM EDT Gender Identity Male 09/06/2022 8:18 AM EDT Sexual Orientation Straight 09/06/2022 8: 30 AM EDT Last Filed Vital Signs Vital Sign Reading Time Taken Comments Blood Pressure 130/97 12/04/2022 1:32 PM EDT Pulse 80 12/04/2022 1:32 PM EDT Temperature 36.6 C (97.8 F) 11/04/2022 8:19 AM EDT Respiratory Rate 18 11/04/2022 8:19 AM EDT Oxygen Saturation 97% 12/04/2022 1:32 PM EDT Inhaled Oxygen Concentration - - Weight 84.8 kg (186 lb 14.4 oz) 12/04/2022 1:32 PM EDT Height 166.3 cm (5' 5.47 ) 09/20/2022 1:42 PM ED T Body Mass Index 30.65 09/20/2022 1:42 PM EDT Plan of Treatment Health Maintenance Due Date Last Done Comments CREATININE LEVEL 1952 LIPID PANEL 1952 POTASSIUM LEVEL 1952 DEPRESSION SCREENING 1964 SMOKING Hx and SMOKELESS TOBACCO SCREENING 1965 HEPATITIS C SCREENING 1970 ZOSTER VACCINES (1 of 2) 10/20/1971 COLOGUARD 1997 COLONOSCOPY 1997 COLORECTAL CANCER SCREENING 1997 FIT TEST 1997 FOBT 1997 SIGMOIDOSCOPY 1997 VIRTUAL COLONOSCOPY 1997 RSV VACCINE (1 - Risk 60-74 years 1-dose series) 2012 ABDOMINAL AORTIC ANEURYSM (AAA) SCREENING 2017 INFLUENZA VACCINE (#1) 2024 2, 12/15/2020, 11/26/2019, Additional history exists COVID-19 VACCINE ( season) 2024 02/05/2021, 07/16/2020, 06/25/2020 Adult Td,Tdap Booster 10/20/2030 10/20/2020, 016 PNEUMOCOCCAL VACCINES (50+ years) Completed 04/01/2022, 04/06/2019 HEPATITIS A VACCINES Aged Out No long er eligible based on patient's age to complete this topic HIB VACCINES Aged Out No longer eligi ble based on patient's age to complete this topic MENINGOCOCCAL VACCINES (ACWY) Aged Out No longer eligible based on patient's age to complete this topic MENINGOCOCCAL VACCINES (B) Aged Out N o longer eligible based on patient's age to complete this topic Medical Devices Not on file Insurance [employer] MEDEX SUPPLEMENT MEDICARE PART A & B [employer] MEDEX SUPPLEMENT MEDICARE PART A & B [employer] CROSS MEDEX SUPPLEMENT MEDICARE PART A & B [employer] CROSS MEDEX SUPPLEMENT MEDICARE PART A & B [employer] MEDEX SUPPLEMENT MEDICARE PART A & B [employer] MEDEX SUPPLEMENT MEDICARE PART A & B Care Teams Contact Center Consultant Relationship Specialty Start Date End Date Soto Santos MD [address] [place] [id number] PCP - General Internal Medicine 09/06/22 Self-Referred, Patient 09/06/22 Additional Source Comments The information contained in this document represents components of the legal health record. It is not the complete legal health record.[facility]
--- OUTSIDE RECORDS SUMMARY | 2024-11-18 07:33 | XMS_ITS | Encounter Summary ---
Author Organization [facility] Address [address] [place] [phone] Phone Care Team Providers Care Agricultural Plow Operator Name Role Phone Soto Santos MD Primary Care Provider [phone] Self-Referred, Patient Unavailable Unavailab le Encounter Details Date Type Department Care Team (Late st Contact Info) Description 10/16/[address] [facility] [address] [address] Unknown, Unknown, Social History Tobacco Use Types Packs/Day Years Used Date Smoking Tobacco: Former Cigarettes 2 25 0 05/10/1968 - 05/10/1993 Passive Smoke Exposure: Never Smokeless Tobacco: Never Alcohol Use Standard Drinks/Week Comments Yes 5 [...] Orientation Straight 09/06/2022 8: 30 AM EDT documented as of this encounter Plan of Treatment Not on file documented as of this encounter Visit Diagnoses Not on filedocumented in this encounter Care Teams Agricultural Plow Operator Relationship Specialty Start Date End Date Soto Santos MD [address] [place] [address] Drive [address] [place] [phone] PCP - General Internal Medicine 09/06/22 Self-Referred, Patient 09/06/22 documented as of this encounter Additional Source Comments The information contained in this document represents components of the legal health record. It is not the complete legal health record.[facility]
--- OUTSIDE RECORDS SUMMARY | 2024-11-18 07:33 | XMS_ITS | Clinical Summary ---
Author Organization [facility] Address [address] [place] [address] Phone Care Team Providers Care Cement Grinding Mill Operator Name Role Phone Unavailable Primary Care Provider Unavailabl e Encounters Date Type Department Care Team Description 09/28/2024 9:47 AM EDT - 09/28/2024 11:59 PM EDT Hospital Encounter [facility] PET Scan [address] [place] [address] Malignant neoplasm of esophagus, unspecified (CMS/HCC V24, CMS/HCC V28) Discharge Disposition: Home or Self Care from Last 3 Months Social History Tobacco Use Types Packs/Day Years Used Date Smoking Tobacco: Never Assessed Sex and Gender Information Value Date Recorded Sex Assigned at Not on file Legal Sex Male 8:56 PM EST Gender Identity Not on file Sexual Orientation Not on file Plan of Treatment Health Maintenance Due Date Last Done Comments Zoster Vaccines (2 of 2) 03/10/2023 01/13/2023 Abdominal Aortic Aneurysm (AAA) Screen 04/04/2023 Cholesterol Screening (Lipid Panel) 04/04/2023 Colorectal Cancer Screening: Colonoscopy 04/04/2023 Falls Risk Assessment 04/04/2023 Hepatitis C Screening 04/04/2023 Medicare Annual Wellness Visit 04/04/2023 Social Influencers of Health Screening 04/04/2023 Depression Screening 03/10/2024 COVID-19 Vaccine ( season) 2024 02/05/2021, 07/16/2020, 06/25/2020 Influenza Vaccine (#1) 2024 , 01/09/2023, 02/27/2022, Additional history exists DTaP,Tdap,and Td Vaccines (3 - Td or Tdap) 10/20/2030 10/20/2020, 01/29/2016 Pneumococcal Vaccine: 50+ Years Completed 04/01/2022, 04/06/2019 RSV Immunization Adult Patients Completed 01/13/2023 HIB Vaccines Aged Out No longer eligi ble based on patient's age to complete this topic HPV Vaccines Aged Out No longer eligi ble based on patient's age to complete this topic Hepatitis A Vaccines Aged Out No long er eligible based on patient's age to complete this topic Hepatitis B Vaccines Aged Out No long er eligible based on patient's age to complete this topic IPV Vaccines Aged Out No longer eligi ble based on patient's age to complete this topic MMR Vaccines Aged Out No longer eligi ble based on patient's age to complete this topic Meningococcal ACWY Vaccine Aged Out N o longer eligible based on patient's age to complete this topic Meningococcal B Vaccine Aged Out No l onger eligible based on patient's age to complete this topic RSV Immunization Patients Under 20 months Aged Out No longer eligible based on patient's age to complete this topic Varicella Vaccines Aged Out No longer eligible based on patient's age to complete this topic Procedures Procedure Name Priority Date/Time Associated Diagnosis Comments PET CT SKULL TO MID THIGH SUBSEQUENT Routine 09/28/2024 12:15 PM EDT Malignant neoplasm of esophagus, unspecified ([facility] V24, [facility] V28) from Last 3 Months Results * PET CT Skull to Mid Thigh Subsequent (09/28/2024 12:15 PM EDT) Anatomical Region Laterality Modality Body Radiographic Kristina ging 09/30/2024 2:13 PM EDT Impressions 09/30/2024 2:24 PM EDT Mild nonspecific activity along the distal esophagus/GE junction. No PET/CT evidence of active metastatic disease. -------- FINAL REPORT -------- Dictated By: Jasmin Rene Dictated Date: 09/30/2024 14:13 ET Assigned Physician: Jasmin Rene Reviewed and Electronically Signed By: Jasmin Rene Signed Date: 09/30/2024 14:24 ET Workstation ID: [id number] Transcribed By: Self Edit Transcribed Date: 09/30/2024 14:13 ET Narrative 09/30/2024 2:24 PM EDT INDICATION: Esophageal carcinoma, subsequent treatment strategy Prior relevant studies: Outside CT scan of the abdomen from September 14, 2024 as well as May 06, 2024. Outside CT scan of the chest from May 06, 2024. Outside PET/CT from September 17, 2022 reviewed. No fused images to be reviewed or created. Radiopharmaceutical: 12.6 mCi of F-18 FDG IV. Blood glucose: 118 mg/dl. PROCEDURE: Routine body FDG PET-CT imaging was performed from the skull base to the mid thighs and reconstructed in axial, coronal, and sagittal planes at the computer workstation with fused data from both the PET imaging study and attenuation correction CT. The CT portion of the examination was done strictly for attenuation correction and is not a true diagnostic CT examination. CTDI: 7.16 mGy FINDINGS: HEAD AND NECK: No abnormal FDG activity. THORAX: 2 small foci of mild activity along the distal esophagus/GE junction with SUV max of 3 are nonspecific. Persistent distal esophageal wall thickening. ABDOMEN/PELVIS: No abnormal hepatic activity. No FDG avid nodes. MUSCULOSKELETAL: No abnormal FDG activity. Procedure Note Jasmin Rene MD - 09/30/2024 INDICATION: Esophageal carcinoma, subsequent treatment strategy Prior relevant studies: Outside CT scan of the abdomen from September 14s well as May 06, 2024. Outside CT scan of the chest from 2024. Outside PET/CT from September 17, 2022 reviewed. No fused images edmundo reviewed or created. Radiopharmaceutical: 12.6 mCi of F-18 FDG IV. Blood glucose: 118 mg/dl. PROCEDURE: Routine body FDG PET-CT imaging was performed from the skullbase to the mid thighs and reconstructed in axial, coronal, and sagittalplanes at the computer workstation with fused data from both the PETimaging study and attenuation correction CT. The CT portion of theexamination was done strictly for attenuation correction and is not a truediagnostic CT examination. CTDI: 7.16 mGy FINDINGS: HEAD AND NECK: No abnormal FDG activity. THORAX: 2 small foci of mild activity along the distal esophagus/GEjunction with SUV max of 3 are nonspecific. Persistent distal esophagealwall thickening. ABDOMEN/PELVIS: No abnormal hepatic activity. No FDG avid nodes. MUSCULOSKELETAL: No abnormal FDG activity. IMPRESSION: Mild nonspecific activity along the distal esophagus/GE junction. No PET/CT evidence of active metastatic disease. -------- FINAL REPORT -------- Dictated By: Jasmin Rene Dictated Date: 09/30/2024 14:13 ET Assigned Physician: Jasmin Rene Reviewed and Electronically Signed By: Jasmin Rene Signed Date: 09/30/2024 14:24 ET Workstation ID: [id number] Transcribed By: Self Edit Transcribed Date: 09/30/2024 14:13 ET us Mariah Torres MD IMG NM PROCEDURES Final Result from Last 3 Months Insurance MEDICARE [employer]
[2024-11-18] MEDS: iohexoL 350 MG/ML 100 ML INFUS..BTL IV (09:52)
[2024-11-18 16:19] LABS: Creatinine POC 0.7 mg/dL (0.5-1.4); GFR POC > 60
== END 2024-11-18 07:30 | disposition home or self-care (01) ==
LOC: HO.CT 07:29
PROVIDERS: PCP Internal Medicine; Visit Provider Internal Medicine Medical Oncology
DX: C15.4 Malignant neoplasm of middle third of esophagus (principal)
CPT/HCPCS: 74177; 82565; Q9967

== ENCOUNTER → 2024-11-18 07:31 | Outpatient (BNV) | payer MEDICARE, SELFPAY | PROVIDERS: PCP Internal Medicine; Visit Provider Radiology Body Imaging | DX: R10.84 Generalized abdominal pain (principal) | CPT/HCPCS: 74177 ==

== ENCOUNTER 2024-12-03 08:14 | Outpatient (AMB) | payer MEDICARE, SELFPAY ==
--- NOTE | 2024-12-03 08:22 | A.OFFVIS_ITS ---
Vital Signs 12/03/24 08:24 Height 5 ft 7 in Weight 198 lb 6.656 oz BMI 31.1 BP 112/68 Blood Pressure Location Rt brachial Position Sitting Pulse 87 Pulse Source Pulse Oximeter Pulse Oximetry (%) 96 Oxygen Delivery Method Room Air Intake Visit Reasons: T2DM Intake Note: Patient present today to follow up on Type 2 Diabetes Mellitus. Last seen by Kena Vergara on 09/01/24. Last Diabetic Eye exam: About 3 months ago, [employer] Last Podiatry Visit: Patient does not see a Corporate Compliance Manager Random Glucose: 187 mg/dL Hgb A1C: DUE, 12/03/2024 Cobol Engineer Required: No Accompanied by: Self / Same As Patient Allergies metformin Adverse Reaction (Intermediate, Verified 12/03/24 08:23) Diarrhea Clindamycin HCl Allergy (Intermediate, Uncoded 12/03/24 08:23) rash statin Adverse Reaction (Mild, Uncoded 12/03/24 08:23) word retrieval problems Medication List - Last Reconciled 12/03/24 by CEE Patel apixaban (Eliquis) 5 mg PO BID blood sugar diagnostic (FreeStyle Lite Strips) 4x daily to check blood glucose blood-glucose meter (FreeStyle Lite Meter kit) As directed blood-glucose sensor (FreeStyle Elodia 3 Plus Sensor device) Apply 1 new sensor every 15 days as directed to monitor blood glucose continuously. blood-glucose,fermenting cellars receiver,cont (FreeStyle Elodia 3 Mcgrady) Use daily to monitor blood glucose levels continuously. docusate sodium (Colace) 100 mg PO BID duloxetine 30 mg PO DAILY 90 days ezetimibe (Zetia) 10 mg PO DAILY 30 days fluticasone propionate 50 mcg/actuation 2 sprays intranasal BEDTIME glucose (Dex4 Glucose) 4 grams PO Q15M PRN insulin aspart (niacinamide) 100 unit/mL (3 mL) (Fiasp FlexTouch U-100 Insulin) 30 units before the meals subcutaneously 3 times a day; insulin degludec (Tresiba FlexTouch U-200 insulin) 52 units (0.26 mL) subcut BEDTIME 90 days lancets (FreeStyle Lancets) Use to monitor blood glucose 4 times daily Levoxyl (levothyroxine) 175 mcg PO DAILY 30 days NS lidocaine HCl 2% (Lidocaine Viscous) 1 appl mucous membrane QID lisinopril 20 mg PO DAILY 90 days lorazepam 1 mg PO BID PRN Magic Mouthwash Diphen/Lido/Antacid 1:1:1 10 mL PO QID morphine ER (MS Contin) 30 mg PO Q12H 30 days naloxone 4 mg/actuation (Narcan) 4 mg intranasal Q3M PRN omeprazole 20 mg PO BID PRN 90 days ondansetron 8 mg PO TID oxycodone 10 mg PO Q6H PRN pantoprazole 40 mg PO BID pen needle, diabetic 4x daily potassium chloride ER 1 tab PO BID prochlorperazine maleate (Compazine) 10 mg PO Q8H PRN sucralfate (Carafate) 1 g PO QID trazodone 150 mg PO BEDTIME triamcinolone acetonide 0.025% 1 appl topical DAILY HPI Comments Details: This is a 74-year-old male with a past medical history of esophageal carcinoma, hypertension, hyperlipidemia and type 2 diabetes presenting for diabetic management. He was last seen by my colleague on 09/01/2024. Hemoglobin A1c today 6.7%. 90 day GMI is 8.0%, and patient says he has been concerned because Dexcom is frequently alerting to hyperglycemia, and a couple of times it alerted him to urgent lows, but he had no symptoms. Reviewed Dexcom clarity download GMI 8.6% 34% very high 31% high 35% in range 0% hypoglycemia He has a pattern of postprandial hyperglycemia during the day and he also has euglycemia nocturnally. He is currently undergoing chemotherapy for esophageal cancer. His appetite varies. Current medications: Tresiba 52-55 units nightly and Fiasp 30 units 3 times daily. Past medication: Jardiance was too expensive. Metformin discontinued due to GI upset. Complications: Neuropathy in his hands and feet but this reportedly started after chemotherapy. Hypoglycemia symptoms: none Hypertension is treated with lisinopril. Hyperlipidemia is treated with Zetia. ROS: Constitutional: No unexplained weight loss, fever, chills. Gastrointestinal: No anorexia, nausea, vomiting or diarrhea. No abdominal pain Neurologic: No headache, dizziness, syncope. Endorses paresthesias in his hands and feet. Endocrine: No cold or heat intolerance. No polyuria or polydipsia. Physical exam: Constitutional: Alert, in no distress. Neck: Supple, Full range of motion. No lymphadenopathy. No palpable thyroid masses. Respiratory: Clear to auscultation. Cardiovascular: S1 S2 regular. No murmurs. Extremities: Warm and well perfused. No clubbing, cyanosis or edema Psychiatric: Normal mood and affect [facility] Medical History Hypothyroidism Controlled type 2 diabetes mellitus Port-A-Cath in place Hx of radiation therapy History of chemotherapy Controlled type 2 diabetes mellitus with insulin therapy Carcinoma of esophagus Thyroid nodule Dysphagia, pharyngoesophageal phase Esophageal dysphagia Goiter Vitamin D deficiency Osteomyelitis of cervical spine Obstructive sleep apnea Colon cancer Narcolepsy GERD (gastroesophageal reflux disease) Obesity Insomnia Hypertension Type 2 diabetes mellitus with hyperglycemia Postlaminectomy syndrome of cervical region Hypercholesterolemia Surgical History Hx of endoscopy History of esophagogastroduodenoscopy (EGD) (07/03/23) History of colonoscopy History of spinal surgery Family History Father Colon cancer Diabetes Hypertension Mother Paget's disease Diabetes Social History Household Members: Spouse and Family Housing: House Are you a primary home care coordinator to a significant other at home: No Do you presently have visiting nurse or other home services: No Alcohol intake: current Alcohol intake frequency: holidays/special occasions only Patient Tobacco Use Status: Former Tobacco user Tobacco use type: Cigarette Cigarette Packs Per Day: 3 Years Smoked: 20 e-Cigarette/Vaping Use: Never Used Second Hand Smoke Exposure: No service: No Current occupational status: disabled Cognitive needs: No Hearing needs: No Vision needs: Yes Physical Exam Vital Signs: Last Vital Signs Pulse 87 12/03/24 08:24 BP 112/68 12/03/24 08:24 Pulse Ox 96 12/03/24 08:24 Oxygen Delivery Method Room Air 12/03/24 08:24 BMI result Body Mass Index 31.1 Office Procedures Glucose Monitoring Details Details: see [facility] [id number] - Glucose monitoring, continuous-physician I&R Procedure code (CPT) selection complete Results AMB Hemoglobin A1c AMB Hemoglobin A1c 6.7 % Last Edit by MIRIAM Glynn on 12/03/24 08:39 Results Reviewed Results Reviewed: Laboratory Tests 08/26/22 01/09/24 01/09/24 07:30 08:59 09:06 Creatinine Estim Creat Clear Calc Estimated GFR AST ALT Triglycerides 144 Cholesterol 204 H LDL Cholesterol Direct 191 H HDL Cholesterol 52 Vitamin B12 TSH Urine Creatinine 100.55 Urine Microalbumin 15.0 Microalb/Creat Ratio 14.9 11/26/24 12/01/24 09:16 12:20 Creatinine 0.89 Estim Creat Clear Calc 78.3 Estimated GFR > 60 AST 35 ALT 23 Triglycerides Cholesterol LDL Cholesterol Direct HDL Cholesterol Vitamin B12 798 TSH 7.71 H Urine Creatinine Urine Microalbumin Microalb/Creat Ratio Assessment & Plan Assessment & Plan (1) Controlled type 2 diabetes mellitus: Code(s): E11.9 - Type 2 diabetes mellitus without complications Category: Medical Plan In summary this is a 73-year-old male with a past medical history of esophageal cancer and controlled type 2 diabetes. The Dexcom 90 day GMI of 8% is not within an acceptable range of accuracy to his A1c which is 6.7%. It is medically necessary to switch him to the Elodia 3+. I advised the patient to use a fingerstick glucometer as a backup if Dexcom alerts him to hyper and hypoglycemia for now. Continue Tresiba 52-55 units nightly and Fiasp 30 units 3 times daily before meals. Reviewed treatment of hypoglycemia. Patient has glucose tablets. Discussed pathophysiology of Type II Diabetes Mellitus with the patient in detail.? I explained the superintendent terminal risks and complications associated with uncontrolled diabetes including nephropathy, neuropathy, peripheral vascular disease, retinopathy, increased risk of heart disease and stroke.? Eye exam up-to-date. Follow up in 3 months for type 2 diabetes.. Orders: Orders AMB Hemoglobin A1c Today CEE Patel E11.9 - Type 2 diabetes mellitus without complications, Z79.4 - correction (current) use of insulin AMB Glucose Monitoring Today CEE Patel E11.9 - Type 2 diabetes mellitus without complications Medications: New blood-glucose sensor (FreeStyle Elodia 3 Plus Sensor device) Apply 1 new sensor every 15 days as directed to monitor blood glucose continuously. 6 ea 3RF CEE Patel blood-glucose,fermenting cellars receiver,cont (FreeStyle Elodia 3 Mcgrady) Use daily to monitor blood glucose levels continuously. 1 ea 0RF CEE Patel lancets (FreeStyle Lancets) Use to monitor blood glucose 4 times daily 200 ea 11RF CEE Patel Changed From blood sugar diagnostic (FreeStyle Lite Strips) 3x daily 100 ea 11RF To blood sugar diagnostic (FreeStyle Lite Strips) 4x daily to check blood gluc ose 200 ea 11RF CEE Patel From pen needle, diabetic (BD Ultra-Fine Micro Pen Needle) 4x daily 100 ea 11RF To pen needle, diabetic 4x daily 100 ea 11RF CEE Ptael From Fiasp FlexTouch U-100 Insulin 100 unit/mL (3 mL) (insulin aspart (niacinamide)) 16 to 20 units before the meals subcutaneously 3 times a day; 30 days 18 mL 5RF MDD 60 NS To insulin aspart (niacinamide) 100 unit/mL (3 mL) (Fiasp FlexTouch U-100 Insulin) 30 units before the meals subcutaneously 3 times a day; Kena Vergara NP Refilled blood-glucose meter (FreeStyle Lite Meter kit) As directed 1 ea 0RF CEE Patel Coding Level of Care Code Est Pt Level 4 (90315) Diagnoses Controlled type 2 diabetes mellitus E11.9 CPT Codes Details - CPT: 11234 - Glucose monitoring, continuous-physician I&R ([id number])
[2024-12-03 08:24] VITALS: BP 112/68; PULSE 87; O2SAT 96; BMI 31.1
--- OUTSIDE RECORDS SUMMARY | 2024-12-03 08:25 | XMS_ITS | Encounter Summary ---
Author Organization [facility] Address [address] [place] [id number] Phone Care Team Providers Care Bus Aide Name Role Phone Soto Santos MD Primary Care Provider [phone] Self-Referred, Patient Unavailable Unavailab le Encounter Details Date Type Department Care Team (Late st Contact Info) Description 10/16/2022 Transcribe Orders [facility] [address] [address] Unknown, Unknown, Social History Tobacco Use Types [...] on filedocumented in this encounter Care Teams Bus Aide Relationship Specialty Start Date End Date Soto Santos MD [address] [place] [address] Drive [address] [place] [phone] PCP - General Internal Medicine 09/06/22 Self-Referred, Patient 09/06/22 documented as of this encounter Additional Source Comments The information contained in this document represents components of the legal health record. It is not the complete legal health record.[facility]
--- OUTSIDE RECORDS SUMMARY | 2024-12-03 08:26 | XMS_ITS | Patient Health Record ---
Author Organization [facility] Address [address] [place] [address] Care Team Providers Care Cement Truck Driver Name Role Phone Viral Burrows Unavailable [phone] Reason For Referral No Information Plan Of Treatment No Information
--- OUTSIDE RECORDS SUMMARY | 2024-12-03 08:26 | XMS_ITS | Clinical Summary ---
Author Organization [facility] Address [address] [place] [address] Phone Care Team Providers Care Bathhouse Keeper Name Role Phone Unavailable Primary Care Provider Unavailabl e Encounters Date Type Department Care Team Description 09/28/2024 9:47 AM EDT - 09/28/2024 11:59 PM EDT Hospital Encounter [facility] PET Scan [address] [place] [address] Malignant neoplasm of esophagus, unspecified [...] PM EDT Malignant neoplasm of esophagus, unspecified ([facility] V24, [facility] V28) from Last 3 Months Results * [...] Signed Date: 09/30/2024 14:24 ET Workstation ID: [id number] Transcribed By: Self Edit Transcribed Date: 09/30/2024 [...] MUSCULOSKELETAL: No abnormal FDG activity. Procedure Note aJsmin Rene MD - 09/30/2024 INDICATION: Esophageal carcinoma, [...] Signed Date: 09/30/2024 14:24 ET Workstation ID: [id number] Transcribed By: Self Edit Transcribed Date: 09/30/2024 14:13 ET us Mariah Torres MD IMG NM PROCEDURES Final Result from Last 3 Months Insurance MEDICARE [facility]
[2024-12-03 08:34] LABS: Glucose, Whole Blood 187 mg/dL (60-115)
== END 2024-12-03 09:00 | disposition home or self-care (01) ==
LOC: HO.ENCR 08:15
PROVIDERS: PCP Internal Medicine; Visit Provider Physician Assistant Medical
DX: E11.9 Type 2 diabetes mellitus without complications (principal); Z79.4 Long term (current) use of insulin

== ENCOUNTER → 2024-12-03 08:14 | Outpatient (BNVA) | payer MEDICARE, SELFPAY | PROVIDERS: PCP Internal Medicine; Visit Provider Physician Assistant Medical | DX: E11.9 Type 2 diabetes mellitus without complications (principal) | CPT/HCPCS: 82947; 83036; 99212 ==

== ENCOUNTER 2024-12-29 13:12 | Outpatient (REF) | payer MEDICARE, SELFPAY ==
--- NOTE | ~2024-12-29 | US_ITS ---
EXAMINATION: US THYROID HISTORY: E04.1 - Nontoxic single thyroid nodule TECHNIQUE: Real-time grayscale ultrasound imaging was performed and images were reviewed. COMPARISON: Comparison is made with the prior examination dated 06/20/2022. FINDINGS: SIZE: The right thyroid lobe measures 2.9 x 0.7 x 1.0 cm. The left thyroid lobe measures 2.8 x 0.8 x 0.9 cm. The isthmus is not visualized. FLOW: Flow to the gland is normal. ECHOGENICITY: The echotexture of the gland is heterogeneous. NODULES: No discrete nodules are identified. US/US thyroid IMPRESSION: Heterogeneous atrophic thyroid gland, possibly due to prior radiation therapy. No discrete nodules are identified. ACR TI-RADS Guidelines TR1 (0 points): Benign. No follow-up or biopsy required TR2 (2 points): Not Suspicious. No biopsy or follow up indicated TR3 (3 points): Mildly Suspicious. FNA if >= 2.5 cm, Follow if >= 1.5 cm TR4 (4-6 points): Moderately Suspicious. FNA if >= 1.5 cm, Follow if >= 1.0 cm TR5 (>=7 points): Highly Suspicious. FNA if >= 1.0 cm, Follow if >= 0.5 cm Electronically signed by: Viral Mcpherson MD 12/29/2024 02:12 PM EDT
--- OUTSIDE RECORDS SUMMARY | 2024-12-29 18:33 | XMS_ITS | Encounter Summary ---
Author Organization [facility] Address [address] [place] [phone] Phone Care Team Providers Care Material Attendant Name Role Phone Soto Santos MD Primary Care Provider [phone] Self-Referred, Patient Unavailable Unavailab le Encounter Details Date Type Department Care Team (Late st Contact Info) Description 10/16/2022 Transcribe Orders [facility] [address] [address] Unknown, Unknown, Social History Tobacco Use Types [...] on filedocumented in this encounter Care Teams Material Attendant Relationship Specialty Start Date End Date Soto Santos MD [address] [place] [address] Drive [address] [place] [phone] PCP - General Internal Medicine 09/06/22 Self-Referred, Patient 09/06/22 documented as of this encounter Additional Source Comments The information contained in this document represents components of the legal health record. It is not the complete legal health record.[facility]
--- OUTSIDE RECORDS SUMMARY | 2024-12-29 18:33 | XMS_ITS | Clinical Summary ---
Author Organization [facility] Address [address] [place] [address] Phone Care Team Providers Care Dial Refinisher Name Role Phone Unavailable Primary Care Provider Unavailabl e Encounters Date Type Department Care Team Description 09/28/2024 9:47 AM EDT - 09/28/2024 11:59 PM EDT Hospital Encounter [facility] PET Scan [address] [place] [address] Malignant neoplasm of esophagus, unspecified [...] Health Maintenance Due Date Last Done Comments Colorectal Cancer Screening: Colonoscopy 1950 Zoster Vaccines (2 of 2) 03/10/2023 01/13/2023 Abdominal Aortic Aneurysm (AAA) Screen 04/04/2023 Cholesterol Screening (Lipid Panel) 04/04/2023 Falls Risk Assessment 04/04/2023 Hepatitis C [...] EDT Malignant neoplasm of esophagus, unspecified ([facility] V24, [facility] V28) from Last 3 Months [...] Signed Date: 09/30/2024 14:24 ET Workstation ID: [id number] Transcribed By: Self Edit Transcribed Date: 09/30/2024 [...] Signed Date: 09/30/2024 14:24 ET Workstation ID: [id number] Transcribed By: Self Edit Transcribed Date: 09/30/2024 14:13 ET us Mariah Torres MD IMG NM PROCEDURES Final Result from Last 3 Months Insurance MEDICARE [facility]
--- OUTSIDE RECORDS SUMMARY | 2024-12-29 18:33 | XMS_ITS | Clinical Summary ---
Author Organization [facility] Address [address] [place] [id number] Phone Care Team Providers Care Nurse Receptionist Name Role Phone Soto Santos MD Primary Care Provider [phone] Self-Referred, Patient Unavailable Unavailab le Allergies Active Allergy Reactions Criticality Noted Date Comments Metformin Hcl Diarrhea 09/19/2022 Medications blood-glucose meter,continuou s (DEXCOM G7 UR COORDINATOR MISC) Activ e dicyclomine (BENTYL) 20 mg [...] COLONOSCOPY 1997 RSV VACCINE (1 - Risk 50-74 years 1-dose series) 2002 ABDOMINAL AORTIC ANEURYSM (AAA) SCREENING 2017 INFLUENZA [...] topic Medical Devices Not on file Insurance Arthena MEDEX SUPPLEMENT MEDICARE PART A & B Ar[employer] MEDEX SUPPLEMENT MEDICARE PART A & B [employer] CROSS MEDEX SUPPLEMENT MEDICARE PART A & B [employer] CROSS MEDEX SUPPLEMENT MEDICARE PART A & B [employer] MEDEX SUPPLEMENT MEDICARE PART A & B [employer] SUPPLEMENT MEDICARE PART A & B Care Teams Nurse Receptionist Relationship Specialty Start Date End Date Soto Santos MD [address] [place] [id number] PCP - General Internal Medicine 09/06/22 Self-Referred, Patient 09/06/22 Additional Source Comments The information contained in this document represents components of the legal health record. It is not the complete legal health record.[facility]
--- OUTSIDE RECORDS SUMMARY | 2024-12-29 18:33 | XMS_ITS | Patient Health Record ---
Author Organization [facility] Address [address] [place] [address] Care Team Providers Care Real Estate Specialist Name Role Phone Viral Burrows Unavailable [phone] Reason For Referral No Information Plan Of Treatment No Information
== END 2024-12-29 13:13 | disposition home or self-care (01) ==
LOC: HO.US 13:12
PROVIDERS: PCP Internal Medicine; Visit Provider Physician Assistant Medical
DX: E11.65 Type 2 diabetes mellitus with hyperglycemia (principal); E11.51 Type 2 diabetes mellitus with diabetic peripheral angiopathy without gangrene; E04.1 Nontoxic single thyroid nodule; Z79.4 Long term (current) use of insulin
CPT/HCPCS: 76536; 93923

== ENCOUNTER → 2024-12-29 13:33 | Outpatient (BNV) | payer MEDICARE, SELFPAY | PROVIDERS: PCP Internal Medicine; Visit Provider Radiology Diagnostic Radiology | DX: E03.4 Atrophy of thyroid (acquired) (principal) | CPT/HCPCS: 76536 ==